=== PATIENT | female | born 1955 | race Caucasian/White ===

== ENCOUNTER 2020-01-08 21:19 | Inpatient (IN) | payer MEDICARE, MEDICAID, SELFPAY ==
--- NOTE | 2020-01-08 21:23 | CT_ITS ---
EXAMINATION: CT HEAD WITHOUT CONTRAST (STROKE PROTOCOL) CLINICAL INFORMATION: Stroke protocol. Left-sided weakness COMPARISON: 08/07/2019 TECHNIQUE: Contiguous axial imaging was performed from the skull base to vertex without intravenous administration of contrast. This CT examination was performed using dose optimization techniques as appropriate, variously including the following: *Automated exposure control *Adjustment of mA and/or kV according to patient size (this includes techniques or standardized protocols for targeted exams where dose is matched to indication/reason for exam; i.e. extremities or head) *Use of iterative reconstruction technique DLP: 604 mGy-cm FINDINGS: There is no intracranial hemorrhage, hematoma, or extra-axial fluid collection. The ventricles are normal in size. There is no hydrocephalus, edema, or mass effect. The harris-white matter differentiation appears symmetric. There is no acute infarct or mass lesion. Mild generalized atrophy, unchanged. The calvarium appears intact. There is no pneumocephalus or orbital emphysema. The visualized sinuses and middle ears and mastoid air cells show no significant mucosal thickening. There are no air-fluid levels. CT/CT head for stroke IMPRESSION: No acute intracranial pathology. This critical result was discussed with Dr. Schroeder at 9:38 PM hours on 01/08/2020. It was ascertained that the content and urgency of the report was understood at the time of direct communication.
--- NOTE | 2020-01-08 21:24 | ECG_ITS ---
Test Reason : STROKE Blood Pressure : / mmHG Vent. Rate : 090 BPM Atrial Rate : 090 BPM P-R Int : 164 ms QRS Dur : 098 ms QT Int : 386 ms P-R-T Axes : 047 008 059 degrees QTc Int : 472 ms Normal sinus rhythm Nonspecific ST abnormality RSR' or QR pattern in V1 suggests right ventricular conduction delay Abnormal ECG When compared with ECG of 09-AUG-2019 08:36, No significant change was found Referred By: Marti Schroeder Electronically Signed By:QUANG CATES MD
--- NOTE | 2020-01-08 21:24 | XR_ITS ---
EXAMINATION: XR CHEST CLINICAL INFORMATION: Cough COMPARISON: 12/19/2018 TECHNIQUE: Frontal view of the chest was obtained. FINDINGS: Cardiac leads overlie the chest. Small radiopaque densities overlie the proximal left upper extremity. The lungs are well expanded. There is no focal consolidation, edema, or effusion. No pneumothorax. The cardiomediastinal silhouette is within normal limits. No acute osseous abnormality. XR/XR chest 1V IMPRESSION: Clear lungs.
--- NOTE | 2020-01-08 21:29 | ED.NEUROSD ---
HPI - Neuro Symptoms/Deficit General Chief Complaint: Stroke Stated Complaint: stroke alert Time Seen by Provider: 01/08/20 21:23 Source: patient and EMS Mode of arrival: EMS History of Present Illness HPI Narrative: This is a 64-year-old female whom EMS reports began having left-sided weakness and drooling at approximately 7:00 p.m. this evening and is currently on Eliquis for PE. Patient states that she did have a brief cessation of the Eliquis for an endometrial biopsy on 12/20 but then states that the medication was restarted within 24 hours and says that her medication administration is supervised and directed by the nursing staff and she denies any missed doses. She still is unclear about the left-sided weakness and states that the nursing staff was concerned because they had some difficulty waking me up . On further questioning patient endorses that she has received all of her 8:00 p.m. medications without any difficulties such as coughing or choking. She states that 1 of her medications does make her drool quite a bit and denies any difficulty with swallowing or breathing. On arrival, NIH stroke scale was 0 patient was not noted to have any motor or sensory deficits and no noted facial asymmetry. Related Data Home Medications Medication Instructions Recorded Confirmed apixaban [Eliquis] 5 mg PO BID 01/08/20 01/08/20 baclofen 30 mg PO TID 01/08/20 01/08/20 cholecalciferol (vitamin D3) 25 mcg PO DAILY 01/08/20 01/08/20 [Vitamin D3] clonazepam 0.5 mg PO BID 01/08/20 01/08/20 clozapine 500 mg PO DAILY 01/08/20 01/08/20 ferrous sulfate 325 mg PO DAILY 01/08/20 01/08/20 folic acid 1 mg PO DAILY 01/08/20 01/08/20 hydrocodone-acetaminophen 1 tab PO TID 01/08/20 01/08/20 lamotrigine [Lamictal] 100 mg PO BID 01/08/20 01/08/20 levothyroxine [Levothroid] 75 mcg PO DAILY 01/08/20 01/08/20 pravastatin 20 mg PO BEDTIME 01/08/20 01/08/20 sennosides-docusate sodium [Senna 1 tab PO TID PRN 01/08/20 01/08/20 with Docusate Sodium] sertraline 100 mg PO DAILY 01/08/20 01/08/20 Allergies Allergy/AdvReac Type Severity Reaction Status Date / Time bee pollen [Bee Stings] Allergy Severe ANAPHYLAXIS Verified 01/08/20 21:33 Review of Systems Review of Systems: Pertinent positives and negatives as stated in HPI 10 point review of systems is otherwise negative. PMFSH Past Medical History Source: nursing notes reviewed Medical History Anxiety Bipolar 1 disorder GERD (gastroesophageal reflux disease) Lumbar radiculopathy Psychosis Pulmonary embolism Social History Social History Advance Directives: No Physical Exam Vital Signs: Vital Signs: Last Vital Signs Temp 97.7 F 01/08/20 22:47 Pulse 91 01/09/20 00:20 Resp 14 01/09/20 00:20 BP 134/86 01/09/20 00:20 Pulse Ox 100 01/09/20 00:20 Body Mass Index 21.7 VITAL SIGNS: Reviewed. GENERAL: Well developed, well nourished, in no acute distress. HEAD: Normocephalic/atraumatic, EYES: PERRLA, EOMI intact without pain, no nystagmus/pallor/icterus noted EARS: Ext canals without abnormality, TMs non-bulging and non-erythematous NOSE: Nares patent bilateral OROPHARYNX: no oral lesions noted, posterior pharynx clear and non-erythematous without noted tonsillar enlargement/erythema/exudates NECK: Supple, no adenopathy LUNGS: Normal breath sounds. No adventitious sounds or accessory muscle use. SpO2<100> CARDIOVASCULAR: Regular rate and rhythm without noted murmurs, no JVD or lower extremity edema. ABDOMEN: Soft, non-tender, non-distended with bowel sounds. No rigidity. No guarding. No palpable masses or hernias noted MUSCULOSKELETAL: No tenderness, deformities, or effusions noted on gross inspection. EXTREMITIES: No cyanosis, clubbing or edema. SKIN: Inspection of the skin reveals no rashes, ulcerations, jaundice, pallor, or petechiae. NEUROLOGIC: Alert and oriented x 4. Strength and sensation to light touch were grossly intact x 4 , cranial nerves 2-12 are grossly intact, there is no noted facial asymmetry, there is no pronator drift. Course Course Course Narrative: This is a 64-year-old female with significant past psychiatric history on multiple medications for this history who initially arrived as a code stroke however NIH score was noted to be 0 upon arrival but given the severity of reported symptoms by EMS with left-sided weakness proceeded with noncontrast head CT which on review was negative for any acute findings. This case was discussed with Neurology and we proceed with a CTA of head and neck which was found to be without acute abnormalities. On review of all laboratory investigations there is no evidence for infection and the anemia is chronically stable. Otherwise, chemistries are without acute findings except for evidence of possible mild volume depletion with a BUN of 20. Chest x-ray is without acute findings and EKG was negative for evidence contributory arrhythmias. This case was discussed with the inpatient hospitalist team who is agreeable for admission. Reevaluation(s) Reevaluation #1: I discussed the case with Dr. Acevedo who on further recommendation does not feel the patient is a candidate for tPA at this time but will proceed with head/neck CTA. Time: 21:38 Reevaluation #2: [facility] reporting on noncontrast head CT without acute intracranial abnormalities. Time: 21:40 Reevaluation #3: [facility] reporting on CTA of head and neck without any acute findings. Time: 22:36 MDM - Neuro Symptoms/Deficit Lab Data Result diagrams: 01/08/20 22:07 01/08/20 22:07 Labs: Lab Results 01/08/20 01/08/20 01/08/20 Range/Units 21:21 21:22 22:07 WBC 4.8 (4.8-10.8) X10*3/uL RBC 3.46 L (4.20-5.50) X10*6/uL Hgb 11.6 L (12.0-16.0) g/dl Hct 36.7 L (37-47) % MCV 106.1 H (80-98) fL MCH 33.5 H (27.0-33.0) pg MCHC 31.6 (31.0-35.0) g/dl RDW 12.0 (11.0-16.0) % Plt Count 161 (160-400) X10*3/uL MPV 9.4 (9.4-12.3) fL Immature Gran % (Auto) 0.2 (0.0-0.4) % Neut % (Auto) 55.7 (45-73) % Lymph % (Auto) 32.6 (20-40) % [place]zel % (Auto) 9.9 (2-11) % Eos % (Auto) 0.8 (0-4) % Baso % (Auto) 0.8 (0-2) % Lymph # (Auto) 1.6 (1.2-4.9) X10*3/uL [place] # (Auto) 0.5 (0.1-1.2) X10*3/uL Eos # (Auto) 0.0 (0.0-0.4) X10*3/uL Baso # (Auto) 0.0 (0.0-0.2) X10*3/uL Abs Immat Gran (auto) 0.01 (0.00-0.03) X10*3/uL Absolute Neuts (auto) 2.7 (2.0-8.3) X10*3/uL Absolute Nucleated RBC 0.000 (0.0-0.012) X10*3/uL Nucleated RBC % (auto) 0.0 (0.0-0.2) /100WBC PT (10.8-13.0) SEC Whole Blood PT 14.6 H (11.1-13.5) sec INR (0.9-1.1) Whole Blood INR 1.2 H (0.9-1.1) APTT (24.1-38.0) SEC Sodium (135-145) mmol/L Potassium (3.3-5.1) mmol/l Chloride (96-108) mmol/L Carbon Dioxide (22-29) mmol/L Anion Gap (12-20) BUN (9-16) mg/dL Creatinine (0.5-1.4) mg/dL Estim Creat Clear Calc Estimated GFR POC Glucose 87 (60-115) mg/dL Random Glucose (60-115) mg/dL Calcium (8.4-10.2) mg/dL Total Bilirubin (0.0-1.0) mg/dL AST (5-31) U/L ALT (0-31) U/L Alkaline Phosphatase (39-117) U/L Troponin I High Sens (<3.5-17.0) ng/L Total Protein (6.5-8.0) g/dL Albumin (3.5-5.0) g/dL Urine Color Urine Appearance Urine pH (5.0-8.0) Ur Specific [place] (1.005-1.025) Urine Protein (NEG-TRACE) MG/DL Urine Glucose (UA) (NEG) MG/DL Urine Ketones (NEG) MG/DL Urine Blood (NEG) Urine Nitrite (NEG) Ur Leukocyte Esterase (NEG) 01/08/20 01/08/20 01/08/20 Range/Units 22:07 22:07 22:07 WBC (4.8-10.8) X10*3/uL RBC (4.20-5.50) X10*6/uL Hgb (12.0-16.0) g/dl Hct (37-47) % MCV (80-98) fL MCH (27.0-33.0) pg MCHC (31.0-35.0) g/dl RDW (11.0-16.0) % Plt Count (160-400) X10*3/uL MPV (9.4-12.3) fL Immature Gran % (Auto) (0.0-0.4) % Neut % (Auto) (45-73) % Lymph % (Auto) (20-40) % Wetzel % (Auto) (2-11) % Eos % (Auto) (0-4) % Baso % (Auto) (0-2) % Lymph # (Auto) (1.2-4.9) X10*3/uL [place] # (Auto) (0.1-1.2) X10*3/uL Eos # (Auto) (0.0-0.4) X10*3/uL Baso # (Auto) (0.0-0.2) X10*3/uL Abs Immat Gran (auto) (0.00-0.03) X10*3/uL Absolute Neuts (auto) (2.0-8.3) X10*3/uL Absolute Nucleated RBC (0.0-0.012) X10*3/uL Nucleated RBC % (auto) (0.0-0.2) /100WBC PT 14.0 H (10.8-13.0) SEC Whole Blood PT (11.1-13.5) sec INR 1.2 H (0.9-1.1) Whole Blood INR (0.9-1.1) APTT 47.3 H (24.1-38.0) SEC Sodium 142 (135-145) mmol/L Potassium 3.8 (3.3-5.1) mmol/l Chloride 108 (96-108) mmol/L Carbon Dioxide 27 (22-29) mmol/L Anion Gap 11 L (12-20) BUN 20 H (9-16) mg/dL Creatinine 0.73 (0.5-1.4) mg/dL Estim Creat Clear Calc 62.6 Estimated GFR > 60 POC Glucose (60-115) mg/dL Random Glucose 85 86 (60-115) mg/dL Calcium 8.9 (8.4-10.2) mg/dL Total Bilirubin 0.2 (0.0-1.0) mg/dL AST 12 (5-31) U/L ALT 11 (0-31) U/L Alkaline Phosphatase 82 (39-117) U/L Troponin I High Sens (<3.5-17.0) ng/L Total Protein 5.8 L (6.5-8.0) g/dL Albumin 3.9 (3.5-5.0) g/dL Urine Color Urine Appearance Urine pH (5.0-8.0) Ur Specific [place] (1.005-1.025) Urine Protein (NEG-TRACE) MG/DL Urine Glucose (UA) (NEG) MG/DL Urine Ketones (NEG) MG/DL Urine Blood (NEG) Urine Nitrite (NEG) Ur Leukocyte Esterase (NEG) 01/08/20 01/08/20 01/09/20 Range/Units 22:07 23:56 00:19 WBC (4.8-10.8) X10*3/uL RBC (4.20-5.50) X10*6/uL Hgb (12.0-16.0) g/dl Hct (37-47) % MCV (80-98) fL MCH (27.0-33.0) pg MCHC (31.0-35.0) g/dl RDW (11.0-16.0) % Plt Count (160-400) X10*3/uL MPV (9.4-12.3) fL Immature Gran % (Auto) (0.0-0.4) % Neut % (Auto) (45-73) % Lymph % (Auto) (20-40) % [place]zel % (Auto) (2-11) % Eos % (Auto) (0-4) % Baso % (Auto) (0-2) % Lymph # (Auto) (1.2-4.9) X10*3/uL [place] # (Auto) (0.1-1.2) X10*3/uL Eos # (Auto) (0.0-0.4) X10*3/uL Baso # (Auto) (0.0-0.2) X10*3/uL Abs Immat Gran (auto) (0.00-0.03) X10*3/uL Absolute Neuts (auto) (2.0-8.3) X10*3/uL Absolute Nucleated RBC (0.0-0.012) X10*3/uL Nucleated RBC % (auto) (0.0-0.2) /100WBC PT (10.8-13.0) SEC Whole Blood PT (11.1-13.5) sec INR (0.9-1.1) Whole Blood INR (0.9-1.1) APTT (24.1-38.0) SEC Sodium (135-145) mmol/L Potassium (3.3-5.1) mmol/l Chloride (96-108) mmol/L Carbon Dioxide (22-29) mmol/L Anion Gap (12-20) BUN (9-16) mg/dL Creatinine (0.5-1.4) mg/dL Estim Creat Clear Calc Estimated GFR POC Glucose 91 (60-115) mg/dL Random Glucose (60-115) mg/dL Calcium (8.4-10.2) mg/dL Total Bilirubin (0.0-1.0) mg/dL AST (5-31) U/L ALT (0-31) U/L Alkaline Phosphatase (39-117) U/L Troponin I High Sens < 3.5 (<3.5-17.0) ng/L Total Protein (6.5-8.0) g/dL Albumin (3.5-5.0) g/dL Urine Color YELLOW Urine Appearance CLEAR Urine pH 6.5 (5.0-8.0) Ur Specific [place] 1.010 (1.005-1.025) Urine Protein NEG (NEG-TRACE) MG/DL Urine Glucose (UA) NEG (NEG) MG/DL Urine Ketones NEG (NEG) MG/DL Urine Blood NEG (NEG) Urine Nitrite NEG (NEG) Ur Leukocyte Esterase NEG (NEG) ECG Data Attestation: I personally reviewed and interpreted this ECG as follows: Prior ECG tracings: available for review ( 08/09/2019 there are no acute changes on comparison) Interpretation: normal sinus rhythm, HR -90, no acute evidence of ischemia, WA/QRS/ QTC are within normal limits. NIH Stroke Scale Internal: Initial- Upon Arrival Level of Consciousness: Alert Level of Consciousness Questions: Answers both questions correctly Level of Consciousness Commands: Performs both tasks correctly Best Gaze: Normal Visual: No visual loss Facial Palsy: Normal Motor Arm (Right): No drift Motor Arm (Left): No drift Motor Leg (Right): No drift Motor Leg (Left): No drift Limb Ataxia: Absent Sensory: Normal Best Language: No aphasia Dysarthia: Normal Extinction and Inattention: No abnormality Score: 0 Discharge Plan Discharge Clinical Impression: Transient cerebral ischemia Qualifiers: Transient cerebral ischemia type: unspecified Qualified Code(s): G45.9 - Transient cerebral ischemic attack, unspecified Patient Disposition: Admitted As Inpatient
[2020-01-08 21:33] LABS: Prothrombin Time Whole Bld POC 14.6 sec (11.1-13.5); ~PT, ~INR - Anti Coag Clinic 1.2 (0.9-1.1)
[2020-01-08 21:33] LABS: Glucose, Whole Blood 87 mg/dL (60-115)
[2020-01-08 21:36] VITALS: BP 130/74; BP 130/90; PULSE 91; PULSE 97; RESP 15; TEMP 36.5; O2SAT 100; BMI 21.7
--- NOTE | 2020-01-08 21:56 | CT_ITS ---
EXAMINATION: CTA OF THE HEAD/NECK CLINICAL INFORMATION: Transient left-sided weakness COMPARISON: 08/07/2019 TECHNIQUE: A routine non contrast head CT was performed followed by a 70 mL bolus of Omnipaque 350. Subsequent multidetector helical imaging was performed of the head and neck. Delayed post contrast imaging was also performed through the head. Multiplanar reformats and MIP were also obtained. Internal carotid artery stenoses are assessed in accordance with NASCET criteria unless otherwise indicated. DLP: 2075 mGy-cm. FINDINGS: CT HEAD: No evidence of acute intracranial hemorrhage or territorial infarction. No abnormal mass effect or midline shift. [place] to white matter differentiation is preserved. No extra-axial fluid collections are identified. No hydrocephalus. No suspicious leptomeningeal or parenchymal enhancement on the post-contrast images. The osseous structures and soft tissues are normal. Partial opacification of the left ethmoid air cells. The mastoid air cells and visualized portions of the paranasal sinuses are otherwise well aerated. CTA NECK: The aortic arch is of normal caliber and the origins of the great vessels are patent without evidence of significant stenosis. The cervical portion of the vertebral arteries are patent bilaterally. The right vertebral artery is dominant. No luminal irregularities in the common carotid arteries and the carotid bifurcations are patent bilaterally. The cervical portion of the internal carotid arteries are of normal caliber. The laryngeal structures and pharyngeal mucosal spaces are unremarkable. The oral cavity appears normal. The parotid and submandibular glands are normal. No pathologically enlarged lymph nodes. The thyroid gland is unremarkable. Paraseptal emphysema noted at the lung apices.. Spinal alignment is maintained. Mild cervical spondylosis is noted. CTA HEAD: The intradural portion of the vertebral arteries are of normal caliber. The basilar, superior cerebellar, and posterior communicating arteries are patent. The posterior, middle, and anterior cerebral arteries are of normal caliber without evidence of significant luminal irregularity. No definite intracranial aneurysms. CT/CT angio head neck stroke IMPRESSION: 1. No acute intracranial findings. 2. No large vessel vascular occlusion. This critical result was discussed with Marti Schroeder MD by telephone at 01/08/2020 10:35 PM and it was ascertained that the content and urgency of the report was understood at the time of direct communication.
[2020-01-08 22:16] LABS: MANUAL DIFF FLAG NO
[2020-01-08 22:19] LABS: Basophils Percent Auto 0.8 % (0-2); Eosinophils Percent Auto 0.8 % (0-4); Hematocrit 36.7 % (37-47); Hemoglobin 11.6 g/dl (12.0-16.0); Imm Gran Abs Auto 0.01 X10*3/uL (0.00-0.03); Imm Gran Pct Auto 0.2 % (0.0-0.4); Lymphocytes Absolute Auto 1.6 X10*3/uL (1.2-4.9); Lymphocytes Percent Auto 32.6 % (20-40); Mean Corpuscular HGB Conc 31.6 g/dl (31.0-35.0); Mean Corpuscular Hemoglobin 33.5 pg (27.0-33.0); Mean Corpuscular Volume 106.1 fL (80-98); Mean Platelet Volume 9.4 fL (9.4-12.3); Monocytes Absolute Auto 0.5 X10*3/uL (0.1-1.2); Monocytes Percent Auto 9.9 % (2-11); Neutrophils Absolute Auto 2.7 X10*3/uL (2.0-8.3); Neutrophils Percent Auto 55.7 % (45-73); Platelet Count 161 X10*3/uL (160-400); Red Blood Count 3.46 X10*6/uL (4.20-5.50); White Blood Count 4.8 X10*3/uL (4.8-10.8)
[2020-01-08 22:25] LABS: INTERNATIONAL NORM RATIO 1.2 (0.9-1.1)
[2020-01-08 22:27] LABS: Partial Thromboplastin Time 47.3 SEC (24.1-38.0)
[2020-01-08 22:36] LABS: Glucose Random 86 mg/dL (60-115)
[2020-01-08 22:44] LABS: Alanine Aminotransferase 11 U/L (0-31); Albumin Level 3.9 g/dL (3.5-5.0); Alkaline Phosphatase 82 U/L (39-117); Anion Gap 11 (12-20); Aspartate Amino Transferase 12 U/L (5-31); Bilirubin Total 0.2 mg/dL (0.0-1.0); Blood Urea Nitrogen 20 mg/dL (9-16); Calcium 8.9 mg/dL (8.4-10.2); Carbon Dioxide 27 mmol/L (22-29); Chloride 108 mmol/L (96-108); Creatinine Clr Calc Pharmacy 62.6; Estimated Glomerular Filt Rate > 60; Glucose Random 85 mg/dL (60-115); Potassium 3.8 mmol/l (3.3-5.1); Sodium 142 mmol/L (135-145); Total Protein 5.8 g/dL (6.5-8.0)
[2020-01-08 22:47] VITALS: BP 125/79; PULSE 83; RESP 13; TEMP 36.5; O2SAT 100
[2020-01-08 22:47] LABS: Troponin-I High Sensitivity < 3.5 ng/L (<3.5-17.0)
[2020-01-09] VITALS (11 sets, daily range): BP systolic 97–164; BP diastolic 58–98; PULSE 82–100; RESP 14–20; TEMP 36.6–37.1; O2SAT 96–100
[2020-01-09 00:03] LABS: Glucose, Whole Blood 91 mg/dL (60-115)
[2020-01-09 00:31] LABS: Glucose Urine UA NEG (NEG); Leukocyte Esterase Urine NEG (NEG); Nitrite Urine NEG (NEG); PH 6.5 (5.0-8.0); Urine Blood NEG (NEG); Urine Ketones NEG (NEG); Urine Protein NEG (NEG-TRACE)
[2020-01-09 00:32] LABS: Appearance Urine CLEAR; Color Urine YELLOW; UACC Culture Trigger NO
[2020-01-09 02:43] LABS: Influenza A PCR NEGATIVE (Negative); Influenza B PCR NEGATIVE (Negative); Resp Syncy Virus RNA Qual PCR NEGATIVE (Negative); SARS COV2 PCR INHOUSE NEGATIVE (Negative)
--- NOTE | 2020-01-09 03:03 | P.HPHOSP_ITS ---
History of Present Illness Date of Service: 01/09/20 Chief Complaint: left sided weakness 64 y/o female with an extensive PMHx who presented from assisted living facility due to left sided weakness and difficulty speaking. Per history provided by the patient, around 7 pm yesterday started feeling weak in her left side associated with inability to speak properly for what decided to come to the ED for further evaluation. On july of year patient was admitted to our facility due to acute PE and discharged on Eliquis. Recently patient stopped eliquis for a period of 24 hrs for an endometrial biopsy for a concerning mass in the endometrial. Patient resume treatment appropriately right after. On presentation to the ED patient was found to have a NIH scale of 0, no evidence of any neurologic deficit. CT head as well as CTA head and neck were found to be negative for any acute pathology. Neurology was consulted per ED. Decision for admission was given to medicine. Patient seen and examined at the bedside, laying down in bed in no acute distress. ROS as above otherwise negative. Physical exam unremarkable. PAST MEDICAL HISTORY: 1. Depression. 2. Colitis. 3. Hypothyroidism. 4. Bipolar disorder. SURGICAL HISTORY: 1. Lumbar spine surgery with plates and screw placement. 2. Tonsillectomy. Toxic habits: No hx of alcohol abuse, smoking or IVDA Review of Systems Constitutional: Constitutional: Reports weakness Neurologic: Reports Abnormal speech present and Reports weakness PMFSH Medical History Anxiety Bipolar 1 disorder GERD (gastroesophageal reflux disease) Lumbar radiculopathy Psychosis Pulmonary embolism Functional capacity: independent ambulation Social History Advance Directives: No Meds Allergies Allergy/AdvReac Type Severity Reaction Status Date / Time bee pollen [Bee Stings] Allergy Severe ANAPHYLAXIS Verified 01/08/20 21:33 Home Medications Medication Instructions Recorded Confirmed Type apixaban [Eliquis] 5 mg PO BID 01/08/20 01/08/20 History baclofen 30 mg PO TID 01/08/20 01/08/20 History cholecalciferol (vitamin D3) 25 mcg PO DAILY 01/08/20 01/08/20 History [Vitamin D3] clonazepam 0.5 mg PO BID 01/08/20 01/08/20 History clozapine 500 mg PO DAILY 01/08/20 01/08/20 History ferrous sulfate 325 mg PO DAILY 01/08/20 01/08/20 History folic acid 1 mg PO DAILY 01/08/20 01/08/20 History hydrocodone-acetaminophen 1 tab PO TID 01/08/20 01/08/20 History lamotrigine [Lamictal] 100 mg PO BID 01/08/20 01/08/20 History levothyroxine [Levothroid] 75 mcg PO DAILY 01/08/20 01/08/20 History pravastatin 20 mg PO BEDTIME 01/08/20 01/08/20 History sennosides-docusate sodium [Senna 1 tab PO TID PRN 01/08/20 01/08/20 History with Docusate Sodium] sertraline 100 mg PO DAILY 01/08/20 01/08/20 History Physical Exam Vital Signs and Narrative: Vital Signs: Last Vital Signs Temp 97.7 F 01/08/20 22:47 Pulse 90 01/09/20 01:55 Resp 20 01/09/20 01:55 BP 139/85 01/09/20 01:55 Pulse Ox 100 01/09/20 01:55 Body Mass Index 21.7 Const: General: cooperative, comfortable and no acute distress Orientation/consciousness: oriented to person, oriented to place and oriented to time HENMT: Head: Yes normal to inspection Eyes: General: appearance normal, both eyes and all related structures Neck: Yes normal visual inspection Chest: Chest palpation & inspection: normal inspection of the chest Resp: Effort & Inspection: normal respiratory effort Cardio: Jugular venous distension: no JVD Rate: regular rate Rhythm: regular rhythm Heart sounds: S1 normal heart sound present and S2 normal heart sound present GI: Inspection: Yes normal to inspection Skin: General skin exam: no rashes or lesions noted Neuro: General: oriented to person, oriented to place and oriented to time Cognition (Neuro): normal cognition Speech: Abnormal speech present Extrem: General: Yes normal to inspection Psych: Appearance: grossly normal Results Labs CBC and Chem 7: 01/08/20 22:07 01/08/20 22:07 Labs: Laboratory Results - last 24 hr 01/08/20 01/08/20 01/08/20 21:21 21:22 22:07 MCV 106.1 H MCH 33.5 H MCHC 31.6 RDW 12.0 Plt Count 161 MPV 9.4 Immature Gran % (Auto) 0.2 Neut % (Auto) 55.7 Lymph % (Auto) 32.6 [place] % (Auto) 9.9 Eos % (Auto) 0.8 Baso % (Auto) 0.8 Lymph # (Auto) 1.6 [place] # (Auto) 0.5 Eos # (Auto) 0.0 Baso # (Auto) 0.0 Abs Immat Gran (auto) 0.01 Absolute Neuts (auto) 2.7 Absolute Nucleated RBC 0.000 Nucleated RBC % (auto) 0.0 PT Whole Blood PT 14.6 H INR Whole Blood INR 1.2 H APTT Anion Gap Estim Creat Clear Calc Estimated GFR POC Glucose 87 Random Glucose Calcium Total Bilirubin AST ALT Alkaline Phosphatase Troponin I High Sens Total Protein Albumin Urine Color Urine Appearance Urine pH Ur Specific [place] Urine Protein Urine Glucose (UA) Urine Ketones Urine Blood Urine Nitrite Ur Leukocyte Esterase Coronavirus (PCR) Influenza Type A (PCR) Influenza Type B (PCR) RSV RNA Qual (PCR) 01/08/20 01/08/20 01/08/20 22:07 22:07 22:07 MCV MCH MCHC RDW Plt Count MPV Immature Gran % (Auto) Neut % (Auto) Lymph % (Auto) [place] % (Auto) Eos % (Auto) Baso % (Auto) Lymph # (Auto) [place] # (Auto) Eos # (Auto) Baso # (Auto) Abs Immat Gran (auto) Absolute Neuts (auto) Absolute Nucleated RBC Nucleated RBC % (auto) PT 14.0 H Whole Blood PT INR 1.2 H Whole Blood INR APTT 47.3 H Anion Gap 11 L Estim Creat Clear Calc 62.6 Estimated GFR > 60 POC Glucose Random Glucose 85 86 Calcium 8.9 Total Bilirubin 0.2 AST 12 ALT 11 Alkaline Phosphatase 82 Troponin I High Sens Total Protein 5.8 L Albumin 3.9 Urine Color Urine Appearance Urine pH Ur Specific [place] Urine Protein Urine Glucose (UA) Urine Ketones Urine Blood Urine Nitrite Ur Leukocyte Esterase Coronavirus (PCR) Influenza Type A (PCR) Influenza Type B (PCR) RSV RNA Qual (PCR) 01/08/20 01/08/20 01/09/20 22:07 23:56 00:19 MCV MCH MCHC RDW Plt Count MPV Immature Gran % (Auto) Neut % (Auto) Lymph % (Auto) [place] % (Auto) Eos % (Auto) Baso % (Auto) Lymph # (Auto) [place] # (Auto) Eos # (Auto) Baso # (Auto) Abs Immat Gran (auto) Absolute Neuts (auto) Absolute Nucleated RBC Nucleated RBC % (auto) PT Whole Blood PT INR Whole Blood INR APTT Anion Gap Estim Creat Clear Calc Estimated GFR POC Glucose 91 Random Glucose Calcium Total Bilirubin AST ALT Alkaline Phosphatase Troponin I High Sens < 3.5 Total Protein Albumin Urine Color YELLOW Urine Appearance CLEAR Urine pH 6.5 Ur Specific [place] 1.010 Urine Protein NEG Urine Glucose (UA) NEG Urine Ketones NEG Urine Blood NEG Urine Nitrite NEG Ur Leukocyte Esterase NEG Coronavirus (PCR) Influenza Type A (PCR) Influenza Type B (PCR) RSV RNA Qual (PCR) 01/09/20 01:11 MCV MCH MCHC RDW Plt Count MPV Immature Gran % (Auto) Neut % (Auto) Lymph % (Auto) [place] % (Auto) Eos % (Auto) Baso % (Auto) Lymph # (Auto) [place] # (Auto) Eos # (Auto) Baso # (Auto) Abs Immat Gran (auto) Absolute Neuts (auto) Absolute Nucleated RBC Nucleated RBC % (auto) PT Whole Blood PT INR Whole Blood INR APTT Anion Gap Estim Creat Clear Calc Estimated GFR POC Glucose Random Glucose Calcium Total Bilirubin AST ALT Alkaline Phosphatase Troponin I High Sens Total Protein Albumin Urine Color Urine Appearance Urine pH Ur Specific [place] Urine Protein Urine Glucose (UA) Urine Ketones Urine Blood Urine Nitrite Ur Leukocyte Esterase Coronavirus (PCR) NEGATIVE Influenza Type A (PCR) NEGATIVE Influenza Type B (PCR) NEGATIVE RSV RNA Qual (PCR) NEGATIVE Imaging Radiologist's Impressions: Impressions Head CT 01/08/20 21:23 IMPRESSION: No acute intracranial pathology. This critical result was discussed with Dr. Schroeder at 9:38 PM hours on 01/08/2020. It was ascertained that the content and urgency of the report was understood at the time of direct communication. Chest X-Ray 01/08/20 21:24 IMPRESSION: Clear lungs. Head/Neck CTA 01/08/20 21:56 IMPRESSION: 1. No acute intracranial findings. 2. No large vessel vascular occlusion. This critical result was discussed with Marti Schroeder MD by telephone at 01/08/2020 10:35 PM and it was ascertained that the content and urgency of the report was understood at the time of direct communication. Assessment and Plan (1) Transient cerebral ischemia: Qualifiers: Transient cerebral ischemia type: unspecified Qualified Code(s): G45.9 - Transient cerebral ischemic attack, unspecified Status: Acute playground monitor neuro checks Follow up 2D echo CTA head and neck negative Patient able to tolerated PO intake Neurology evaluation in the am (2) Pulmonary embolism: Status: Acute continue with eliquis home dose (3) Bipolar 1 disorder: Status: Acute continue with clonazepam home dose continue with clozapine home dose continue with sertraline home dose (4) Seizures: Status: Acute continue with lamotrigine home dose (5) Hypothyroidism: Status: Acute continue with levothyroxine home dose (6) Lumbar radiculopathy: Status: Acute continue with baclofen home dose
[2020-01-09] MEDS: Levothyroxine Sodium 75 MCG TABLET PO (06:32)
[2020-01-09 08:05] LABS: Basophils Absolute Auto 0.1 X10*3/uL (0.0-0.2); Basophils Percent Auto 1.1 % (0-2); Eosinophils Percent Auto 0.6 % (0-4); Hematocrit 37.5 % (37-47); Hemoglobin 12.1 g/dl (12.0-16.0); Imm Gran Abs Auto 0.02 X10*3/uL (0.00-0.03); Imm Gran Pct Auto 0.4 % (0.0-0.4); Lymphocytes Absolute Auto 1.2 X10*3/uL (1.2-4.9); Lymphocytes Percent Auto 25.6 % (20-40); MANUAL DIFF FLAG NO; Mean Corpuscular HGB Conc 32.3 g/dl (31.0-35.0); Mean Corpuscular Volume 105.3 fL (80-98); Mean Platelet Volume 9.5 fL (9.4-12.3); Monocytes Absolute Auto 0.3 X10*3/uL (0.1-1.2); Monocytes Percent Auto 6.8 % (2-11); Neutrophils Absolute Auto 3.1 X10*3/uL (2.0-8.3); Neutrophils Percent Auto 65.5 % (45-73); Platelet Count 156 X10*3/uL (160-400); Red Blood Count 3.56 X10*6/uL (4.20-5.50); White Blood Count 4.7 X10*3/uL (4.8-10.8)
[2020-01-09 08:24] LABS: Anion Gap 13 (12-20); Blood Urea Nitrogen 15 mg/dL (9-16); Calcium 9.1 mg/dL (8.4-10.2); Carbon Dioxide 28 mmol/L (22-29); Chloride 105 mmol/L (96-108); Creatinine Clr Calc Pharmacy 63.5; Estimated Glomerular Filt Rate > 60; Glucose Random 89 mg/dL (60-115); Potassium 4.5 mmol/l (3.3-5.1); Sodium 141 mmol/L (135-145)
[2020-01-09] MEDS: Cholecalciferol (Vitamin D3) 25 MCG TABLET PO (08:29)
[2020-01-09] MEDS: clonazePAM 0.5 MG TABLET PO ×2 (08:29→21:55)
[2020-01-09] MEDS: Apixaban 5 MG TABLET PO ×2 (08:29→21:55)
[2020-01-09] MEDS: Ferrous Sulfate 324 MG TABLET.DR PO (08:29)
[2020-01-09] MEDS: HYDROcodone Bit/Acetam 5/325 TABLET 1 TAB PO ×3 (08:29→21:55)
[2020-01-09] MEDS: lamoTRIgine 100 MG TABLET PO ×2 (08:30→21:56)
[2020-01-09] MEDS: 0.9 % Sodium Chloride Flush 3 ML SYRINGE IVFLUSH ×3 (08:30→21:59)
[2020-01-09] MEDS: Sertraline HCL 100 MG TABLET PO (08:30)
[2020-01-09] MEDS: Folic Acid 1 MG TABLET PO (08:30)
[2020-01-09] MEDS: Baclofen 10 MG TABLET 30 MG PO ×3 (08:30→21:56)
--- NOTE | 2020-01-09 10:11 | MHC.CM.PN ---
PT REPROTS SHE LIVES AT [facility] AND USES A WALKER TO AMBULATE. PT REPORTS SHE DOES HAVE A HCP, VANESSA MCCLELLAN. PT REPORTS SHE SEES LYNETTE CASTILLO MD ON STAFF, DR MONTAÑO, FOR PRIMARY CARE. SHE REPORTS HE OR HIS PA USUALLY COME INTO [facility] TO SEE PTS HOWEVER SHE ALSO GOES OUT TO [facility]. PT STATES THE [facility] STAFF USUALLY DRIVE HER TO THE APPTS. PTS CURRENT DC PLAN IS TO RETURN TO [facility] TRANSPORT STILL TBD. C SHUTTLE VS [facility] STAFF
--- NOTE | 2020-01-09 10:42 | PM.NEUROCN ---
History of Present Illness Data of Consult Service Date: 01/09/20 Primary Care Provider: Unknown Physician 64 years old woman with past medical history of pulmonary embolism on Eliquis and bipolar disorder who was brought to hospital yesterday with new onset of slurred speech lethargy and left-sided weakness. She said that she remembered everything well people were talking to her but she could not speak well and could not stand or legs. In emergency room she improved with no significant neurological finding and she was not considered for intravenous tPA. Now she was back to baseline stating that she was walking around with no significant difficulty. She had a mild headache around that time. Review of Systems Review of Systems: No cold or flu-like illness or obvious shaking or convulsion or trauma. Constitutional: Constitutional: Reports weakness Neurologic: Reports Abnormal speech present and Reports weakness PMFSH Past Medical History Medical History (Updated 01/09/20 @ 10:47 by Ike Acevedo MD) Anxiety Bipolar 1 disorder Lumbar radiculopathy Psychosis Pulmonary embolism Functional capacity: independent ambulation Social History Social History Household Members: None Housing: Assisted Living Facility Do you presently have visiting nurse or other home services: No Alcohol intake: never Smoking Status: Never smoker Use of substances other than those prescribed or required for medical reasons: No Have you been hit, kicked, punched, or otherwise hurt by someone within the past year? If so, by whom?: No Do you feel safe in your current relationship?: Yes Is there a partner from a previous relationship who is making you feel unsafe now?: No Are you made to feel afraid or neglected: No [facility] Practices: confucianism Advance Directives: No Do you have thoughts of harming others: None Do you have a plan to hurt others: No Plan Recently lost weight without trying: No service: No Current occupational status: retired Meds Allergies Allergy/AdvReac Type Severity Reaction Status Date / Time bee pollen [Bee Stings] Allergy Severe ANAPHYLAXIS Verified 01/08/20 21:33 Home Medications Medication Instructions Recorded Confirmed Type apixaban [Eliquis] 5 mg PO BID 01/08/20 01/08/20 History baclofen 30 mg PO TID 01/08/20 01/08/20 History cholecalciferol (vitamin D3) 25 mcg PO DAILY 01/08/20 01/08/20 History [Vitamin D3] clonazepam 0.5 mg PO BID 01/08/20 01/08/20 History clozapine 500 mg PO DAILY 01/08/20 01/08/20 History ferrous sulfate 325 mg PO DAILY 01/08/20 01/08/20 History folic acid 1 mg PO DAILY 01/08/20 01/08/20 History hydrocodone-acetaminophen 1 tab PO TID 01/08/20 01/08/20 History lamotrigine [Lamictal] 100 mg PO BID 01/08/20 01/08/20 History levothyroxine [Levothroid] 75 mcg PO DAILY 01/08/20 01/08/20 History pravastatin 20 mg PO BEDTIME 01/08/20 01/08/20 History sennosides-docusate sodium [Senna 1 tab PO TID PRN 01/08/20 01/08/20 History with Docusate Sodium] sertraline 100 mg PO DAILY 01/08/20 01/08/20 History Physical Exam Vital Signs: Vital Signs: Last Vital Signs Temp 98.8 F 01/09/20 08:00 Pulse 91 01/09/20 08:00 Resp 20 01/09/20 08:00 BP 157/72 H 01/09/20 08:00 Pulse Ox 100 01/09/20 08:00 She was alert and awake with normal spontaneity of spe ech fluency compre hension and affect . Pupils were rou nd reactive to lig ht about 3 mm. Ex ternal ocular musc les were intact. Visual major are full to confrontat ion. There was mi ld right-sided fac ial flatness. The re was no pronator drift. No obviou s focal arm or leg weakness was note d. Plantars were flexors. Neuro: Speech: Abnormal speech present Results Labs CBC & Chem 7: 01/09/20 07:45 01/09/20 07:45 Labs: Short CBC 01/08/20 01/09/20 Range/Units 22:07 07:45 WBC 4.8 4.7 L (4.8-10.8) X10*3/uL Hgb 11.6 L 12.1 (12.0-16.0) g/dl Hct 36.7 L 37.5 (37-47) % Plt Count 161 156 L (160-400) X10*3/uL BMP 01/08/20 01/09/20 22:07 07:45 Sodium 142 141 Potassium 3.8 4.5 Chloride 108 105 Carbon Dioxide 27 28 BUN 20 H 15 Creatinine 0.73 0.72 Calcium 8.9 9.1 Liver Function 01/08/20 Range/Units 22:07 Total Bilirubin 0.2 (0.0-1.0) mg/dL AST 12 (5-31) U/L ALT 11 (0-31) U/L Alkaline Phosphatase 82 (39-117) U/L Albumin 3.9 (3.5-5.0) g/dL Urine 01/09/20 Range/Units 00:19 Urine Color YELLOW Urine Appearance CLEAR Urine pH 6.5 (5.0-8.0) Ur Specific [place] 1.010 (1.005-1.025) Urine Protein NEG (NEG-TRACE) MG/DL Urine Glucose (UA) NEG (NEG) MG/DL Her noncontrast head CT did not reveal any significant abnormality. CTA of brain and neck also did not reveal any significant vascular lesion or acute brain abnormality. No significant chronic abnormality was noted other than mild bifrontal atrophy. Chest x-ray was unremarkable. Assessment and Plan (1) Transient ischemic attack: Status: Acute 64 years old woman on Eliquis for pulmonary embolism, bipolar disorder, and history of a similar episode about a year ago when she was admitted in a different hospital. Her overall presentation was suggestive either of a transient ischemic attack or seizure disorder. She was on relatively high doses of multiple medications but does for her routine medicines and have not caused similar symptoms in the past. There was no sign of any metabolic abnormality or dehydration or infection to explain her symptoms. Recommendations 1. MRI of brain without contrast 2. Electroencephalogram
--- NOTE | 2020-01-09 17:08 | HO.PM.IMPN ---
Subjective Subjective Date of Service: 01/10/20 Interval History: TIA Review of Systems Her symptoms improved, she says she had similar symptoms 1 year ago and that time also the symptoms were resolved but she is unclear what happened that time. Denies any nausea or vomiting or abdominal pain or fever or chills or cough or phlegm. Physical Exam Vital Signs: Vital Signs: Last Vital Signs Temp 98.6 F 01/09/20 15:08 Pulse 90 01/09/20 15:08 Resp 20 01/09/20 15:08 BP 97/59 L 01/09/20 15:08 Pulse Ox 96 01/09/20 15:08 Body Mass Index 21.7 Physical exam: Cvs: [id number], [id number] , no murmur res: clear to auscultation ,no rhonchii or wheezing abd: no rebound or guarding ,nt, bs present. ext pulses present , no cyanosis neuro: axo3 , nonfocal. Objective Data Current Medications Generic Name Dose Route Start Last Admin Trade Name Freq PRN Reason Stop Dose Admin Hydrocodone Bitart/Acetaminophen 1 tab 01/09/20 09:00 01/09/20 15:00 Hydrocodone Bit/Acetam 5/325 Tablet PO 1 tab TID ROSIO Administration Apixaban 5 mg 01/09/20 09:00 01/09/20 08:29 Apixaban 5 Mg Tablet PO 5 mg BID ROSIO Administration Baclofen 30 mg 01/09/20 09:00 01/09/20 15:00 Baclofen 10 Mg Tablet PO 30 mg TID ROSIO Administration Clonazepam 0.5 mg 01/09/20 09:00 01/09/20 08:29 Clonazepam 0.5 Mg Tablet PO 0.5 mg BID ROSIO Administration Clozapine 500 mg 01/09/20 21:00 Clozapine 100 Mg Tablet PO BEDTIME ROSIO Ferrous Sulfate 324 mg 01/09/20 09:00 01/09/20 08:29 Ferrous Sulfate 324 Mg Tablet. PO 324 mg DAILY ROSIO Administration Folic Acid 1 mg 01/09/20 09:00 01/09/20 08:30 Folic Acid 1 Mg Tablet PO 1 mg DAILY ROSIO Administration Lamotrigine 100 mg 01/09/20 09:00 01/09/20 08:30 Lamotrigine 100 Mg Tablet PO 100 mg BID ROSIO Administration Levothyroxine Sodium 75 mcg 01/09/20 06:30 01/09/20 06:32 Levothyroxine Sodium 75 Mcg Tablet PO 75 mcg DAILY@0630 ROSIO Administration Pravastatin Sodium 20 mg 01/09/20 21:00 Pravastatin Sodium 20 Mg Tablet PO BEDTIME ROSIO Senna/Docusate Sodium 1 tab 01/09/20 02:59 Sennosides/Docusate Sodium Tablet PO TID PRN Constipation Sertraline HCl 100 mg 01/09/20 09:00 01/09/20 08:30 Sertraline Hcl 100 Mg Tablet PO 100 mg DAILY ROSIO Administration Sodium Chloride 3 ml 01/09/20 08:00 01/09/20 16:41 0.9 % Sodium Chloride Flush 3 Ml Syringe IVFLUSH 3 ml QSHIFT ROSIO Administration Vitamin D 25 mcg 01/09/20 09:00 01/09/20 08:29 Cholecalciferol (Vitamin D3) 25 Mcg Tablet PO 25 mcg DAILY ROSIO Administration Labs CBC & Chem 7: 01/09/20 07:45 01/09/20 07:45 Assessment and Plan (1) Transient ischemic attack: Status: Acute Assessment and Plan: TIa:? TIA versus seizure issue Seen by neurology recommended MRI and EEG Patient is on liquids for pulmonary embolism will continue that. 2. Bipolar : continue clonazepam , clozapine, lamictal Will discussed with the patient may need to adjust her baclofen and hydrocodone.
--- NOTE | 2020-01-09 18:28 | EEG_ITS ---
This is a 16-channel digital EEG with an EKG lead. The patient is reported awake during the tracing. Background EEG rhythm is about 10 hertz, 5 to 30 microvolt posteriorly, lower amplitude fast anteriorly. Photic stimulation does not produce any significant abnormality. Hyperventilation is not performed. Cardiac lead does not reveal any significant abnormality. No obvious sharp wave spikes, paroxysmal tendency, or asymmetry is noted. IMPRESSION: Unremarkable EEG. MD ERICA Long/FLORENCIO / [id number]
--- NOTE | 2020-01-09 18:36 | PC.NURSE ---
PT is high fall risk - refuses bed alarm at this time. Pt understands why we have her highfall risk but stating symptoms resolved so she can walk on her own. Informed pt if ever felt like she needed help to please let us know and we would walk her to the bathroom as she came in with increased weakness on own side.
[2020-01-09] MEDS: cloZAPine 100 MG TABLET 500 MG PO (21:56)
[2020-01-09] MEDS: Pravastatin Sodium 20 MG TABLET PO (21:56)
--- NOTE | 2020-01-10 | MR_ITS ---
EXAMINATION: BRAIN MRI WITHOUT CONTRAST CLINICAL INFORMATION: Transient ischemic attack. COMPARISON: CT angiogram of the head and neck 01/08/2020. TECHNIQUE: Multiplanar MR imaging of the brain was performed without contrast. FINDINGS: There are scattered nonspecific foci of T2 FLAIR signal hyperintensity within the periventricular white matter. No acute territorial infarct. No pathological magnetic susceptibility artifact. Intracranial vascular flow voids are maintained. There is no intracranial mass effect or midline shift. No abnormal extra-axial collection. Lateral and third ventricles are normal. No hydrocephalus. Midline structures including the cervicomedullary junction are normal. No acute bone marrow signal changes. There is no mastoid middle ear effusion. No active paranasal sinus disease. Globes and orbits are symmetric. MR/MR head/brain wo con IMPRESSION: There are scattered chronic small vessel ischemic changes within the periventricular white matter. Otherwise unremarkable examination. No evidence of acute territorial infarct or hemorrhage.
[2020-01-10] MEDS: 0.9 % Sodium Chloride Flush 3 ML SYRINGE IVFLUSH ×3 (00:35→23:58)
[2020-01-10 03:17] VITALS: BP 134/72; PULSE 78; RESP 16; TEMP 36.3; O2SAT 100
[2020-01-10] MEDS: Levothyroxine Sodium 75 MCG TABLET PO (06:01)
[2020-01-10 08:00] VITALS: BP 140/82; PULSE 83; RESP 18; TEMP 36.7; O2SAT 100
[2020-01-10] MEDS: HYDROcodone Bit/Acetam 5/325 TABLET 1 TAB PO ×3 (08:53→20:13)
[2020-01-10] MEDS: Ferrous Sulfate 324 MG TABLET.DR PO (08:54)
[2020-01-10] MEDS: lamoTRIgine 100 MG TABLET PO ×2 (08:54→20:14)
[2020-01-10] MEDS: Cholecalciferol (Vitamin D3) 25 MCG TABLET PO (08:54)
[2020-01-10] MEDS: Folic Acid 1 MG TABLET PO (08:54)
[2020-01-10] MEDS: Sertraline HCL 100 MG TABLET PO (08:54)
[2020-01-10] MEDS: Apixaban 5 MG TABLET PO ×2 (08:54→20:14)
[2020-01-10] MEDS: clonazePAM 0.5 MG TABLET PO ×2 (08:54→20:14)
[2020-01-10] MEDS: Baclofen 10 MG TABLET 30 MG PO ×3 (08:54→20:13)
[2020-01-10 09:01] LABS: Alanine Aminotransferase 12 U/L (0-31); Albumin Level 3.9 g/dL (3.5-5.0); Alkaline Phosphatase 84 U/L (39-117); Aspartate Amino Transferase 13 U/L (5-31); Bilirubin Direct < 0.2 mg/dL (0.0-0.5); Bilirubin Total 0.2 mg/dL (0.0-1.0); Cholesterol 173 mg/dL; HDL Cholesterol 73 mg/dL; LDL Cholesterol Calculated 89 mg/dl; Total Protein 5.9 g/dL (6.5-8.0); Triglycerides 57 mg/dL
[2020-01-10 09:59] VITALS: BP 140/82; PULSE 83; O2SAT 100
[2020-01-10] MEDS: Sennosides/Docusate Sodium TABLET 1 TAB PO ×2 (10:17→15:27)
--- NOTE | 2020-01-10 11:51 | MHC.CM.PN ---
The goal for dc is to return to [facility]. Neurology has recommended MRI & EEG (TIA VS Seizure). Patient will need a PT eval to determine if returning to [facility] level of care is appropriate. CM will continue to follow for dc planning and possible need to adjust the dc plan.
[2020-01-10 12:00] VITALS: BP 133/71; PULSE 79; RESP 18; TEMP 36.7; O2SAT 100
[2020-01-10 15:49] VITALS: BP 125/77; PULSE 74; RESP 18; TEMP 36.6; O2SAT 100
--- NOTE | 2020-01-10 18:14 | HO.PM.IMPN ---
Subjective Subjective Date of Service: 01/10/20 Interval History: tia Review of Systems Patient denies any chest pain or shortness of breath or abdominal pain or fever or chills or weakness numbness Physical Exam Vital Signs: Vital Signs: Last Vital Signs Temp 97.8 F 01/10/20 15:49 Pulse 74 01/10/20 15:49 Resp 18 01/10/20 15:49 BP 125/77 01/10/20 15:49 Pulse Ox 100 01/10/20 15:49 Body Mass Index 21.7 Physio: HEENT: Eyes anicteric, no discharge Cvs: rrr, [id number] , no murmur res: clear to auscultation ,no rhonchii or wheezing abd: no rebound or guarding ,nt, bs present. ext pulses present , no cyanosis neuro: axo3 , nonfocal. Objective Data Current Medications Generic Name Dose Route Start Last Admin Trade Name Freq PRN Reason Stop Dose Admin Hydrocodone Bitart/Acetaminophen 1 tab 01/09/20 09:00 01/10/20 15:26 Hydrocodone Bit/Acetam 5/325 Tablet PO 1 tab TID ROSIO Administration Apixaban 5 mg 01/09/20 09:00 01/10/20 08:54 Apixaban 5 Mg Tablet PO 5 mg BID ROSIO Administration Baclofen 30 mg 01/10/20 21:00 Baclofen 10 Mg Tablet PO BID ROSIO Clonazepam 0.5 mg 01/09/20 09:00 01/10/20 08:54 Clonazepam 0.5 Mg Tablet PO 0.5 mg BID ROSIO Administration Clozapine 500 mg 01/09/20 21:00 01/09/20 21:56 Clozapine 100 Mg Tablet PO 500 mg BEDTIME ROSIO Administration Ferrous Sulfate 324 mg 01/09/20 09:00 01/10/20 08:54 Ferrous Sulfate 324 Mg Tablet.Dr PO 324 mg DAILY ROSIO Administration Lamotrigine 100 mg 01/09/20 09:00 01/10/20 08:54 Lamotrigine 100 Mg Tablet PO 100 mg BID ROSIO Administration Levothyroxine Sodium 75 mcg 01/09/20 06:30 01/10/20 06:01 Levothyroxine Sodium 75 Mcg Tablet PO 75 mcg DAILY@0630 ROSIO Administration Pravastatin Sodium 20 mg 01/09/20 21:00 01/09/20 21:56 Pravastatin Sodium 20 Mg Tablet PO 20 mg BEDTIME ROSIO Administration Senna/Docusate Sodium 1 tab 01/09/20 02:59 01/10/20 15:27 Sennosides/Docusate Sodium Tablet PO 1 tab TID PRN Administration Constipation Sertraline HCl 100 mg 01/09/20 09:00 01/10/20 08:54 Sertraline Hcl 100 Mg Tablet PO 100 mg DAILY ROSIO Administration Sodium Chloride 3 ml 01/09/20 08:00 01/10/20 15:26 0.9 % Sodium Chloride Flush 3 Ml Syringe IVFLUSH 3 ml QSHIFT ROSIO Administration Vitamin D 25 mcg 01/09/20 09:00 01/10/20 08:54 Cholecalciferol (Vitamin D3) 25 Mcg Tablet PO 25 mcg DAILY ROSIO Administration Labs CBC & Chem 7: 01/09/20 07:45 01/09/20 07:45 Assessment and Plan (1) Bipolar 1 disorder: Status: Acute (2) Transient ischemic attack: Status: Acute Assessment and Plan: 1.TIa:? TIA versus seizure issue Seen by neurology recommended MRI and EEG pending Patient is on liquids for pulmonary embolism will continue that. 2. Bipolar : continue clonazepam , clozapine, lamictal Will discussed with the patient may need to adjust her baclofen and stop hydrocodone.
[2020-01-10 20:00] VITALS: BP 109/67; PULSE 79; RESP 16; TEMP 36.5; O2SAT 99
[2020-01-10] MEDS: cloZAPine 100 MG TABLET 500 MG PO (20:13)
[2020-01-10] MEDS: Pravastatin Sodium 20 MG TABLET PO (20:14)
[2020-01-11] VITALS (7 sets, daily range): BP systolic 97–120; BP diastolic 54–72; PULSE 74–87; RESP 17–18; TEMP 36.2–37; O2SAT 97–100
[2020-01-11] MEDS: Levothyroxine Sodium 75 MCG TABLET PO (05:47)
--- NOTE | 2020-01-11 06:16 | CA_ITS ---
Transthoracic Echocardiogram Patient (Last, First, Middle): Gladys Ely, Gender: Female Date of : 1955 Age: 64 Procedure Date: 01/11/2020 Procedure Type: Transthoracic Echocardiogram Location: [facility] Height: 160.02 cm Weight: 55.34 kg BSA: 1.57 m2 Heart Rate: bpm BP: 133 / 65 mmHg Delivery Rn: Aliyah MD: Chrissie Young MD [employer]eg[employer]ard: Geraldo Love MD Symptoms: TIA Study Quality: Fair ECG Rhythm: Sinus Conclusions: - 1. Normal LV systolic function with grade 1 diastolic dysfunction 2. Normal cardiac valvular Doppler 3. Normal RV systolic pressure 4. No pericardial effusion Findings Left Ventricle Normal left ventricular size, thickness, and systolic function. The visually estimated ejection fraction is between 60-65%. Spectral Doppler is indicative of an impaired relaxation filling pattern. E/E prime ratio is <8, consistent with normal filling pressures. Evidence suggests grade I (mild) diastolic dysfunction. Right Ventricle Normal right ventricular cavity size and systolic function. Atria Both atria are normal in size. There is lipomatous hypertrophy of the interatrial septum. Interatrial shunt cannot be excluded. Aortic Valve There is mild calcification of the aortic valve. There is no aortic valve stenosis. There is no aortic valve regurgitation. Mitral Valve There is mild anterior and posterior mitral leaflet thickening. There is mild mitral annular calcification. There is trace mitral valve regurgitation. There is no mitral valve stenosis. Pulmonic Valve The pulmonic valve was not well visualized. Tricuspid Valve Likely normal tricuspid valve structure and function. There is mild tricuspid valve regurgitation. The right ventricular systolic pressure is normal. The right ventricular systolic pressure is 31 mmHg. Normal right atrial pressure. There is no evidence of pulmonary hypertension. Great Vessels All visible segments of the aorta are normal in size. The pulmonary artery was not well visualized. Venous The inferior vena cava is normal in size and collapses greater than 50% with inspiration. Pericardium/Pleural There is no evidence of pericardial effusion. Prior Study Comparison No prior study available for comparison. Recommendations, Care & Conclusions Recommend contrast study to evaluate intracardiac shunting. Measurements 2D Linear Measurements RVIDd: 2.72 RVIDd Index: 1.73 IVSd: 0.73 0.6-0.9/0.6-1.0 cm LVIDd: 4.43 3.9-5.3/4.2-5.9 cm LVIDd Index: 2.82 2.4-3.2/2.2-3.1 cm/m2 LVIDs: 3.05 2.0-3.6 cm LVPWd: 0.90 0.7-1.1 cm Ao Root: 2.90 2.1-3.5 cm LA Diam: 3.30 2.7-3.8/3.0-4.0 cm LAIDs Index: 2.10 1.5-2.3 cm/m2 LV Mass: 140.69 67-162/88-224 g LV Mass Index: 89.61 43-95/49-115 g/m2 LVOT Diam: 2.00 3.0+(-)1.3 cm 2D Systolic Function EF 4C: 73.80 >55% EF 2C: 54.80 >55% EF BiP: 66.90 >55% Mitral Valve MV Pk E: 0.75 MV PK A: 0.80 MV Decel Time: 200.00 E/A: 0.90 E'Lateral: 8.81 E'Medial: 7.94 E/E' Med: 9.40 E/E' Lat: 8.50 Aortic Valve AoV Pk Levon: 1.46 AoV Mn Levon: 0.92 AoV VTI: 0.24 AoV Pk Grad: 9.00 Aov Mn Grad: 4.00 BROWN Cont.VTI: 2.82 LVOT LVOT Pk Levon: 1.16 LVOT Mn Levon: 0.75 LVOT VTI: 0.21 LVOT Pk Grad: 5.00 LVOT Mn Grad: 3.00 LVOT Diam: 2.00 LVOT Area: 3.14 Diastolic Function MV Pk E: 0.75 MV Pk A: 0.80 E/A: 0.90 E'Medial: 7.94 E/E' Med: 9.40 E' Laterial: 8.81 E/E' Lat: 8.50 Tricuspid Valve TR Pk Levon: 2.39 TR Pk Grad: 23.00 RA Press: 8.00 RVSP: 31.00 Great Vessels Aorta Ao Root-2D: 2.90 2.0-3.7 cm Ao Asc: 2.90 2.1-3.4 cm Ao Arch: 2.20 Updated in Other Vendor System with Status of Final Geraldo Love MD electronically signed on 01/11/2020 5:24:08 PM with status of Final
[2020-01-11] MEDS: Sertraline HCL 100 MG TABLET PO (08:35)
[2020-01-11] MEDS: Apixaban 5 MG TABLET PO ×2 (08:35→21:26)
[2020-01-11] MEDS: lamoTRIgine 100 MG TABLET PO ×2 (08:35→21:26)
[2020-01-11] MEDS: Cholecalciferol (Vitamin D3) 25 MCG TABLET PO (08:35)
[2020-01-11] MEDS: Ferrous Sulfate 324 MG TABLET.DR PO (08:35)
[2020-01-11] MEDS: clonazePAM 0.5 MG TABLET PO ×2 (08:35→21:26)
[2020-01-11] MEDS: Sennosides/Docusate Sodium TABLET 1 TAB PO (08:35)
[2020-01-11] MEDS: 0.9 % Sodium Chloride Flush 3 ML SYRINGE IVFLUSH ×3 (08:35→21:27)
[2020-01-11] MEDS: HYDROcodone Bit/Acetam 5/325 TABLET 1 TAB PO ×3 (11:26→21:27)
[2020-01-11] MEDS: Baclofen 10 MG TABLET 30 MG PO ×2 (11:27→21:26)
--- NOTE | 2020-01-11 15:42 | MHC.STROKE ---
[address] CUTLER AND HE SAID HER EEG IS NORMAL, HE WILL BE DICTATING THIS. I DID NOTIFY DR SOTOMAYOR.
--- NOTE | 2020-01-11 17:58 | HO.PM.IMPN ---
Subjective Subjective Date of Service: 01/14/20 Interval History: tia vs seizer Review of Systems Patient is feeling better denies any chest pain or shortness of breath or abdominal pain. Physical Exam Vital Signs: Vital Signs: Last Vital Signs Temp 97.9 F 01/11/20 16:00 Pulse 81 01/11/20 16:00 Resp 18 01/11/20 16:00 BP 107/54 L 01/11/20 16:00 Pulse Ox 97 01/11/20 16:00 Body Mass Index 21.7 Physical exam: Cvs: [id number], [id number] , no murmur res: clear to auscultation ,no rhonchii or wheezing abd: no rebound or guarding ,nt, bs present. ext pulses present , no cyanosis neuro: axo3 , nonfocal. Objective Data Current Medications Generic Name Dose Route Start Last Admin Trade Name Freq PRN Reason Stop Dose Admin Hydrocodone Bitart/Acetaminophen 1 tab 01/11/20 10:30 01/11/20 17:03 Hydrocodone Bit/Acetam 5/325 Tablet PO 1 tab TID ROSIO Administration Apixaban 5 mg 01/09/20 09:00 01/11/20 08:35 Apixaban 5 Mg Tablet PO 5 mg BID ROSIO Administration Baclofen 30 mg 01/10/20 21:00 01/11/20 11:27 Baclofen 10 Mg Tablet PO 30 mg BID ROSIO Administration Clonazepam 0.5 mg 01/09/20 09:00 01/11/20 08:35 Clonazepam 0.5 Mg Tablet PO 0.5 mg BID ROSIO Administration Clozapine 500 mg 01/09/20 21:00 01/10/20 20:13 Clozapine 100 Mg Tablet PO 500 mg BEDTIME ROSIO Administration Ferrous Sulfate 324 mg 01/09/20 09:00 01/11/20 08:35 Ferrous Sulfate 324 Mg Tablet.Dr PO 324 mg DAILY ROSIO Administration Lamotrigine 100 mg 01/09/20 09:00 01/11/20 08:35 Lamotrigine 100 Mg Tablet PO 100 mg BID ROSIO Administration Levothyroxine Sodium 75 mcg 01/09/20 06:30 01/11/20 05:47 Levothyroxine Sodium 75 Mcg Tablet PO 75 mcg DAILY@0630 ROSIO Administration Pravastatin Sodium 20 mg 01/09/20 21:00 01/10/20 20:14 Pravastatin Sodium 20 Mg Tablet PO 20 mg BEDTIME ROSIO Administration Senna/Docusate Sodium 1 tab 01/09/20 02:59 01/11/20 08:35 Sennosides/Docusate Sodium Tablet PO 1 tab TID PRN Administration Constipation Sertraline HCl 100 mg 01/09/20 09:00 01/11/20 08:35 Sertraline Hcl 100 Mg Tablet PO 100 mg DAILY ROSIO Administration Sodium Chloride 3 ml 01/09/20 08:00 01/11/20 17:03 0.9 % Sodium Chloride Flush 3 Ml Syringe IVFLUSH 3 ml QSHIFT ROSIO Administration Vitamin D 25 mcg 01/09/20 09:00 01/11/20 08:35 Cholecalciferol (Vitamin D3) 25 Mcg Tablet PO 25 mcg DAILY ROSIO Administration Labs CBC & Chem 7: 01/09/20 07:45 01/09/20 07:45 Assessment and Plan (1) Transient ischemic attack: Status: Acute (2) Seizures: Status: Acute Assessment and Plan: 1.TIa:? TIA versus seizure issue Seen by neurology recommended MRI and EEG -seems fine Patient is on liquids for pulmonary embolism will continue that. Echocardiogram was done and pending: Reviewed seems fine, but patient belongs to long-term she said she could not make it today. Will plan for morning discharge 2. Bipolar : continue clonazepam , clozapine, lamictal Will discussed with the patient may need to adjust her baclofen and stop hydrocodone.
[2020-01-11] MEDS: cloZAPine 100 MG TABLET 500 MG PO (21:26)
[2020-01-11] MEDS: Pravastatin Sodium 20 MG TABLET PO (21:27)
[2020-01-12 04:00] VITALS: BP 121/76; PULSE 76; RESP 18; TEMP 36.4; O2SAT 100
[2020-01-12] MEDS: Levothyroxine Sodium 75 MCG TABLET PO (05:32)
[2020-01-12 08:00] VITALS: BP 136/74; PULSE 82; RESP 18; TEMP 36.7; O2SAT 100
[2020-01-12] MEDS: Apixaban 5 MG TABLET PO (09:06)
[2020-01-12] MEDS: Baclofen 10 MG TABLET 30 MG PO (09:06)
[2020-01-12] MEDS: clonazePAM 0.5 MG TABLET PO (09:06)
[2020-01-12] MEDS: Ferrous Sulfate 324 MG TABLET.DR PO (09:06)
[2020-01-12] MEDS: Sertraline HCL 100 MG TABLET PO (09:06)
[2020-01-12] MEDS: HYDROcodone Bit/Acetam 5/325 TABLET 1 TAB PO ×2 (09:06→14:37)
[2020-01-12] MEDS: lamoTRIgine 100 MG TABLET PO (09:06)
[2020-01-12] MEDS: 0.9 % Sodium Chloride Flush 3 ML SYRINGE IVFLUSH ×2 (09:06→14:37)
[2020-01-12] MEDS: Cholecalciferol (Vitamin D3) 25 MCG TABLET PO (09:07)
[2020-01-12 12:00] VITALS: BP 121/82; PULSE 97; RESP 18; TEMP 36.7; O2SAT 98
[2020-01-12 13:10] LABS: Influenza A PCR NEGATIVE (Negative); Influenza B PCR NEGATIVE (Negative); Resp Syncy Virus RNA Qual PCR NEGATIVE (Negative); SARS COV2 PCR INHOUSE NEGATIVE (Negative)
--- NOTE | 2020-01-12 13:27 | MHC.CM.PN ---
PT has recommended Patient can return to [facility] LOC. ROXI has been in communication with Nursing at [facility] (Radha H. at [phone] and [phone])and has faxed PT eval, ADL status and today's (-) Covid to [facility] and uploaded into [employer]. Per [facility], despite today's (-) Covid, because Patient has NOT been on a Covid Unit but HAS been on a Covid floor, the [facility] feels that they need to make room changes to create an Isolation room for Patient to return to. ROXI has informed MD of this situation.
--- NOTE | 2020-01-12 14:12 | MHC.CM.PN ---
Per Attending and Dr. Marie, Patient is medically ready for dc to home ([facility])today, no additional services ordered/needed. IMM addressed with Patient and the original has been given to her and a copy has been placed on the chart. Patient is aware of and in agreement with the dc plan.
--- NOTE | 2020-01-12 14:29 | P.DS_ITS ---
DS: Providers Provider Date of admission: 01/09/20 03:02 Primary care physician: Unknown Physician Consults: 01/09/20 06:16 Consult to Neurology Routine Consulting Provider: [facility] Reason for consultation: TIA Has provider been notified: No DS: Diagnosis Discharge Diagnosis (1) Transient ischemic attack: Status: Acute (2) Seizures: Status: Acute DS: Medications Discharge Medications Home Medications: Home Medications Medication Instructions Recorded Confirmed Eliquis 5 mg PO BID 01/08/20 01/08/20 cholecalciferol (vitamin D3) 25 mcg PO DAILY 01/08/20 01/08/20 [Vitamin D3] clonazepam 0.5 mg PO BID 01/08/20 01/08/20 clozapine 500 mg PO DAILY 01/08/20 01/08/20 ferrous sulfate 325 mg PO DAILY 01/08/20 01/08/20 folic acid 1 mg PO DAILY 01/08/20 01/08/20 lamotrigine [Lamictal] 100 mg PO BID 01/08/20 01/08/20 levothyroxine 75 mcg PO DAILY 01/08/20 01/08/20 pravastatin 20 mg PO BEDTIME 01/08/20 01/08/20 sennosides-docusate sodium [Senna 1 tab PO TID PRN 01/08/20 01/08/20 with Docusate Sodium] sertraline 100 mg PO DAILY 01/08/20 01/08/20 Previous Rx's Medication Instructions Recorded baclofen 30 mg PO BID #0 tab 01/12/20 hydrocodone-acetaminophen 1 tab PO BID #0 tab 01/12/20 MRI: IMPRESSION: There are scattered chronic small vessel ischemic changes within the periventricular white matter. Otherwise unremarkable examination. No evidence of acute territorial infarct or hemorrhage. ECHO: Conclusions: 1. Normal LV systolic function with grade 1 diastolic dysfunction 2. Normal cardiac valvular Doppler 3. Normal RV systolic pressure 4. No pericardial effusion DS: Summary Hospital Course Hospital Course: 64 y/o female with an extensive PMHx who presented from assisted living facility due to left sided weakness and difficulty speaking. Per history provided by the patient, around 7 pm yesterday started feeling weak in her left side associated with inability to speak properly for what decided to come to the ED for further evaluation. On july present year patient was admitted to our facility due to acute PE and discharged on Eliquis. Recently patient stopped eliquis for a period of 24 hrs for an endometrial biopsy for a concerning mass in the endometrial. Patient resume treatment appropriately right after. On presentation to the ED patient was found to have a NIH scale of 0, no evidence of any neurologic deficit. CT head as well as CTA head and neck were found to be negative for any acute pathology. Neurology was consulted per ED. Decision for admission was given to medicine. Patient seen and examined at the bedside, laying down in bed in no acute distress. ROS as above otherwise negative. Physical exam unremarkable. PAST MEDICAL HISTORY: 1. Depression. 2. Colitis. 3. Hypothyroidism. 4. Bipolar disorder. Hospital Course problem platt section: Patient symptoms seems to be resolved spontaneously admitted due for question of TIA initially: MRI and EEG seems fine Heart echo: Also seems to be fine, no event on tele Patient seems to be feeling better no other similar episode while in the hospital, neurology id recommended to adjust her current pain meds, we advised her to adjust oxycodone and slowly taper down, also try to degrees slightly does platt baclofen. Also if her psychological Medications can be adjusted out patiently might help with further symptoms. covid test negative. Above management discussed with the patient in detail length she understand and in agreement with the above plan, time spent 50 minutes and 50% time spent on counseling. Significant findings: As above. Procedures performed: None. Treatment and response: As above. Complications: None. Time Spent with Patient Time attestation: Total time spent providing and/or coordinating discharge services: Physical Exam Vital Signs: Vital Signs: Last Vital Signs Temp 98.0 F 01/12/20 12:00 Pulse 97 01/12/20 12:00 Resp 18 01/12/20 12:00 BP 121/82 01/12/20 12:00 Pulse Ox 98 01/12/20 12:00 Body Mass Index 21.7 Physical exam: Constitutional: Noted acute distress Cvs: rrr, [id number] , no murmur res: clear to auscultation ,no rhonchii or wheezing abd: no rebound or guarding ,nt, bs present. ext pulses present , no cyanosis neuro: axo3 , nonfocal. DS: Data Data Completed and Pending Labs on day of discharge: 01/08/20 21:21 Glucose, Whole Blood Routine 01/08/20 21:22 Prothrombin Time Whole Bld POC Routine ~PT, ~INR - [facility] Routine 01/08/20 21:23 CT head for stroke Stat 01/08/20 21:24 ECG 12 lead EKG Stat EKG Documentation DIRECTED XR chest 1V Stat 01/08/20 21:56 CT angio head neck stroke Stat 01/08/20 22:05 SARS-CoV2/FLU/RSV Stat 01/08/20 22:07 Complete Blood Count Auto Diff Stat Comprehensive Met. Panel Stat Glucose Random Stat Partial Thromboplastin Time Stat Prothrombin Time INR Stat Troponin-I High Sensitivity Stat 01/08/20 23:56 Glucose, Whole Blood Routine 01/08/20 23:57 UA CC w/rflx Micro + Cult Stat 01/09/20 03:00 Transfer Order Routine 01/09/20 06:16 Intake and Output QSHIFTE 01/09/20 07:45 Basic Metabolic Panel Routine Complete Blood Count Auto Diff Routine Lipid Panel Routine Liver Panel Routine 01/09/20 09:00 Baclofen [Lioresal] 30 mg PO TID Folic Acid 1 mg PO DAILY HYDROcodone Bit/Acetam 5/325 [Lorcet 5/325] 1 tab PO TID 01/10/20 MR head/brain wo con Stat 01/10/20 08:48 Add Laboratory Test Urgent 01/11/20 06:16 CA echo transthoracic complete Routine 01/11/20 08:54 Butalb/Acetamin/Caff 50/325/40 [Fioricet] 1 tab PO ONCE ONE 01/11/20 15:00 HYDROcodone Bit/Acetam 5/325 [Lorcet 5/325] 1 tab PO TID 01/12/20 12:00 SARS-CoV2/FLU/RSV Stat Laboratory Last Values WBC 4.7 X10*3/uL (4.8-10.8) L 01/09/20 07:45 RBC 3.56 X10*6/uL (4.20-5.50) L 01/09/20 07:45 Hgb 12.1 g/dl (12.0-16.0) 01/09/20 07:45 Hct 37.5 % (37-47) 01/09/20 07:45 MCV 105.3 fL (80-98) H 01/09/20 07:45 MCH 34.0 pg (27.0-33.0) H 01/09/20 07:45 MCHC 32.3 g/dl (31.0-35.0) 01/09/20 07:45 RDW 12.0 % (11.0-16.0) 01/09/20 07:45 Plt Count 156 X10*3/uL (160-400) L 01/09/20 07:45 MPV 9.5 fL (9.4-12.3) 01/09/20 07:45 Immature Gran % (Auto) 0.4 % (0.0-0.4) 01/09/20 07:45 Neut % (Auto) 65.5 % (45-73) 01/09/20 07:45 Lymph % (Auto) 25.6 % (20-40) 01/09/20 07:45 Labette % (Auto) 6.8 % (2-11) 01/09/20 07:45 Eos % (Auto) 0.6 % (0-4) 01/09/20 07:45 Baso % (Auto) 1.1 % (0-2) 01/09/20 07:45 Lymph # (Auto) 1.2 X10*3/uL (1.2-4.9) 01/09/20 07:45 Labette # (Auto) 0.3 X10*3/uL (0.1-1.2) 01/09/20 07:45 Eos # (Auto) 0.0 X10*3/uL (0.0-0.4) 01/09/20 07:45 Baso # (Auto) 0.1 X10*3/uL (0.0-0.2) 01/09/20 07:45 Abs Immat Gran (auto) 0.02 X10*3/uL (0.00-0.03) 01/09/20 07:45 Absolute Neuts (auto) 3.1 X10*3/uL (2.0-8.3) 01/09/20 07:45 Absolute Nucleated RBC 0.000 X10*3/uL (0.0-0.012) 01/09/20 07:45 Nucleated RBC % (auto) 0.0 /100WBC (0.0-0.2) 01/09/20 07:45 PT 14.0 SEC (10.8-13.0) H 01/08/20 22:07 Whole Blood PT 14.6 sec (11.1-13.5) H 01/08/20 21:22 INR 1.2 (0.9-1.1) H 01/08/20 22:07 Whole Blood INR 1.2 (0.9-1.1) H 01/08/20 21:22 APTT 47.3 SEC (24.1-38.0) H 01/08/20 22:07 Sodium 141 mmol/L (135-145) 01/09/20 07:45 Potassium 4.5 mmol/l (3.3-5.1) 01/09/20 07:45 Chloride 105 mmol/L (96-108) 01/09/20 07:45 Carbon Dioxide 28 mmol/L (22-29) 01/09/20 07:45 Anion Gap 13 (12-20) 01/09/20 07:45 BUN 15 mg/dL (9-16) 01/09/20 07:45 Creatinine 0.72 mg/dL (0.5-1.4) 01/09/20 07:45 Estim Creat Clear Calc 63.5 01/09/20 07:45 Estimated GFR > 60 01/09/20 07:45 POC Glucose 91 mg/dL (60-115) 01/08/20 23:56 Random Glucose 89 mg/dL (60-115) 01/09/20 07:45 Calcium 9.1 mg/dL (8.4-10.2) 01/09/20 07:45 Total Bilirubin 0.2 mg/dL (0.0-1.0) 01/09/20 07:45 Direct Bilirubin < 0.2 mg/dL (0.0-0.5) 01/09/20 07:45 AST 13 U/L (5-31) 01/09/20 07:45 ALT 12 U/L (0-31) 01/09/20 07:45 Alkaline Phosphatase 84 U/L (39-117) 01/09/20 07:45 Troponin I High Sens < 3.5 ng/L (<3.5-17.0) 01/08/20 22:07 Total Protein 5.9 g/dL (6.5-8.0) L 01/09/20 07:45 Albumin 3.9 g/dL (3.5-5.0) 01/09/20 07:45 Triglycerides 57 mg/dL 01/09/20 07:45 Cholesterol 173 mg/dL 01/09/20 07:45 LDL Cholesterol, Calc 89 mg/dl 01/09/20 07:45 HDL Cholesterol 73 mg/dL 01/09/20 07:45 Urine Color YELLOW 01/09/20 00:19 Urine Appearance CLEAR 01/09/20 00:19 Urine pH 6.5 (5.0-8.0) 01/09/20 00:19 Ur Specific [place] 1.010 (1.005-1.025) 01/09/20 00:19 Urine Protein NEG MG/DL (NEG-TRACE) 01/09/20 00:19 Urine Glucose (UA) NEG MG/DL (NEG) 01/09/20 00:19 Urine Ketones NEG MG/DL (NEG) 01/09/20 00:19 Urine Blood NEG (NEG) 01/09/20 00:19 Urine Nitrite NEG (NEG) 01/09/20 00:19 Ur Leukocyte Esterase NEG (NEG) 01/09/20 00:19 Coronavirus (PCR) NEGATIVE (Negative) 01/12/20 12:00 Influenza Type A (PCR) NEGATIVE (Negative) 01/12/20 12:00 Influenza Type B (PCR) NEGATIVE (Negative) 01/12/20 12:00 RSV RNA Qual (PCR) NEGATIVE (Negative) 01/12/20 12:00 Discharge Plan Discharge Patient Disposition: Home, Self-Care Referrals: [facility] [Outside] Physician,Unknown [Primary Care Provider] - Discharge Medications: Continued clozapine 100 mg Tablet 500 mg PO DAILY RF: 0 clonazepam 0.5 mg Tablet 0.5 mg PO BID RF: 0 sennosides-docusate sodium [Senna with Docusate Sodium] 8.6-50 mg Tablet 1 tab PO TID PRN (Reason: Constipation) RF: 0 sertraline 100 mg Tablet 100 mg PO DAILY RF: 0 levothyroxine 75 mcg Tablet 75 mcg PO DAILY RF: 0 ferrous sulfate 325 mg (65 mg iron) Tablet 325 mg PO DAILY RF: 0 folic acid 1 mg Tablet 1 mg PO DAILY RF: 0 pravastatin 20 mg Tablet 20 mg PO BEDTIME RF: 0 lamotrigine [Lamictal] 100 mg Tablet 100 mg PO BID RF: 0 cholecalciferol (vitamin D3) [Vitamin D3] 25 mcg (1,000 unit) Capsule 25 mcg PO DAILY RF: 0 Eliquis 5 mg Tablet 5 mg PO BID RF: 0 Changed hydrocodone-acetaminophen 5-325 mg Tablet 1 tab PO BID Qty: 10 RF: 0 baclofen 10 mg Tablet 30 mg PO BID Qty: 12 RF: 0 Discharge Orders: Discharge Order (Routine); Ordered 01/12/20 Ordered By: Anish Gutiérrez Diet: advance to usual diet Activity on Discharge: As tolerated Visit Report Forms: Patient Portal Discharge page Care Plan Goals: Patient symptoms seems to be resolved spontaneously admitted due for question of TIA initially: MRI and EEG seems fine Heart echo: Also seems to be fine, no event on tele Patient seems to be feeling better no other similar episode [facility], neurology id recommended to adjust her current pain meds, we advised her to adjust oxycodone and slowly taper down, also try to degrees slightly does platt baclofen. Also if her psychological Medications can be adjusted out patiently might help with further symptoms. Health Concerns: as above. Plan of Treatment: As above.
== END 2020-01-12 16:02 | disposition home or self-care (01) | DRG 69 ==
LOC: HO.ED 23:13 → HO.IMC 01-09 05:28
PROVIDERS: Admitting Provider Internal Medicine; Emergency Provider Student in an Organized Health Care Education/Training Program; Visit Provider Internal Medicine
DX: G45.9 Transient cerebral ischemic attack, unspecified (principal); G81.94 Hemiplegia, unspecified affecting left nondominant side; M54.16 Radiculopathy, lumbar region; Z86.711 Personal history of pulmonary embolism; R29.700 NIHSS score 0; E03.9 Hypothyroidism, unspecified; F31.9 Bipolar disorder, unspecified; Z20.828 Contact with and (suspected) exposure to other viral communicable diseases; Z79.01 Long term (current) use of anticoagulants; Z79.890 Hormone replacement therapy; Z79.899 Other long term (current) drug therapy
CPT/HCPCS: 0241U; 36415; 70450; 70496; 70498; 70551; 71045; 80048; 80053; 80061; 80076; 81003; 82947; 84484; 85025; 85610; 85730; 93005; 93306; 95816; 97162; 99285

== ENCOUNTER 2020-03-10 06:16 | Emergency (ER) | payer MEDICARE, MEDICAID, SELFPAY ==
[2020-03-10 06:27] VITALS: BP 153/70; BP 154/93; PULSE 95; PULSE 98; RESP 20; TEMP 36.2; O2SAT 100; BMI 21.6
--- NOTE | 2020-03-10 06:31 | ECG_ITS ---
Test Reason : AMS Blood Pressure : / mmHG Vent. Rate : 097 BPM Atrial Rate : 097 BPM P-R Int : 164 ms QRS Dur : 106 ms QT Int : 376 ms P-R-T Axes : 061 013 044 degrees QTc Int : 477 ms Normal sinus rhythm Possible Left atrial enlargement Nonspecific ST and T wave abnormality Abnormal ECG When compared with ECG of 08-JAN-2020 21:35, No significant changes seen Referred By: Lana Ferrell Electronically Signed By:Hernandez Newman
--- NOTE | 2020-03-10 06:31 | CT_ITS ---
EXAMINATION: CT HEAD WITHOUT CONTRAST CLINICAL INFORMATION: AMS COMPARISON: None TECHNIQUE: Contiguous axial imaging was performed from the skull base to vertex without intravenous administration of contrast. This CT examination was performed using dose optimization techniques as appropriate, variously including the following: *Automated exposure control *Adjustment of mA and/or kV according to patient size (this includes techniques or standardized protocols for targeted exams where dose is matched to indication/reason for exam; i.e. extremities or head) *Use of iterative reconstruction technique DLP: 775 mGy-cm FINDINGS: There is no evidence of acute intracranial hemorrhage or territorial infarction. No abnormal mass effect or midline shift is seen. Sorto to white matter differentiation is well preserved. No extra-axial fluid collections are identified. The ventricles are normal in size. There is no abnormal attenuation within the brain parenchyma. The osseous structures and soft tissues are normal. The mastoid air cells and visualized portions of the paranasal sinuses are well aerated. CT/CT head/brain wo con IMPRESSION: No acute intracranial process seen
--- NOTE | 2020-03-10 06:32 | XR_ITS ---
EXAMINATION: XR CHEST CLINICAL INFORMATION: Altered mental status. COMPARISON: Chest radiographs 01/08/2020, 12/19/2018 TECHNIQUE: Portable upright AP view of the chest was obtained. FINDINGS: The lungs are clear. The vascularity is normal. Costophrenic sulci are clear. The heart is normal in size. The hilar and mediastinal contours and bony structures are stable. XR/XR chest 1V IMPRESSION: No acute intrathoracic disease. Lungs clear.
--- NOTE | 2020-03-10 06:34 | ED_ITS ---
HPI - Altered Mental Status General Chief Complaint: Neuro Symptoms/Deficit Stated Complaint: altered mental Time Seen by Provider: 03/10/20 06:31 Source: patient, RN notes reviewed and old records reviewed Mode of arrival: EMS Limitations: altered mental status History of Present Illness MD complaint: altered mental status, confusion and decreased responsiveness Onset (ago): hour(s) (started at 930pm last seen well ) Timing confirmed by: caregiver Severity: similar to previous episodes Consistency of symptoms: constant Context: history of similar presentation Associated symptoms: denies other symptoms Related Data Home Medications Medication Instructions Recorded Confirmed Eliquis 5 mg PO BID 01/08/20 03/10/20 cholecalciferol (vitamin D3) 25 mcg PO BEDTIME 01/08/20 03/10/20 [Vitamin D3] clonazepam 0.5 mg PO BID 01/08/20 03/10/20 clozapine 500 mg PO BEDTIME 01/08/20 03/10/20 ferrous sulfate 325 mg PO BID 01/08/20 03/10/20 folic acid 1 mg PO DAILY 01/08/20 03/10/20 lamotrigine [Lamictal] 100 mg PO BID 01/08/20 03/10/20 levothyroxine 75 mcg PO DAILY@0630 01/08/20 03/10/20 pravastatin 20 mg PO BEDTIME 01/08/20 03/10/20 sennosides-docusate sodium [Senna 1 tab PO TID PRN 01/08/20 03/10/20 with Docusate Sodium] acetaminophen 650 mg PO Q4H PRN 03/10/20 03/10/20 albuterol sulfate [Ventolin HFA] 2 puff INHALATION Q4H PRN 03/10/20 03/10/20 baclofen 30 mg PO TID 03/10/20 03/10/20 budesonide 3 mg PO MOFR@1000 PRN 03/10/20 03/10/20 dextromethorphan-guaifenesin 10 ml PO Q4H PRN 03/10/20 03/10/20 [Guaifenesin DM] diphenoxylate-atropine 1 tab PO BID PRN 03/10/20 03/10/20 ibuprofen 800 mg PO TID 03/10/20 03/10/20 loperamide 2 mg PO Q4H PRN 03/10/20 03/10/20 paroxetine HCl [Paxil] 10 mg PO DAILY 03/10/20 03/10/20 sertraline 25 mg PO DAILY 03/10/20 03/10/20 tramadol 100 mg PO TID 03/10/20 03/10/20 Allergies Allergy/AdvReac Type Severity Reaction Status Date / Time bee pollen [Bee Stings] Allergy Severe ANAPHYLAXIS Verified 01/08/20 21:33 Review of Systems Review of Systems: ROS unable to be obtained due to altered mental status [facility] Past Medical History Attestation statement: The following information was validated with the patient. Medical History Anxiety Bipolar 1 disorder Lumbar radiculopathy Psychosis Pulmonary embolism Transient cerebral ischemia Social History Social History Household Members: None Housing: Assisted Living Facility Alcohol intake: never Smoking Status: Never smoker Advance Directives: No Advance Directives Information Provided: Yes service: No Current occupational status: retired Physical Exam Vital Signs: Vital Signs: Last Vital Signs Temp 97.2 F 03/10/20 06:27 Pulse 98 03/10/20 06:27 Resp 20 03/10/20 06:27 BP 154/93 H 03/10/20 06:27 Pulse Ox 100 03/10/20 06:27 Body Mass Index 21.6 Appearance: Somnolent Oriented X1. No acute distress. Flat affect, slow to respond Eyes: Pupils equal, round and reactive to light. ENT: Pharynx normal. Neck: Normal inspection. Neck supple. CVS: Normal heart rate and rhythm. Pulses normal. Respiratory: No respiratory distress. Breath sounds normal. Abdomen: Soft and nontender. Skin: Skin warm and dry. Normal skin color. Normal skin turgor. Extremities: No lower extremity edema. No calf ttp Neuro: Oriented X 1. No motor deficit. No sensory deficit. Course Course Course Narrative: patient talking to me since her arrival, using call sherman to ask for bathroom assistance, walked to bathroom with histopath tech patient is alert, watching TV, interactive answering questions appropriately, fluent speech negative UA at this time, CXR negative will speak to SNF about baseline, she is able to instruct us on her needs and ADLs. RN noted that facility states this is her baseline MDM - Altered Mental Status Medical Records Medical records narrative: 64 yo female with hypothyroidism, PE on eliquis, anxiety/bipolar psychosis comes from SNF with c/o decreased responsiveness and AMS since 930pm - at this time will need metabolic / infectious workup with labs, CXR, UA, cultures, CT head given eliquis use to r/o ICH - dispo per results and findings. Lab Data Result diagrams: 03/10/20 07:05 03/10/20 07:05 Labs: Lab Results 03/10/20 03/10/20 03/10/20 Range/Units 07:05 07:05 07:05 WBC 4.5 L (4.8-10.8) X10*3/uL RBC 3.49 L (4.20-5.50) X10*6/uL Hgb 11.8 L (12.0-16.0) g/dl Hct 35.6 L (37-47) % MCV 102.0 H (80-98) fL MCH 33.8 H (27.0-33.0) pg MCHC 33.1 (31.0-35.0) g/dl RDW 12.0 (11.0-16.0) % Plt Count 99 L D (160-400) X10*3/uL MPV 10.4 (9.4-12.3) fL Immature Gran % (Auto) 0.2 (0.0-0.4) % Neut % (Auto) 63.9 (45-73) % Lymph % (Auto) 26.9 (20-40) % [place] % (Auto) 6.1 (2-11) % Eos % (Auto) 2.5 (0-4) % Baso % (Auto) 0.4 (0-2) % Lymph # (Auto) 1.2 (1.2-4.9) X10*3/uL [place] # (Auto) 0.3 (0.1-1.2) X10*3/uL Eos # (Auto) 0.1 (0.0-0.4) X10*3/uL Baso # (Auto) 0.0 (0.0-0.2) X10*3/uL Abs Immat Gran (auto) 0.01 (0.00-0.03) X10*3/uL Absolute Neuts (auto) 2.9 (2.0-8.3) X10*3/uL Absolute Nucleated RBC 0.000 (0.0-0.012) X10*3/uL Nucleated RBC % (auto) 0.0 (0.0-0.2) /100WBC PT (10.8-13.0) SEC INR (0.9-1.1) APTT (24.1-38.0) SEC VBG pH (7.32-7.43) VBG pCO2 mmHg VBG pO2 mmHg VBG HCO3 mmol/L VBG O2 Saturation % VBG Base Excess mmol/L Sodium 142 (135-145) mmol/L Potassium 3.7 (3.3-5.1) mmol/l Chloride 106 (96-108) mmol/L Carbon Dioxide 26 (22-29) mmol/L Anion Gap 14 (12-20) BUN 15 (9-16) mg/dL Creatinine 1.02 (0.5-1.4) mg/dL Estim Creat Clear Calc 42.8 Estimated GFR 54 Random Glucose 112 (60-115) mg/dL Lactic Acid (0.5-2.0) mmol/L Calcium 9.2 (8.4-10.2) mg/dL Magnesium 2.1 (1.6-2.6) mg/dL Ferritin 356 H (10-250) ng/mL Total Bilirubin 0.6 (0.0-1.0) mg/dL Direct Bilirubin 0.2 (0.0-0.5) mg/dL AST 20 D (5-31) U/L ALT 10 (0-31) U/L Alkaline Phosphatase 90 (39-117) U/L Ammonia 26 (13-55) umol/L Lactate Dehydrogenase 142 (122-220) U/L Total Creatine Kinase 145 H (26-140) U/L Troponin I High Sens (<3.5-17.0) ng/L B-Natriuretic Peptide (<100) pg/mL Total Protein 5.9 L (6.5-8.0) g/dL Albumin 4.0 (3.5-5.0) g/dL Lipase (8-78) U/L TSH 0.95 (0.32-4.0) uIU/mL Urine Color Urine Appearance Urine pH (5.0-8.0) Ur Specific Dick[place] (1.005-1.025) Urine Protein (NEG-TRACE) MG/DL Urine Glucose (UA) (NEG) MG/DL Urine Ketones (NEG) MG/DL Urine Blood (NEG) Urine Nitrite (NEG) Ur Leukocyte Esterase (NEG) Urine RBC (0) /HPF Urine WBC (0-4) /HPF Ur Squamous Epith Cells /LPF Urine Bacteria /LPF Urine Opiates Screen (Not Detect) Ur Barbiturates Screen (Not Detect) Ur Phencyclidine Scrn (Not Detect) Ur Amphetamines Screen (Not Detect) U Benzodiazepines Scrn (Not Detect) Urine Cocaine Screen (Not Detect) U Marijuana (THC) Screen (Not Detect) COVID-19 ([facility]) (Negative) COVID-19 Clin Com 03/10/20 03/10/20 03/10/20 Range/Units 07:05 07:05 07:05 WBC (4.8-10.8) X10*3/uL RBC (4.20-5.50) X10*6/uL Hgb (12.0-16.0) g/dl Hct (37-47) % MCV (80-98) fL MCH (27.0-33.0) pg MCHC (31.0-35.0) g/dl RDW (11.0-16.0) % Plt Count (160-400) X10*3/uL MPV (9.4-12.3) fL Immature Gran % (Auto) (0.0-0.4) % Neut % (Auto) (45-73) % Lymph % (Auto) (20-40) % [place] % (Auto) (2-11) % Eos % (Auto) (0-4) % Baso % (Auto) (0-2) % Lymph # (Auto) (1.2-4.9) X10*3/uL [place] # (Auto) (0.1-1.2) X10*3/uL Eos # (Auto) (0.0-0.4) X10*3/uL Baso # (Auto) (0.0-0.2) X10*3/uL Abs Immat Gran (auto) (0.00-0.03) X10*3/uL Absolute Neuts (auto) (2.0-8.3) X10*3/uL Absolute Nucleated RBC (0.0-0.012) X10*3/uL Nucleated RBC % (auto) (0.0-0.2) /100WBC PT 16.9 H D (10.8-13.0) SEC INR 1.4 H (0.9-1.1) APTT 55.6 H (24.1-38.0) SEC VBG pH (7.32-7.43) VBG pCO2 mmHg VBG pO2 mmHg VBG HCO3 mmol/L VBG O2 Saturation % VBG Base Excess mmol/L Sodium (135-145) mmol/L Potassium (3.3-5.1) mmol/l Chloride (96-108) mmol/L Carbon Dioxide (22-29) mmol/L Anion Gap (12-20) BUN (9-16) mg/dL Creatinine (0.5-1.4) mg/dL Estim Creat Clear Calc Estimated GFR Random Glucose (60-115) mg/dL Lactic Acid (0.5-2.0) mmol/L Calcium (8.4-10.2) mg/dL Magnesium (1.6-2.6) mg/dL Ferritin (10-250) ng/mL Total Bilirubin (0.0-1.0) mg/dL Direct Bilirubin (0.0-0.5) mg/dL AST (5-31) U/L ALT (0-31) U/L Alkaline Phosphatase (39-117) U/L Ammonia (13-55) umol/L Lactate Dehydrogenase (122-220) U/L Total Creatine Kinase (26-140) U/L Troponin I High Sens (<3.5-17.0) ng/L B-Natriuretic Peptide 17 (<100) pg/mL Total Protein (6.5-8.0) g/dL Albumin (3.5-5.0) g/dL Lipase (8-78) U/L TSH (0.32-4.0) uIU/mL Urine Color Urine Appearance Urine pH (5.0-8.0) Ur Specific [place] (1.005-1.025) Urine Protein (NEG-TRACE) MG/DL Urine Glucose (UA) (NEG) MG/DL Urine Ketones (NEG) MG/DL Urine Blood (NEG) Urine Nitrite (NEG) Ur Leukocyte Esterase (NEG) Urine RBC (0) /HPF Urine WBC (0-4) /HPF Ur Squamous Epith Cells /LPF Urine Bacteria /LPF Urine Opiates Screen (Not Detect) Ur Barbiturates Screen (Not Detect) Ur Phencyclidine Scrn (Not Detect) Ur Amphetamines Screen (Not Detect) U Benzodiazepines Scrn (Not Detect) Urine Cocaine Screen (Not Detect) U Marijuana (THC) Screen (Not Detect) COVID-19 ([facility]) Negative (Negative) COVID-19 Clin Com See Note 03/10/20 03/10/20 03/10/20 Range/Units 07:05 07:05 07:05 WBC (4.8-10.8) X10*3/uL RBC (4.20-5.50) X10*6/uL Hgb (12.0-16.0) g/dl Hct (37-47) % MCV (80-98) fL MCH (27.0-33.0) pg MCHC (31.0-35.0) g/dl RDW (11.0-16.0) % Plt Count (160-400) X10*3/uL MPV (9.4-12.3) fL Immature Gran % (Auto) (0.0-0.4) % Neut % (Auto) (45-73) % Lymph % (Auto) (20-40) % [place] % (Auto) (2-11) % Eos % (Auto) (0-4) % Baso % (Auto) (0-2) % Lymph # (Auto) (1.2-4.9) X10*3/uL [place] # (Auto) (0.1-1.2) X10*3/uL Eos # (Auto) (0.0-0.4) X10*3/uL Baso # (Auto) (0.0-0.2) X10*3/uL Abs Immat Gran (auto) (0.00-0.03) X10*3/uL Absolute Neuts (auto) (2.0-8.3) X10*3/uL Absolute Nucleated RBC (0.0-0.012) X10*3/uL Nucleated RBC % (auto) (0.0-0.2) /100WBC PT (10.8-13.0) SEC INR (0.9-1.1) APTT (24.1-38.0) SEC VBG pH (7.32-7.43) VBG pCO2 mmHg VBG pO2 mmHg VBG HCO3 mmol/L VBG O2 Saturation % VBG Base Excess mmol/L Sodium (135-145) mmol/L Potassium (3.3-5.1) mmol/l Chloride (96-108) mmol/L Carbon Dioxide (22-29) mmol/L Anion Gap (12-20) BUN (9-16) mg/dL Creatinine (0.5-1.4) mg/dL Estim Creat Clear Calc Estimated GFR Random Glucose (60-115) mg/dL Lactic Acid 0.8 (0.5-2.0) mmol/L Calcium (8.4-10.2) mg/dL Magnesium (1.6-2.6) mg/dL Ferritin (10-250) ng/mL Total Bilirubin (0.0-1.0) mg/dL Direct Bilirubin (0.0-0.5) mg/dL AST (5-31) U/L ALT (0-31) U/L Alkaline Phosphatase (39-117) U/L Ammonia (13-55) umol/L Lactate Dehydrogenase (122-220) U/L Total Creatine Kinase (26-140) U/L Troponin I High Sens < 3.5 (<3.5-17.0) ng/L B-Natriuretic Peptide (<100) pg/mL Total Protein (6.5-8.0) g/dL Albumin (3.5-5.0) g/dL Lipase 17 (8-78) U/L TSH (0.32-4.0) uIU/mL Urine Color Urine Appearance Urine pH (5.0-8.0) Ur Specific [place] (1.005-1.025) Urine Protein (NEG-TRACE) MG/DL Urine Glucose (UA) (NEG) MG/DL Urine Ketones (NEG) MG/DL Urine Blood (NEG) Urine Nitrite (NEG) Ur Leukocyte Esterase (NEG) Urine RBC (0) /HPF Urine WBC (0-4) /HPF Ur Squamous Epith Cells /LPF Urine Bacteria /LPF Urine Opiates Screen (Not Detect) Ur Barbiturates Screen (Not Detect) Ur Phencyclidine Scrn (Not Detect) Ur Amphetamines Screen (Not Detect) U Benzodiazepines Scrn (Not Detect) Urine Cocaine Screen (Not Detect) U Marijuana (THC) Screen (Not Detect) COVID-19 ([facility]) (Negative) COVID-19 Clin Com 03/10/20 03/10/20 03/10/20 Range/Units 09:26 09:26 09:26 WBC (4.8-10.8) X10*3/uL RBC (4.20-5.50) X10*6/uL Hgb (12.0-16.0) g/dl Hct (37-47) % MCV (80-98) fL MCH (27.0-33.0) pg MCHC (31.0-35.0) g/dl RDW (11.0-16.0) % Plt Count (160-400) X10*3/uL MPV (9.4-12.3) fL Immature Gran % (Auto) (0.0-0.4) % Neut % (Auto) (45-73) % Lymph % (Auto) (20-40) % [place] % (Auto) (2-11) % Eos % (Auto) (0-4) % Baso % (Auto) (0-2) % Lymph # (Auto) (1.2-4.9) X10*3/uL [place] # (Auto) (0.1-1.2) X10*3/uL Eos # (Auto) (0.0-0.4) X10*3/uL Baso # (Auto) (0.0-0.2) X10*3/uL Abs Immat Gran (auto) (0.00-0.03) X10*3/uL Absolute Neuts (auto) (2.0-8.3) X10*3/uL Absolute Nucleated RBC (0.0-0.012) X10*3/uL Nucleated RBC % (auto) (0.0-0.2) /100WBC PT (10.8-13.0) SEC INR (0.9-1.1) APTT (24.1-38.0) SEC VBG pH 7.34 (7.32-7.43) VBG pCO2 52 mmHg VBG pO2 51 mmHg VBG HCO3 28 mmol/L VBG O2 Saturation 81.0 % VBG Base Excess 2.2 mmol/L Sodium (135-145) mmol/L Potassium (3.3-5.1) mmol/l Chloride (96-108) mmol/L Carbon Dioxide (22-29) mmol/L Anion Gap (12-20) BUN (9-16) mg/dL Creatinine (0.5-1.4) mg/dL Estim Creat Clear Calc Estimated GFR Random Glucose (60-115) mg/dL Lactic Acid (0.5-2.0) mmol/L Calcium (8.4-10.2) mg/dL Magnesium (1.6-2.6) mg/dL Ferritin (10-250) ng/mL Total Bilirubin (0.0-1.0) mg/dL Direct Bilirubin (0.0-0.5) mg/dL AST (5-31) U/L ALT (0-31) U/L Alkaline Phosphatase (39-117) U/L Ammonia (13-55) umol/L Lactate Dehydrogenase (122-220) U/L Total Creatine Kinase (26-140) U/L Troponin I High Sens (<3.5-17.0) ng/L B-Natriuretic Peptide (<100) pg/mL Total Protein (6.5-8.0) g/dL Albumin (3.5-5.0) g/dL Lipase (8-78) U/L TSH (0.32-4.0) uIU/mL Urine Color YELLOW Urine Appearance HAZY Urine pH 6.0 (5.0-8.0) Ur Specific [place] 1.015 (1.005-1.025) Urine Protein NEG (NEG-TRACE) MG/DL Urine Glucose (UA) NEG (NEG) MG/DL Urine Ketones NEG (NEG) MG/DL Urine Blood 1+ H (NEG) Urine Nitrite NEG (NEG) Ur Leukocyte Esterase 1+ H (NEG) Urine RBC 1-4 (0) /HPF Urine WBC 1-4 (0-4) /HPF Ur Squamous Epith Cells 3+ /LPF Urine Bacteria TRACE /LPF Urine Opiates Screen Not Detected (Not Detect) Ur Barbiturates Screen Not Detected (Not Detect) Ur Phencyclidine Scrn Not Detected (Not Detect) Ur Amphetamines Screen Not Detected (Not Detect) U Benzodiazepines Scrn Not Detected (Not Detect) Urine Cocaine Screen Not Detected (Not Detect) U Marijuana (THC) Screen Not Detected (Not Detect) COVID-19 ([facility]) (Negative) COVID-19 Clin Com ECG Data ECG #1: Attestation: I personally reviewed and interpreted this ECG as follows: ECG interpretation date: 03/10/20 ECG interpretation time: 06:55 Interpretation: Rate: 97 Rhythm: NSR [place]: normal Normal P waves. Normal [place]. Normal QRS complex. poor R wave progression ST T wave : nonspecific, no GABE qTC: normal prior studies: no acute ischemia The study has been interpreted contemporaneously by me. . Discharge Plan Discharge Clinical Impression: Altered behavior Patient Disposition: Xfer [facility] Additional Instructions: return to ED for any worsening symptoms or concerns negative urine, normal labs, EKG normal, CXR and UA negative for infection, COVID negative her PLATELETS are lower than baseline at 99 please monitor and inform her doctor given eliquis use you should follow up with a neurologist as well, there is a possibility Tala had a seizure since she is taking no anti epileptic drugs Prescriptions: No Action clozapine 100 mg Tablet 500 mg PO BEDTIME RF: 0 clonazepam 0.5 mg Tablet 0.5 mg PO BID RF: 0 sennosides-docusate sodium [Senna with Docusate Sodium] 8.6-50 mg Tablet 1 tab PO TID PRN (Reason: Constipation) RF: 0 levothyroxine 75 mcg Tablet 75 mcg PO DAILY@0630 RF: 0 ferrous sulfate 325 mg (65 mg iron) Tablet 325 mg PO BID RF: 0 folic acid 1 mg Tablet 1 mg PO DAILY RF: 0 pravastatin 20 mg Tablet 20 mg PO BEDTIME RF: 0 lamotrigine [Lamictal] 100 mg Tablet 100 mg PO BID RF: 0 cholecalciferol (vitamin D3) [Vitamin D3] 25 mcg (1,000 unit) Capsule 25 mcg PO BEDTIME RF: 0 Eliquis 5 mg Tablet 5 mg PO BID RF: 0 baclofen 10 mg tablet 30 mg PO TID RF: 0 tramadol 50 mg Tablet 100 mg PO TID RF: 0 acetaminophen 325 mg Tablet 650 mg PO Q4H PRN (Reason: FEVER/PAIN) RF: 0 paroxetine HCl [Paxil] 10 mg Tablet 10 mg PO DAILY RF: 0 ibuprofen 800 mg Tablet 800 mg PO TID RF: 0 sertraline 25 mg Tablet 25 mg PO DAILY RF: 0 albuterol sulfate [Ventolin HFA] 90 mcg/actuation Hfa Aerosol Inhaler 2 puff INHALATION Q4H PRN (Reason: Wheezing) RF: 0 loperamide 2 mg Capsule 2 mg PO Q4H PRN (Reason: Loose Stool) RF: 0 diphenoxylate-atropine 2.5-0.025 mg Tablet 1 tab PO BID PRN (Reason: Diarrhea) RF: 0 dextromethorphan-guaifenesin [Guaifenesin DM] 10-100 mg/5 mL Syrup 10 ml PO Q4H PRN (Reason: Cough) RF: 0 budesonide 3 mg Capsule,Delayed,Extend.Release 3 mg PO MOFR@1000 PRN (Reason: Diarrhea) RF: 0 Referrals: Physician,Unknown [Primary Care Provider] - 3 days Discharge Date/Time: 03/10/20 11:29
[2020-03-10] MEDS: 0.9 % Sodium Chloride 500 ML IV (06:40)
[2020-03-10 07:17] LABS: Imm Gran Abs Auto 0.01 X10*3/uL (0.00-0.03); Imm Gran Pct Auto 0.2 % (0.0-0.4)
[2020-03-10 07:18] LABS: Basophils Percent Auto 0.4 % (0-2); Eosinophils Absolute Auto 0.1 X10*3/uL (0.0-0.4); Eosinophils Percent Auto 2.5 % (0-4); Hematocrit 35.6 % (37-47); Hemoglobin 11.8 g/dl (12.0-16.0); Lymphocytes Absolute Auto 1.2 X10*3/uL (1.2-4.9); Lymphocytes Percent Auto 26.9 % (20-40); Mean Corpuscular HGB Conc 33.1 g/dl (31.0-35.0); Mean Corpuscular Hemoglobin 33.8 pg (27.0-33.0); Mean Platelet Volume 10.4 fL (9.4-12.3); Monocytes Absolute Auto 0.3 X10*3/uL (0.1-1.2); Monocytes Percent Auto 6.1 % (2-11); Neutrophils Absolute Auto 2.9 X10*3/uL (2.0-8.3); Neutrophils Percent Auto 63.9 % (45-73); Red Blood Count 3.49 X10*6/uL (4.20-5.50); White Blood Count 4.5 X10*3/uL (4.8-10.8)
[2020-03-10 07:19] LABS: Platelet Count 99 X10*3/uL (160-400)
[2020-03-10 07:22] LABS: INTERNATIONAL NORM RATIO 1.4 (0.9-1.1); Prothrombin Time 16.9 SEC (10.8-13.0)
[2020-03-10 07:25] LABS: Partial Thromboplastin Time 55.6 SEC (24.1-38.0)
[2020-03-10 07:30] LABS: COVID-19 Test Negative (Negative)
[2020-03-10 07:44] LABS: Ammonia 26 umol/L (13-55)
[2020-03-10 07:48] LABS: Lactic Acid 0.8 mmol/L (0.5-2.0)
[2020-03-10 07:53] LABS: Lipase 17 U/L (8-78)
[2020-03-10 07:54] LABS: Alanine Aminotransferase 10 U/L (0-31); Alkaline Phosphatase 90 U/L (39-117); Anion Gap 14 (12-20); Aspartate Amino Transferase 20 U/L (5-31); Bilirubin Direct 0.2 mg/dL (0.0-0.5); Bilirubin Total 0.6 mg/dL (0.0-1.0); Blood Urea Nitrogen 15 mg/dL (9-16); Calcium 9.2 mg/dL (8.4-10.2); Carbon Dioxide 26 mmol/L (22-29); Chloride 106 mmol/L (96-108); Creatinine Clr Calc Pharmacy 42.8; Estimated Glomerular Filt Rate 54; Glucose Random 112 mg/dL (60-115); Lactate Dehydrogenase 142 U/L (122-220); Magnesium 2.1 mg/dL (1.6-2.6); Potassium 3.7 mmol/l (3.3-5.1); Sodium 142 mmol/L (135-145); Total Protein 5.9 g/dL (6.5-8.0)
[2020-03-10 07:58] LABS: B Type Natriuretic Peptide 17 pg/mL (<100); Troponin-I High Sensitivity < 3.5 ng/L (<3.5-17.0)
[2020-03-10 08:14] LABS: Ferritin 356 ng/mL (10-250); Thyroid Stimulating Hormone 0.95 uIU/mL (0.32-4.0)
[2020-03-10 09:35] LABS: Glucose Urine UA NEG (NEG); Leukocyte Esterase Urine 1+ (NEG); Nitrite Urine NEG (NEG); Specific Gravity - Urine 1.015 (1.005-1.025); UACC Culture Trigger YES; Urine Blood 1+ (NEG); Urine Ketones NEG (NEG); Urine Protein NEG (NEG-TRACE)
[2020-03-10 09:36] LABS: Appearance Urine HAZY; Base Excess VBG 2.2 mmol/L; Color Urine YELLOW; HCO3 VBG 28 mmol/L; PCO2 VBG 52 mmHg; PO2 VBG 51 mmHg; pH VBG 7.34 (7.32-7.43)
[2020-03-10 09:43] LABS: Bacteria Urine TRACE /LPF; Squamous Epithelial Cell Urine 3+ /LPF
--- NOTE | 2020-03-10 10:16 | PC.NURSE ---
pt frequently asking to use bathroom, educated about need for staff assistance w ambulation, pt not easily redirectable, pt placed on commode two times w no void.
[2020-03-10 11:06] LABS: Amphetamine Screen Urine Not Detected (Not Detect); Barbiturates, Urine Not Detected (Not Detect); Benzodiazepines Screen Urine Not Detected (Not Detect); Cannabinoid Screen Urine Not Detected (Not Detect); Cocaine Screen Urine Not Detected (Not Detect); Opiate Screen Urine Not Detected (Not Detect); Phencyclidine Screen Urine Not Detected (Not Detect)
== END 2020-03-10 11:29 | disposition skilled nursing facility (03) ==
PROVIDERS: Emergency Provider Emergency Medicine
DX: R41.82 Altered mental status, unspecified (principal); F31.9 Bipolar disorder, unspecified; Z79.899 Other long term (current) drug therapy
CPT/HCPCS: 36415; 70450; 71045; 80048; 80076; 80307; 81001; 81003; 82140; 82550; 82728; 82803; 83605; 83615; 83690; 83735; 83880; 84443; 84484; 85025; 85610; 85730; 87040; 87086; 87635; 93005; 96360; 99284

== ENCOUNTER 2020-03-10 12:26 | Emergency (ER) | payer MEDICARE, MEDICAID, SELFPAY ==
--- NOTE | 2020-03-10 12:28 | ED_ITS ---
HPI - Weakness General Chief complaint: Fall Stated complaint: unable to ambulate Time Seen by Provider: 03/10/20 12:28 Source: patient and EMS Mode of arrival: EMS Limitations: altered mental status History of Present Illness HPI Narrative: just seen for AMS on DC she was minimally confused and up and walking apparently went to her RESIDENTIAL and slipped and slightly fell bumping head into wall no LOC no signs of trauma, no headache referred back to ED stating they cannot care for her, full workup prior to DC MD Complaint: generalized weakness Onset (ago): hour(s) Duration: now resolved Location: generalized Migration: none Severity: mild Relieving factors: none Exacerbating factors: none Associated symptoms: denies other symptoms Related Data Home Medications Medication Instructions Recorded Confirmed Eliquis 5 mg PO BID 01/08/20 03/10/20 cholecalciferol (vitamin D3) 25 mcg PO BEDTIME 01/08/20 03/10/20 [Vitamin D3] clonazepam 0.5 mg PO BID 01/08/20 03/10/20 clozapine 500 mg PO BEDTIME 01/08/20 03/10/20 ferrous sulfate 325 mg PO BID 01/08/20 03/10/20 folic acid 1 mg PO DAILY 01/08/20 03/10/20 lamotrigine [Lamictal] 100 mg PO BID 01/08/20 03/10/20 levothyroxine 75 mcg PO DAILY@0630 01/08/20 03/10/20 pravastatin 20 mg PO BEDTIME 01/08/20 03/10/20 sennosides-docusate sodium [Senna 1 tab PO TID PRN 01/08/20 03/10/20 with Docusate Sodium] acetaminophen 650 mg PO Q4H PRN 03/10/20 03/10/20 albuterol sulfate [Ventolin HFA] 2 puff INHALATION Q4H PRN 03/10/20 03/10/20 baclofen 30 mg PO TID 03/10/20 03/10/20 budesonide 3 mg PO MOFR@1000 PRN 03/10/20 03/10/20 dextromethorphan-guaifenesin 10 ml PO Q4H PRN 03/10/20 03/10/20 [Guaifenesin DM] diphenoxylate-atropine 1 tab PO BID PRN 03/10/20 03/10/20 ibuprofen 800 mg PO TID 03/10/20 03/10/20 loperamide 2 mg PO Q4H PRN 03/10/20 03/10/20 paroxetine HCl [Paxil] 10 mg PO DAILY 03/10/20 03/10/20 sertraline 25 mg PO DAILY 03/10/20 03/10/20 tramadol 100 mg PO TID 03/10/20 03/10/20 Allergies Allergy/AdvReac Type Severity Reaction Status Date / Time bee pollen [Bee Stings] Allergy Severe ANAPHYLAXIS Verified 01/08/20 21:33 Review of Systems Review of Systems: Constitutional : No Weight loss, No Fever, No Chills, ENT/Mouth : No sore throat, No Rhinorrhea Eyes: No Eye Pain, No Swelling, No Redness Cardiovascular : No Chest Pain, No SOB Respiratory : No Cough, No Sputum, No Wheezing Gastrointestinal : No Nausea, No Vomiting, No Diarrhea Genitourinary : No Dysuria, No Urinary Frequency, No Hematuria, Musculoskeletal : No joint pain, No Myalgias, No Joint Swelling Skin : No Skin Lesions, No rash Neuro : pos Weakness, No Numbness, No Dizziness, No Headache All other systems reviewed and are negative PMFSH Past Medical History Attestation statement: The following information was validated with the patient. Medical History Anxiety Bipolar 1 disorder Lumbar radiculopathy Psychosis Pulmonary embolism Transient cerebral ischemia Social History Social History Household Members: None Housing: Assisted Living Facility Alcohol intake: never Smoking Status: Never smoker Advance Directives: No Advance Directives Information Provided: Yes service: No Current occupational status: retired Physical Exam Vital Signs: Vital Signs: Last Vital Signs Temp 97.8 F 03/10/20 12:32 Pulse 77 03/10/20 13:05 Resp 16 03/10/20 12:32 BP 119/60 03/10/20 13:05 Pulse Ox 98 03/10/20 13:05 Body Mass Index 20.0 Appearance: Alert. Oriented X3. No acute distress. patient knows the hospital, year is 2020, what happened at her SNF and she reports Marlene asif the new [employer] Eyes: Pupils equal, round and reactive to light. ENT: Pharynx normal. Neck: Normal inspection. Neck supple. CVS: Normal heart rate and rhythm. Pulses normal. Respiratory: No respiratory distress. Breath sounds normal. Abdomen: Soft and nontender. Skin: Skin warm and dry. Normal skin color. Normal skin turgor. Extremities: No lower extremity edema. No calf ttp Neuro: Oriented X 3. No motor deficit. No sensory deficit. Course Course Course Narrative: to go to [facility] - Weakness MDM Narrative Medical decision making narrative: 64 yo female with anxiety, depression, bipolar, psychosis - comes in after staff state she couldn't walk though was walking in ED and walking on arrival here also note she was confused but patient is alert to person/place/year - likely patient requires more care than facility can give, PT/CM involved, already medically cleared Discharge Plan Discharge Clinical Impression: Altered behavior Patient Disposition: Xfer [facility] Instructions: Altered Mental Status (ED) Additional Instructions: return to ED for any worsening symptoms or concerns Prescriptions: No Action clozapine 100 mg Tablet 500 mg PO BEDTIME RF: 0 clonazepam 0.5 mg Tablet 0.5 mg PO BID RF: 0 sennosides-docusate sodium [Senna with Docusate Sodium] 8.6-50 mg Tablet 1 tab PO TID PRN (Reason: Constipation) RF: 0 levothyroxine 75 mcg Tablet 75 mcg PO DAILY@0630 RF: 0 ferrous sulfate 325 mg (65 mg iron) Tablet 325 mg PO BID RF: 0 folic acid 1 mg Tablet 1 mg PO DAILY RF: 0 pravastatin 20 mg Tablet 20 mg PO BEDTIME RF: 0 lamotrigine [Lamictal] 100 mg Tablet 100 mg PO BID RF: 0 cholecalciferol (vitamin D3) [Vitamin D3] 25 mcg (1,000 unit) Capsule 25 mcg PO BEDTIME RF: 0 Eliquis 5 mg Tablet 5 mg PO BID RF: 0 baclofen 10 mg tablet 30 mg PO TID RF: 0 tramadol 50 mg Tablet 100 mg PO TID RF: 0 acetaminophen 325 mg Tablet 650 mg PO Q4H PRN (Reason: FEVER/PAIN) RF: 0 paroxetine HCl [Paxil] 10 mg Tablet 10 mg PO DAILY RF: 0 ibuprofen 800 mg Tablet 800 mg PO TID RF: 0 sertraline 25 mg Tablet 25 mg PO DAILY RF: 0 albuterol sulfate [Ventolin HFA] 90 mcg/actuation Hfa Aerosol Inhaler 2 puff INHALATION Q4H PRN (Reason: Wheezing) RF: 0 loperamide 2 mg Capsule 2 mg PO Q4H PRN (Reason: Loose Stool) RF: 0 diphenoxylate-atropine 2.5-0.025 mg Tablet 1 tab PO BID PRN (Reason: Diarrhea) RF: 0 dextromethorphan-guaifenesin [Guaifenesin DM] 10-100 mg/5 mL Syrup 10 ml PO Q4H PRN (Reason: Cough) RF: 0 budesonide 3 mg Capsule,Delayed,Extend.Release 3 mg PO MOFR@1000 PRN (Reason: Diarrhea) RF: 0 Referrals: [facility] [Outside] - 2 days Bal Temple MD [Primary Care Provider] - 2 days
[2020-03-10 12:32] VITALS: BP 119/60; BP 127/67; PULSE 77; PULSE 80; RESP 16; TEMP 36.6; O2SAT 97; O2SAT 98
[2020-03-10 13:05] VITALS: BP 119/60; PULSE 77; O2SAT 98
--- NOTE | 2020-03-10 13:58 | MHC.CM.ED ---
Patient was seen in ER earlier today and discharged back to [facility] Patient returned to ER due to weakness. Radha at [facility] did feel patient could safely ambulate at their faclity and sent the patient back to the ER. Physical therapy eval completed. Short term rehab is being recommended. Referral broaddcasted in [employer]. [facility] is able to offer a bed. Patient agreeable to transferring to [facility]. Patient's HCP, Francoise made aware via telephone at [phone] and agreeable. Continue to monitor for d/c needs.
--- NOTE | 2020-03-10 15:06 | MHC.CM.ED ---
Per Fran campos [facility], patient can leave at 4pm.Patient, Dr Ferrell and Alexander RN aware. [facility] booked. Med nec with chart. Continue to monitor for d/c needs.
--- NOTE | 2020-03-10 15:08 | PC.NURSE ---
per case mgmt nurse, pt to be discharged to [facility] at 1600.
== END 2020-03-10 16:16 | disposition skilled nursing facility (03) ==
PROVIDERS: Emergency Provider Emergency Medicine; PCP Internal Medicine
DX: R41.82 Altered mental status, unspecified (principal); F41.9 Anxiety disorder, unspecified; F32.9 Major depressive disorder, single episode, unspecified; G44.309 Post-traumatic headache, unspecified, not intractable; Z20.822 Contact with and (suspected) exposure to COVID-19; Z79.899 Other long term (current) drug therapy
CPT/HCPCS: 36415; 70450; 71045; 80048; 80076; 80307; 81001; 81003; 82140; 82550; 82728; 82803; 83605; 83615; 83690; 83735; 83880; 84443; 84484; 85025; 85610; 85730; 87040; 87086; 87635; 93005; 96360; 97162; 99283; 99284; 99285

== ENCOUNTER 2020-04-26 07:09 | Emergency (ER) | payer MEDICARE, MEDICAID, SELFPAY ==
--- NOTE | ~2020-04-26 | XR_ITS ---
EXAMINATION: XR CHEST CLINICAL INFORMATION: Altered mental status COMPARISON: 03/10/2020 TECHNIQUE: Frontal view of the chest was obtained. FINDINGS: The lungs are well-inflated. No dense focal consolidation. No pleural effusion or pneumothorax. Heart size is normal. No acute osseous abnormality. XR/XR chest 1V IMPRESSION: No acute pulmonary process.
--- NOTE | ~2020-04-26 | CT_ITS ---
EXAMINATION: CT HEAD WITHOUT CONTRAST CLINICAL INFORMATION: Acute mental status change. Patient on blood thinning medicine. COMPARISON: Previous head CT February 2020 TECHNIQUE: Contiguous axial imaging was performed from the skull base to vertex without intravenous administration of contrast. This CT examination was performed using dose optimization techniques as appropriate, variously including the following: *Automated exposure control *Adjustment of mA and/or kV according to patient size (this includes techniques or standardized protocols for targeted exams where dose is matched to indication/reason for exam; i.e. extremities or head) *Use of iterative reconstruction technique DLP: 692 mGy-cm FINDINGS: There is no evidence of acute intracranial hemorrhage or territorial infarction. No abnormal mass effect or midline shift is seen. Sorto to white matter differentiation is well preserved. No extra-axial fluid collections are identified. The ventricles are normal in size. There is no abnormal attenuation within the brain parenchyma. The osseous structures and soft tissues are normal. There round soft tissue seen in the posterior left ethmoid sinus probably representing a small polyp or cyst. The mastoid air cells and visualized portions of the paranasal sinuses are otherwise clear.. CT/CT head/brain wo con IMPRESSION: No acute intracranial pathology.
[2020-04-26 07:22] VITALS: BP 126/82; BP 143/76; PULSE 102; PULSE 98; RESP 12; TEMP 35.4; O2SAT 98; BMI 22.0
--- NOTE | 2020-04-26 07:22 | ED_ITS ---
HPI - Altered Mental Status General Chief Complaint: General Medical Stated Complaint: AMS Time Seen by Provider: 04/26/20 07:22 Source: patient and RN notes reviewed Mode of arrival: EMS Limitations: altered mental status History of Present Illness HPI narrative: Patient 64 years old from assisted living with history of depression bipolar disorder hypothyroidism, history of hyponatremia ,history of schizoaffective disorder, with history of PE on Eliquis usually alert oriented x4 noticed by the staff patient is more confused since morning and lethargic no history of seizures no history of any fall patient is alert oriented x3 discharge and sleepy but knows who brought her here and why she is here. Denies any chest pain or shortness of breath no headache no fever or cough MD complaint: decreased responsiveness Onset (ago): hour(s) Timing confirmed by: caregiver Severity: mild Related Data Home Medications Medication Instructions Recorded Confirmed Eliquis 5 mg PO BID 01/08/20 03/10/20 cholecalciferol (vitamin D3) 25 mcg PO BEDTIME 01/08/20 03/10/20 [Vitamin D3] clonazepam 0.5 mg PO BID 01/08/20 03/10/20 clozapine 500 mg PO BEDTIME 01/08/20 03/10/20 ferrous sulfate 325 mg PO BID 01/08/20 03/10/20 folic acid 1 mg PO DAILY 01/08/20 03/10/20 lamotrigine [Lamictal] 100 mg PO BID 01/08/20 03/10/20 levothyroxine 75 mcg PO DAILY@0630 01/08/20 03/10/20 pravastatin 20 mg PO BEDTIME 01/08/20 03/10/20 sennosides-docusate sodium [Senna 1 tab PO TID PRN 01/08/20 03/10/20 with Docusate Sodium] acetaminophen 650 mg PO Q4H PRN 03/10/20 03/10/20 albuterol sulfate [Ventolin HFA] 2 puff INHALATION Q4H PRN 03/10/20 03/10/20 baclofen 30 mg PO TID 03/10/20 03/10/20 budesonide 3 mg PO MOFR@1000 PRN 03/10/20 03/10/20 dextromethorphan-guaifenesin 10 ml PO Q4H PRN 03/10/20 03/10/20 [Guaifenesin DM] diphenoxylate-atropine 1 tab PO BID PRN 03/10/20 03/10/20 ibuprofen 800 mg PO TID 03/10/20 03/10/20 loperamide 2 mg PO Q4H PRN 03/10/20 03/10/20 paroxetine HCl [Paxil] 10 mg PO DAILY 03/10/20 03/10/20 sertraline 25 mg PO DAILY 03/10/20 03/10/20 tramadol 100 mg PO TID 03/10/20 03/10/20 Allergies Allergy/AdvReac Type Severity Reaction Status Date / Time bee pollen [Bee Stings] Allergy Severe ANAPHYLAXIS Verified 01/08/20 21:33 Review of Systems Review of Systems: Constitutional : No Weight loss, No Fever, No Chills ENT/Mouth : No sore throat, No Rhinorrhea Eyes: No Eye Pain, No Swelling Cardiovascular : No Chest Pain, no palpitations Respiratory : No Cough, No Sputum, no shortness of breath Gastrointestinal : no Nausea, No Vomiting, No Diarrhea, No abdominal Pain, no black stools Genitourinary : No Dysuria, No Urinary Frequency Musculoskeletal : No joint pain, No Myalgias, No Joint Swelling Skin : No Skin Lesions, No rash Neuro : ++Weakness, No Numbness, No Dizziness, No Headache Psych : No Anxiety/Panic, No Depression Heme/Lymph: No Bruising, No Lymphadenopathy Endocrine : No Polyuria, No Polydipsia All other systems reviewed and are negative PMFSH Past Medical History Medical History Anxiety Bipolar 1 disorder Lumbar radiculopathy Psychosis Pulmonary embolism Schizoaffective disorder Transient cerebral ischemia Social History Social History Household Members: None Housing: Assisted Living Facility Alcohol intake: never Smoking Status: Never smoker Use of substances other than those prescribed or required for medical reasons: No Advance Directives: Yes Advance Directives on File: Yes Advance Directives Date on File: 03/10/20 service: No Current occupational status: retired Physical Exam Vital Signs: Vital Signs: Last Vital Signs Temp 97.5 F 04/26/20 11:10 Pulse 107 H 04/26/20 11:10 Resp 16 04/26/20 11:10 BP 129/80 04/26/20 11:10 Pulse Ox 99 04/26/20 11:10 Body Mass Index 22.0 Const: General: no acute distress, well developed and lethargic Nutritional Appearance: average body habitus Orientation/consciousness: oriented to person, oriented to place and lethargic HENMT: Head: Yes normal to inspection Ears: hearing grossly normal bilaterally Face and sinus: Yes normal facial exam Mouth: Normal oral and palatal mucosa present Eyes: General: appearance normal, both eyes and all related structures Sclerae: sclerae normal Corneas: corneas normal Pupils: Equal, round and reactive pupils present EOM: EOMs intact bilaterally Neck: Neck: Yes normal visual inspection and Yes no JVD Chest: Chest palpation & inspection: normal palpation of entire chest wall Resp: Effort & Inspection: normal respiratory effort Auscultation: clear to auscultation bilaterally, no crackles, no rales and no rhonchi Cardio: Jugular venous distension: no JVD Palpation: normal PMI Rate: regular rate Rhythm: regular rhythm Heart sounds: S1 normal heart sound present and S2 normal heart sound present Peripheral pulses: Peripheral pulses 2+ throughout GI: Inspection: Yes normal to inspection Palpation (GI): Soft to palpation and nontender Auscultation: normal bowel sounds : General: Yes no CVA tenderness Back/Spine/Pelvis: Back: no CVA tenderness Thoracic/Lumbar Spine: thoracic and lumbar spine normal to inspection Skin: General skin exam: no rashes or lesions noted Neuro: General: oriented to person, oriented to place, no focal motor deficits, CN's II-XI intact bilaterally and deep tendon reflexes 2+ bilaterally Cranial nerves: Yes Equal, round and reactive pupils present Extrem: General: Yes normal to inspection and Yes no calf tenderness MDM - Altered Mental Status MDM Narrative Medical decision making narrative: Patient with increased confusion with nonfocal examination patient alert oriented x3 but lethargic clinically patient seems to be side effects from medications as she take Klonopin and Clozaril. CT scan head is negative labs are stable will check for U/A Patient urine is also negative patient alert oriented now watching TV relaxed back to baseline will discharge patient back to assisted living Differential Diagnosis Differential diagnosis: Likely altered mental status Medical Records Attestation: I reviewed the patient's medical records. Lab Data Attestation: I reviewed the patient's lab results. Result diagrams: 04/26/20 07:41 04/26/20 07:41 Labs: Lab Results 04/26/20 04/26/20 04/26/20 Range/Units 07:38 07:41 07:41 WBC 5.1 (4.8-10.8) X10*3/uL RBC 3.69 L (4.20-5.50) X10*6/uL Hgb 12.4 (12.0-16.0) g/dl Hct 36.2 L (37-47) % MCV 98.1 H (80-98) fL MCH 33.6 H (27.0-33.0) pg MCHC 34.3 (31.0-35.0) g/dl RDW 11.7 (11.0-16.0) % Plt Count 118 L (160-400) X10*3/uL MPV 9.4 (9.4-12.3) fL Immature Gran % (Auto) 0.0 (0.0-0.4) % Neut % (Auto) 82.9 H (45-73) % Lymph % (Auto) 11.2 L (20-40) % Mccormick % (Auto) 5.7 (2-11) % Eos % (Auto) 0.0 (0-4) % Baso % (Auto) 0.2 (0-2) % Lymph # (Auto) 0.6 L (1.2-4.9) X10*3/uL Mccormick # (Auto) 0.3 (0.1-1.2) X10*3/uL Eos # (Auto) 0.0 (0.0-0.4) X10*3/uL Baso # (Auto) 0.0 (0.0-0.2) X10*3/uL Abs Immat Gran (auto) 0.00 (0.00-0.03) X10*3/uL Absolute Neuts (auto) 4.2 (2.0-8.3) X10*3/uL Absolute Nucleated RBC 0.000 (0.0-0.012) X10*3/uL Nucleated RBC % (auto) 0.0 (0.0-0.2) /100WBC Smear Tech's Comments VERIFIED PT 17.2 H (10.8-13.0) SEC INR 1.4 H (0.9-1.1) APTT 49.9 H (24.1-38.0) SEC Sodium (135-145) mmol/L Potassium (3.3-5.1) mmol/L Chloride (96-108) mmol/L Carbon Dioxide (22-29) mmol/L Anion Gap (12-20) BUN (9-16) mg/dL Creatinine (0.5-1.4) mg/dL Estim Creat Clear Calc Estimated GFR Random Glucose (60-115) mg/dL Calcium (8.4-10.2) mg/dL Total Bilirubin (0.0-1.0) mg/dL Direct Bilirubin (0.0-0.5) mg/dL AST (5-31) U/L ALT (0-31) U/L Alkaline Phosphatase (39-117) U/L Troponin I High Sens (<3.5-17.0) ng/L Total Protein (6.5-8.0) g/dL Albumin (3.5-5.0) g/dL Urine Color Urine Appearance Urine pH (5.0-8.0) Ur Specific [place] (1.005-1.025) Urine Protein (NEG-TRACE) MG/DL Urine Glucose (UA) (NEG) MG/DL Urine Ketones (NEG) MG/DL Urine Blood (NEG) Urine Nitrite (NEG) Ur Leukocyte Esterase (NEG) Urine RBC (0) /HPF Urine WBC (0-4) /HPF Ur Squamous Epith Cells /LPF Urine Bacteria /LPF COVID-19 ([facility]) Negative (Negative) COVID-19 Clin Com See Note 04/26/20 04/26/20 04/26/20 Range/Units 07:41 07:41 09:08 WBC (4.8-10.8) X10*3/uL RBC (4.20-5.50) X10*6/uL Hgb (12.0-16.0) g/dl Hct (37-47) % MCV (80-98) fL MCH (27.0-33.0) pg MCHC (31.0-35.0) g/dl RDW (11.0-16.0) % Plt Count (160-400) X10*3/uL MPV (9.4-12.3) fL Immature Gran % (Auto) (0.0-0.4) % Neut % (Auto) (45-73) % Lymph % (Auto) (20-40) % Mccormick % (Auto) (2-11) % Eos % (Auto) (0-4) % Baso % (Auto) (0-2) % Lymph # (Auto) (1.2-4.9) X10*3/uL Mccormick # (Auto) (0.1-1.2) X10*3/uL Eos # (Auto) (0.0-0.4) X10*3/uL Baso # (Auto) (0.0-0.2) X10*3/uL Abs Immat Gran (auto) (0.00-0.03) X10*3/uL Absolute Neuts (auto) (2.0-8.3) X10*3/uL Absolute Nucleated RBC (0.0-0.012) X10*3/uL Nucleated RBC % (auto) (0.0-0.2) /100WBC Smear Tech's Comments PT (10.8-13.0) SEC INR (0.9-1.1) APTT (24.1-38.0) SEC Sodium 134 L (135-145) mmol/L Potassium 3.7 (3.3-5.1) mmol/L Chloride 98 (96-108) mmol/L Carbon Dioxide 28 (22-29) mmol/L Anion Gap 12 (12-20) BUN 13 (9-16) mg/dL Creatinine 0.80 (0.5-1.4) mg/dL Estim Creat Clear Calc 57.2 Estimated GFR > 60 Random Glucose 100 (60-115) mg/dL Calcium 9.0 (8.4-10.2) mg/dL Total Bilirubin 0.7 (0.0-1.0) mg/dL Direct Bilirubin 0.3 (0.0-0.5) mg/dL AST 17 (5-31) U/L ALT 8 (0-31) U/L Alkaline Phosphatase 80 (39-117) U/L Troponin I High Sens < 3.5 (<3.5-17.0) ng/L Total Protein 5.8 L (6.5-8.0) g/dL Albumin 4.0 (3.5-5.0) g/dL Urine Color YELLOW Urine Appearance HAZY Urine pH 6.0 (5.0-8.0) Ur Specific [place] 1.015 (1.005-1.025) Urine Protein NEG (NEG-TRACE) MG/DL Urine Glucose (UA) NEG (NEG) MG/DL Urine Ketones 15 (NEG) MG/DL Urine Blood 1+ H (NEG) Urine Nitrite NEG (NEG) Ur Leukocyte Esterase TRACE H (NEG) Urine RBC 1-4 (0) /HPF Urine WBC 1-4 (0-4) /HPF Ur Squamous Epith Cells 2+ /LPF Urine Bacteria 1+ /LPF COVID-19 ([facility]) (Negative) COVID-19 Clin Com ECG Data ECG #1: Attestation: I personally reviewed and interpreted this ECG as follows: Interpretation: No hirsutism with heart rate 98 beats per minute nonspecific ST T wave changes normal intervals normal axis no acute ischemia Discharge Plan Discharge Clinical Impression: Lethargy Patient Disposition: Xfer LTC Instructions: Weakness (ED) Additional Instructions: Patient workup is negative for any significant infection, labs are normal, CT scan of the head is negative, kidney functions were normal. Hold the medication Klonopin if patient is too sleepy Prescriptions: No Action clozapine 100 mg Tablet 500 mg PO BEDTIME RF: 0 clonazepam 0.5 mg Tablet 0.5 mg PO BID RF: 0 sennosides-docusate sodium [Senna with Docusate Sodium] 8.6-50 mg Tablet 1 tab PO TID PRN (Reason: Constipation) RF: 0 levothyroxine 75 mcg Tablet 75 mcg PO DAILY@0630 RF: 0 ferrous sulfate 325 mg (65 mg iron) Tablet 325 mg PO BID RF: 0 folic acid 1 mg Tablet 1 mg PO DAILY RF: 0 pravastatin 20 mg Tablet 20 mg PO BEDTIME RF: 0 lamotrigine [Lamictal] 100 mg Tablet 100 mg PO BID RF: 0 cholecalciferol (vitamin D3) [Vitamin D3] 25 mcg (1,000 unit) Capsule 25 mcg PO BEDTIME RF: 0 Eliquis 5 mg Tablet 5 mg PO BID RF: 0 baclofen 10 mg tablet 30 mg PO TID RF: 0 tramadol 50 mg Tablet 100 mg PO TID RF: 0 acetaminophen 325 mg Tablet 650 mg PO Q4H PRN (Reason: FEVER/PAIN) RF: 0 paroxetine HCl [Paxil] 10 mg Tablet 10 mg PO DAILY RF: 0 ibuprofen 800 mg Tablet 800 mg PO TID RF: 0 sertraline 25 mg Tablet 25 mg PO DAILY RF: 0 albuterol sulfate [Ventolin HFA] 90 mcg/actuation Hfa Aerosol Inhaler 2 puff INHALATION Q4H PRN (Reason: Wheezing) RF: 0 loperamide 2 mg Capsule 2 mg PO Q4H PRN (Reason: Loose Stool) RF: 0 diphenoxylate-atropine 2.5-0.025 mg Tablet 1 tab PO BID PRN (Reason: Diarrhea) RF: 0 dextromethorphan-guaifenesin [Guaifenesin DM] 10-100 mg/5 mL Syrup 10 ml PO Q4H PRN (Reason: Cough) RF: 0 budesonide 3 mg Capsule,Delayed,Extend.Release 3 mg PO MOFR@1000 PRN (Reason: Diarrhea) RF: 0 Interventions: ED Discharge Assessment Last Done: 04/26/20 11:47 Discharge Date/Time: 04/26/20 11:47
--- NOTE | 2020-04-26 07:23 | ECG_ITS ---
Test Reason : ALTER MENTAL Blood Pressure : / mmHG Vent. Rate : 098 BPM Atrial Rate : 098 BPM P-R Int : 172 ms QRS Dur : 122 ms QT Int : 364 ms P-R-T Axes : 046 003 067 degrees QTc Int : 464 ms Normal sinus rhythm Possible Left atrial enlargement Incomplete right bundle branch block Nonspecific ST and T wave abnormality Abnormal ECG When compared with ECG of 10-MAR-2020 06:45, Nonspecific T wave abnormality no longer evident in Inferior leads Referred By: Cristino Hebert Electronically Signed By:NACHO BAL MD
[2020-04-26] MEDS: 0.9 % Sodium Chloride 1,000 ML 999 ML IVCONT (07:48)
[2020-04-26 07:52] LABS: Basophils Percent Auto 0.2 % (0-2); Hematocrit 36.2 % (37-47); Hemoglobin 12.4 g/dl (12.0-16.0); Lymphocytes Absolute Auto 0.6 X10*3/uL (1.2-4.9); Lymphocytes Percent Auto 11.2 % (20-40); MANUAL DIFF FLAG SCAN; Mean Corpuscular HGB Conc 34.3 g/dl (31.0-35.0); Mean Corpuscular Hemoglobin 33.6 pg (27.0-33.0); Mean Corpuscular Volume 98.1 fL (80-98); Mean Platelet Volume 9.4 fL (9.4-12.3); Monocytes Absolute Auto 0.3 X10*3/uL (0.1-1.2); Monocytes Percent Auto 5.7 % (2-11); Neutrophils Absolute Auto 4.2 X10*3/uL (2.0-8.3); Neutrophils Percent Auto 82.9 % (45-73); Platelet Count 118 X10*3/uL (160-400); Red Blood Count 3.69 X10*6/uL (4.20-5.50); Red Cell Distribution Width 11.7 % (11.0-16.0); SCAN SMEAR FLAG 1; White Blood Count 5.1 X10*3/uL (4.8-10.8)
[2020-04-26 08:02] LABS: INTERNATIONAL NORM RATIO 1.4 (0.9-1.1); Prothrombin Time 17.2 SEC (10.8-13.0)
[2020-04-26 08:04] LABS: Partial Thromboplastin Time 49.9 SEC (24.1-38.0)
[2020-04-26 08:04] LABS: COVID-19 Test Negative (Negative); IDNOW Serial# 9DD0AD1C
[2020-04-26 08:13] LABS: SLIDE REVIEW VERIFIED
[2020-04-26 08:23] LABS: Alanine Aminotransferase 8 U/L (0-31); Alkaline Phosphatase 80 U/L (39-117); Anion Gap 12 (12-20); Aspartate Amino Transferase 17 U/L (5-31); Bilirubin Direct 0.3 mg/dL (0.0-0.5); Bilirubin Total 0.7 mg/dL (0.0-1.0); Blood Urea Nitrogen 13 mg/dL (9-16); Carbon Dioxide 28 mmol/L (22-29); Chloride 98 mmol/L (96-108); Creatinine Clr Calc Pharmacy 57.2; Estimated Glomerular Filt Rate > 60; Glucose Random 100 mg/dL (60-115); Potassium 3.7 mmol/L (3.3-5.1); Sodium 134 mmol/L (135-145); Total Protein 5.8 g/dL (6.5-8.0)
[2020-04-26 08:26] LABS: Troponin-I High Sensitivity < 3.5 ng/L (<3.5-17.0)
[2020-04-26 09:06] VITALS: BP 141/81; PULSE 95; RESP 12; O2SAT 100
[2020-04-26 09:21] LABS: Glucose Urine UA NEG (NEG); Leukocyte Esterase Urine TRACE (NEG); Nitrite Urine NEG (NEG); Specific Gravity - Urine 1.015 (1.005-1.025); UACC Culture Trigger YES; Urine Blood 1+ (NEG); Urine Ketones 15 MG/DL (NEG); Urine Protein NEG (NEG-TRACE)
[2020-04-26 09:23] LABS: Appearance Urine HAZY; Color Urine YELLOW
[2020-04-26 09:28] LABS: Bacteria Urine 1+ /LPF; Squamous Epithelial Cell Urine 2+ /LPF
--- NOTE | 2020-04-26 09:52 | PC.NURSE ---
pt sitting up in bed watching tv.
--- NOTE | 2020-04-26 11:02 | PC.NURSE ---
this rn called [facility] facility to give nurse to nurse but got the answering machine, left a message for them to return call to this rn. pt aware of plan of care for transfer/return to facility. pt is awake, alert/oriented x 3. no sob/segundo noted skin pink warm dry speaks in full sentences.
--- NOTE | 2020-04-26 11:05 | PC.NURSE ---
juice and crackers offered pt refused at this time.
[2020-04-26 11:10] VITALS: BP 129/80; PULSE 107; RESP 16; TEMP 36.4; O2SAT 99
--- NOTE | 2020-04-26 11:46 | PC.NURSE ---
nurse to nurse given to liban (rn) at [facility] ([phone])
== END 2020-04-26 11:47 ==
PROVIDERS: Emergency Provider Internal Medicine; PCP Internal Medicine
DX: F33.1 Major depressive disorder, recurrent, moderate (principal); R41.0 Disorientation, unspecified; E03.9 Hypothyroidism, unspecified; Z20.822 Contact with and (suspected) exposure to COVID-19; Z86.711 Personal history of pulmonary embolism; Z79.899 Other long term (current) drug therapy; Z79.01 Long term (current) use of anticoagulants
CPT/HCPCS: 36415; 70450; 71045; 80048; 80076; 81001; 81003; 84484; 85025; 85610; 85730; 87086; 87635; 93005; 96360; 99284; 99285

== ENCOUNTER 2020-04-27 10:42 | Inpatient (IN) | payer MEDICARE, MEDICAID, SELFPAY ==
[2020-04-27] VITALS (11 sets, daily range): BP systolic 115–176; BP diastolic 72–93; PULSE 87–94; RESP 12–18; TEMP 36.4–36.9; O2SAT 97–100; BMI 20.2
--- NOTE | 2020-04-27 | ECG_ITS ---
Test Reason : FALL Blood Pressure : / mmHG Vent. Rate : 089 BPM Atrial Rate : 089 BPM P-R Int : 164 ms QRS Dur : 112 ms QT Int : 410 ms P-R-T Axes : 050 015 044 degrees QTc Int : 498 ms Normal sinus rhythm Nonspecific ST and T wave abnormality Prolonged QT Abnormal ECG When compared with ECG of 26-APR-2020 07:29, No significant change was found Referred By: Generic ED Physician Electronically Signed By:NCAHO BAL MD
--- NOTE | ~2020-04-27 | CT_ITS ---
EXAMINATION: CT HEAD WITHOUT CONTRAST CT CERVICAL SPINE WITHOUT CONTRAST CLINICAL INFORMATION: Fall COMPARISON: CT head 01/08/2020, CT angiography head and neck 12/31/2019 TECHNIQUE: Contiguous axial imaging was performed from the skull base to vertex without intravenous administration of contrast. In addition, helical noncontrast CT imaging was acquired through the cervical spine and source images were reviewed along with axial reconstructions and sagittal and coronal MPRs. DLP: 652 mGy-cm (head) 296 mGy-cm (cervical spine) FINDINGS: HEAD: No intracranial mass, hemorrhage, or midline shift is visualized. The ventricles and sulci are age-appropriate. No extra-axial collections are identified. The paranasal sinuses are well aerated. CERVICAL SPINE: There is no evidence of acute cervical spine fracture. Vertebral bodies remain normal in height and alignment is anatomic. There is degenerative endplate remodeling and osteophyte formation at C4, C5 and C6 where there is associated minimal loss of intervertebral disc space. No significant foraminal narrowing is identified. No pre- or paravertebral soft tissue abnormality is identified. Limited assessment of the lung apices is notable for bilateral apical scarring which is unchanged from prior studies. CT/CT cervical spine wo con IMPRESSION: 1. No acute intracranial pathology. 2. No CT evidence of acute cervical spine fracture or traumatic subluxation
--- NOTE | ~2020-04-27 | CT_ITS ---
EXAMINATION: CT HEAD WITHOUT CONTRAST CT CERVICAL SPINE WITHOUT CONTRAST CLINICAL INFORMATION: Fall COMPARISON: CT head 01/08/2020, CT angiography head and neck 12/31/2019 TECHNIQUE: Contiguous axial imaging was performed from the skull base to vertex without intravenous administration of contrast. In addition, helical noncontrast CT imaging was acquired through the cervical spine and source images were reviewed along with axial reconstructions and sagittal and coronal MPRs. DLP: 652 mGy-cm (head) 296 mGy-cm (cervical spine) FINDINGS: HEAD: No intracranial mass, hemorrhage, or midline shift is visualized. The ventricles and sulci are age-appropriate. No extra-axial collections are identified. The paranasal sinuses are well aerated. CERVICAL SPINE: There is no evidence of acute cervical spine fracture. Vertebral bodies remain normal in height and alignment is anatomic. There is degenerative endplate remodeling and osteophyte formation at C4, C5 and C6 where there is associated minimal loss of intervertebral disc space. No significant foraminal narrowing is identified. No pre- or paravertebral soft tissue abnormality is identified. Limited assessment of the lung apices is notable for bilateral apical scarring which is unchanged from prior studies. CT/CT head/brain wo con IMPRESSION: 1. No acute intracranial pathology. 2. No CT evidence of acute cervical spine fracture or traumatic subluxation
[2020-04-27 12:16] LABS: Venous Blood Gas Refer to POC result
[2020-04-27 12:16] LABS: VBG Base Excess -5.4 mmol/L; VBG HCO3 20 mmol/L (22-26); VBG pCO2 38 mmHg; VBG pH 7.32 (7.32-7.43); VBG pO2 90 mmHg
[2020-04-27 12:18] LABS: Basophils Percent Auto 0.2 % (0-2); Eosinophils Percent Auto 0.2 % (0-4); Hematocrit 31.1 % (37-47); Hemoglobin 10.3 g/dl (12.0-16.0); Imm Gran Abs Auto 0.02 X10*3/uL (0.00-0.03); Imm Gran Pct Auto 0.4 % (0.0-0.4); Lymphocytes Absolute Auto 0.6 X10*3/uL (1.2-4.9); Lymphocytes Percent Auto 11.9 % (20-40); MANUAL DIFF FLAG SCAN; Mean Corpuscular HGB Conc 33.1 g/dl (31.0-35.0); Mean Corpuscular Hemoglobin 33.3 pg (27.0-33.0); Mean Corpuscular Volume 100.6 fL (80-98); Mean Platelet Volume 10.1 fL (9.4-12.3); Monocytes Absolute Auto 0.4 X10*3/uL (0.1-1.2); Neutrophils Percent Auto 80.3 % (45-73); Platelet Count 122 X10*3/uL (160-400); Red Blood Count 3.09 X10*6/uL (4.20-5.50); SCAN SMEAR FLAG 1
[2020-04-27 12:24] LABS: Ammonia 27 umol/L (13-55)
[2020-04-27 12:35] LABS: Glucose Urine UA NEG (NEG); Leukocyte Esterase Urine NEG (NEG); Nitrite Urine NEG (NEG); Urine Blood NEG (NEG); Urine Ketones 5 MG/DL (NEG); Urine Protein NEG (NEG-TRACE)
[2020-04-27 12:36] LABS: Appearance Urine HAZY; Color Urine YELLOW
[2020-04-27 12:44] LABS: SLIDE REVIEW VERIFIED
[2020-04-27 12:56] LABS: Glucose, Whole Blood 80 mg/dL (60-115)
[2020-04-27 12:59] LABS: Troponin-I High Sensitivity < 3.5 ng/L (<3.5-17.0)
--- NOTE | 2020-04-27 13:11 | ED_ITS ---
HPI - General Adult General Chief complaint: Weakness Stated complaint: fall Time Seen by Provider: 04/27/20 11:48 Source: patient Mode of arrival: ambulatory Limitations: no limitations History of Present Illness HPI narrative: Patient presents to ED For fall. Patient was found on the floor in her room. Patient states around 06:00 this morning she got up felt dizzy and fell. Patient denies passing out. Patient states before getting up her bed she was given baclofen Klonopin, and 100 mg of tramadol. Patient states then later when she got up she felt dizzy and fell. Patient presently denies any complaints. Patient presently states just feel tired. Patient was seen yesterday for same thing Related Data Home Medications Medication Instructions Recorded Confirmed Eliquis 5 mg PO BID 01/08/20 04/27/20 cholecalciferol (vitamin D3) 25 mcg PO BEDTIME 01/08/20 04/27/20 [Vitamin D3] clonazepam 0.5 mg PO BID 01/08/20 04/27/20 clozapine 500 mg PO BEDTIME 01/08/20 04/27/20 ferrous sulfate 325 mg PO BID 01/08/20 04/27/20 folic acid 1 mg PO DAILY 01/08/20 04/27/20 lamotrigine [Lamictal] 100 mg PO BID 01/08/20 04/27/20 levothyroxine 75 mcg PO DAILY@0630 01/08/20 04/27/20 pravastatin 20 mg PO BEDTIME 01/08/20 04/27/20 acetaminophen 650 mg PO Q4H PRN 03/10/20 04/27/20 albuterol sulfate [Ventolin HFA] 2 puff INHALATION Q4H PRN 03/10/20 04/27/20 baclofen 30 mg PO TID 03/10/20 04/27/20 budesonide 3 mg PO MOFR@1000 PRN 03/10/20 04/27/20 dextromethorphan-guaifenesin 10 ml PO Q4H PRN 03/10/20 04/27/20 [Guaifenesin DM] diphenoxylate-atropine 1 tab PO BID PRN 03/10/20 04/27/20 ibuprofen 800 mg PO TID 03/10/20 04/27/20 loperamide 2 mg PO Q4H PRN 03/10/20 04/27/20 paroxetine HCl [Paxil] 10 mg PO DAILY 03/10/20 04/27/20 tramadol 100 mg PO TID 03/10/20 04/27/20 sennosides-docusate sodium [Senna 8.6 PO 04/27/20 Plus] Allergies Allergy/AdvReac Type Severity Reaction Status Date / Time bee pollen [Bee Stings] Allergy Severe ANAPHYLAXIS Verified 01/08/20 21:33 Review of Systems Review of Systems: Yes all other systems are reviewed and are negative Constitutional: Constitutional: Reports as per HPI and Reports no additional constitutional complaints Eyes: Eyes: Reports as per HPI and Reports no additional eye complaints ENT: Reports system reviewed and no additional complaints, except as docu mented and Reports as per HPI Cardiovascular: Cardiovascular: Reports as per HPI and Reports no additional cardiovascular complaints Respiratory: Respiratory: Reports as per HPI and Reports no additional respiratory complaints Gastrointestinal: Gastrointestinal: Reports as per HPI and Reports no additional gastrointestinal complaints Genitourinary: Genitourinary: Reports no additional female genitourinary complaints and Reports as per HPI Musculoskeletal: Musculoskeletal: Reports no additional musculoskeletal complaints and Reports as per HPI Neurologic: Reports system reviewed and no additional complaints, except as documented and Reports as per HPI Psychiatric: Psychiatric: Reports no additional psychiatric complaints and Reports as per HPI PMFSH Past Medical History Medical History Anxiety Bipolar 1 disorder Diastolic CHF Hypothyroidism Lumbar radiculopathy Psychosis Pulmonary embolism Schizoaffective disorder Transient cerebral ischemia Family History Family History Other Heart disease Social History Social History Household Members: None Housing: Assisted Living Facility Alcohol intake: never Smoking Status: Never smoker Advance Directives: Yes Advance Directives on File: Yes Advance Directives Date on File: 03/10/20 service: No Current occupational status: retired Physical Exam Vital Signs: Vital Signs: Last Vital Signs Temp 98.4 F 04/27/20 10:47 Pulse 93 04/27/20 17:53 Resp 16 04/27/20 17:53 BP 167/91 H 04/27/20 17:53 Pulse Ox 99 04/27/20 17:53 Body Mass Index 20.2 Const: General: cooperative, healthy appearing, comfortable, no acute distress, well developed, alert and awake; No Physically active Orientation/consciousness: patient oriented x3 HENMT: Head: Yes normal to inspection, Yes No palpable skull fracture present, Yes normocephalic, Yes atraumatic, No abrasion, No Gutierrez's sign, No contusion, No cranial bruits, No hematoma, No laceration, No occipital foramen tenderness, No palpable skull fracture, No raccoon eyes, No scalp lesion, No scalp tenderness, No Temporal artery tenderness present and No periorbital ecchymosis Eyes: General: appearance normal, both eyes and all related structures Neck: Neck: Yes normal visual inspection, Yes full ROM, Yes no lymphadenopathy, Yes no meningeal signs, Yes trachea midline, Yes supple and No tender Chest: Chest palpation & inspection: normal inspection of the chest and normal palpation of entire chest wall Resp: Effort & Inspection: normal respiratory effort and able to speak in complete sentences Auscultation: clear to auscultation bilaterally Cardio: Jugular venous distension: no JVD Heart sounds: S1 normal heart sound present and S2 normal heart sound present GI: Inspection: Yes normal to inspection and No abdominal wall ecchymosis Palpation (GI): Soft to palpation, not firm, nontender, no guarding and not rigid : General: No CVA tenderness and Yes no CVA tenderness Back/Spine/Pelvis: Back: no CVA tenderness, No CVA tenderness and No back tenderness Skin: General skin exam: no rashes or lesions noted and elasticity normal Neuro: Other: Negative facial droop. Negative slurred speech. Negative pronator drift. All extremity strength equal and 5+. [id number] test intact. Rapid hand movement intact General: patient oriented x3, no meningeal signs and CN's II-XI intact bilaterally Cranial nerves: Yes CN's II-XII intact bilaterally Extrem: Other: Patient has complete range of motion of all extremities. General: Yes normal to inspection and Yes full ROM Psych: Appearance: grossly normal, well kempt and not disheveled NIH Stroke Scale Internal: Other (Over 4 hours) Level of Consciousness: Alert Level of Consciousness Questions: Answers both questions correctly Level of Consciousness Commands: Performs both tasks correctly Best Gaze: Normal Visual: No visual loss Facial Palsy: Normal Motor Arm (Right): No drift Motor Arm (Left): No drift Motor Leg (Right): No drift Motor Leg (Left): No drift Limb Ataxia: Absent Sensory: Normal Best Language: No aphasia Dysarthia: Normal Extinction and Inattention: No abnormality Score: 0 Course Course Course Narrative: Patient will have medical evaluation. Patient will have labs including U tox, chemistry, CBC, troponin, EKG and UA. Patient also have imaging of head and neck fracture there is no bleed or fracture. Patient neuro exam is intact & negative for any focal deficit. Reevaluation(s) Reevaluation #1: Patient has a drop in hemoglobin hematocrit from yesterday. Rectal exam was done which shows dark to black stool. Patient's orthostatics were done and her systolic dropped by 18. Patient states she felt dizzy while doing orthostatics. Head CT C-spine negative for any fractures or brain bleed. Due to patient being on Eliquis with black stool and drop in hematocrit and hemoglobin patient was started on Protonix. Case presented to hospitalist Dr. Becerra who accepted the case. Dr. Boo of Gastroenterology was informed and states he will evaluate the patient. Patient's troponin negative patient EKG negative for STEMI Time: 20:01 Medical Decision Making MDM Narrative Medical decision making narrative: Rule out GI bleed. Lab Data Result diagrams: 04/27/20 12:01 04/27/20 12:01 Labs: Lab Results 04/27/20 04/27/20 04/27/20 Range/Units 12:01 12:01 12:01 WBC 5.0 (4.8-10.8) X10*3/uL RBC 3.09 L (4.20-5.50) X10*6/uL Hgb 10.3 L (12.0-16.0) g/dl Hct 31.1 L (37-47) % MCV 100.6 H (80-98) fL MCH 33.3 H (27.0-33.0) pg MCHC 33.1 (31.0-35.0) g/dl RDW 12.0 (11.0-16.0) % Plt Count 122 L (160-400) X10*3/uL MPV 10.1 (9.4-12.3) fL Immature Gran % (Auto) 0.4 (0.0-0.4) % Neut % (Auto) 80.3 H (45-73) % Lymph % (Auto) 11.9 L (20-40) % [place] % (Auto) 7.0 (2-11) % Eos % (Auto) 0.2 (0-4) % Baso % (Auto) 0.2 (0-2) % Lymph # (Auto) 0.6 L (1.2-4.9) X10*3/uL [place] # (Auto) 0.4 (0.1-1.2) X10*3/uL Eos # (Auto) 0.0 (0.0-0.4) X10*3/uL Baso # (Auto) 0.0 (0.0-0.2) X10*3/uL Abs Immat Gran (auto) 0.02 (0.00-0.03) X10*3/uL Absolute Neuts (auto) 4.0 (2.0-8.3) X10*3/uL Absolute Nucleated RBC 0.000 (0.0-0.012) X10*3/uL Nucleated RBC % (auto) 0.0 (0.0-0.2) /100WBC Smear Tech's Comments VERIFIED Hold Blue Top SEE NOTE VBG pH (7.32-7.43) VBG pCO2 mmHg VBG pO2 mmHg VBG HCO3 (22-26) mmol/L VBG O2 Saturation % VBG Base Excess mmol/L Sodium 140 (135-145) mmol/L Potassium 3.5 (3.3-5.1) mmol/L Chloride 107 (96-108) mmol/L Carbon Dioxide 25 (22-29) mmol/L Anion Gap 12 (12-20) BUN 13 (9-16) mg/dL Creatinine 0.95 (0.5-1.4) mg/dL Estim Creat Clear Calc 47.5 Estimated GFR 59 POC Glucose (60-115) mg/dL Random Glucose 85 (60-115) mg/dL Calcium 8.9 (8.4-10.2) mg/dL Magnesium 2.1 (1.6-2.6) mg/dL Total Bilirubin 0.5 (0.0-1.0) mg/dL Direct Bilirubin 0.2 (0.0-0.5) mg/dL AST 26 D (5-31) U/L ALT 13 (0-31) U/L Alkaline Phosphatase 72 (39-117) U/L Ammonia (13-55) umol/L Total Creatine Kinase (26-140) U/L Troponin I High Sens (<3.5-17.0) ng/L Total Protein 5.4 L (6.5-8.0) g/dL Albumin 3.7 (3.5-5.0) g/dL Urine Color Urine Appearance Urine pH (5.0-8.0) Ur Specific [place] (1.005-1.025) Urine Protein (NEG-TRACE) MG/DL Urine Glucose (UA) (NEG) MG/DL Urine Ketones (NEG) MG/DL Urine Blood (NEG) Urine Nitrite (NEG) Ur Leukocyte Esterase (NEG) Stool Occult Blood (NEGATIVE) Salicylates (15-30) mg/dL Urine Opiates Screen (Not Detect) Acetaminophen (<30) mcg/mL Ur Barbiturates Screen (Not Detect) Ur Phencyclidine Scrn (Not Detect) Ur Amphetamines Screen (Not Detect) U Benzodiazepines Scrn (Not Detect) Urine Cocaine Screen (Not Detect) U Marijuana (THC) Screen (Not Detect) Ethyl Alcohol mg/dL Blood Type 04/27/20 04/27/20 04/27/20 Range/Units 12:01 12:01 12:01 WBC (4.8-10.8) X10*3/uL RBC (4.20-5.50) X10*6/uL Hgb (12.0-16.0) g/dl Hct (37-47) % MCV (80-98) fL MCH (27.0-33.0) pg MCHC (31.0-35.0) g/dl RDW (11.0-16.0) % Plt Count (160-400) X10*3/uL MPV (9.4-12.3) fL Immature Gran % (Auto) (0.0-0.4) % Neut % (Auto) (45-73) % Lymph % (Auto) (20-40) % [place] % (Auto) (2-11) % Eos % (Auto) (0-4) % Baso % (Auto) (0-2) % Lymph # (Auto) (1.2-4.9) X10*3/uL [place] # (Auto) (0.1-1.2) X10*3/uL Eos # (Auto) (0.0-0.4) X10*3/uL Baso # (Auto) (0.0-0.2) X10*3/uL Abs Immat Gran (auto) (0.00-0.03) X10*3/uL Absolute Neuts (auto) (2.0-8.3) X10*3/uL Absolute Nucleated RBC (0.0-0.012) X10*3/uL Nucleated RBC % (auto) (0.0-0.2) /100WBC Smear Tech's Comments Hold Blue Top VBG pH (7.32-7.43) VBG pCO2 mmHg VBG pO2 mmHg VBG HCO3 (22-26) mmol/L VBG O2 Saturation % VBG Base Excess mmol/L Sodium (135-145) mmol/L Potassium (3.3-5.1) mmol/L Chloride (96-108) mmol/L Carbon Dioxide (22-29) mmol/L Anion Gap (12-20) BUN (9-16) mg/dL Creatinine (0.5-1.4) mg/dL Estim Creat Clear Calc Estimated GFR POC Glucose (60-115) mg/dL Random Glucose (60-115) mg/dL Calcium (8.4-10.2) mg/dL Magnesium (1.6-2.6) mg/dL Total Bilirubin (0.0-1.0) mg/dL Direct Bilirubin (0.0-0.5) mg/dL AST (5-31) U/L ALT (0-31) U/L Alkaline Phosphatase (39-117) U/L Ammonia 27 (13-55) umol/L Total Creatine Kinase (26-140) U/L Troponin I High Sens < 3.5 (<3.5-17.0) ng/L Total Protein (6.5-8.0) g/dL Albumin (3.5-5.0) g/dL Urine Color Urine Appearance Urine pH (5.0-8.0) Ur Specific [place] (1.005-1.025) Urine Protein (NEG-TRACE) MG/DL Urine Glucose (UA) (NEG) MG/DL Urine Ketones (NEG) MG/DL Urine Blood (NEG) Urine Nitrite (NEG) Ur Leukocyte Esterase (NEG) Stool Occult Blood (NEGATIVE) Salicylates (15-30) mg/dL Urine Opiates Screen (Not Detect) Acetaminophen (<30) mcg/mL Ur Barbiturates Screen (Not Detect) Ur Phencyclidine Scrn (Not Detect) Ur Amphetamines Screen (Not Detect) U Benzodiazepines Scrn (Not Detect) Urine Cocaine Screen (Not Detect) U Marijuana (THC) Screen (Not Detect) Ethyl Alcohol < 10 mg/dL Blood Type 04/27/20 04/27/20 04/27/20 Range/Units 12:01 12:01 12:02 WBC (4.8-10.8) X10*3/uL RBC (4.20-5.50) X10*6/uL Hgb (12.0-16.0) g/dl Hct (37-47) % MCV (80-98) fL MCH (27.0-33.0) pg MCHC (31.0-35.0) g/dl RDW (11.0-16.0) % Plt Count (160-400) X10*3/uL MPV (9.4-12.3) fL Immature Gran % (Auto) (0.0-0.4) % Neut % (Auto) (45-73) % Lymph % (Auto) (20-40) % [place] % (Auto) (2-11) % Eos % (Auto) (0-4) % Baso % (Auto) (0-2) % Lymph # (Auto) (1.2-4.9) X10*3/uL [place] # (Auto) (0.1-1.2) X10*3/uL Eos # (Auto) (0.0-0.4) X10*3/uL Baso # (Auto) (0.0-0.2) X10*3/uL Abs Immat Gran (auto) (0.00-0.03) X10*3/uL Absolute Neuts (auto) (2.0-8.3) X10*3/uL Absolute Nucleated RBC (0.0-0.012) X10*3/uL Nucleated RBC % (auto) (0.0-0.2) /100WBC Smear Tech's Comments Hold Blue Top VBG pH (7.32-7.43) VBG pCO2 mmHg VBG pO2 mmHg VBG HCO3 (22-26) mmol/L VBG O2 Saturation % VBG Base Excess mmol/L Sodium (135-145) mmol/L Potassium (3.3-5.1) mmol/L Chloride (96-108) mmol/L Carbon Dioxide (22-29) mmol/L Anion Gap (12-20) BUN (9-16) mg/dL Creatinine (0.5-1.4) mg/dL Estim Creat Clear Calc Estimated GFR POC Glucose (60-115) mg/dL Random Glucose (60-115) mg/dL Calcium (8.4-10.2) mg/dL Magnesium (1.6-2.6) mg/dL Total Bilirubin (0.0-1.0) mg/dL Direct Bilirubin (0.0-0.5) mg/dL AST (5-31) U/L ALT (0-31) U/L Alkaline Phosphatase (39-117) U/L Ammonia (13-55) umol/L Total Creatine Kinase 314 H D (26-140) U/L Troponin I High Sens (<3.5-17.0) ng/L Total Protein (6.5-8.0) g/dL Albumin (3.5-5.0) g/dL Urine Color YELLOW Urine Appearance HAZY Urine pH 6.0 (5.0-8.0) Ur Specific [place] 1.020 (1.005-1.025) Urine Protein NEG (NEG-TRACE) MG/DL Urine Glucose (UA) NEG (NEG) MG/DL Urine Ketones 5 (NEG) MG/DL Urine Blood NEG (NEG) Urine Nitrite NEG (NEG) Ur Leukocyte Esterase NEG (NEG) Stool Occult Blood (NEGATIVE) Salicylates < 5.0 L (15-30) mg/dL Urine Opiates Screen Not Detected (Not Detect) Acetaminophen < 1 (<30) mcg/mL Ur Barbiturates Screen Not Detected (Not Detect) Ur Phencyclidine Scrn Not Detected (Not Detect) Ur Amphetamines Screen Not Detected (Not Detect) U Benzodiazepines Scrn Not Detected (Not Detect) Urine Cocaine Screen Not Detected (Not Detect) U Marijuana (THC) Screen Not Detected (Not Detect) Ethyl Alcohol mg/dL Blood Type 03/04/27/20 04/27/20 Range/Units 12:08 12:52 14:20 WBC (4.8-10.8) X10*3/uL RBC (4.20-5.50) X10*6/uL Hgb (12.0-16.0) g/dl Hct (37-47) % MCV (80-98) fL MCH (27.0-33.0) pg MCHC (31.0-35.0) g/dl RDW (11.0-16.0) % Plt Count (160-400) X10*3/uL MPV (9.4-12.3) fL Immature Gran % (Auto) (0.0-0.4) % Neut % (Auto) (45-73) % Lymph % (Auto) (20-40) % [place] % (Auto) (2-11) % Eos % (Auto) (0-4) % Baso % (Auto) (0-2) % Lymph # (Auto) (1.2-4.9) X10*3/uL [place] # (Auto) (0.1-1.2) X10*3/uL Eos # (Auto) (0.0-0.4) X10*3/uL Baso # (Auto) (0.0-0.2) X10*3/uL Abs Immat Gran (auto) (0.00-0.03) X10*3/uL Absolute Neuts (auto) (2.0-8.3) X10*3/uL Absolute Nucleated RBC (0.0-0.012) X10*3/uL Nucleated RBC % (auto) (0.0-0.2) /100WBC Smear Tech's Comments Hold Blue Top VBG pH 7.32 (7.32-7.43) VBG pCO2 38 mmHg VBG pO2 90 mmHg VBG HCO3 20 L (22-26) mmol/L VBG O2 Saturation 95.0 % VBG Base Excess -5.4 mmol/L Sodium (135-145) mmol/L Potassium (3.3-5.1) mmol/L Chloride (96-108) mmol/L Carbon Dioxide (22-29) mmol/L Anion Gap (12-20) BUN (9-16) mg/dL Creatinine (0.5-1.4) mg/dL Estim Creat Clear Calc Estimated GFR POC Glucose 80 (60-115) mg/dL Random Glucose (60-115) mg/dL Calcium (8.4-10.2) mg/dL Magnesium (1.6-2.6) mg/dL Total Bilirubin (0.0-1.0) mg/dL Direct Bilirubin (0.0-0.5) mg/dL AST (5-31) U/L ALT (0-31) U/L Alkaline Phosphatase (39-117) U/L Ammonia (13-55) umol/L Total Creatine Kinase (26-140) U/L Troponin I High Sens (<3.5-17.0) ng/L Total Protein (6.5-8.0) g/dL Albumin (3.5-5.0) g/dL Urine Color Urine Appearance Urine pH (5.0-8.0) Ur Specific [place] (1.005-1.025) Urine Protein (NEG-TRACE) MG/DL Urine Glucose (UA) (NEG) MG/DL Urine Ketones (NEG) MG/DL Urine Blood (NEG) Urine Nitrite (NEG) Ur Leukocyte Esterase (NEG) Stool Occult Blood POSITIVE (NEGATIVE) Salicylates (15-30) mg/dL Urine Opiates Screen (Not Detect) Acetaminophen (<30) mcg/mL Ur Barbiturates Screen (Not Detect) Ur Phencyclidine Scrn (Not Detect) Ur Amphetamines Screen (Not Detect) U Benzodiazepines Scrn (Not Detect) Urine Cocaine Screen (Not Detect) U Marijuana (THC) Screen (Not Detect) Ethyl Alcohol mg/dL Blood Type 04/27/20 Range/Units 14:54 WBC (4.8-10.8) X10*3/uL RBC (4.20-5.50) X10*6/uL Hgb (12.0-16.0) g/dl Hct (37-47) % MCV (80-98) fL MCH (27.0-33.0) pg MCHC (31.0-35.0) g/dl RDW (11.0-16.0) % Plt Count (160-400) X10*3/uL MPV (9.4-12.3) fL Immature Gran % (Auto) (0.0-0.4) % Neut % (Auto) (45-73) % Lymph % (Auto) (20-40) % [place] % (Auto) (2-11) % Eos % (Auto) (0-4) % Baso % (Auto) (0-2) % Lymph # (Auto) (1.2-4.9) X10*3/uL [place] # (Auto) (0.1-1.2) X10*3/uL Eos # (Auto) (0.0-0.4) X10*3/uL Baso # (Auto) (0.0-0.2) X10*3/uL Abs Immat Gran (auto) (0.00-0.03) X10*3/uL Absolute Neuts (auto) (2.0-8.3) X10*3/uL Absolute Nucleated RBC (0.0-0.012) X10*3/uL Nucleated RBC % (auto) (0.0-0.2) /100WBC Smear Tech's Comments Hold Blue Top VBG pH (7.32-7.43) VBG pCO2 mmHg VBG pO2 mmHg VBG HCO3 (22-26) mmol/L VBG O2 Saturation % VBG Base Excess mmol/L Sodium (135-145) mmol/L Potassium (3.3-5.1) mmol/L Chloride (96-108) mmol/L Carbon Dioxide (22-29) mmol/L Anion Gap (12-20) BUN (9-16) mg/dL Creatinine (0.5-1.4) mg/dL Estim Creat Clear Calc Estimated GFR POC Glucose (60-115) mg/dL Random Glucose (60-115) mg/dL Calcium (8.4-10.2) mg/dL Magnesium (1.6-2.6) mg/dL Total Bilirubin (0.0-1.0) mg/dL Direct Bilirubin (0.0-0.5) mg/dL AST (5-31) U/L ALT (0-31) U/L Alkaline Phosphatase (39-117) U/L Ammonia (13-55) umol/L Total Creatine Kinase (26-140) U/L Troponin I High Sens (<3.5-17.0) ng/L Total Protein (6.5-8.0) g/dL Albumin (3.5-5.0) g/dL Urine Color Urine Appearance Urine pH (5.0-8.0) Ur Specific [place] (1.005-1.025) Urine Protein (NEG-TRACE) MG/DL Urine Glucose (UA) (NEG) MG/DL Urine Ketones (NEG) MG/DL Urine Blood (NEG) Urine Nitrite (NEG) Ur Leukocyte Esterase (NEG) Stool Occult Blood (NEGATIVE) Salicylates (15-30) mg/dL Urine Opiates Screen (Not Detect) Acetaminophen (<30) mcg/mL Ur Barbiturates Screen (Not Detect) Ur Phencyclidine Scrn (Not Detect) Ur Amphetamines Screen (Not Detect) U Benzodiazepines Scrn (Not Detect) Urine Cocaine Screen (Not Detect) U Marijuana (THC) Screen (Not Detect) Ethyl Alcohol mg/dL Blood Type A Positive ECG Data Interpretation: Normal sinus rhythm. Ventricular rate 89. Parents to the 164. QTC 498. QRS 112. Negative STEMI. No EKG changes Discharge Plan Discharge Clinical Impression: GI bleeding Patient Disposition: Admitted As Inpatient
[2020-04-27 13:26] LABS: Ethanol < 10 mg/dL
[2020-04-27 13:27] LABS: Alanine Aminotransferase 13 U/L (0-31); Albumin Level 3.7 g/dL (3.5-5.0); Alkaline Phosphatase 72 U/L (39-117); Anion Gap 12 (12-20); Aspartate Amino Transferase 26 U/L (5-31); Bilirubin Direct 0.2 mg/dL (0.0-0.5); Bilirubin Total 0.5 mg/dL (0.0-1.0); Blood Urea Nitrogen 13 mg/dL (9-16); Calcium 8.9 mg/dL (8.4-10.2); Carbon Dioxide 25 mmol/L (22-29); Chloride 107 mmol/L (96-108); Creatinine Clr Calc Pharmacy 47.5; Estimated Glomerular Filt Rate 59; Glucose Random 85 mg/dL (60-115); Magnesium 2.1 mg/dL (1.6-2.6); Potassium 3.5 mmol/L (3.3-5.1); Sodium 140 mmol/L (135-145); Total Protein 5.4 g/dL (6.5-8.0)
[2020-04-27 13:29] LABS: Amphetamine Screen Urine Not Detected (Not Detect); Barbiturates, Urine Not Detected (Not Detect); Benzodiazepines Screen Urine Not Detected (Not Detect); Cannabinoid Screen Urine Not Detected (Not Detect); Cocaine Screen Urine Not Detected (Not Detect); Opiate Screen Urine Not Detected (Not Detect); Phencyclidine Screen Urine Not Detected (Not Detect)
[2020-04-27 13:29] LABS: Acetaminophen LAB < 1 mcg/mL (<30); Salicylate < 5.0 mg/dL (15-30)
--- NOTE | 2020-04-27 14:23 | PC.NURSE ---
PT CURRENTLY SIGNIFICANTLY MORE ALERT IN COMPARISON TO PRESENTATION ON ARRIVAL. ORIENTED X 3. PT WATCHING TELEVISION, NO LONGER SOMNOLENT. BP WNL. HUNTER PERFORMED BY PA, WITH THIS RN CHAPERONING. STOOL SLIGHTLY DARK. SPOKE WITH RN AT [facility] THIS AM, SHE REPORTED THAT THIS PT TOOK ALL RXS ORDERED, NO CHANGES MADE SINCE YESTERDAYS STAY IN THE ED. PT DESCRIBED FEELING DIZZY WHEN SHE FELL THIS AM, DENIES SYNCOPE. DENIES CP, SOB AT THIS TIME.
[2020-04-27 14:29] LABS: OBS Int Ctl Valid YES; OBS1 POSITIVE (NEGATIVE)
[2020-04-27] MEDS: 0.9 % Sodium Chloride 1,000 ML 999 ML IV ×2 (15:00→16:20)
[2020-04-27] MEDS: Pantoprazole Sodium 40 MG/10 ML VIAL 80 MG IVPUSH (17:28)
--- NOTE | 2020-04-27 17:31 | PM.EVENT ---
Event Note Date of Service: 04/27/20 Event Note: Patient seen and examined independently and was present during cain portion of E/M service. Agree with midlevel's history, physical, assessment, and plan. 64F presented with black stools Acute blood loss anemia likely upper GI bleed in the setting of NSAID use and Eliquis for PE DC NSAIDs Hold Eliquis for now IV protonix Monitor CBC GI eval
--- NOTE | 2020-04-27 17:47 | P.HPHOSP_ITS ---
History of Present Illness Date of Service: 04/27/20 Chief Complaint: Fall This is a 64 year old female with a history of PE on Eliquis who presents fro [facility] after a fall. After breakfast she reports falling secondary to generalized weakness. She felt somewhat dizzy prior to her fall but denies losing consciousness. She did not hit her head. Her fall was reportedly not witnessed by any staff. She was found on the floor and brought to the ED for evaluation. On arrival she had decreased mental status which improved gradually while in the ED and she is currently alert and able to answer qu estions. Her lab work showed H/H of 10.3/31.1 down from 12.4/36.2 yesterday. (She was seen in the emergency room yesterday for altered mental status and at that time her workup was unremarkable and she was discharged back home.) Stool on rectal exam was dark and Hemoccult positive. Patient denies any abdominal pain. She may have had an episode of rectal bleeding two days ago. Orthostatics were checked and were negative but she reported being dizzy when standing up. She was given a dose of protonix and the decision was made to admit her for further management. Review of Systems Review of Systems: Yes all other systems are reviewed and are negative Constitutional: Constitutional: Denies chills, Denies fever(s) and Reports weakness Cardiovascular: Cardiovascular: Denies chest pain Respiratory: Respiratory: Denies cough Gastrointestinal: Gastrointestinal: Denies abdominal pain Neurologic: Reports weakness [facility] Medical History (Updated 04/27/20 @ 17:57 by FAMILIA Fitzgerald) Anxiety Bipolar 1 disorder Diastolic CHF Hypothyroidism Lumbar radiculopathy Psychosis Pulmonary embolism Schizoaffective disorder Transient cerebral ischemia Functional capacity: uses cane/walker Family History Other Heart disease Family history: reviewed and not pertinent Social History Household Members: None Housing: Assisted Living Facility Alcohol intake: never Smoking Status: Never smoker Advance Directives: Yes Advance Directives on File: Yes Advance Directives Date on File: 03/10/20 service: No Current occupational status: retired Meds Allergies Allergy/AdvReac Type Severity Reaction Status Date / Time bee pollen [Bee Stings] Allergy Severe ANAPHYLAXIS Verified 01/08/20 21:33 Active Medications: Current Medications Generic Name Dose Route Start Last Admin Trade Name Angelq PRN Reason Stop Dose Admin Pharmacy Consult 1 each 04/27/20 17:28 Consult Rx Perform Med Rec MISCELLANE ONCE PRN Consult order Home Medications Medication Instructions Recorded Confirmed Last Taken Type Eliquis 5 mg PO BID 01/08/20 03/10/20 03/09/20 History cholecalciferol (vitamin D3) 25 mcg PO BEDTIME 01/08/20 03/10/20 03/09/20 History [Vitamin D3] clonazepam 0.5 mg PO BID 01/08/20 03/10/20 03/10/20 History clozapine 500 mg PO BEDTIME 01/08/20 03/10/20 03/09/20 History ferrous sulfate 325 mg PO BID 01/08/20 03/10/20 03/10/20 History folic acid 1 mg PO DAILY 01/08/20 03/10/20 03/10/20 History lamotrigine [Lamictal] 100 mg PO BID 01/08/20 03/10/20 03/10/20 History levothyroxine 75 mcg PO DAILY@0630 01/08/20 03/10/20 03/10/20 History pravastatin 20 mg PO BEDTIME 01/08/20 03/10/20 03/09/20 History acetaminophen 650 mg PO Q4H PRN 03/10/20 03/10/20 03/03/20 History albuterol sulfate [Ventolin HFA] 2 puff INHALATION Q4H PRN 03/10/20 03/10/20 Unknown History baclofen 30 mg PO TID 03/10/20 03/10/20 03/10/20 History budesonide 3 mg PO MOFR@1000 PRN 03/10/20 03/10/20 Unknown History dextromethorphan-guaifenesin 10 ml PO Q4H PRN 03/10/20 03/10/20 Unknown History [Guaifenesin DM] diphenoxylate-atropine 1 tab PO BID PRN 03/10/20 03/10/20 Unknown History ibuprofen 800 mg PO TID 03/10/20 03/10/20 03/10/20 History loperamide 2 mg PO Q4H PRN 03/10/20 03/10/20 Unknown History paroxetine HCl [Paxil] 10 mg PO DAILY 03/10/20 03/10/20 03/10/20 History tramadol 100 mg PO TID 03/10/20 03/10/20 03/10/20 History sennosides-docusate sodium [Senna 8.6 PO 04/27/20 Unknown History Plus] Physical Exam Vital Signs and Narrative: Vital Signs: Last Vital Signs Temp 98.4 F 04/27/20 10:47 Pulse 94 04/27/20 15:37 Resp 16 04/27/20 14:21 BP 146/72 H 04/27/20 15:37 Pulse Ox 99 04/27/20 14:21 Body Mass Index 20.2 Const: General: no acute distress, alert, awake and Physically active Nutritional Appearance: well nourished HENMT: Head: Yes normocephalic and Yes atraumatic Eyes: Sclerae: sclerae normal Chest: Chest palpation & inspection: normal inspection of the chest Resp: Effort & Inspection: normal respiratory effort and no respiratory distress Cardio: Rate: regular rate Rhythm: regular rhythm GI: Inspection: No distended Palpation (GI): Soft to palpation and nontender Skin: General skin exam: no rashes or lesions noted Neuro: Cranial nerves: Yes CN's II-XII intact bilaterally and Yes Bilaterally intact EOM present Extrem: General: Yes normal to inspection Results Labs CBC and Chem 7: 04/27/20 12:01 04/27/20 12:01 Labs: Laboratory Results - last 24 hr 04/27/20 04/27/20 04/27/20 12:01 12:01 12:01 MCV 100.6 H MCH 33.3 H MCHC 33.1 RDW 12.0 Plt Count 122 L MPV 10.1 Immature Gran % (Auto) 0.4 Neut % (Auto) 80.3 H Lymph % (Auto) 11.9 L [place] % (Auto) 7.0 Eos % (Auto) 0.2 Baso % (Auto) 0.2 Lymph # (Auto) 0.6 L [place] # (Auto) 0.4 Eos # (Auto) 0.0 Baso # (Auto) 0.0 Abs Immat Gran (auto) 0.02 Absolute Neuts (auto) 4.0 Absolute Nucleated RBC 0.000 Nucleated RBC % (auto) 0.0 Smear Tech's Comments VERIFIED Hold Blue Top SEE NOTE VBG pH VBG pCO2 VBG pO2 VBG HCO3 VBG O2 Saturation VBG Base Excess Anion Gap 12 Estim Creat Clear Calc 47.5 Estimated GFR 59 POC Glucose Random Glucose 85 Calcium 8.9 Magnesium 2.1 Total Bilirubin 0.5 Direct Bilirubin 0.2 AST 26 D ALT 13 Alkaline Phosphatase 72 Ammonia Total Creatine Kinase Troponin I High Sens Total Protein 5.4 L Albumin 3.7 Urine Color Urine Appearance Urine pH Ur Specific [place] Urine Protein Urine Glucose (UA) Urine Ketones Urine Blood Urine Nitrite Ur Leukocyte Esterase Stool Occult Blood Salicylates Urine Opiates Screen Acetaminophen Ur Barbiturates Screen Ur Phencyclidine Scrn Ur Amphetamines Screen U Benzodiazepines Scrn Urine Cocaine Screen U Marijuana (THC) Screen Ethyl Alcohol Blood Type 04/27/20 04/27/20 04/27/20 12:01 12:01 12:01 MCV MCH MCHC RDW Plt Count MPV Immature Gran % (Auto) Neut % (Auto) Lymph % (Auto) [place] % (Auto) Eos % (Auto) Baso % (Auto) Lymph # (Auto) [place] # (Auto) Eos # (Auto) Baso # (Auto) Abs Immat Gran (auto) Absolute Neuts (auto) Absolute Nucleated RBC Nucleated RBC % (auto) Smear Tech's Comments Hold Blue Top VBG pH VBG pCO2 VBG pO2 VBG HCO3 VBG O2 Saturation VBG Base Excess Anion Gap Estim Creat Clear Calc Estimated GFR POC Glucose Random Glucose Calcium Magnesium Total Bilirubin Direct Bilirubin AST ALT Alkaline Phosphatase Ammonia 27 Total Creatine Kinase Troponin I High Sens < 3.5 Total Protein Albumin Urine Color Urine Appearance Urine pH Ur Specific [place] Urine Protein Urine Glucose (UA) Urine Ketones Urine Blood Urine Nitrite Ur Leukocyte Esterase Stool Occult Blood Salicylates Urine Opiates Screen Acetaminophen Ur Barbiturates Screen Ur Phencyclidine Scrn Ur Amphetamines Screen U Benzodiazepines Scrn Urine Cocaine Screen U Marijuana (THC) Screen Ethyl Alcohol < 10 Blood Type 04/27/20 04/27/20 04/27/20 12:01 12:01 12:02 MCV MCH MCHC RDW Plt Count MPV Immature Gran % (Auto) Neut % (Auto) Lymph % (Auto) [place] % (Auto) Eos % (Auto) Baso % (Auto) Lymph # (Auto) [place] # (Auto) Eos # (Auto) Baso # (Auto) Abs Immat Gran (auto) Absolute Neuts (auto) Absolute Nucleated RBC Nucleated RBC % (auto) Smear Tech's Comments Hold Blue Top VBG pH VBG pCO2 VBG pO2 VBG HCO3 VBG O2 Saturation VBG Base Excess Anion Gap Estim Creat Clear Calc Estimated GFR POC Glucose Random Glucose Calcium Magnesium Total Bilirubin Direct Bilirubin AST ALT Alkaline Phosphatase Ammonia Total Creatine Kinase 314 H D Troponin I High Sens Total Protein Albumin Urine Color YELLOW Urine Appearance HAZY Urine pH 6.0 Ur Specific [place] 1.020 Urine Protein NEG Urine Glucose (UA) NEG Urine Ketones 5 Urine Blood NEG Urine Nitrite NEG Ur Leukocyte Esterase NEG Stool Occult Blood Salicylates < 5.0 L Urine Opiates Screen Not Detected Acetaminophen < 1 Ur Barbiturates Screen Not Detected Ur Phencyclidine Scrn Not Detected Ur Amphetamines Screen Not Detected U Benzodiazepines Scrn Not Detected Urine Cocaine Screen Not Detected U Marijuana (THC) Screen Not Detected Ethyl Alcohol Blood Type 04/27/20 04/27/20 04/27/20 12:08 12:52 14:20 MCV MCH MCHC RDW Plt Count MPV Immature Gran % (Auto) Neut % (Auto) Lymph % (Auto) [place] % (Auto) Eos % (Auto) Baso % (Auto) Lymph # (Auto) [place] # (Auto) Eos # (Auto) Baso # (Auto) Abs Immat Gran (auto) Absolute Neuts (auto) Absolute Nucleated RBC Nucleated RBC % (auto) Smear Tech's Comments Hold Blue Top VBG pH 7.32 VBG pCO2 38 VBG pO2 90 VBG HCO3 20 L VBG O2 Saturation 95.0 VBG Base Excess -5.4 Anion Gap Estim Creat Clear Calc Estimated GFR POC Glucose 80 Random Glucose Calcium Magnesium Total Bilirubin Direct Bilirubin AST ALT Alkaline Phosphatase Ammonia Total Creatine Kinase Troponin I High Sens Total Protein Albumin Urine Color Urine Appearance Urine pH Ur Specific [place] Urine Protein Urine Glucose (UA) Urine Ketones Urine Blood Urine Nitrite Ur Leukocyte Esterase Stool Occult Blood POSITIVE Salicylates Urine Opiates Screen Acetaminophen Ur Barbiturates Screen Ur Phencyclidine Scrn Ur Amphetamines Screen U Benzodiazepines Scrn Urine Cocaine Screen U Marijuana (THC) Screen Ethyl Alcohol Blood Type 04/27/20 14:54 MCV MCH MCHC RDW Plt Count MPV Immature Gran % (Auto) Neut % (Auto) Lymph % (Auto) [place] % (Auto) Eos % (Auto) Baso % (Auto) Lymph # (Auto) [place] # (Auto) Eos # (Auto) Baso # (Auto) Abs Immat Gran (auto) Absolute Neuts (auto) Absolute Nucleated RBC Nucleated RBC % (auto) Smear Tech's Comments Hold Blue Top VBG pH VBG pCO2 VBG pO2 VBG HCO3 VBG O2 Saturation VBG Base Excess Anion Gap Estim Creat Clear Calc Estimated GFR POC Glucose Random Glucose Calcium Magnesium Total Bilirubin Direct Bilirubin AST ALT Alkaline Phosphatase Ammonia Total Creatine Kinase Troponin I High Sens Total Protein Albumin Urine Color Urine Appearance Urine pH Ur Specific [place] Urine Protein Urine Glucose (UA) Urine Ketones Urine Blood Urine Nitrite Ur Leukocyte Esterase Stool Occult Blood Salicylates Urine Opiates Screen Acetaminophen Ur Barbiturates Screen Ur Phencyclidine Scrn Ur Amphetamines Screen U Benzodiazepines Scrn Urine Cocaine Screen U Marijuana (THC) Screen Ethyl Alcohol Blood Type A Positive Imaging Radiologist's Impressions: Impressions Cervical Spine CT 04/27/20 12:56 IMPRESSION: 1. No acute intracranial pathology. 2. No CT evidence of acute cervical spine fracture or traumatic subluxation Head CT 04/27/20 12:56 IMPRESSION: 1. No acute intracranial pathology. 2. No CT evidence of acute cervical spine fracture or traumatic subluxation Assessment and Plan (1) GI bleeding: Status: Acute This is a 64-year-old female with history of bipolar disorder, hypothyro idism, diastolic CHF, PE on Eliquis who was brought to the emergency department after an unwitnessed fall found to have GI bleed GI bleeding/acute blood loss anemia Likely upper GI source In the setting of anticoagulation with Eliquis/daily NSAID use -d/c NSAIDs, Hold Eliquis -IVF -clear liquid diet, then NPO at midnight -GI evaluation -follow CBC h/o unprovoked PE dx July 2019 -Hold Eliquis mood continue paroxetine, clonazepam, clozapine, lamictal Chronic pain/lumbar radiculopathy -continue baclofen -will decrease dose of tramadol (repeat visits to ED for AMS with negative workup thought thought to be med related) hypothyroidism -continue synthroid HLD hold statin dvt ppx - mechanical devices due to GIB Code status-MOLST form, full code This case was discussed with Dr. Becerra
[2020-04-27 18:15] LABS: COVID-19 Test Negative (Negative)
--- NOTE | 2020-04-27 18:52 | HE.PHANOTE ---
CONTACTED PATIENT'S [facility]F; [facility]. SPOKE TO NURSE KHUSHBU; HE CONFIRMED PATIENT TAKES CLOZAPINE 500mg AND HAD HER LAST DOSE YESTERDAY (04/26/20) AT ~20:00. CONFIRMED PATIENT'S ELIGIBILITY ON CLOZAPINE REMS SITE WELL.
[2020-04-27] MEDS: 0.9 % Sodium Chloride 1,000 ML 100 ML IVCONT (19:31)
--- NOTE | 2020-04-27 19:42 | PC.NURSE ---
REPORT GIVEN TO [facility] RN
[2020-04-27] MEDS: traMADoL HCL 50 MG TABLET PO (22:27)
[2020-04-27] MEDS: Baclofen 10 MG TABLET 30 MG PO (22:28)
[2020-04-27] MEDS: Cholecalciferol (Vitamin D3) 25 MCG TABLET PO (22:28)
[2020-04-27] MEDS: 0.9 % Sodium Chloride Flush 3 ML SYRINGE IVFLUSH (22:28)
[2020-04-27] MEDS: lamoTRIgine 100 MG TABLET PO (22:28)
[2020-04-28] VITALS (10 sets, daily range): BP systolic 125–177; BP diastolic 70–93; PULSE 81–99; RESP 18–20; TEMP 36–36.8; O2SAT 94–100
[2020-04-28] MEDS: Pantoprazole Sodium 40 MG/10 ML VIAL IVPUSH (05:37)
[2020-04-28] MEDS: 0.9 % Sodium Chloride 1,000 ML 100 ML IVCONT ×2 (05:37→16:38)
[2020-04-28] MEDS: Levothyroxine Sodium 75 MCG TABLET PO (05:37)
[2020-04-28 06:52] LABS: Basophils Percent Auto 0.7 % (0-2); Eosinophils Percent Auto 0.2 % (0-4); Hematocrit 30.3 % (37-47); Imm Gran Abs Auto 0.01 X10*3/uL (0.00-0.03); Imm Gran Pct Auto 0.2 % (0.0-0.4); Lymphocytes Absolute Auto 0.7 X10*3/uL (1.2-4.9); Lymphocytes Percent Auto 14.3 % (20-40); MANUAL DIFF FLAG SCAN; Mean Corpuscular Hemoglobin 33.3 pg (27.0-33.0); Mean Platelet Volume 10.1 fL (9.4-12.3); Monocytes Absolute Auto 0.5 X10*3/uL (0.1-1.2); Monocytes Percent Auto 9.9 % (2-11); Neutrophils Absolute Auto 3.4 X10*3/uL (2.0-8.3); Neutrophils Percent Auto 74.7 % (45-73); Platelet Count 118 X10*3/uL (160-400); SCAN SMEAR FLAG 1; White Blood Count 4.5 X10*3/uL (4.8-10.8)
[2020-04-28 07:20] LABS: Anion Gap 13 (12-20); Blood Urea Nitrogen 7 mg/dL (9-16); Calcium 8.4 mg/dL (8.4-10.2); Carbon Dioxide 23 mmol/L (22-29); Chloride 111 mmol/L (96-108); Creatinine Clr Calc Pharmacy 71.7; Estimated Glomerular Filt Rate > 60; Glucose Random 62 mg/dL (60-115); Potassium 3.4 mmol/L (3.3-5.1); Sodium 144 mmol/L (135-145)
[2020-04-28 07:41] LABS: SLIDE REVIEW VERIFIED
[2020-04-28] MEDS: Folic Acid 1 MG TABLET PO (07:51)
[2020-04-28] MEDS: Baclofen 10 MG TABLET 30 MG PO ×3 (07:51→21:03)
[2020-04-28] MEDS: PARoxetine HCL 10 MG TABLET PO (07:51)
[2020-04-28] MEDS: lamoTRIgine 100 MG TABLET PO ×2 (07:51→21:03)
[2020-04-28] MEDS: clonazePAM 0.5 MG TABLET PO ×2 (07:51→21:03)
[2020-04-28] MEDS: traMADoL HCL 50 MG TABLET PO ×3 (07:51→21:03)
--- NOTE | 2020-04-28 08:40 | MHC.CM.PN ---
CM met with Patient and addressed IMM with her, providing her with the original and placing a copy on thr chart. Patient lives at [facility] and the goal for dc is STR @ [facility] VS return [facility] with possible [facility] for home PT, pending PT eval. PCP is Dr. Bal Temple and HCP & MOLST are on file. Patient uses a walker. CM has initiated and will follow for dc planning.
--- NOTE | 2020-04-28 08:42 | PM.EVENT ---
Event Note Date of Service: 04/28/20 Event Note: GI Consult-Full note dictated-Hx via patient, RN, and EMR. Imp: 64 yo female on Eliquis and Ibuprofen presenting with reported melena and anemia. She also reports some BRB in toilet with the black stool. She denies any abdominal pain nor any UGI symptoms.She has had no signs of bleeding last PM nor today. Diff dx: PUD, erosive gastritis Rec: EGD with MAC today. Full consent obtained form her for this, including risks of bleeding and perforation. We did review that if the EGD is negative I would then recommend a colonoscopy. Continue IV PPI and F/U Hgb. D/W patient in detail and she is comfortable with this plan. Thanks
[2020-04-28] MEDS: Phytonadione (Vit K1) 10 MG in 0.9 % Sodium Chloride 50 ML 51 MG IV (09:48)
[2020-04-28] MEDS: Potassium Chloride ER 20 MEQ TAB.ER.PRT 40 MEQ PO (09:48)
--- NOTE | 2020-04-28 11:13 | HO.PM.IMPN ---
Subjective Subjective Date of Service: 04/28/20 Interval History: melena Cardiovascular Cardiovascular: Reports no additional cardiovascular complaints Respiratory Respiratory: Reports no additional respiratory complaints Physical Exam Vital Signs: Vital Signs: Last Vital Signs Temp 97.6 F 04/28/20 07:25 Pulse 92 04/28/20 07:25 Resp 20 04/28/20 07:25 BP 152/73 H 04/28/20 07:25 Pulse Ox 99 04/28/20 07:25 Body Mass Index 20.2 General: AO X 3, no acute distress Resp: CTA bilateral CVS: S1,S2,RRR GI: soft, non tender, non distended Neuro: motor grossly intact Psych: appropriate affect Objective Data Current Medications Generic Name Dose Route Start Last Admin Trade Name Freq PRN Reason Stop Dose Admin Acetaminophen 650 mg 04/27/20 19:04 Acetaminophen 325 Mg Tablet PO Q6H PRN Pain, Mild (Pain Scale 1-3) Albuterol Sulfate 2 puff 04/27/20 18:00 Albuterol Sulfate 90 Mcg 8 Gm Inhaler INHALE Q4H PRN Wheezing Baclofen 30 mg 04/27/20 21:00 04/28/20 07:51 Baclofen 10 Mg Tablet PO 30 mg TID ROSIO Administration Clonazepam 0.5 mg 04/27/20 21:00 04/28/20 07:51 Clonazepam 0.5 Mg Tablet PO 0.5 mg BID ROSIO Administration Clozapine 500 mg 04/27/20 21:00 04/27/20 22:05 Clozapine 100 Mg Tablet PO Not Given BEDTIME ROSIO Docusate Sodium 100 mg 04/27/20 19:04 Docusate Sodium 100 Mg Capsule PO DAILY PRN Constipation Folic Acid 1 mg 04/28/20 09:00 04/28/20 07:51 Folic Acid 1 Mg Tablet PO 1 mg DAILY ROSIO Administration Sodium Chloride 1,000 mls @ 100 mls/hr 04/27/20 19:04 04/28/20 10:54 Ns IVCONT Infused .Q10H ROSIO Infusion Lamotrigine 100 mg 04/27/20 21:00 04/28/20 07:51 Lamotrigine 100 Mg Tablet PO 100 mg BID ROSIO Administration Levothyroxine Sodium 75 mcg 04/28/20 06:30 04/28/20 05:37 Levothyroxine Sodium 75 Mcg Tablet PO 75 mcg DAILY@0630 ROSIO Administration Ondansetron HCl 4 mg 04/27/20 19:04 Ondansetron Hcl 4 Mg/2 Ml Vial IVPUSH Q8H PRN Nausea and Vomiting Pantoprazole Sodium 40 mg 04/28/20 06:30 04/28/20 05:37 Pantoprazole Sodium 40 Mg/10 Ml Vial IVPUSH 40 mg BID@0630,1630 ROSIO Administration Paroxetine HCl 10 mg 04/28/20 09:00 04/28/20 07:51 Paroxetine Hcl 10 Mg Tablet PO 10 mg DAILY ROSIO Administration Pharmacy Consult 1 each 04/27/20 17:28 Consult Rx Perform Med Rec MISCELLANE ONCE PRN Consult order Sodium Chloride 3 ml 04/28/20 00:00 04/28/20 07:52 0.9 % Sodium Chloride Flush 3 Ml Syringe IVFLUSH Not Given QSHIFT ROSIO Tramadol HCl 50 mg 04/27/20 21:00 04/28/20 07:51 Tramadol Hcl 50 Mg Tablet PO 50 mg TID ROSIO Administration Vitamin D 25 mcg 04/27/20 21:00 04/27/20 22:28 Cholecalciferol (Vitamin D3) 25 Mcg Tablet PO 25 mcg BEDTIME ROSIO Administration Labs CBC & Chem 7: 04/28/20 06:02 04/28/20 06:02 Assessment and Plan (1) GI bleeding: Status: Acute Assessment and Plan: This is a 64-year-old female with history of bipolar disorder, hypothyroidism, diastolic CHF, PE on Eliquis who was brought to the emergency department after an unwitnessed fall found to have GI bleed GI bleeding/acute blood loss anemia Likely upper GI source In the setting of anticoagulation with Eliquis/daily NSAID use -d/c NSAIDs, Holding Eliquis cbc stable plan for egd today h/o unprovoked PE dx July 2019 -Hold Eliquis mood continue paroxetine, clonazepam, clozapine, lamictal Chronic pain/lumbar radiculopathy -continue baclofen decreased dose of tramadol (repeat visits to ED for AMS with negative workup thought thought to be med related) hypothyroidism -continue synthroid HLD hold statin
--- NOTE | 2020-04-28 13:44 | P.CONAN_ITS ---
[facility] Active Problems Active Problems: All Active Problems (Updated 04/27/20 @ 20:05 by FAMILIA Rome) GI bleeding (Acute) Transient ischemic attack (Acute) Seizures (Acute) Past Medical History Medical History Anxiety Bipolar 1 disorder Diastolic CHF Hypothyroidism Lumbar radiculopathy Psychosis Pulmonary embolism Schizoaffective disorder Transient cerebral ischemia Functional capacity: uses cane/walker Family History Family History Other Heart disease Social History Social History Household Members: None Housing: Assisted Living Facility Housing Other:: [facility] Do you presently have visiting nurse or other home services: Yes Alcohol intake: never Smoking Status: Never smoker Use of substances other than those prescribed or required for medical reasons: No Currently Displaying Signs/Symptoms of Drug Intoxication Withdrawal: No Have you been hit, kicked, punched, or otherwise hurt by someone within the past year? If so, by whom?: No Do you feel safe in your current relationship?: No Current Relationship Is there a partner from a previous relationship who is making you feel unsafe now?: No Are you made to feel afraid or neglected: No Advance Directives: Yes Advance Directives on File: Yes Advance Directives Date on File: 03/10/20 Do you have thoughts of harming others: None Do you have a plan to hurt others: No Plan Recently lost weight without trying: No service: No Current occupational status: retired Meds Allergies Allergy/AdvReac Type Severity Reaction Status Date / Time bee pollen [Bee Stings] Allergy Severe ANAPHYLAXIS Verified 01/08/20 21:33 Active Medications: Current Medications Generic Name Dose Route Start Last Admin Trade Name Freq PRN Reason Stop Dose Admin Acetaminophen 650 mg 04/27/20 19:04 Acetaminophen 325 Mg Tablet PO Q6H PRN Pain, Mild (Pain Scale 1-3) Albuterol Sulfate 2 puff 04/27/20 18:00 Albuterol Sulfate 90 Mcg 8 Gm Inhaler INHALE Q4H PRN Wheezing Baclofen 30 mg 04/27/20 21:00 04/28/20 13:15 Baclofen 10 Mg Tablet PO 30 mg TID ROSIO Administration Clonazepam 0.5 mg 04/27/20 21:00 04/28/20 07:51 Clonazepam 0.5 Mg Tablet PO 0.5 mg BID ROSIO Administration Clozapine 500 mg 04/27/20 21:00 04/27/20 22:05 Clozapine 100 Mg Tablet PO Not Given BEDTIME ROSIO Docusate Sodium 100 mg 04/27/20 19:04 Docusate Sodium 100 Mg Capsule PO DAILY PRN Constipation Folic Acid 1 mg 04/28/20 09:00 04/28/20 07:51 Folic Acid 1 Mg Tablet PO 1 mg DAILY ROSIO Administration Sodium Chloride 1,000 mls @ 100 mls/hr 04/27/20 19:04 04/28/20 13:21 Ns IVCONT Not Given .Q10H ROSIO Sodium Chloride 500 mls @ 20 mls/hr 04/28/20 13:45 Ns IVCONT .Q24H ROSIO Lamotrigine 100 mg 04/27/20 21:00 04/28/20 07:51 Lamotrigine 100 Mg Tablet PO 100 mg BID ROSIO Administration Levothyroxine Sodium 75 mcg 04/28/20 06:30 04/28/20 05:37 Levothyroxine Sodium 75 Mcg Tablet PO 75 mcg DAILY@0630 ROSIO Administration Ondansetron HCl 4 mg 04/27/20 19:04 Ondansetron Hcl 4 Mg/2 Ml Vial IVPUSH Q8H PRN Nausea and Vomiting Pantoprazole Sodium 40 mg 04/28/20 06:30 04/28/20 05:37 Pantoprazole Sodium 40 Mg/10 Ml Vial IVPUSH 40 mg BID@0630,1630 ROSIO Administration Paroxetine HCl 10 mg 04/28/20 09:00 04/28/20 07:51 Paroxetine Hcl 10 Mg Tablet PO 10 mg DAILY ROSIO Administration Pharmacy Consult 1 each 04/27/20 17:28 Consult Rx Perform Med Rec MISCELLANE ONCE PRN Consult order Sodium Chloride 3 ml 04/28/20 00:00 04/28/20 07:52 0.9 % Sodium Chloride Flush 3 Ml Syringe IVFLUSH Not Given QSHIFT ROSIO Tramadol HCl 50 mg 04/27/20 21:00 04/28/20 13:15 Tramadol Hcl 50 Mg Tablet PO 50 mg TID ROSIO Administration Vitamin D 25 mcg 04/27/20 21:00 04/27/20 22:28 Cholecalciferol (Vitamin D3) 25 Mcg Tablet PO 25 mcg BEDTIME ROSIO Administration Home Medications Medication Instructions Recorded Confirmed Last Taken Type Eliquis 5 mg PO BID 01/08/20 04/27/20 03/09/20 History cholecalciferol (vitamin D3) 25 mcg PO BEDTIME 01/08/20 04/27/20 03/09/20 History [Vitamin D3] clonazepam 0.5 mg PO BID 01/08/20 04/27/20 04/27/20 History clozapine 500 mg PO BEDTIME 01/08/20 04/27/20 03/09/20 History ferrous sulfate 325 mg PO BID 01/08/20 04/27/20 03/10/20 History folic acid 1 mg PO DAILY 01/08/20 04/27/20 03/10/20 History lamotrigine [Lamictal] 100 mg PO BID 01/08/20 04/27/20 03/10/20 History levothyroxine 75 mcg PO DAILY@0630 01/08/20 04/27/20 03/10/20 History pravastatin 20 mg PO BEDTIME 01/08/20 04/27/20 03/09/20 History acetaminophen 650 mg PO Q4H PRN 03/10/20 04/27/20 03/03/20 History albuterol sulfate [Ventolin HFA] 2 puff INHALATION Q4H PRN 03/10/20 04/27/20 Unknown History baclofen 30 mg PO TID 03/10/20 04/27/20 04/27/20 History budesonide 3 mg PO MOFR@1000 PRN 03/10/20 04/27/20 Unknown History dextromethorphan-guaifenesin 10 ml PO Q4H PRN 03/10/20 04/27/20 Unknown History [Guaifenesin DM] diphenoxylate-atropine 1 tab PO BID PRN 03/10/20 04/27/20 Unknown History ibuprofen 800 mg PO TID 03/10/20 04/27/20 03/10/20 History loperamide 2 mg PO Q4H PRN 03/10/20 04/27/20 Unknown History paroxetine HCl [Paxil] 10 mg PO DAILY 03/10/20 04/27/20 03/10/20 History tramadol 100 mg PO TID 03/10/20 04/27/20 04/27/20 History sennosides-docusate sodium [Senna 1 tab PO TID PRN 04/27/20 04/28/20 Unknown History Plus] Exam Exam Date and Time: April 28, 2020 1344 Height,Weight and Vital Signs: Height 5 ft 3 in Weight 51.71 kg Last Vital Signs Temp 98.3 F 04/28/20 11:39 Pulse 96 04/28/20 11:39 Resp 18 04/28/20 11:39 BP 142/81 H 04/28/20 11:39 Pulse Ox 95 04/28/20 11:39 Pertinent Lab Results Pertinent Lab Results: Laboratory Tests 04/27/20 04/27/20 04/27/20 12:01 12:01 12:01 WBC 5.0 RBC 3.09 L Hgb 10.3 L Hct 31.1 L MCV 100.6 H MCH 33.3 H MCHC 33.1 RDW 12.0 Plt Count 122 L MPV 10.1 Immature Gran % (Auto) 0.4 Neut % (Auto) 80.3 H Lymph % (Auto) 11.9 L [place] % (Auto) 7.0 Eos % (Auto) 0.2 Baso % (Auto) 0.2 Lymph # (Auto) 0.6 L [place] # (Auto) 0.4 Eos # (Auto) 0.0 Baso # (Auto) 0.0 Abs Immat Gran (auto) 0.02 Absolute Neuts (auto) 4.0 Absolute Nucleated RBC 0.000 Nucleated RBC % (auto) 0.0 Smear Tech's Comments VERIFIED Hold Blue Top SEE NOTE VBG pH VBG pCO2 VBG pO2 VBG HCO3 VBG O2 Saturation VBG Base Excess Sodium 140 Potassium 3.5 Chloride 107 Carbon Dioxide 25 Anion Gap 12 BUN 13 Creatinine 0.95 Estim Creat Clear Calc 47.5 Estimated GFR 59 POC Glucose Random Glucose 85 Calcium 8.9 Magnesium 2.1 Total Bilirubin 0.5 Direct Bilirubin 0.2 AST 26 D ALT 13 Alkaline Phosphatase 72 Ammonia Total Creatine Kinase Troponin I High Sens Total Protein 5.4 L Albumin 3.7 Urine Color Urine Appearance Urine pH Ur Specific [place] Urine Protein Urine Glucose (UA) Urine Ketones Urine Blood Urine Nitrite Ur Leukocyte Esterase Stool Occult Blood Salicylates Urine Opiates Screen Acetaminophen Ur Barbiturates Screen Ur Phencyclidine Scrn Ur Amphetamines Screen U Benzodiazepines Scrn Urine Cocaine Screen U Marijuana (THC) Screen Ethyl Alcohol COVID-19 ([facility]ORA) COVID-19 Gigturn Blood Type 04/27/20 04/27/20 04/27/20 12:01 12:01 12:01 WBC RBC Hgb Hct MCV MCH MCHC RDW Plt Count MPV Immature Gran % (Auto) Neut % (Auto) Lymph % (Auto) [place] % (Auto) Eos % (Auto) Baso % (Auto) Lymph # (Auto) [place] # (Auto) Eos # (Auto) Baso # (Auto) Abs Immat Gran (auto) Absolute Neuts (auto) Absolute Nucleated RBC Nucleated RBC % (auto) Smear Tech's Comments Hold Blue Top VBG pH VBG pCO2 VBG pO2 VBG HCO3 VBG O2 Saturation VBG Base Excess Sodium Potassium Chloride Carbon Dioxide Anion Gap BUN Creatinine Estim Creat Clear Calc Estimated GFR POC Glucose Random Glucose Calcium Magnesium Total Bilirubin Direct Bilirubin AST ALT Alkaline Phosphatase Ammonia 27 Total Creatine Kinase Troponin I High Sens < 3.5 Total Protein Albumin Urine Color Urine Appearance Urine pH Ur Specific [place] Urine Protein Urine Glucose (UA) Urine Ketones Urine Blood Urine Nitrite Ur Leukocyte Esterase Stool Occult Blood Salicylates Urine Opiates Screen Acetaminophen Ur Barbiturates Screen Ur Phencyclidine Scrn Ur Amphetamines Screen U Benzodiazepines Scrn Urine Cocaine Screen U Marijuana (THC) Screen Ethyl Alcohol < 10 COVID-19 ([facility]) COVID-19 Gigturn Blood Type 04/27/20 04/27/20 04/27/20 12:01 12:01 12:02 WBC RBC Hgb Hct MCV MCH MCHC RDW Plt Count MPV Immature Gran % (Auto) Neut % (Auto) Lymph % (Auto) [place] % (Auto) Eos % (Auto) Baso % (Auto) Lymph # (Auto) [place] # (Auto) Eos # (Auto) Baso # (Auto) Abs Immat Gran (auto) Absolute Neuts (auto) Absolute Nucleated RBC Nucleated RBC % (auto) Smear Tech's Comments Hold Blue Top VBG pH VBG pCO2 VBG pO2 VBG HCO3 VBG O2 Saturation VBG Base Excess Sodium Potassium Chloride Carbon Dioxide Anion Gap BUN Creatinine Estim Creat Clear Calc Estimated GFR POC Glucose Random Glucose Calcium Magnesium Total Bilirubin Direct Bilirubin AST ALT Alkaline Phosphatase Ammonia Total Creatine Kinase 314 H D Troponin I High Sens Total Protein Albumin Urine Color YELLOW Urine Appearance HAZY Urine pH 6.0 Ur Specific [place] 1.020 Urine Protein NEG Urine Glucose (UA) NEG Urine Ketones 5 Urine Blood NEG Urine Nitrite NEG Ur Leukocyte Esterase NEG Stool Occult Blood Salicylates < 5.0 L Urine Opiates Screen Not Detected Acetaminophen < 1 Ur Barbiturates Screen Not Detected Ur Phencyclidine Scrn Not Detected Ur Amphetamines Screen Not Detected U Benzodiazepines Scrn Not Detected Urine Cocaine Screen Not Detected U Marijuana (THC) Screen Not Detected Ethyl Alcohol COVID-19 ([facility]ORA) COVID-19 Butter Com Blood Type 04/27/20 04/27/20 04/27/20 12:08 12:52 14:20 WBC RBC Hgb Hct MCV MCH MCHC RDW Plt Count MPV Immature Gran % (Auto) Neut % (Auto) Lymph % (Auto) [place] % (Auto) Eos % (Auto) Baso % (Auto) Lymph # (Auto) [place] # (Auto) Eos # (Auto) Baso # (Auto) Abs Immat Gran (auto) Absolute Neuts (auto) Absolute Nucleated RBC Nucleated RBC % (auto) Smear Tech's Comments Hold Blue Top VBG pH 7.32 VBG pCO2 38 VBG pO2 90 VBG HCO3 20 L VBG O2 Saturation 95.0 VBG Base Excess -5.4 Sodium Potassium Chloride Carbon Dioxide Anion Gap BUN Creatinine Estim Creat Clear Calc Estimated GFR POC Glucose 80 Random Glucose Calcium Magnesium Total Bilirubin Direct Bilirubin AST ALT Alkaline Phosphatase Ammonia Total Creatine Kinase Troponin I High Sens Total Protein Albumin Urine Color Urine Appearance Urine pH Ur Specific [place] Urine Protein Urine Glucose (UA) Urine Ketones Urine Blood Urine Nitrite Ur Leukocyte Esterase Stool Occult Blood POSITIVE Salicylates Urine Opiates Screen Acetaminophen Ur Barbiturates Screen Ur Phencyclidine Scrn Ur Amphetamines Screen U Benzodiazepines Scrn Urine Cocaine Screen U Marijuana (THC) Screen Ethyl Alcohol COVID-19 ([facility]A) COVID-19 Butter Com Blood Type 04/27/20 04/27/20 04/28/20 14:54 17:47 06:02 WBC 4.5 L RBC 3.00 L Hgb 10.0 L Hct 30.3 L MCV 101.0 H MCH 33.3 H MCHC 33.0 RDW 12.0 Plt Count 118 L MPV 10.1 Immature Gran % (Auto) 0.2 Neut % (Auto) 74.7 H Lymph % (Auto) 14.3 L [place] % (Auto) 9.9 Eos % (Auto) 0.2 Baso % (Auto) 0.7 Lymph # (Auto) 0.7 L [place] # (Auto) 0.5 Eos # (Auto) 0.0 Baso # (Auto) 0.0 Abs Immat Gran (auto) 0.01 Absolute Neuts (auto) 3.4 Absolute Nucleated RBC 0.000 Nucleated RBC % (auto) 0.0 Smear Tech's Comments VERIFIED Hold Blue Top VBG pH VBG pCO2 VBG pO2 VBG HCO3 VBG O2 Saturation VBG Base Excess Sodium Potassium Chloride Carbon Dioxide Anion Gap BUN Creatinine Estim Creat Clear Calc Estimated GFR POC Glucose Random Glucose Calcium Magnesium Total Bilirubin Direct Bilirubin AST ALT Alkaline Phosphatase Ammonia Total Creatine Kinase Troponin I High Sens Total Protein Albumin Urine Color Urine Appearance Urine pH Ur Specific [place] Urine Protein Urine Glucose (UA) Urine Ketones Urine Blood Urine Nitrite Ur Leukocyte Esterase Stool Occult Blood Salicylates Urine Opiates Screen Acetaminophen Ur Barbiturates Screen Ur Phencyclidine Scrn Ur Amphetamines Screen U Benzodiazepines Scrn Urine Cocaine Screen U Marijuana (THC) Screen Ethyl Alcohol COVID-19 ([facility]) Negative COVID-19 Butter Com See Note Blood Type A Positive 04/28/20 06:02 WBC RBC Hgb Hct MCV MCH MCHC RDW Plt Count MPV Immature Gran % (Auto) Neut % (Auto) Lymph % (Auto) [place] % (Auto) Eos % (Auto) Baso % (Auto) Lymph # (Auto) [place] # (Auto) Eos # (Auto) Baso # (Auto) Abs Immat Gran (auto) Absolute Neuts (auto) Absolute Nucleated RBC Nucleated RBC % (auto) Smear Tech's Comments Hold Blue Top VBG pH VBG pCO2 VBG pO2 VBG HCO3 VBG O2 Saturation VBG Base Excess Sodium 144 Potassium 3.4 Chloride 111 H Carbon Dioxide 23 Anion Gap 13 BUN 7 L Creatinine 0.63 Estim Creat Clear Calc 71.7 Estimated GFR > 60 POC Glucose Random Glucose 62 Calcium 8.4 Magnesium Total Bilirubin Direct Bilirubin AST ALT Alkaline Phosphatase Ammonia Total Creatine Kinase Troponin I High Sens Total Protein Albumin Urine Color Urine Appearance Urine pH Ur Specific [place] Urine Protein Urine Glucose (UA) Urine Ketones Urine Blood Urine Nitrite Ur Leukocyte Esterase Stool Occult Blood Salicylates Urine Opiates Screen Acetaminophen Ur Barbiturates Screen Ur Phencyclidine Scrn Ur Amphetamines Screen U Benzodiazepines Scrn Urine Cocaine Screen U Marijuana (THC) Screen Ethyl Alcohol COVID-19 ([facility]A) COVID-19 Butter Com Blood Type Airway Mallampati Class: II TM Dist: >3cm Neck ROM: Full Assessment and Plan Assessment Anesthesia Assessment: Anesthesia Plan Discussed and Chart Reviewed Final Anesthetic Review NPO: Yes ASA Class: III Final Preanesthetic Review: No Changes in Pt Med Stat, Meds/Allgs Chart Reviewed, Consent Obtained/Reviewed and Anes Risks/Benef Reviewed Patient Risk: Intermediate Procedure Risk: Low Assessment/Block/Sedation in SS: Assess/Block/Sedation-SS Anesthetic Plan Anesthetic Plan: GA Disposition: Standard PACU
[2020-04-28] MEDS: 0.9 % Sodium Chloride 500 ML 20 ML IVCONT (13:53)
--- NOTE | 2020-04-28 15:21 | PM.EVENT ---
Event Note Date of Service: 04/28/20 Event Note: EGD-Full note dictated Findings: 1. Multiple inactive and benign appearing gastric antral ulcers, along with some erosive gastritis. No sign of bleeding. Antrum biopsied x 3. 2. 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 Thanks.
--- NOTE | 2020-04-28 15:25 | PM.OP ---
Brief Operative Note Date of Service: 04/28/20 Pre-op diagnosis: UGI Bleed Post-op diagnosis: other (Gastric ulcers and erosive gastritis.) Procedure: EGD with biopsies Surgeon: Kwasi Boo Anesthesia: MAC Estimated blood loss (mL): 3.0 Pathology: other (A. Gastric antrum) Condition: stable Disposition: PACU
[2020-04-28] MEDS: 0.9 % Sodium Chloride Flush 3 ML SYRINGE IVFLUSH ×2 (16:38→21:06)
[2020-04-28] MEDS: Omeprazole 40 MG CAPSULE.DR PO (16:39)
--- NOTE | 2020-04-28 16:58 | OP_ITS ---
SURGEON: Kwasi Boo MD INDICATIONS: The patient presents for evaluation of upper GI bleeding. Full consent has been obtained from her for this, including risks of bleeding and perforation. PREOPERATIVE DIAGNOSIS: POSTOPERATIVE DIAGNOSIS: PROCEDURE PERFORMED: Esophagogastroduodenoscopy with biopsies. ESTIMATED BLOOD LOSS: COMPLICATIONS: ANESTHESIA: Monitored anesthesia care. ASSISTANTS: SPECIMENS: PREOPERATIVE DIAGNOSES: Upper gastrointestinal bleeding and melena. POSTOPERATIVE DIAGNOSES: Upper gastrointestinal bleeding and melena, multiple gastric ulcers and gastritis, hiatal hernia. DESCRIPTION OF PROCEDURE: The patient was placed in the left lateral decubitus position. The Olympus video gastroscope was passed in the posterior oropharynx and upper esophagus under direct vision. The scope was passed slowly into the distal esophagus. The gastroesophageal junction appeared normal at 36 cm. There was no sign of any esophagitis. The scope entered into the stomach. There was a small hiatal hernia. The scope was advanced to the pylorus and the duodenum was cannulated to the descending portion. The duodenum including the bulb appeared normal without mass or ulceration. Scope was withdrawn back into the stomach. The gastric antrum and body had multiple shallow and benign-appearing ulcers with clean bases and no sign of any bleeding. There was also evidence of some gastritis with erythema and edema. There was good peristalsis. Biopsies were obtained from the gastric antrum. The scope was retroflexed visualizing the proximal stomach carefully, which appeared normal, without any sign of mass or ulceration. Scope was straightened out and withdrawn back into the esophagus. The esophageal mucosa appeared normal. The scope was withdrawn from the patient. She tolerated the procedure well and was returned to the recovery area in stable condition. IMPRESSION: 1. Multiple gastric ulcers. 2. Gastritis. 3. Hiatal hernia. PLAN: The results of the biopsies will be checked. If Helicobacter pylori is present in the gastric biopsies, I would recommend treating that. She should avoid all aspirin and NSAIDs long-term and I think she can go back on her Eliquis safely in about 1 week. She should continue iron replacement. Her diet can be advanced and she will have a followup CBC for the morning. This has all been discussed with her sister, Francoise. MD FORD Rachel/FLORENCIO / [phone]
--- NOTE | 2020-04-28 17:34 | CONS_ITS ---
DATE OF SERVICE: 04/28/2020 REASON FOR CONSULTATION: Melena and anemia. HISTORY OF PRESENT ILLNESS: This has been obtained from the patient, her nurse, and the medical record. The patient is a 64-year-old female, who was admitted to the hospital after developing the onset of melena and anemia. The patient has been on chronic Eliquis in relation to previous blood clot and apparently, she was started on ibuprofen somewhat recently in relation to arthritis. When she began having melena, she also noted some small amount of bright red blood in the water as well. She denies any nausea nor vomiting. She denies any abdominal pain. She denies any significant heartburn or dysphagia. When she presented to the hospital, she had a dark stool, which was heme-positive. She also had a drop in her hemoglobin. She denies any previous history of GI bleeding nor ulcer disease. She thinks she may have had a colonoscopy many years ago, but has never had an upper endoscopy. She does not smoke nor use any significant amounts of alcohol. Aside from the ibuprofen, she does not appear to be using any other chronic NSAIDs nor aspirin. MEDICATIONS: On admission revealed Eliquis, vitamin D, clonazepam, clozapine, ferrous sulfate, folic acid, Lamictal, levothyroxine, pravastatin, acetaminophen, albuterol, baclofen, budesonide, Lomotil p.r.n., ibuprofen 800 mg t.i.d., loperamide p.r.n., Paxil, tramadol, and Senokot. Her medications here in the hospital include IV Protonix, acetaminophen, albuterol inhaler, baclofen, vitamin D, clonazepam, clozapine, Colace, folic acid, Lamictal, levothyroxine, Zofran. PAST MEDICAL HISTORY: Back surgery. Anxiety. Bipolar disease. CHF. Hypothyroidism. Pulmonary embolism. SOCIAL HISTORY: She lives at the [facility]. She denies tobacco nor alcohol. REVIEW OF SYSTEMS: CONSTITUTIONAL: She reports that she has been feeling fairly well at the [facility] with good appetite. SKIN: No rash. No pruritus. CARDIAC: No chest pain. PULMONARY: No cough. No hemoptysis. GASTROINTESTINAL: As above. URINARY: No dysuria. No hematuria. FAMILY HISTORY: Noncontributory. PHYSICAL EXAMINATION: GENERAL: The patient is a pleasant, alert female. SKIN: Nonjaundiced. HEENT: Anicteric sclerae. NECK: Supple. ABDOMEN: Soft, nondistended, nontender. LABORATORY DATA: Hemoglobin yesterday was 10.3, today is 10.0. White blood cell count 4.5, hemoglobin 10.0, platelet count 118,000. PT 17.2 with INR 1.4. Normal chemistries, BUN, and creatinine. LFTs were normal. IMPRESSION: Given the patient's clinical history, this seems to be quite consistent with an upper GI bleed. Given the history of ibuprofen and use of Eliquis, I suspect this represents bleeding from either peptic ulcer disease, significant gastritis or duodenitis, and/or possible esophagitis. At this point, she appears very stable without any signs of active bleeding. I would recommend upper endoscopy later today with monitored anesthesia care. Full consent has been obtained from her for this, including risks of bleeding and perforation. Based on the upper endoscopy findings, I did advise her that if this is completely negative, I would then recommend colonoscopy for further evaluation as well. In the meantime, I would continue her IV PPI and follow her hemoglobin as needed. This has all been discussed with the patient in detail. Thank you for this consultation. MD FORD Rachel/FLORENCIO / [id number]
[2020-04-28] MEDS: Cholecalciferol (Vitamin D3) 25 MCG TABLET PO (21:02)
[2020-04-28] MEDS: cloZAPine 100 MG TABLET 500 MG PO (21:02)
[2020-04-29] VITALS (8 sets, daily range): BP systolic 131–161; BP diastolic 72–87; PULSE 87–100; RESP 16–18; TEMP 36.3–36.7; O2SAT 98–100
[2020-04-29] MEDS: 0.9 % Sodium Chloride 1,000 ML 100 ML IVCONT (02:10)
[2020-04-29 05:19] LABS: MANUAL DIFF FLAG NO
[2020-04-29 05:22] LABS: Basophils Percent Auto 0.3 % (0-2); Eosinophils Percent Auto 0.2 % (0-4); Hematocrit 29.3 % (37-47); Hemoglobin 9.9 g/dl (12.0-16.0); Imm Gran Abs Auto 0.02 X10*3/uL (0.00-0.03); Imm Gran Pct Auto 0.3 % (0.0-0.4); Lymphocytes Absolute Auto 0.8 X10*3/uL (1.2-4.9); Lymphocytes Percent Auto 11.9 % (20-40); Mean Corpuscular HGB Conc 33.8 g/dl (31.0-35.0); Mean Corpuscular Hemoglobin 33.7 pg (27.0-33.0); Mean Corpuscular Volume 99.7 fL (80-98); Mean Platelet Volume 9.4 fL (9.4-12.3); Monocytes Absolute Auto 0.6 X10*3/uL (0.1-1.2); Monocytes Percent Auto 8.5 % (2-11); Neutrophils Absolute Auto 5.1 X10*3/uL (2.0-8.3); Neutrophils Percent Auto 78.8 % (45-73); Platelet Count 132 X10*3/uL (160-400); Red Blood Count 2.94 X10*6/uL (4.20-5.50); Red Cell Distribution Width 12.1 % (11.0-16.0); White Blood Count 6.5 X10*3/uL (4.8-10.8)
[2020-04-29] MEDS: Levothyroxine Sodium 75 MCG TABLET PO (05:40)
[2020-04-29] MEDS: Omeprazole 40 MG CAPSULE.DR PO (05:41)
[2020-04-29 05:47] LABS: Anion Gap 10 (12-20); Blood Urea Nitrogen 9 mg/dL (9-16); Calcium 8.5 mg/dL (8.4-10.2); Carbon Dioxide 25 mmol/L (22-29); Chloride 113 mmol/L (96-108); Creatinine Clr Calc Pharmacy 75.2; Estimated Glomerular Filt Rate > 60; Glucose Fasting 97 mg/dL (60-99); Sodium 145 mmol/L (135-145)
[2020-04-29] MEDS: lamoTRIgine 100 MG TABLET PO ×2 (08:22→21:15)
[2020-04-29] MEDS: traMADoL HCL 50 MG TABLET PO ×3 (08:22→21:15)
[2020-04-29] MEDS: Potassium Chloride ER 20 MEQ TAB.ER.PRT 40 MEQ PO (08:22)
[2020-04-29] MEDS: Baclofen 10 MG TABLET 30 MG PO ×3 (08:22→21:15)
[2020-04-29] MEDS: clonazePAM 0.5 MG TABLET PO ×2 (08:22→21:15)
[2020-04-29] MEDS: Folic Acid 1 MG TABLET PO (08:22)
[2020-04-29] MEDS: 0.9 % Sodium Chloride Flush 3 ML SYRINGE IVFLUSH ×3 (08:22→23:56)
[2020-04-29] MEDS: PARoxetine HCL 10 MG TABLET PO (08:23)
--- NOTE | 2020-04-29 10:21 | HO.PM.IMPN ---
Subjective Subjective Date of Service: 04/29/20 Interval History: no further bleeding Cardiovascular Cardiovascular: Reports no additional cardiovascular complaints Gastrointestinal Gastrointestinal: Reports no additional gastrointestinal complaints Physical Exam Vital Signs: Vital Signs: Last Vital Signs Temp 97.7 F 04/29/20 07:49 Pulse 97 04/29/20 07:49 Resp 16 04/29/20 07:49 BP 161/77 H 04/29/20 07:49 Pulse Ox 99 04/29/20 07:49 Body Mass Index 20.2 General: AO X 3, no acute distress Resp: CTA bilateral CVS: S1,S2,RRR GI: soft, non tender, non distended Neuro: motor grossly intact Psych: appropriate affect Objective Data Current Medications Generic Name Dose Route Start Last Admin Trade Name Freq PRN Reason Stop Dose Admin Acetaminophen 650 mg 04/27/20 19:04 Acetaminophen 325 Mg Tablet PO Q6H PRN Pain, Mild (Pain Scale 1-3) Albuterol Sulfate 2 puff 04/27/20 18:00 Albuterol Sulfate 90 Mcg 8 Gm Inhaler INHALE Q4H PRN Wheezing Baclofen 30 mg 04/27/20 21:00 04/29/20 08:22 Baclofen 10 Mg Tablet PO 30 mg TID ROSIO Administration Clonazepam 0.5 mg 04/27/20 21:00 04/29/20 08:22 Clonazepam 0.5 Mg Tablet PO 0.5 mg BID ROSIO Administration Clozapine 500 mg 04/27/20 21:00 04/28/20 21:02 Clozapine 100 Mg Tablet PO 500 mg BEDTIME ROSIO Administration Docusate Sodium 100 mg 04/27/20 19:04 Docusate Sodium 100 Mg Capsule PO DAILY PRN Constipation Folic Acid 1 mg 04/28/20 09:00 04/29/20 08:22 Folic Acid 1 Mg Tablet PO 1 mg DAILY ROSIO Administration Lamotrigine 100 mg 04/27/20 21:00 04/29/20 08:22 Lamotrigine 100 Mg Tablet PO 100 mg BID ROSIO Administration Levothyroxine Sodium 75 mcg 04/28/20 06:30 04/29/20 05:40 Levothyroxine Sodium 75 Mcg Tablet PO 75 mcg DAILY@0630 ROSIO Administration Omeprazole 40 mg 04/28/20 16:24 04/29/20 05:41 Omeprazole 40 Mg Capsule.Dr PO 40 mg DAILY@0630 ROSIO Administration Ondansetron HCl 4 mg 04/27/20 19:04 Ondansetron Hcl 4 Mg/2 Ml Vial IVPUSH Q8H PRN Nausea and Vomiting Paroxetine HCl 10 mg 04/28/20 09:00 04/29/20 08:23 Paroxetine Hcl 10 Mg Tablet PO 10 mg DAILY ROSIO Administration Pharmacy Consult 1 each 04/27/20 17:28 Consult Rx Perform Med Rec MISCELLANE ONCE PRN Consult order Sodium Chloride 3 ml 04/28/20 00:00 04/29/20 08:22 0.9 % Sodium Chloride Flush 3 Ml Syringe IVFLUSH 3 ml QSHIFT ROSIO Administration Tramadol HCl 50 mg 04/27/20 21:00 04/29/20 08:22 Tramadol Hcl 50 Mg Tablet PO 50 mg TID ROSIO Administration Vitamin D 25 mcg 04/27/20 21:00 04/28/20 21:02 Cholecalciferol (Vitamin D3) 25 Mcg Tablet PO 25 mcg BEDTIME ROSIO Administration Labs CBC & Chem 7: 04/29/20 05:12 04/29/20 05:12 Assessment and Plan (1) GI bleeding: Status: Acute Assessment and Plan: This is a 64-year-old female with history of bipolar disorder, hypothyroidism, diastolic CHF, PE on Eliquis who was brought to the emergency department after an unwitnessed fall found to have GI bleed GI bleeding/acute blood loss anemia gastric ulcers on EGD In the setting of anticoagulation with Eliquis/daily NSAID use -d/c NSAIDs, Holding Eliquis for one week cbc stable monitor h/o unprovoked 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
--- NOTE | 2020-04-29 19:07 | HO.POSTANES ---
Post Anesthesia Evaluation Post Anesthesia Evaluation Vital Signs: Vital Signs Temp Pulse Resp BP Pulse Ox 04/29/20 19:01 98.0 F 91 18 131/76 99 04/29/20 16:06 98 04/29/20 15:32 97.8 F 91 18 132/77 100 04/29/20 13:44 98 04/29/20 12:00 97.6 F 100 18 136/72 99 04/29/20 07:49 97.7 F 97 16 161/77 H 99 Anesthesia: Monitored Mental Status: Awake Pain Control: Satisfactory Nausea/Vomiting: None Hydration: Adequate Anesthesia-Related Issues: No Anes. Related Issues
[2020-04-29] MEDS: Cholecalciferol (Vitamin D3) 25 MCG TABLET PO (21:15)
[2020-04-29] MEDS: cloZAPine 100 MG TABLET 500 MG PO (21:15)
[2020-04-30] VITALS (8 sets, daily range): BP systolic 113–148; BP diastolic 65–91; PULSE 82–93; RESP 16–18; TEMP 35.8–37.1; O2SAT 98–100
[2020-04-30] MEDS: Omeprazole 40 MG CAPSULE.DR PO (05:43)
[2020-04-30] MEDS: Levothyroxine Sodium 75 MCG TABLET PO (05:43)
[2020-04-30 07:11] LABS: MANUAL DIFF FLAG NO
[2020-04-30 07:21] LABS: Basophils Percent Auto 0.4 % (0-2); Eosinophils Percent Auto 0.2 % (0-4); Hematocrit 29.4 % (37-47); Hemoglobin 9.6 g/dl (12.0-16.0); Imm Gran Abs Auto 0.01 X10*3/uL (0.00-0.03); Imm Gran Pct Auto 0.2 % (0.0-0.4); Lymphocytes Absolute Auto 1.1 X10*3/uL (1.2-4.9); Lymphocytes Percent Auto 22.3 % (20-40); Mean Corpuscular HGB Conc 32.7 g/dl (31.0-35.0); Mean Corpuscular Hemoglobin 32.9 pg (27.0-33.0); Mean Corpuscular Volume 100.7 fL (80-98); Mean Platelet Volume 9.8 fL (9.4-12.3); Monocytes Absolute Auto 0.4 X10*3/uL (0.1-1.2); Monocytes Percent Auto 8.3 % (2-11); Neutrophils Absolute Auto 3.4 X10*3/uL (2.0-8.3); Neutrophils Percent Auto 68.6 % (45-73); Platelet Count 144 X10*3/uL (160-400); Red Blood Count 2.92 X10*6/uL (4.20-5.50); Red Cell Distribution Width 12.4 % (11.0-16.0); White Blood Count 4.9 X10*3/uL (4.8-10.8)
[2020-04-30 07:33] LABS: Anion Gap 12 (12-20); Blood Urea Nitrogen 17 mg/dL (9-16); Calcium 8.2 mg/dL (8.4-10.2); Carbon Dioxide 24 mmol/L (22-29); Chloride 113 mmol/L (96-108); Creatinine Clr Calc Pharmacy 59.4; Estimated Glomerular Filt Rate > 60; Glucose Fasting 87 mg/dL (60-99); Sodium 146 mmol/L (135-145)
--- NOTE | 2020-04-30 09:43 | HO.PM.IMPN ---
Subjective Subjective Date of Service: 04/30/20 Interval History: weak, no further bleeding Cardiovascular Cardiovascular: Reports no additional cardiovascular complaints Gastrointestinal Gastrointestinal: Reports no additional gastrointestinal complaints Physical Exam Vital Signs: Vital Signs: Last Vital Signs Temp 97.2 F 04/30/20 07:57 Pulse 91 04/30/20 07:57 Resp 17 04/30/20 07:57 BP 148/91 H 04/30/20 07:57 Pulse Ox 99 04/30/20 07:57 Body Mass Index 20.2 General: AO X 3, no acute distress Resp: CTA bilateral CVS: S1,S2,RRR GI: soft, non tender, non distended Neuro: motor grossly intact Psych: appropriate affect Objective Data Current Medications Generic Name Dose Route Start Last Admin Trade Name Freq PRN Reason Stop Dose Admin Acetaminophen 650 mg 04/27/20 19:04 Acetaminophen 325 Mg Tablet PO Q6H PRN Pain, Mild (Pain Scale 1-3) Albuterol Sulfate 2 puff 04/27/20 18:00 Albuterol Sulfate 90 Mcg 8 Gm Inhaler INHALE Q4H PRN Wheezing Baclofen 30 mg 04/27/20 21:00 04/29/20 21:15 Baclofen 10 Mg Tablet PO 30 mg TID ROSIO Administration Clonazepam 0.5 mg 04/27/20 21:00 04/29/20 21:15 Clonazepam 0.5 Mg Tablet PO 0.5 mg BID ROSIO Administration Clozapine 500 mg 04/27/20 21:00 04/29/20 21:15 Clozapine 100 Mg Tablet PO 500 mg BEDTIME ROSIO Administration Docusate Sodium 100 mg 04/27/20 19:04 Docusate Sodium 100 Mg Capsule PO DAILY PRN Constipation Folic Acid 1 mg 04/28/20 09:00 04/29/20 08:22 Folic Acid 1 Mg Tablet PO 1 mg DAILY ROSIO Administration Lamotrigine 100 mg 04/27/20 21:00 04/29/20 21:15 Lamotrigine 100 Mg Tablet PO 100 mg BID ROSIO Administration Levothyroxine Sodium 75 mcg 04/28/20 06:30 04/30/20 05:43 Levothyroxine Sodium 75 Mcg Tablet PO 75 mcg DAILY@0630 ROSIO Administration Omeprazole 40 mg 04/28/20 16:24 04/30/20 05:43 Omeprazole 40 Mg Capsule.Dr PO 40 mg DAILY@0630 ROSIO Administration Ondansetron HCl 4 mg 04/27/20 19:04 Ondansetron Hcl 4 Mg/2 Ml Vial IVPUSH Q8H PRN Nausea and Vomiting Paroxetine HCl 10 mg 04/28/20 09:00 04/29/20 08:23 Paroxetine Hcl 10 Mg Tablet PO 10 mg DAILY ROSIO Administration Pharmacy Consult 1 each 04/27/20 17:28 Consult Rx Perform Med Rec MISCELLANE ONCE PRN Consult order Sodium Chloride 3 ml 04/28/20 00:00 04/29/20 23:56 0.9 % Sodium Chloride Flush 3 Ml Syringe IVFLUSH 3 ml QSHIFT ROSIO Administration Tramadol HCl 50 mg 04/27/20 21:00 04/29/20 21:15 Tramadol Hcl 50 Mg Tablet PO 50 mg TID ROSIO Administration Vitamin D 25 mcg 04/27/20 21:00 04/29/20 21:15 Cholecalciferol (Vitamin D3) 25 Mcg Tablet PO 25 mcg BEDTIME ROSIO Administration Labs CBC & Chem 7: 04/30/20 06:35 04/30/20 06:35 Assessment and Plan (1) GI bleeding: Status: Acute Assessment and Plan: This is a 64-year-old female with history of bipolar disorder, hypothyroidism, diastolic CHF, PE on Eliquis who was brought to the emergency department after an unwitnessed fall found to have GI bleed GI bleeding/acute blood loss anemia gastric ulcers on EGD In the setting of anticoagulation with Eliquis/daily NSAID use -d/c NSAIDs, Holding Eliquis for one week (restart may 05) cbc stable monitor 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
[2020-04-30] MEDS: Folic Acid 1 MG TABLET PO (09:47)
[2020-04-30] MEDS: clonazePAM 0.5 MG TABLET PO ×2 (09:47→20:38)
[2020-04-30] MEDS: lamoTRIgine 100 MG TABLET PO ×2 (09:47→20:38)
[2020-04-30] MEDS: Baclofen 10 MG TABLET 30 MG PO ×3 (09:47→20:38)
[2020-04-30] MEDS: 0.9 % Sodium Chloride Flush 3 ML SYRINGE IVFLUSH ×3 (09:47→20:39)
[2020-04-30] MEDS: traMADoL HCL 50 MG TABLET PO ×3 (09:47→20:38)
[2020-04-30] MEDS: PARoxetine HCL 10 MG TABLET PO (09:47)
[2020-04-30] MEDS: Cholecalciferol (Vitamin D3) 25 MCG TABLET PO (20:38)
[2020-04-30] MEDS: cloZAPine 100 MG TABLET 500 MG PO (20:39)
[2020-05-01 03:54] VITALS: BP 142/77; PULSE 87; RESP 18; TEMP 36.8; O2SAT 100
[2020-05-01 04:41] LABS: MANUAL DIFF FLAG NO
[2020-05-01 04:45] LABS: Basophils Percent Auto 0.4 % (0-2); Eosinophils Percent Auto 0.2 % (0-4); Hematocrit 30.3 % (37-47); Hemoglobin 9.9 g/dl (12.0-16.0); Imm Gran Abs Auto 0.02 X10*3/uL (0.00-0.03); Imm Gran Pct Auto 0.4 % (0.0-0.4); Lymphocytes Absolute Auto 1.6 X10*3/uL (1.2-4.9); Lymphocytes Percent Auto 35.3 % (20-40); Mean Corpuscular HGB Conc 32.7 g/dl (31.0-35.0); Mean Corpuscular Hemoglobin 33.1 pg (27.0-33.0); Mean Corpuscular Volume 101.3 fL (80-98); Mean Platelet Volume 9.5 fL (9.4-12.3); Monocytes Absolute Auto 0.5 X10*3/uL (0.1-1.2); Monocytes Percent Auto 10.6 % (2-11); Neutrophils Absolute Auto 2.5 X10*3/uL (2.0-8.3); Neutrophils Percent Auto 53.1 % (45-73); Platelet Count 138 X10*3/uL (160-400); Red Blood Count 2.99 X10*6/uL (4.20-5.50); Red Cell Distribution Width 12.5 % (11.0-16.0); White Blood Count 4.6 X10*3/uL (4.8-10.8)
[2020-05-01 05:08] LABS: Anion Gap 10 (12-20); Blood Urea Nitrogen 14 mg/dL (9-16); Calcium 8.7 mg/dL (8.4-10.2); Carbon Dioxide 28 mmol/L (22-29); Chloride 110 mmol/L (96-108); Creatinine Clr Calc Pharmacy 64.5; Estimated Glomerular Filt Rate > 60; Glucose Fasting 83 mg/dL (60-99); Potassium 3.1 mmol/L (3.3-5.1); Sodium 145 mmol/L (135-145)
[2020-05-01] MEDS: Levothyroxine Sodium 75 MCG TABLET PO (06:03)
[2020-05-01] MEDS: Omeprazole 40 MG CAPSULE.DR PO (06:03)
[2020-05-01] MEDS: traMADoL HCL 50 MG TABLET PO ×2 (07:19→14:01)
[2020-05-01 07:49] VITALS: BP 144/78; PULSE 92; RESP 18; TEMP 36.3; O2SAT 99
[2020-05-01] MEDS: Baclofen 10 MG TABLET 30 MG PO ×2 (08:13→14:01)
[2020-05-01] MEDS: lamoTRIgine 100 MG TABLET PO (08:13)
[2020-05-01] MEDS: PARoxetine HCL 10 MG TABLET PO (08:14)
[2020-05-01] MEDS: clonazePAM 0.5 MG TABLET PO (08:14)
[2020-05-01] MEDS: 0.9 % Sodium Chloride Flush 3 ML SYRINGE IVFLUSH (08:14)
[2020-05-01] MEDS: Folic Acid 1 MG TABLET PO (08:14)
--- NOTE | 2020-05-01 10:07 | PM.DS ---
DS: Providers Provider Date of Service: 05/01/20 Date of admission: 04/27/20 17:38 Primary care physician: Bal Temple MD Consults: 04/27/20 19:04 Consult to Gastroenterology Routine Consulting Provider: Kwasi Boo Reason for consultation: gib on eliquis Has provider been notified: No DS: Diagnosis Discharge Diagnosis (1) GI bleeding: Status: Acute (2) Acute blood loss anemia: Status: Acute (3) Gastric ulcer: Status: Acute DS: Medications Discharge Medications Home Medications: Home Medications Medication Instructions Recorded Confirmed Eliquis 5 mg PO BID 01/08/20 04/27/20 cholecalciferol (vitamin D3) 25 mcg PO BEDTIME 01/08/20 04/27/20 [Vitamin D3] clonazepam 0.5 mg PO BID 01/08/20 04/27/20 clozapine 500 mg PO BEDTIME 01/08/20 04/27/20 ferrous sulfate 325 mg PO BID 01/08/20 04/27/20 folic acid 1 mg PO DAILY 01/08/20 04/27/20 lamotrigine [Lamictal] 100 mg PO BID 01/08/20 04/27/20 levothyroxine 75 mcg PO DAILY@0630 01/08/20 04/27/20 pravastatin 20 mg PO BEDTIME 01/08/20 04/27/20 acetaminophen 650 mg PO Q4H PRN 03/10/20 04/27/20 albuterol sulfate [Ventolin HFA] 2 puff INHALATION Q4H PRN 03/10/20 04/27/20 baclofen 30 mg PO TID 03/10/20 04/27/20 budesonide 3 mg PO MOFR@1000 PRN 03/10/20 04/27/20 dextromethorphan-guaifenesin 10 ml PO Q4H PRN 03/10/20 04/27/20 diphenoxylate-atropine 1 tab PO BID PRN 03/10/20 04/27/20 loperamide 2 mg PO Q4H PRN 03/10/20 04/27/20 paroxetine HCl [Paxil] 10 mg PO DAILY 03/10/20 04/27/20 sennosides-docusate sodium [Senna 1 tab PO TID PRN 04/27/20 04/28/20 Plus] Previous Rx's Medication Instructions Recorded omeprazole 40 mg PO DAILY@0630 #30 cap 05/01/20 tramadol 50 mg PO TID #0 tab 05/01/20 DS: Summary Hospital Course Hospital Course: patient was admitted for acute blood loss anemia due to upper gi bleed form gastric ulcers from taking ibuprofen 800mg tid while on eliquis for PE. hgb was 12.4 on admission, jose was 9.6, it is 9.9 at discharge. patient did not require transfusion. she was put on PPI and bleeding stopped. she underwent EGD which showed non bleeding gastric ulcers, biopsies were taken and should be followed up. she will be discharged to SNF, continue ppi, stop NSAID. restart eliquis may 05. Time Spent with Patient Time attestation: Total time spent providing and/or coordinating discharge services: Discharge coordination time: Greater than 30 minutes Physical Exam Vital Signs: Vital Signs: Last Vital Signs Temp 97.3 F 05/01/20 07:49 Pulse 92 05/01/20 07:49 Resp 18 05/01/20 07:49 BP 144/78 H 05/01/20 07:49 Pulse Ox 99 05/01/20 07:49 Body Mass Index 20.2 General: AO X 3, no acute distress Resp: CTA bilateral CVS: S1,S2,RRR GI: soft, non tender, non distended Neuro: motor grossly intact Psych: appropriate affect DS: Data Data Completed and Pending Pending studies at discharge: Pending at discharge 04/28/20 15:10 Surgical [PTH] Routine Labs on day of discharge: Laboratory Results - last 24 hr 05/01/20 05/01/20 04:26 04:26 WBC 4.6 L RBC 2.99 L Hgb 9.9 L Hct 30.3 L MCV 101.3 H MCH 33.1 H MCHC 32.7 RDW 12.5 Plt Count 138 L MPV 9.5 Immature Gran % (Auto) 0.4 Neut % (Auto) 53.1 Lymph % (Auto) 35.3 Dickson % (Auto) 10.6 Eos % (Auto) 0.2 Baso % (Auto) 0.4 Lymph # (Auto) 1.6 Dickson # (Auto) 0.5 Eos # (Auto) 0.0 Baso # (Auto) 0.0 Abs Immat Gran (auto) 0.02 Absolute Neuts (auto) 2.5 Absolute Nucleated RBC 0.000 Nucleated RBC % (auto) 0.0 Sodium 145 Potassium 3.1 L Chloride 110 H Carbon Dioxide 28 Anion Gap 10 L BUN 14 Creatinine 0.70 Estim Creat Clear Calc 64.5 Estimated GFR > 60 Fasting Glucose 83 Calcium 8.7 D Discharge Plan Discharge Patient Disposition: [facility] Referrals: Bal Temple MD [Primary Care Provider] - Discharge Medications: New omeprazole 40 mg Capsule,Delayed Release(Dr/Ec) 40 mg PO DAILY@0630 Qty: 30 RF: 0 Continued clozapine 100 mg Tablet 500 mg PO BEDTIME RF: 0 clonazepam 0.5 mg Tablet 0.5 mg PO BID RF: 0 levothyroxine 75 mcg Tablet 75 mcg PO DAILY@0630 RF: 0 ferrous sulfate 325 mg (65 mg iron) Tablet 325 mg PO BID RF: 0 folic acid 1 mg Tablet 1 mg PO DAILY RF: 0 pravastatin 20 mg Tablet 20 mg PO BEDTIME RF: 0 lamotrigine [Lamictal] 100 mg Tablet 100 mg PO BID RF: 0 cholecalciferol (vitamin D3) [Vitamin D3] 25 mcg (1,000 unit) Capsule 25 mcg PO BEDTIME RF: 0 baclofen 10 mg tablet 30 mg PO TID RF: 0 acetaminophen 325 mg Tablet 650 mg PO Q4H PRN (Reason: FEVER/PAIN) RF: 0 paroxetine HCl [Paxil] 10 mg Tablet 10 mg PO DAILY RF: 0 albuterol sulfate [Ventolin HFA] 90 mcg/actuation Hfa Aerosol Inhaler 2 puff INHALATION Q4H PRN (Reason: Wheezing) RF: 0 loperamide 2 mg Capsule 2 mg PO Q4H PRN (Reason: Loose Stool) RF: 0 diphenoxylate-atropine 2.5-0.025 mg Tablet 1 tab PO BID PRN (Reason: Diarrhea) RF: 0 dextromethorphan-guaifenesin 10-100 mg/5 mL Syrup 10 ml PO Q4H PRN (Reason: Cough) RF: 0 budesonide 3 mg Capsule,Delayed,Extend.Release 3 mg PO MOFR@1000 PRN (Reason: Diarrhea) RF: 0 sennosides-docusate sodium [Senna Plus] 8.6-50 mg tablet 1 tab PO TID PRN (Reason: Constipation) RF: 0 Changed tramadol 50 mg Tablet 50 mg PO TID Qty: 0 RF: 0 Held Eliquis 5 mg Tablet 5 mg PO BID RF: 0 Hold Instructions: Resume on 05/05/20. Discontinued ibuprofen 800 mg Tablet 800 mg PO TID RF: 0 Discharge Orders: Discharge Order (Routine); Ordered 05/01/20 Ordered By: Robert Becerra Activity on Discharge: As tolerated Stand Alone Forms: Patient Portal Discharge page Care Plan Goals: avoid bleed Health Concerns: gastric ulcers Plan of Treatment: prilosec, stop ibuprofen, restart eliquis may 05
[2020-05-01 10:41] LABS: COVID-19 Test Negative (Negative)
[2020-05-01 10:55] VITALS: BP 96/51; PULSE 101; TEMP 36.4; O2SAT 97
--- NOTE | 2020-05-01 12:47 | MHC.CM.PN ---
transfer arranged to [facility] for today at 2;00 pt has notified sister
== END 2020-05-01 14:07 | disposition skilled nursing facility (03) | DRG 378 ==
LOC: HO.ED 14:35 → HO.EDOVER 17:58 → HO.IMC 19:23
PROVIDERS: Internal Medicine; Physician Assistant; Physician Assistant Medical; Admitting Provider Internal Medicine; Emergency Provider Emergency Medicine Emergency Medical Services; PCP Internal Medicine; Visit Provider Internal Medicine
DX: K25.4 Chronic or unspecified gastric ulcer with hemorrhage (principal); D62 Acute posthemorrhagic anemia; F31.9 Bipolar disorder, unspecified; K29.71 Gastritis, unspecified, with bleeding; K44.9 Diaphragmatic hernia without obstruction or gangrene; E03.9 Hypothyroidism, unspecified; E78.5 Hyperlipidemia, unspecified; T39.395A Adverse effect of other nonsteroidal anti-inflammatory drugs [NSAID], initial encounter; Y92.9 Unspecified place or not applicable; M54.16 Radiculopathy, lumbar region; Z20.822 Contact with and (suspected) exposure to COVID-19; Z79.1 Long term (current) use of non-steroidal anti-inflammatories (NSAID); Z79.01 Long term (current) use of anticoagulants; Z79.890 Hormone replacement therapy; Z86.711 Personal history of pulmonary embolism; Z79.891 Long term (current) use of opiate analgesic; Z79.899 Other long term (current) drug therapy
CPT/HCPCS: 36415; 70450; 71045; 72125; 80048; 80076; 80143; 80179; 80307; 80320; 81001; 81003; 82140; 82272; 82550; 82947; 83735; 84484; 85025; 85610; 85730; 86900; 86901; 87086; 87635; 88305; 88342; 93005; 96360; 96361; 96374; 97162; 99284; 99285; J3430

== ENCOUNTER 2021-12-14 19:36 | Emergency (ER) | payer MEDICARE, MEDICAID, SELFPAY ==
--- NOTE | ~2021-12-14 | CT_ITS ---
EXAMINATION: CT HEAD WITHOUT CONTRAST CLINICAL INFORMATION: Headache, on anticoagulation COMPARISON: 04/27/2020 TECHNIQUE: Contiguous axial imaging was performed from the skull base to vertex without intravenous administration of contrast. This CT examination was performed using dose optimization techniques as appropriate, variously including the following: *Automated exposure control *Adjustment of mA and/or kV according to patient size (this includes techniques or standardized protocols for targeted exams where dose is matched to indication/reason for exam; i.e. extremities or head) *Use of iterative reconstruction technique DLP: 648 mGy-cm FINDINGS: There is no evidence of acute intracranial hemorrhage or territorial infarction. No abnormal mass-effect or midline shift is seen. Sorto to white matter differentiation is well preserved. No extra-axial fluid collections are identified. The ventricles are normal in size. There is no abnormal attenuation within the brain parenchyma. The osseous structures and soft tissues are normal. There is mucosal thickening of the right sphenoid sinus. The mastoid air cells are well-aerated. CT/CT head/brain wo IV con IMPRESSION: No acute intracranial pathology.
[2021-12-14 19:53] VITALS: BP 168/88; PULSE 93; O2SAT 99
[2021-12-14 19:57] VITALS: BP 149/84; PULSE 92; RESP 18; TEMP 36.1; O2SAT 97; BMI 24.7
[2021-12-14 23:51] VITALS: BP 189/108; PULSE 90; RESP 16
--- NOTE | 2021-12-15 | ECG_ITS ---
Test Reason : HIGH bp Blood Pressure : / mmHG Vent. Rate : 085 BPM Atrial Rate : 085 BPM P-R Int : 154 ms QRS Dur : 102 ms QT Int : 364 ms P-R-T Axes : 037 -02 019 degrees QTc Int : 433 ms Normal sinus rhythm Incomplete right bundle branch block Minimal voltage criteria for LVH, may be normal variant ( R in aVL ) Borderline ECG When compared with ECG of 27-APR-2020 11:49, Nonspecific T wave abnormality no longer evident in Lateral leads QT has shortened Referred By: Generic ED Physician Electronically Signed By:QUANG CATES MD
[2021-12-15 00:28] VITALS: BP 177/101; PULSE 87; RESP 16; TEMP 36.8; O2SAT 97
[2021-12-15] MEDS: Acetaminophen 325 MG TABLET 975 MG PO (01:10)
[2021-12-15 01:23] LABS: Basophils Absolute Auto 0.1 X10*3/uL (0.0-0.2); Basophils Percent Auto 0.5 % (0-2); Eosinophils Absolute Auto 0.1 X10*3/uL (0.0-0.4); Eosinophils Percent Auto 0.6 % (0-4); Hematocrit 41.6 % (37.0-47.0); Hemoglobin 13.5 g/dl (12.0-16.0); Imm Gran Abs Auto 0.45 X10*3/uL (0.00-0.03); Imm Gran Pct Auto 4.2 % (0.0-0.4); Lymphocytes Absolute Auto 2.1 X10*3/uL (1.2-4.9); Lymphocytes Percent Auto 19.9 % (20-40); MANUAL DIFF FLAG NO; Mean Corpuscular HGB Conc 32.5 g/dl (31.0-35.0); Mean Corpuscular Hemoglobin 34.9 pg (27.0-33.0); Mean Corpuscular Volume 107.5 fL (80.0-98.0); Monocytes Absolute Auto 0.9 X10*3/uL (0.1-1.2); Monocytes Percent Auto 8.7 % (2-11); Neutrophils Absolute Auto 7.1 x10*3/uL (2.0-8.3); Neutrophils Percent Auto 66.1 % (45-73); Platelet Count 215 X10*3/uL (160-400); Red Blood Count 3.87 X10*6/uL (4.20-5.50); Red Cell Distribution Width 14.6 % (11.0-16.0); White Blood Count 10.7 X10*3/uL (4.8-10.8)
--- NOTE | 2021-12-15 01:33 | ED_ITS ---
HPI - Headache General Chief Complaint: Headache Stated Complaint: headache Time Seen by Provider: 12/15/21 00:41 Source: patient Mode of arrival: EMS History of Present Illness HPI Narrative: 66-year-old female [facility] and is reluctant to share her past medical history with me but states that this evening she began experiencing a headache shortly before dinner that was not associated with any fever, chills, chest pain, shortness of breath, dizziness and when asked about hypertension she denied taking any medications for this condition. In addition, patient uses a walker at baseline and did not take any Tylenol or ibuprofen prior to presentation. She denies any speech/vision/extremity abnormalities. Related Data Home Medications Medication Instructions Recorded Confirmed apixaban 5 mg tablet (Eliquis) 5 mg PO BID 01/08/20 04/27/20 cholecalciferol (vitamin D3) 25 25 mcg PO BEDTIME 01/08/20 04/27/20 mcg (1,000 unit) capsule (Vitamin D3) clonazepam 0.5 mg tablet 0.5 mg PO BID 01/08/20 04/27/20 clozapine 100 mg tablet 500 mg PO BEDTIME 01/08/20 04/27/20 ferrous sulfate 325 mg (65 mg 325 mg PO BID 01/08/20 04/27/20 iron) tablet folic acid 1 mg tablet 1 mg PO DAILY 01/08/20 04/27/20 lamotrigine 100 mg tablet 100 mg PO BID 01/08/20 04/27/20 (Lamictal) levothyroxine 75 mcg tablet 75 mcg PO DAILY@0630 01/08/20 04/27/20 pravastatin 20 mg tablet 20 mg PO BEDTIME 01/08/20 04/27/20 acetaminophen 325 mg tablet 650 mg PO Q4H PRN FEVER/PAIN 03/10/20 04/27/20 albuterol sulfate 90 mcg/actuation 2 puff inhalation Q4H PRN Wheezing 03/10/20 04/27/20 aerosol inhaler (Ventolin HFA) baclofen 10 mg tablet 30 mg PO TID 03/10/20 04/27/20 budesonide 3 mg 3 mg PO MOFR@1000 PRN Diarrhea 03/10/20 04/27/20 capsule,delayed,extended release dextromethorphan-guaifenesin 10 10 ml PO Q4H PRN Cough 03/10/20 04/27/20 mg-100 mg/5 mL oral syrup diphenoxylate-atropine 2.5 1 tab PO BID PRN Diarrhea 03/10/20 04/27/20 mg-0.025 mg tablet loperamide 2 mg capsule 2 mg PO Q4H PRN Loose Stool 03/10/20 04/27/20 paroxetine HCl 10 mg tablet (Paxil) 10 mg PO DAILY 03/10/20 04/27/20 sennosides 8.6 mg-docusate sodium 1 tab PO TID PRN Constipation 04/27/20 04/28/20 50 mg tablet (Senna Plus) Previous Rx's Medication Instructions Recorded omeprazole 40 mg capsule,delayed 40 mg PO DAILY@0630 #30 caps 05/01/20 release tramadol 50 mg tablet 50 mg PO TID #0 tabs 05/01/20 Allergies Allergy/AdvReac Type Severity Reaction Status Date / Time bee pollen [Bee Stings] Allergy Severe ANAPHYLAXIS Verified 01/08/20 21:33 Review of Systems Review of Systems: Pertinent positives and negatives as stated in HPI 10 point review of systems is otherwise negative. [facility] Past Medical History Source: nursing notes reviewed Medical History Anxiety Bipolar 1 disorder Diastolic CHF Hypothyroidism Lumbar radiculopathy Psychosis Pulmonary embolism Schizoaffective disorder Transient cerebral ischemia Family History Family History Other Heart disease Social History Social History Household Members: None Housing: Assisted Living Facility Housing Other:: [facility] Do you presently have visiting nurse or other home services: Yes Alcohol intake: never Smoked in Last 30 Days: Yes Use of substances other than those prescribed or required for medical reasons: No Advance Directives: Yes Advance Directives on File: Yes Advance Directives Date on File: 05/02/20 service: No Current occupational status: retired Physical Exam Vital Signs: Vital Signs: Last Vital Signs Temp 98.6 F 12/15/21 03:02 Pulse 89 12/15/21 03:02 Resp 16 12/15/21 03:02 BP 171/92 H 12/15/21 03:02 Pulse Ox 98 12/15/21 03:02 O2 Del Method 12/15/21 03:02 BMI result Body Mass Index 24.7 VITAL SIGNS: Reviewed. GENERAL: Well developed, well nourished, in no acute distress. HEAD: Normocephalic/atraumatic EYES: PERRLA, EOMI EARS: Ext canals without abnormality OROPHARYNX: no oral lesions noted, posterior pharynx clear LUNGS: Normal breath sounds. No adventitious sounds or accessory muscle use. SpO2<97> CARDIOVASCULAR: Regular rate and rhythm without noted murmurs, no JVD or lower extremity edema. ABDOMEN: Soft, non-tender, non-distended with bowel sounds. MUSCULOSKELETAL: No tenderness, deformities, or effusions noted on gross inspection. EXTREMITIES: No cyanosis, clubbing or edema. SKIN: Inspection of the skin reveals no rashes NEUROLOGIC: Alert and oriented x 4. Strength and sensation to light touch were grossly intact x 4, no facial asymmetry, no pronator drift, cranial nerves 2-12 are grossly intact.. Course Course Course Narrative: 66-year-old female with history and clinical presentation consistent with hypertension and suspect headache is secondary to this. There are no focal defi cits and patient will be provided with combination analgesics as well as medication for blood pressure. On review of investigations there are no acute findings. CT scan is negative for any acute findings, on re-evaluation patient's headache is completely resolved. She received an additional 5 mg of Norvasc and be discharged back to the facility with instructions to follow-up with her primary care provider and discuss starting blood pressure medication. MDM - Headache Lab Data Result diagrams: 12/15/21 01:18 12/15/21 01:17 Labs: Lab Results 12/15/21 12/15/21 12/15/21 Range/Units 01:17 01:17 01:18 WBC 10.7 (4.8-10.8) X10*3/uL RBC 3.87 L (4.20-5.50) X10*6/uL Hgb 13.5 (12.0-16.0) g/dl Hct 41.6 (37.0-47.0) % MCV 107.5 H (80.0-98.0) fL MCH 34.9 H (27.0-33.0) pg MCHC 32.5 (31.0-35.0) g/dl RDW 14.6 (11.0-16.0) % Plt Count 215 (160-400) X10*3/uL MPV 8.0 L (9.4-12.3) fL Immature Gran % (Auto) 4.2 H (0.0-0.4) % Neut % (Auto) 66.1 (45-73) % Lymph % (Auto) 19.9 L (20-40) % Schley % (Auto) 8.7 (2-11) % Eos % (Auto) 0.6 (0-4) % Baso % (Auto) 0.5 (0-2) % Lymph # (Auto) 2.1 (1.2-4.9) X10*3/uL Schley # (Auto) 0.9 (0.1-1.2) X10*3/uL Eos # (Auto) 0.1 (0.0-0.4) X10*3/uL Baso # (Auto) 0.1 (0.0-0.2) X10*3/uL Abs Immat Gran (auto) 0.45 H (0.00-0.03) X10*3/uL Absolute Neuts (auto) 7.1 (2.0-8.3) x10*3/uL Absolute Nucleated RBC 0.000 (0.0-0.012) X10*3/uL Nucleated RBC % (auto) 0.0 (0.0-0.2) /100WBC Sodium 143 (135-145) mmol/L Potassium 4.2 D (3.3-5.1) mmol/L Chloride 105 (96-108) mmol/L Carbon Dioxide 25 (22-29) mmol/L Anion Gap 17 (12-20) BUN 16 (9-16) mg/dL Creatinine 0.71 (0.5-1.4) mg/dL Estim Creat Clear Calc 65.3 Estimated GFR > 60 Random Glucose 77 (60-115) mg/dL Calcium 9.7 D (8.4-10.2) mg/dL Total Bilirubin 0.4 (0.0-1.0) mg/dL AST 16 (5-31) U/L ALT 20 (0-31) U/L Alkaline Phosphatase 58 (39-117) U/L Troponin I High Sens 3.6 (<3.5-17.0) ng/L Total Protein 6.3 L (6.5-8.0) g/dL Albumin 4.2 (3.5-5.0) g/dL ECG Data Attestation: I personally reviewed and interpreted this ECG as follows: Prior ECG tracings: available for review Interpretation: Normal sinus rhythm, HR-85, no STEMI, incomplete right bundle branch block, MS/QTC are within normal limits. Discharge Plan Discharge Clinical Impression: Headache, Hypertension, Chronic anticoagulation Patient Disposition: er [facility] Instructions: General Headache (ED), Hypertension (ED), DASH Eating Plan (ED) Additional Instructions: 1. Resume all home medications as prescribed. 2. Recommend that you follow-up with your primary care provider on Friday morning and discuss initiating blood pressure medications. Return to the ER for worsening symptoms. Prescriptions: No Action clozapine 100 mg Tablet 500 mg PO BEDTIME clonazepam 0.5 mg Tablet 0.5 mg PO BID levothyroxine 75 mcg Tablet 75 mcg PO DAILY@0630 ferrous sulfate 325 mg (65 mg iron) Tablet 325 mg PO BID folic acid 1 mg Tablet 1 mg PO DAILY pravastatin 20 mg Tablet 20 mg PO BEDTIME lamotrigine [Lamictal] 100 mg Tablet 100 mg PO BID cholecalciferol (vitamin D3) [Vitamin D3] 25 mcg (1,000 unit) Capsule 25 mcg PO BEDTIME Eliquis 5 mg Tablet 5 mg PO BID Hold Instructions: Resume on 05/05/20. baclofen 10 mg tablet 30 mg PO TID acetaminophen 325 mg Tablet 650 mg PO Q4H PRN (Reason: FEVER/PAIN) paroxetine HCl [Paxil] 10 mg Tablet 10 mg PO DAILY albuterol sulfate [Ventolin HFA] 90 mcg/actuation Hfa Aerosol Inhaler 2 puff INHALATION Q4H PRN (Reason: Wheezing) loperamide 2 mg Capsule 2 mg PO Q4H PRN (Reason: Loose Stool) diphenoxylate-atropine 2.5-0.025 mg Tablet 1 tab PO BID PRN (Reason: Diarrhea) dextromethorphan-guaifenesin 10-100 mg/5 mL Syrup 10 ml PO Q4H PRN (Reason: Cough) budesonide 3 mg Capsule,Delayed,Extend.Release 3 mg PO MOFR@1000 PRN (Reason: Diarrhea) sennosides-docusate sodium [Senna Plus] 8.6-50 mg tablet 1 tab PO TID PRN (Reason: Constipation) omeprazole 40 mg Capsule,Delayed Release(Dr/Ec) 40 mg PO DAILY@0630 Qty: 30 0RF tramadol 50 mg Tablet 50 mg PO TID Qty: 0 0RF Referrals: Bal Temple MD [Primary Care Provider] -
[2021-12-15 01:41] LABS: Alanine Aminotransferase 20 U/L (0-31); Albumin Level 4.2 g/dL (3.5-5.0); Alkaline Phosphatase 58 U/L (39-117); Anion Gap 17 (12-20); Aspartate Amino Transferase 16 U/L (5-31); Bilirubin Total 0.4 mg/dL (0.0-1.0); Blood Urea Nitrogen 16 mg/dL (9-16); Calcium 9.7 mg/dL (8.4-10.2); Carbon Dioxide 25 mmol/L (22-29); Chloride 105 mmol/L (96-108); Creatinine Clr Calc Pharmacy 65.3; Estimated Glomerular Filt Rate > 60; Glucose Random 77 mg/dL (60-115); Potassium 4.2 mmol/L (3.3-5.1); Sodium 143 mmol/L (135-145); Total Protein 6.3 g/dL (6.5-8.0)
[2021-12-15 01:47] LABS: Troponin-I High Sensitivity 3.6 ng/L (<3.5-17.0)
[2021-12-15] MEDS: amLODIPine Besylate 10 MG TABLET 5 MG PO (02:09)
[2021-12-15 02:11] VITALS: BP 173/100; PULSE 86; RESP 20; TEMP 36.8; O2SAT 99
[2021-12-15 03:02] VITALS: BP 171/92; PULSE 89; RESP 16; TEMP 37; O2SAT 98
== END 2021-12-15 04:05 | disposition skilled nursing facility (03) ==
PROVIDERS: Emergency Provider Student in an Organized Health Care Education/Training Program; PCP Internal Medicine
DX: R51.9 Headache, unspecified (principal); I10 Essential (primary) hypertension; Z86.711 Personal history of pulmonary embolism; Z79.01 Long term (current) use of anticoagulants
CPT/HCPCS: 36415; 70450; 80053; 84484; 85025; 93005; 99284; 99285

== ENCOUNTER 2022-12-14 10:13 | Inpatient (IN) | payer MEDICARE, MEDICAID, SELFPAY ==
[2022-12-14] VITALS (8 sets, daily range): BP systolic 80–144; BP diastolic 40–73; PULSE 81–101; RESP 15–20; TEMP 36.3–37; O2SAT 90–100; BMI 33.4; BMI 32.9
--- NOTE | ~2022-12-14 | XR_ITS ---
EXAMINATION: XR CHEST CLINICAL INFORMATION: Fall COMPARISON: Previous chest x-carlos eduardo most recent April 2020 TECHNIQUE: Frontal view of the chest was obtained. FINDINGS: No significant abnormality is noted involving the heart, lungs, mediastinum, bony thorax or soft tissues. Degenerative changes of the spine. XR/XR chest 1V IMPRESSION: No evidence for acute disease in the chest.
--- NOTE | ~2022-12-14 | XR_ITS ---
EXAMINATION: XR HIPS, BILATERAL, WITH AP PELVIS CLINICAL INFORMATION: Fall. Bilateral hip pain. COMPARISON: Previous x-ray May 2019 and MR of the hip December 2021. TECHNIQUE: AP view of the pelvis and 2 views of each hip were obtained. FINDINGS: Bone alignment is normal. No fracture or dislocation. Mild arthritis at both hip joints with joint space narrowing and osteophyte formation. Sclerotic densities seen in the right femoral head and acetabulum similar to previous exams probably representing bone islands. Degenerative changes of the sacroiliac joints. Postsurgical changes to the lower lumbar spine. XR/XR hips FABIÁN min 3V IMPRESSION: No fracture or dislocation.
--- NOTE | ~2022-12-14 | CT_ITS ---
EXAMINATION: CT HEAD W/O IV CONTRAST CT CERVICAL SPINE W/O IV CONTRAST CLINICAL INFORMATION: History of fall on Eliquis. Neck pain. COMPARISON: Head CT from 12/15/2021. Head and cervical spine CT from 04/27/2020. TECHNIQUE: Head - Contiguous axial imaging of the head was performed from the skull base to the vertex without the administration of intravenous contrast, and axial images are reconstructed at 2 mm and 5 mm slice thickness. Cervical spine - A volumetric, helical CT acquisition of the cervical spine was obtained without contrast; in addition to the standard set of axial images, multiplanar reformatted images were provided in the coronal and sagittal imaging planes. This CT examination was performed using dose optimization techniques as appropriate, variously including the following: *Automated exposure control *Adjustment of mA and/or kV according to patient size (this includes techniques or standardized protocols for targeted exams where dose is matched to indication/reason for exam; i.e. extremities or head) *Use of iterative reconstruction technique DLP: 1247 mGy-cm (total) FINDINGS: HEAD: No acute intracranial findings. Sorto to white matter differentiation is preserved. No evidence of intracranial hemorrhage, major vascular territory infarction, focal mass effect or midline shift. Mild parenchymal volume loss with commensurate prominence of ventricles and sulci. No hydrocephalus or extra-axial fluid collections. No calvarial fracture. The mastoid air cells are well aerated. Incidentally noted is mucosal thickening of some of the left ethmoid air cells and moderate mucosal thickening of both maxillary sinuses. No air-fluid levels within the paranasal sinuses. The temporomandibular joints are normal. The orbits and globes are unremarkable. CERVICAL SPINE: The craniocervical junction is normal. The occipital condyles, dens and atlantodental articulation are intact. There is degenerative osseous spurring at the atlantodental articulation. There is lack of lordotic curvature of the degenerated cervical spine. The vertebral body heights and alignment are maintained. No fractures in the anterior or posterior elements. No prevertebral soft tissue edema or soft tissue hematoma. Mild degenerative narrowing of disc space and vertebral osteophytes at C4-C5. Moderate discovertebral degenerative changes are present at C5-C6 and C6-C7 and the uncovertebral joint hypertrophy causes mild left neural foraminal stenosis at C6-C7. Thyroid gland is unremarkable. There is paraseptal emphysema at visualized lung apices. No pneumothorax. CT/CT cervical spine wo IV con IMPRESSION: * No acute intracranial pathology compared to 12/15/2021. * No fracture or traumatic subluxation in the degenerated cervical spine. * Incidentally noted is paranasal sinus disease with moderate mucosal thickening of maxillary sinuses; however, no air-fluid levels within paranasal sinuses.
--- NOTE | 2022-12-14 10:36 | ECG_ITS ---
Test Reason : FALLS Blood Pressure : / mmHG Vent. Rate : 095 BPM Atrial Rate : 095 BPM P-R Int : 164 ms QRS Dur : 118 ms QT Int : 388 ms P-R-T Axes : 045 -06 069 degrees QTc Int : 487 ms Normal sinus rhythm Left ventricular hypertrophy with QRS widening ( R in aVL , Heber product ) RSR' or QR pattern in V1 suggests right ventricular conduction delay Left axis deviation Abnormal ECG When compared with ECG of 15-DEC-2021 00:32, QT has lengthened Referred By: Greg Pollack Electronically Signed By:QUANG CATSE MD
--- NOTE | 2022-12-14 10:43 | ED.FALL ---
HPI - Fall General Chief Complaint: Fall Stated Complaint: REPEATED FALLS,-LOC,DIZZY,SYNCOPAL EPISODE PER EMS Time Seen by Provider: 12/14/22 10:21 Source: patient and EMS Mode of arrival: EMS Limitations: no limitations History of Present Illness HPI Narrative: 67-year-old female who lives at assisted living came in for evaluation after had multiple falls this morning, patient stated that she lose consciousness before the fall. Complain of chest pressure intermittently no other associated symptoms, found to be hypotensive initially by EMS that improved with fluid. patient is complaining of neck pain, and bilateral hip pain. Patient has been eating and drinking normally. No nausea or vomiting or diarrhea, no blood in the stool or urine. No fever chills. Patient is on Eliquis for history of pulmonary embolism. Related Data Home Medications Medication Instructions Recorded Confirmed cholecalciferol (vitamin D3) 25 25 mcg PO BEDTIME 01/08/20 12/14/22 mcg (1,000 unit) capsule (Vitamin D3) clozapine 100 mg tablet 450 mg PO BEDTIME 01/08/20 12/14/22 ferrous sulfate 325 mg (65 mg 325 mg PO DAILY 01/08/20 12/14/22 iron) tablet folic acid 1 mg tablet 1 mg PO DAILY 01/08/20 12/14/22 lamotrigine 100 mg tablet 100 mg PO BID 01/08/20 12/14/22 (Lamictal) levothyroxine 75 mcg tablet 75 mcg PO DAILY@0600 01/08/20 12/14/22 pravastatin 20 mg tablet 20 mg PO BEDTIME 01/08/20 12/14/22 acetaminophen 325 mg tablet 650 mg PO TID FEVER/PAIN 03/10/20 12/14/22 budesonide 3 mg 3 mg PO MOFR@1000 PRN Diarrhea 03/10/20 12/14/22 capsule,delayed,extended release dextromethorphan-guaifenesin 10 10 ml PO Q6H PRN Cough 03/10/20 12/14/22 mg-100 mg/5 mL oral syrup sennosides 8.6 mg-docusate sodium 1 tab PO DAILY PRN Constipation 04/27/20 12/14/22 50 mg tablet (Senna Plus) apixaban 2.5 mg tablet (Eliquis) 2.5 mg PO BID 12/14/22 12/14/22 baclofen 20 mg tablet 20 mg PO TID 12/14/22 12/14/22 gabapentin 100 mg capsule 100 mg PO TID 12/14/22 12/14/22 lisinopril 2.5 mg tablet 2.5 mg PO DAILY 12/14/22 12/14/22 methocarbamol 500 mg tablet 500 mg PO TID PRN Muscle Spasm 12/14/22 12/14/22 metoprolol tartrate 25 mg tablet 25 mg PO BID 12/14/22 12/14/22 oxycodone 5 mg tablet 5 mg PO TID Pain 12/14/22 12/14/22 paroxetine HCl 30 mg tablet 30 mg PO DAILY 12/14/22 12/14/22 polyethylene glycol 3350 17 gram 17 g PO DAILY PRN Constipation 12/14/22 12/14/22 oral powder packet (Miralax) prednisone 5 mg tablet 5 mg PO DAILY 12/14/22 12/14/22 triamcinolone acetonide 0.1 % 1 appl topical BID PRN 12/14/22 12/14/22 topical cream eczema/psoriasis Previous Rx's Medication Instructions Recorded omeprazole 40 mg capsule,delayed 40 mg PO DAILY@0630 #30 caps 05/01/20 release Allergies Allergy/AdvReac Type Severity Reaction Status Date / Time bee pollen [Bee Stings] Allergy Severe ANAPHYLAXIS Verified 12/14/22 10:59 Review of Systems Review of Systems: All other systems are reviewed and are negative Constitutional: Reports as per HPI and Reports no additional constitutional complaints Eyes: Reports as per HPI and Reports no additional eye complaints Reports system reviewed and no additional complaints, except as documented Cardiovascular: Reports as per HPI and Reports no additional cardiovascular complaints Respiratory: Reports as per HPI and Reports no additional respiratory complaints Gastrointestinal: Reports as per HPI and Reports no additional gastrointestinal complaints Genitourinary: Reports no additional female genitourinary complaints Musculoskeletal: Reports no additional musculoskeletal complaints Skin/Breast: Reports system reviewed and no additional complaints, except as docu Psychiatric: Reports no additional psychiatric complaints Endocrine: Reports no additional endocrine complaints Hematologic/Lymphatic: Reports no additional hematologic/lymphatic complaints Allergic/Immunologic: Reports no additional allergic/immunologic complaints Reports system reviewed and no additional complaints, except as documented and Reports Abnormal speech present [facility] Past Medical History Medical History Diastolic CHF Schizoaffective disorder Hypothyroidism Transient cerebral ischemia Lumbar radiculopathy Pulmonary embolism Psychosis Anxiety Bipolar 1 disorder Family History Family History Other Heart disease Social History Social History Household Members: None Housing: Assisted Living Facility Housing Other:: [facility] Do you presently have visiting nurse or other home services: Yes Alcohol intake: never Smoked in Last 30 Days: No Use of substances other than those prescribed or required for medical reasons: No Advance Directives: Yes Advance Directives on File: Yes Advance Directives Date on File: 05/02/20 service: No Current occupational status: retired Physical Exam Vital Signs: Vital Signs: Last Vital Signs Temp 97.6 F 12/14/22 11:37 Pulse 101 H 12/14/22 13:56 Resp 20 12/14/22 11:37 BP 144/66 H 12/14/22 13:56 Pulse Ox 97 12/14/22 13:56 O2 Del Method Room Air 12/14/22 13:56 BMI result Body Mass Index 33.4 Vital signs have been reviewed and appear to be correct. Blood pressure elevated. Heart rate normal. Respiratory rate normal. Temperature normal. Oxygen saturation normal. Appearance: Alert. Oriented X3. No acute distress. Head: Normal external exam. Normocephalic. Atraumatic. No Gutierrez signs noted. No raccoon eyes noted Eyes: PERRLA. EOMI. Conjunctiva and sclera normal. Eyelids normal. ENT: TM's Normal. Pharynx normal. Uvula midline. Moist mucous membranes. No trismus noted. No drooling noted. No muffled voice noted. Neck: Normal inspection. Neck supple. FROM. No adenopathy. Thyroid Normal. No meningeal signs. No neck mass noted. CVS: Normal heart rate and rhythm. Heart sound normal. No murmurs noted. Pulses normal throughout. Respiratory: No respiratory distress. Painless inspiration. Breath sounds normal. No wheezes/rales/rhonchi noted. Chest nontender. No accessory muscle usage noted or decreased air movement noted. Abdomen: Soft and nontender. Bowel sounds normal in all 4 quadrants. No distention noted. No organomegaly noted. No visible injury noted. Back: No CVA tenderness. Full range of motion noted. Skin: Skin warm and dry. Normal skin color. Normal skin turgor. No rashes/lesions/lacerations noted. Extremities: No lower extremity edema. Extremities exhibit normal range of motion. Extremities nontender. Neuro: Oriented X 3. Cranial nerve exam: II-XII are grossly intact No motor deficit. No sensory deficit. Reflexes normal. Course Reevaluation(s) Reevaluation #1: multiple falls/ syncope at the assisted living no acute injury. Admit for cardiac monitoring. Time: 14:14 Medications Administered Discontinued Medications Generic Name Dose Route Start Last Admin Trade Name Freq PRN Reason Stop Dose Admin Sodium Chloride 1,000 mls @ 999 mls/hr 12/14/22 14:24 12/14/22 14:35 Ns IV 12/14/22 15:24 999 mls/hr .Q1H1M ONE Administration Medical Decision Making Differential Diagnosis Differential Diagnoses: The differential diagnosis associated with the presentation includes ( ACS, versus static hypotension, dehydration, electrolyte abnormality, severe anemia.) Admission/Observation Consideration of admission/observation: Escalation of care including admission/observation considered Consult Healthcare Provider Management of the patient was discussed with: Hospitalist ( Dr. Gutiérrez) Lab Data MDM Lab Attestation statement: I reviewed the patient's lab results. 12/14/22 11:59 12/14/22 11:59 Labs: Lab Results 12/14/22 Range/Units 11:59 WBC 11.9 H (4.8-10.8) X10*3/uL RBC 3.59 L (4.20-5.50) X10*6/uL Hgb 12.0 (12.0-16.0) g/dl Hct 36.5 L (37.0-47.0) % MCV 101.7 H (80.0-98.0) fL MCH 33.4 H (27.0-33.0) pg MCHC 32.9 (31.0-35.0) g/dl RDW 12.8 (11.0-16.0) % Plt Count 194 (160-400) X10*3/uL MPV 8.5 L (9.4-12.3) fL Immature Gran % (Auto) 0.6 H (0.0-0.4) % Neut % (Auto) 84.9 H (45-73) % Lymph % (Auto) 7.0 L (20-40) % [place] % (Auto) 6.8 (2-11) % Eos % (Auto) 0.4 (0-4) % Baso % (Auto) 0.3 (0-2) % Lymph # (Auto) 0.8 L (1.2-4.9) X10*3/uL [place] # (Auto) 0.8 (0.1-1.2) X10*3/uL Eos # (Auto) 0.1 (0.0-0.4) X10*3/uL Baso # (Auto) 0.0 (0.0-0.2) X10*3/uL Abs Immat Gran (auto) 0.07 H (0.00-0.03) X10*3/uL Absolute Neuts (auto) 10.1 H (2.0-8.3) x10*3/uL Absolute Nucleated RBC 0.000 (0.0-0.012) X10*3/uL Nucleated RBC % (auto) 0.0 (0.0-0.2) /100WBC Sodium 135 (135-145) mmol/L Potassium 4.0 (3.3-5.1) mmol/L Chloride 104 (96-108) mmol/L Carbon Dioxide 23 (22-29) mmol/L Anion Gap 12 (12-20) BUN 20 H (9-16) mg/dL Creatinine 1.25 (0.5-1.4) mg/dL Estim Creat Clear Calc 49.0 Estimated GFR 42 Random Glucose 111 (60-115) mg/dL Calcium 9.2 (8.4-10.2) mg/dL Total Bilirubin 0.3 (0.0-1.0) mg/dL Direct Bilirubin 0.2 (0.0-0.5) mg/dL AST 14 (5-31) U/L ALT 9 (0-31) U/L Alkaline Phosphatase 77 (39-117) U/L Troponin I High Sens 3.3 (<3.5-17.0) ng/L Total Protein 6.2 L (6.5-8.0) g/dL Albumin 3.9 (3.5-5.0) g/dL Lipase 19 (8-78) U/L Urine Color Yellow Urine Appearance Clear Urine pH 6.5 (5.0-9.0) Ur Specific [place] 1.010 (1.005-1.025) Urine Protein Trace (Neg-Trace) mg/dL Urine Glucose (UA) Negative (Negative) mg/dL Urine Ketones Negative (Negative) mg/dL Urine Blood Negative (Negative) Urine Nitrite Negative (Negative) Ur Leukocyte Esterase Small (1+) H (Negative) Urine RBC 0-2 (0-2) /HPF Urine WBC 0-5 (0-5) /HPF Ur Squamous Epith Cells 6-10 (0-2) /HPF Urine Bacteria None Seen (None Seen) Hyaline Casts 0-2 (0-2) /LPF Independent Interpretation I performed an independent interpretation of an: CT Scan ( head/ C-spine: No intracranial pathology, no C-spine fracture or subluxation.) Radiology Impression Discussion of test interpretation with radiology: I have reviewed the radiologist's reading. Discharge Plan Discharge Clinical Impression: Syncope Patient Disposition: Admitted As Inpatient
--- NOTE | 2022-12-14 11:22 | PC.NURSE ---
pt arrived via ambulance from [facility]. with chief c/o dizziness since yesterday, dizzy this morning, fell 3xs this morning, 2 unwitnessed, denies hs/loc. 1 witnessed, no hs/loc. previous hx of same c/o headache after this morning's falls. iv inserted prior to arriving to ed.
[2022-12-14 12:06] LABS: MANUAL DIFF FLAG NO
[2022-12-14 12:08] LABS: Appearance Urine Clear; Basophils Percent Auto 0.3 % (0-2); Color Urine Yellow; Eosinophils Absolute Auto 0.1 X10*3/uL (0.0-0.4); Eosinophils Percent Auto 0.4 % (0-4); Glucose Urine UA Negative (Negative); Hematocrit 36.5 % (37.0-47.0); Imm Gran Abs Auto 0.07 X10*3/uL (0.00-0.03); Imm Gran Pct Auto 0.6 % (0.0-0.4); Leukocyte Esterase Urine Small (1+) (Negative); Lymphocytes Absolute Auto 0.8 X10*3/uL (1.2-4.9); Mean Corpuscular HGB Conc 32.9 g/dl (31.0-35.0); Mean Corpuscular Hemoglobin 33.4 pg (27.0-33.0); Mean Corpuscular Volume 101.7 fL (80.0-98.0); Mean Platelet Volume 8.5 fL (9.4-12.3); Monocytes Absolute Auto 0.8 X10*3/uL (0.1-1.2); Monocytes Percent Auto 6.8 % (2-11); Neutrophils Absolute Auto 10.1 x10*3/uL (2.0-8.3); Neutrophils Percent Auto 84.9 % (45-73); Nitrite Urine Negative (Negative); PH 6.5 (5.0-9.0); Platelet Count 194 X10*3/uL (160-400); Red Blood Count 3.59 X10*6/uL (4.20-5.50); Red Cell Distribution Width 12.8 % (11.0-16.0); UMIC TRIGGER UACC YES; Urine Blood Negative (Negative); Urine Ketones Negative (Negative); Urine Protein Trace mg/dL (Neg-Trace); White Blood Count 11.9 X10*3/uL (4.8-10.8)
[2022-12-14 12:20] LABS: Bacteria Urine None Seen (None Seen); Hyaline Casts Urine 0-2 /LPF (0-2); RBC Urine 0-2 /HPF (0-2); UACC Culture Trigger YES; WBC Urine 0-5 /HPF (0-5)
[2022-12-14 12:25] LABS: Alanine Aminotransferase 9 U/L (0-31); Albumin Level 3.9 g/dL (3.5-5.0); Alkaline Phosphatase 77 U/L (39-117); Anion Gap 12 (12-20); Aspartate Amino Transferase 14 U/L (5-31); Bilirubin Direct 0.2 mg/dL (0.0-0.5); Bilirubin Total 0.3 mg/dL (0.0-1.0); Blood Urea Nitrogen 20 mg/dL (9-16); Calcium 9.2 mg/dL (8.4-10.2); Carbon Dioxide 23 mmol/L (22-29); Chloride 104 mmol/L (96-108); Estimated Glomerular Filt Rate 42; Glucose Random 111 mg/dL (60-115); Lipase 19 U/L (8-78); Sodium 135 mmol/L (135-145); Total Protein 6.2 g/dL (6.5-8.0)
[2022-12-14 12:31] LABS: Troponin-I High Sensitivity 3.3 ng/L (<3.5-17.0)
--- NOTE | 2022-12-14 12:58 | PC.NURSE ---
pt assisted off of bed kim, sm amt of urine, pt cleaned, c-collar removed.
[2022-12-14] MEDS: 0.9 % Sodium Chloride 1,000 ML 999 ML IV (14:35)
--- NOTE | 2022-12-14 14:40 | PC.NURSE ---
pt placed on bedpan and repositioned, vss updated. reports that headache is still the same, denies dizziness. iv fluids started as documented.
--- NOTE | 2022-12-14 14:56 | PHA.MEDREC ---
Pharmacy Consult ? Medication Reconciliation Pharmacy has completed the medication reconciliation. Patient had med list sent in from [facility].
--- NOTE | 2022-12-14 15:25 | P.HPHOSP_ITS ---
History of Present Illness Date of Service: 12/14/22 Attending physician on admission: Anish Gutiérrez Chief Complaint: syncope 67 y/o F with pmhx Pulm embolism,bipolar , hypothyroidism, colitis- who lives at assisted living came in for evaluation after had 2 falls this morning, patient stated that she lose consciousness for a minute or so , she denies any is symptom of chest pain or shortness of breath or palpitations during these episodes,she denies any seizure like movements . She says that she is having diarrhea for 3-4 days and also was not eating well, on top of that she was taking her blood pressure medications also. And also multiple psych and pain medications. This afternoon she was sitting on the chair than try to walk and she felt dizzy and fell-she said the episode happened 2 time as above. As per the patient the EMS checked her blood pressure was in 80s. She also complain of rhinrrae and cough. She denies any sick contacts or travel or any antibiotic use recently. She says her diarrhea is improving. She initially complained of some chest discomfort to ED physician-but when I evaluated the patient she denies any chest discomfort. She feels generalized weak. Denies any new complaint of shortness of breath or abdominal pain or fever or chills or nausea or vomiting Denies any weakness or numbness. Lab imaging EKG reviewed: WBC count mild elevated 11.9, sodium 135, BUN [address] head and neck negative Chest x-ray also negative EKG: NSR at 95 beats per minute. troponins -3.3 ed: received iv fluids ,admission requested for adolfo ,dehydration ,syncope. Review of Systems 2 Review of Systems: As above. [facility] Medical History Diastolic CHF Schizoaffective disorder Hypothyroidism Transient cerebral ischemia Lumbar radiculopathy Pulmonary embolism Psychosis Anxiety Bipolar 1 disorder Family History Other Heart disease Social History Household Members: None Housing: Assisted Living Facility Housing Other:: [facility] Do you presently have visiting nurse or other home services: Yes Alcohol intake: never Smoked in Last 30 Days: No Use of substances other than those prescribed or required for medical reasons: No Advance Directives: Yes Advance Directives on File: Yes Advance Directives Date on File: 05/02/20 service: No Current occupational status: retired Meds Allergies Allergy/AdvReac Type Severity Reaction Status Date / Time bee pollen [Bee Stings] Allergy Severe ANAPHYLAXIS Verified 12/14/22 10:59 Active Medications: Current Medications Acetaminophen (Acetaminophen 325 Mg Tablet) 650 mg PO TID [facility] Apixaban (Apixaban 2.5 Mg Tablet) 2.5 mg PO BID [facility] Clozapine (Clozapine 25 Mg Tablet) 450 mg PO BEDTIME [facility] Folic Acid (Folic Acid 1 Mg Tablet) 1 mg PO DAILY [facility] Guaifenesin/Codeine Phosphate (Guaifen/Codeine Sf 200/20/10ml 10 Ml Liquid) 10 ml PO Q4H [facility] Guaifenesin/Dextromethorphan (Guaifenesin Dm 100/10/5 Ml 5 Ml Syrup) 10 ml PO Q6H PRN PRN Reason: Cough Sodium Chloride (Ns) 1,000 mls @ 999 mls/hr IV .Q1H1M ONE Stop: 12/14/22 15:24 Last Admin: 12/14/22 14:35 Dose: 999 mls/hr Lactated Ringer's (Lr) 1,000 mls @ 100 mls/hr IVCONT .Q10H [facility] Lamotrigine (Lamotrigine 100 Mg Tablet) 100 mg PO BID [facility] Levothyroxine Sodium (Levothyroxine Sodium 75 Mcg Tablet) 75 mcg PO DAILY@0600 [facility] Loratadine (Loratadine 10 Mg Tablet) 10 mg PO DAILY [facility] Methocarbamol (Methocarbamol 500 Mg Tablet) 500 mg PO TID PRN PRN Reason: Muscle Spasm Metoprolol Tartrate (Metoprolol Tartrate 25 Mg Tablet) 25 mg PO BID [facility]; Protocol Non-Formulary Medication (Budesonide) 3 mg PO MOFR@1000 PRN PRN Reason: Diarrhea Omeprazole (Omeprazole 40 Mg Capsule.Dr) 40 mg PO DAILY@0630 [facility] Paroxetine HCl (Paroxetine Hcl 30 Mg Tablet) 30 mg PO DAILY [facility] Polyethylene Glycol (Polyethylene Glycol 3350 17 Gm Powd.Pack) 17 gm PO DAILY PRN PRN Reason: Constipation Pravastatin Sodium (Pravastatin Sodium 20 Mg Tablet) 20 mg PO BEDTIME [facility] Prednisone (Prednisone 5 Mg Tablet) 5 mg PO DAILY [facility] Sodium Chloride (0.9 % Sodium Chloride Flush 3 Ml Syringe) 3 [facility] Triamcinolone Acetonide (Triamcinolone Acet 0.1 % Cream 15 Gm Tube) 1 appl TOPICAL BID PRN; Protocol PRN Reason: eczema/psoriasis Vitamin D (Cholecalciferol (Vitamin D3) 25 Mcg Tablet) 25 mcg PO BEDTIME [facility] Home Medications Medication Instructions Recorded Confirmed Last Taken Type cholecalciferol (vitamin D3) 25 25 mcg PO BEDTIME 01/08/20 12/14/22 12/14/22 History mcg (1,000 unit) capsule (Vitamin D3) clozapine 100 mg tablet 450 mg PO BEDTIME 01/08/20 12/14/22 12/13/22 History ferrous sulfate 325 mg (65 mg 325 mg PO DAILY 01/08/20 12/14/22 12/13/22 History iron) tablet folic acid 1 mg tablet 1 mg PO DAILY 01/08/20 12/14/22 12/13/22 History lamotrigine 100 mg tablet 100 mg PO BID 01/08/20 12/14/22 12/13/22 History (Lamictal) levothyroxine 75 mcg tablet 75 mcg PO DAILY@0600 01/08/20 12/14/22 12/13/22 History pravastatin 20 mg tablet 20 mg PO BEDTIME 01/08/20 12/14/22 03/09/20 History acetaminophen 325 mg tablet 650 mg PO TID FEVER/PAIN 03/10/20 12/14/22 12/13/22 History budesonide 3 mg 3 mg PO MOFR@1000 PRN Diarrhea 03/10/20 12/14/22 Unknown History capsule,delayed,extended release dextromethorphan-guaifenesin 10 10 ml PO Q6H PRN Cough 03/10/20 12/14/22 12/14/22 History mg-100 mg/5 mL oral syrup sennosides 8.6 mg-docusate sodium 1 tab PO DAILY PRN Constipation 04/27/20 12/14/22 Unknown History 50 mg tablet (Senna Plus) apixaban 2.5 mg tablet (Eliquis) 2.5 mg PO BID 12/14/22 12/14/22 12/13/22 History baclofen 20 mg tablet 20 mg PO TID 11/06/0212/14/22 12/13/22 History gabapentin 100 mg capsule 100 mg PO TID 12/14/22 12/14/22 12/13/22 History lisinopril 2.5 mg tablet 2.5 mg PO DAILY 12/14/22 12/14/22 12/14/22 History methocarbamol 500 mg tablet 500 mg PO TID PRN Muscle Spasm 12/14/22 12/14/22 Unknown History metoprolol tartrate 25 mg tablet 25 mg PO BID 12/14/22 12/14/22 12/14/22 09:00 History oxycodone 5 mg tablet 5 mg PO TID Pain 12/14/22 12/14/22 12/14/22 06:00 History paroxetine HCl 30 mg tablet 30 mg PO DAILY 12/14/22 12/14/22 12/13/22 History polyethylene glycol 3350 17 gram 17 g PO DAILY PRN Constipation 12/14/22 12/14/22 Unknown History oral powder packet (Miralax) prednisone 5 mg tablet 5 mg PO DAILY 12/14/22 12/14/22 12/14/22 History triamcinolone acetonide 0.1 % 1 appl topical BID PRN 12/14/22 12/14/22 Unknown History topical cream eczema/psoriasis Physical Exam 2 Vital Signs and Narrative: Vital Signs: Last Vital Signs Temp 97.6 F 12/14/22 11:37 Pulse 101 H 12/14/22 13:56 Resp 20 12/14/22 11:37 BP 144/66 H 12/14/22 13:56 Pulse Ox 97 12/14/22 13:56 O2 Del Method Room Air 12/14/22 13:56 BMI result Body Mass Index 33.4 Appearance: Alert.? Oriented X3.? Eyes: Pupils equal, round and reactive to light.? Sclera nonicteric.? ? dry mucous membranes. cvs: rrr(slightly tachy), [id number] , no murmur res: clear to auscultation ,no rhonchii or wheezing abd: no rebound or guarding ,nt, bs present. ext pulses present , no cyanosis . neuro: axo3 , nonfocal. Results Labs 12/14/22 11:59 12/14/22 11:59 Labs: Laboratory Results - last 24 hr 12/14/22 11:59 MCV 101.7 H MCH 33.4 H MCHC 32.9 RDW 12.8 Plt Count 194 MPV 8.5 L Immature Gran % (Auto) 0.6 H Neut % (Auto) 84.9 H Lymph % (Auto) 7.0 L [place] % (Auto) 6.8 Eos % (Auto) 0.4 Baso % (Auto) 0.3 Lymph # (Auto) 0.8 L [place] # (Auto) 0.8 Eos # (Auto) 0.1 Baso # (Auto) 0.0 Abs Immat Gran (auto) 0.07 H Absolute Neuts (auto) 10.1 H Absolute Nucleated RBC 0.000 Nucleated RBC % (auto) 0.0 Anion Gap 12 Estim Creat Clear Calc 49.0 Estimated GFR 42 Random Glucose 111 Calcium 9.2 Total Bilirubin 0.3 Direct Bilirubin 0.2 AST 14 ALT 9 Alkaline Phosphatase 77 Total Protein 6.2 L Albumin 3.9 Lipase 19 Urine Color Yellow Urine Appearance Clear Urine pH 6.5 Ur Specific [place] 1.010 Urine Protein Trace Urine Glucose (UA) Negative Urine Ketones Negative Urine Blood Negative Urine Nitrite Negative Ur Leukocyte Esterase Small (1+) H Urine RBC 0-2 Urine WBC 0-5 Ur Squamous Epith Cells 6-10 Urine Bacteria None Seen Hyaline Casts 0-2 Imaging Radiologist's Impressions: Impressions Chest X-Ray 12/14/22 11:04 IMPRESSION: No evidence for acute disease in the chest. Cervical Spine CT 12/14/22 11:18 IMPRESSION: * No acute intracranial pathology compared to 12/15/2021. * No fracture or traumatic subluxation in the degenerated cervical spine. * Incidentally noted is paranasal sinus disease with moderate mucosal thickening of maxillary sinuses; however, no air-fluid levels within paranasal sinuses. Head CT 12/14/22 11:18 IMPRESSION: * No acute intracranial pathology compared to 12/15/2021. * No fracture or traumatic subluxation in the degenerated cervical spine. * Incidentally noted is paranasal sinus disease with moderate mucosal thickening of maxillary sinuses; however, no air-fluid levels within paranasal sinuses. Assessment and Plan (1) Syncope: Status: Acute (2) ADOLFO (acute kidney injury): Status: Acute Plan 67 y/o F with pmhx Pulm embolism,bipolar , hypothyroidism, colitis-has diarrahe , decreased p.o. intake and on multiple pain/psych medication-came for syncope. syncope:likely multifactorial Possible multifactorial-dehydration, BP medications, pain med also might be contributing Head and neck CT negative. Monitor on tele, continue IV fluids lactated Ringer at 100 mL/hour. Monitor blood pressure closely, hold BP medications and pain meds adolfo : due to above and hypovolemia . continue ivf ,moniter blood pressure closely and bmp. Mild leukocytosis: Patient denies any symptoms Tachycardia due to hypovolemia Initial hypovolemia due to multiple issues mentioned above dehydration, BP medications use, decreased p.o. intake. No sepsis Urine has mild pyuria but no bacteriuria, urine culture pending. We will avoid antibiotic unless patient has any new symptoms . Diarrhea/cough/rhinorrhea: Chest x-ray negative, no abdominal pain RDS panel added, GI P panel, C diff Hx of Pulm embolism: continue eliquis. mood dis: continue home meds . Chronic pain/lumbar radiculopathy Hold baclofen and oxycodone Continue methocarbamol hypothyroidism -continue synthroid HLD hold statin Above plan discussed with the patient in detail length-patient understand and in agreement with the above plan, we will admit patient as observation, time spent 70 minute. Quality Stroke Does the patient have a stroke diagnosis?: No VTE Prior VTE?: No VTE Risk Level:: Medical - moderate - high VTE Device Contraindication: N/A - Device Ordered VTE Drug Contraindication: N/A - Med Ordered
[2022-12-14] MEDS: guaiFEN/Codeine SF 200/20/10ML 10 ML LIQUID PO ×3 (16:02→23:31)
[2022-12-14] MEDS: Lactated Ringers 1,000 ML 100 ML IVCONT (16:07)
[2022-12-14] MEDS: 0.9 % Sodium Chloride Flush 3 ML SYRINGE IVFLUSH ×2 (16:08→20:49)
--- NOTE | 2022-12-14 16:41 | PC.NURSE ---
LR started and cough syrup given as documented. pt resting quietly. vss.
--- NOTE | 2022-12-14 16:42 | P.CNPS_ITS ---
History of Present Illness Date of Service: 12/14/22 Chief Complaint: Syncope Reason for Consult: Assess whether psych meds contributed to syncope, advise about med adjustments. Requesting physician: Anish Gutiérrez Discussed with referring provider: Yes Sources of Information: patient interviewed and chart reviewed HPI Narrative: Patient was brought in from assisted living residence due to syncope. There have been no changes in meds recently. Main issue is that she has had diarrhea recently. She reports being very stable on her psych meds for many years despite the of her from cancer last winter. She states that clozoapine has been extremely helpful with mood and voices. She takes meds regularly and does not use alcohol or drugs. Past Psychiatric History: About 6 hospitalizations mostly at [facility] but none in recent years. 2 overdoses in her 30s, one resulting in intubation. Prior diagnosis of schizoaffective disorder. Has had manic episodes in past. Medical Evaluation Reviewed: Yes Personal & Social History: Lives in assisted living. of cancer February 2022. [facility] Medical History (Updated 12/14/22 @ 16:59 by Stefanie Means MD) Diastolic CHF Schizoaffective disorder Hypothyroidism Transient cerebral ischemia Lumbar radiculopathy Pulmonary embolism Psychosis Anxiety Bipolar 1 disorder Diagnostics Vital Signs (24Hr): Vital Signs - 24 hr 12/14/22 10:17 12/14/22 11:37 12/14/22 11:41 Temperature 97.5 F 97.6 F Pulse Rate 96 96 87 Respiratory Rate 15 20 Blood Pressure 105/54 L 122/63 115/73 Pulse Oximetry 99 90 L Oxygen Delivery Method Room Air Room Air 12/14/22 11:44 12/14/22 13:56 12/14/22 15:51 Temperature 98.6 F Pulse Rate 97 101 H 101 H Respiratory Rate 16 Blood Pressure 113/68 144/66 H 117/55 L Pulse Oximetry 97 97 Oxygen Delivery Method Room Air Room Air BMI result Body Mass Index 33.4 Labs 12/14/22 11:59 12/14/22 11:59 Labs: Laboratory Results - last 48 hr 12/14/22 11:59 WBC 11.9 H RBC 3.59 L Hgb 12.0 Hct 36.5 L MCV 101.7 H MCH 33.4 H MCHC 32.9 RDW 12.8 Plt Count 194 MPV 8.5 L Immature Gran % (Auto) 0.6 H Neut % (Auto) 84.9 H Lymph % (Auto) 7.0 L [place] % (Auto) 6.8 Eos % (Auto) 0.4 Baso % (Auto) 0.3 Lymph # (Auto) 0.8 L [place] # (Auto) 0.8 Eos # (Auto) 0.1 Baso # (Auto) 0.0 Abs Immat Gran (auto) 0.07 H Absolute Neuts (auto) 10.1 H Absolute Nucleated RBC 0.000 Nucleated RBC % (auto) 0.0 Sodium 135 Potassium 4.0 Chloride 104 Carbon Dioxide 23 Anion Gap 12 BUN 20 H Creatinine 1.25 Estim Creat Clear Calc 49.0 Estimated GFR 42 Random Glucose 111 Calcium 9.2 Total Bilirubin 0.3 Direct Bilirubin 0.2 AST 14 ALT 9 Alkaline Phosphatase 77 Troponin I High Sens 3.3 Total Protein 6.2 L Albumin 3.9 Lipase 19 Urine Color Yellow Urine Appearance Clear Urine pH 6.5 Ur Specific [place] 1.010 Urine Protein Trace Urine Glucose (UA) Negative Urine Ketones Negative Urine Blood Negative Urine Nitrite Negative Ur Leukocyte Esterase Small (1+) H Urine RBC 0-2 Urine WBC 0-5 Ur Squamous Epith Cells 6-10 Urine Bacteria None Seen Hyaline Casts 0-2 Imaging Radiology Impressions: ITS Impressions Chest X-Ray 12/14/22 11:04 IMPRESSION: No evidence for acute disease in the chest. Hip X-Ray 12/14/22 11:04 IMPRESSION: No fracture or dislocation. Cervical Spine CT 12/14/22 11:18 IMPRESSION: * No acute intracranial pathology compared to 12/15/2021. * No fracture or traumatic subluxation in the degenerated cervical spine. * Incidentally noted is paranasal sinus disease with moderate mucosal thickening of maxillary sinuses; however, no air-fluid levels within paranasal sinuses. Head CT 12/14/22 11:18 IMPRESSION: * No acute intracranial pathology compared to 12/15/2021. * No fracture or traumatic subluxation in the degenerated cervical spine. * Incidentally noted is paranasal sinus disease with moderate mucosal thickening of maxillary sinuses; however, no air-fluid levels within paranasal sinuses. Mental Status Exam Mental Status Exam Patient Appearance: Well Grooomed Patient Orientation: Person, Time and Situation Level of Consciousness: Alert Patient Behavior: Appropriate Mood Description: Anxious Affect Description: Anxious Patient Cognition Impaired: No Ability to Follow Directions: Excellent Speech Pattern: Clear Memory Description: Intact Hallucinations: None Delusions: Not Present Thought Process: Goal Oriented Depressive Symptoms: Increased Anxiety and Difficulty Sleeping Judgement: Good Medications Medications Current Medications Acetaminophen (Acetaminophen 325 Mg Tablet) 650 mg PO TID [facility] Apixaban (Apixaban 2.5 Mg Tablet) 2.5 mg PO BID [facility] Clozapine (Clozapine 25 Mg Tablet) 450 mg PO BEDTIME [facility] Folic Acid (Folic Acid 1 Mg Tablet) 1 mg PO DAILY [facility] Guaifenesin/Codeine Phosphate (Guaifen/Codeine Sf 200/20/10ml 10 Ml Liquid) 10 ml PO Q4H [facility] Last Admin: 12/14/22 16:02 Dose: 10 ml Guaifenesin/Dextromethorphan (Guaifenesin Dm 100/10/5 Ml 5 Ml Syrup) 10 ml PO Q6H PRN PRN Reason: Cough Lactated Ringer's (Lr) 1,000 mls @ 100 mls/hr IVCONT .Q10H [facility] Last Admin: 12/14/22 16:07 Dose: 100 mls/hr Lamotrigine (Lamotrigine 100 Mg Tablet) 100 mg PO BID [facility] Levothyroxine Sodium (Levothyroxine Sodium 75 Mcg Tablet) 75 mcg PO DAILY@0600 [facility] Loratadine (Loratadine 10 Mg Tablet) 10 mg PO DAILY [facility] Methocarbamol (Methocarbamol 500 Mg Tablet) 500 mg PO TID PRN PRN Reason: Muscle Spasm Metoprolol Tartrate (Metoprolol Tartrate 25 Mg Tablet) 25 mg PO BID [facility]; Protocol Non-Formulary Medication (Budesonide) 3 mg PO MOFR@1000 PRN PRN Reason: Diarrhea Omeprazole (Omeprazole 40 Mg Capsule.Dr) 40 mg PO DAILY@0630 [facility] Paroxetine HCl (Paroxetine Hcl 30 Mg Tablet) 30 mg PO DAILY [facility] Polyethylene Glycol (Polyethylene Glycol 3350 17 Gm Powd.Pack) 17 gm PO DAILY PRN PRN Reason: Constipation Pravastatin Sodium (Pravastatin Sodium 20 Mg Tablet) 20 mg PO BEDTIME [facility] Prednisone (Prednisone 5 Mg Tablet) 5 mg PO DAILY [facility] Sodium Chloride (0.9 % Sodium Chloride Flush 3 Ml Syringe) 3 ml IVFLUSH QSHIFT [facility] Last Admin: 12/14/22 16:08 Dose: 3 ml Triamcinolone Acetonide (Triamcinolone Acet 0.1 % Cream 15 Gm Tube) 1 appl TOPICAL BID PRN; Protocol PRN Reason: eczema/psoriasis Vitamin D (Cholecalciferol (Vitamin D3) 25 Mcg Tablet) 25 mcg PO BEDTIME [facility] Allergies Allergies Allergy/AdvReac Type Severity Reaction Status Date / Time bee pollen [Bee Stings] Allergy Severe ANAPHYLAXIS Verified 12/14/22 10:59 Assessment & Plan Assessment & Plan (1) Schizoaffective disorder: Status: Acute Code(s): F25.9 - Schizoaffective disorder, unspecified Assessment and Plan: continue current doses of clozapine, lamictal. Needs to be registered with [facility] program for clozapine Total time managing care of this patient today ____ minutes.
--- NOTE | 2022-12-14 18:32 | PC.NURSE ---
report given to PAOLA Hinojosa. pt transported to [id number] by transporter.
[2022-12-14] MEDS: cloZAPine 100 MG TABLET 450 MG PO (20:46)
[2022-12-14] MEDS: Apixaban 2.5 MG TABLET PO (20:48)
[2022-12-14] MEDS: Acetaminophen 325 MG TABLET 650 MG PO (20:48)
[2022-12-14] MEDS: Cholecalciferol (Vitamin D3) 25 MCG TABLET PO (20:48)
[2022-12-14] MEDS: Metoprolol Tartrate 25 MG TABLET PO (20:49)
[2022-12-14] MEDS: Pravastatin Sodium 20 MG TABLET PO (20:49)
[2022-12-14] MEDS: lamoTRIgine 100 MG TABLET PO (20:49)
[2022-12-14] MEDS: methocarbamoL 500 MG TABLET PO (21:05)
[2022-12-14] MEDS: oxyCODONE HCl Immed Release 5 MG TABLET PO (22:11)
[2022-12-14] MEDS: Gabapentin 100 MG CAPSULE PO (22:12)
[2022-12-15 02:50] VITALS: BP 135/76; PULSE 80; RESP 20; TEMP 36.2; O2SAT 93
[2022-12-15] MEDS: guaiFEN/Codeine SF 200/20/10ML 10 ML LIQUID PO ×6 (02:57→23:11)
[2022-12-15] MEDS: Lactated Ringers 1,000 ML 100 ML IVCONT (02:57)
[2022-12-15] MEDS: Omeprazole 40 MG CAPSULE.DR PO (06:29)
[2022-12-15] MEDS: Levothyroxine Sodium 75 MCG TABLET PO (06:29)
[2022-12-15 06:44] LABS: Alanine Aminotransferase 7 U/L (0-31); Albumin Level 3.6 g/dL (3.5-5.0); Alkaline Phosphatase 75 U/L (39-117); Anion Gap 12 (12-20); Aspartate Amino Transferase 12 U/L (5-31); Bilirubin Total 0.2 mg/dL (0.0-1.0); Blood Urea Nitrogen 13 mg/dL (9-16); Calcium 9.3 mg/dL (8.4-10.2); Carbon Dioxide 25 mmol/L (22-29); Chloride 110 mmol/L (96-108); Creatinine Clr Calc Pharmacy 73.3; Estimated Glomerular Filt Rate > 60; Glucose Random 84 mg/dL (60-115); Potassium 4.4 mmol/L (3.3-5.1); Sodium 143 mmol/L (135-145); Total Protein 5.7 g/dL (6.5-8.0)
[2022-12-15 07:06] VITALS: BP 135/71; PULSE 82; RESP 20; TEMP 36.2; O2SAT 96
[2022-12-15] MEDS: Acetaminophen 325 MG TABLET 650 MG PO ×3 (08:25→20:08)
[2022-12-15] MEDS: Metoprolol Tartrate 25 MG TABLET PO ×2 (08:25→20:08)
[2022-12-15] MEDS: Folic Acid 1 MG TABLET PO (08:25)
[2022-12-15] MEDS: predniSONE 5 MG TABLET PO (08:25)
[2022-12-15] MEDS: PARoxetine HCL 30 MG TABLET PO (08:25)
[2022-12-15] MEDS: Apixaban 2.5 MG TABLET PO ×2 (08:25→20:08)
[2022-12-15] MEDS: Loratadine 10 MG TABLET PO (08:25)
[2022-12-15] MEDS: lamoTRIgine 100 MG TABLET PO ×2 (08:25→20:09)
[2022-12-15] MEDS: Gabapentin 100 MG CAPSULE PO ×2 (08:25→20:08)
[2022-12-15] MEDS: 0.9 % Sodium Chloride Flush 3 ML SYRINGE IVFLUSH ×2 (08:26→14:07)
--- NOTE | 2022-12-15 10:16 | MHC.CM.PN ---
Interview conducted w/Francoise (HCP/sister): Pt. resides at [facility]. All ADs provided at (has a walker and a cane in her room). Medical care provided by a PA/[employer] OPERATOR that rounds at . provides transportation to/from appts/consults that they set up for her. Per Francoise, there is one MD that Pt. will not allow BK to make the appts for her, she insists on making them on her own, as well as does not allow anyone to accompany her in with; Dr. Pond, the MD who she allegedly receives more pain medication from. Francoise reports Pt. has had 6-7 hospital visits since May (to [facility] in [place]), mostly for dropping BP, falls, not responding/ staring off into space. Francoise reports Pt. has never had an EEG, and that Pt. has dropped significantly in weight over the years and her medications have not been adjusted accordingly. Messaged covering MD to communicate discussion w/Pt.s HCP. HCP indicates that when Pt. is ready to return home, if services are recommended, does not provide what VNAs provide, and Pt. would need an outside agency/regular VNA referral. [place] [facility] [place] [facility] . CM to follow.
--- NOTE | 2022-12-15 10:45 | MHC.CM.PN ---
Communicated HCP's reports to . already aware. CM to follow.
[2022-12-15] MEDS: oxyCODONE HCl Immed Release 5 MG TABLET PO (11:00)
[2022-12-15 11:12] VITALS: BP 99/54; PULSE 81; RESP 20; TEMP 36.2; O2SAT 96
--- NOTE | 2022-12-15 13:00 | HO.PM.IMPN ---
Subjective Subjective Date of Service: 12/15/22 Interval History: adolfo ,dec po inatke Review of Systems po inatke seems improving denies any new c/o, feeling slowly improving Physical Exam Vital Signs: Vital Signs: Last Vital Signs Temp 97.2 F 12/15/22 11:12 Pulse 81 12/15/22 11:12 Resp 20 12/15/22 11:12 BP 99/54 L 12/15/22 11:12 Pulse Ox 96 12/15/22 11:12 O2 Del Method Room Air 12/15/22 11:12 BMI result Body Mass Index 32.9 Appearance: Alert.? Oriented X3.? cvs: rrr, [id number] , no murmur res: clear to auscultation ,no rhonchii or wheezing abd: no rebound or guarding ,nt, bs present. ext pulses present , no cyanosis, no edema . neuro: axo3 , nonfocal. Objective Data Active Medications Acetaminophen (Acetaminophen 325 Mg Tablet) 650 mg PO TID [facility] Last Admin: 12/15/22 08:25 Dose: 650 mg Documented By: AIDEE Apixaban (Apixaban 2.5 Mg Tablet) 2.5 mg PO BID [facility] Last Admin: 12/15/22 08:25 Dose: 2.5 mg Documented By: AIDEE Baclofen (Baclofen 20 Mg Tablet) 20 mg PO BID [facility] Clozapine (Clozapine 100 Mg Tablet) 450 mg PO BEDTIME [facility] Last Admin: 12/14/22 20:46 Dose: 450 mg Documented By: OWEN Comments: Folic Acid (Folic Acid 1 Mg Tablet) 1 mg PO DAILY [facility] Last Admin: 12/15/22 08:25 Dose: 1 mg Documented By: AIDEE Gabapentin (Gabapentin 100 Mg Capsule) 100 mg PO BID [facility] Guaifenesin/Codeine Phosphate (Guaifen/Codeine Sf 200/20/10ml 10 Ml Liquid) 10 ml PO Q4H [facility] Last Admin: 12/15/22 10:59 Dose: 10 ml Documented By: AIDEE Guaifenesin/Dextromethorphan (Guaifenesin Dm 100/10/5 Ml 5 Ml Syrup) 10 ml PO Q6H PRN PRN Reason: Cough Lamotrigine (Lamotrigine 100 Mg Tablet) 100 mg PO BID [facility] Last Admin: 12/15/22 08:25 Dose: 100 mg Documented By: AIDEE Levothyroxine Sodium (Levothyroxine Sodium 75 Mcg Tablet) 75 mcg PO DAILY@0600 [facility] Last Admin: 12/15/22 06:29 Dose: 75 mcg Documented By: OWEN Loratadine (Loratadine 10 Mg Tablet) 10 mg PO DAILY [facility] Last Admin: 12/15/22 08:25 Dose: 10 mg Documented By: AIDEE Methocarbamol (Methocarbamol 500 Mg Tablet) 500 mg PO TID PRN PRN Reason: Muscle Spasm Last Admin: 12/14/22 21:05 Dose: 500 mg Documented By: OWEN Metoprolol Tartrate (Metoprolol Tartrate 25 Mg Tablet) 25 mg PO BID [facility]; Protocol Last Admin: 12/15/22 08:25 Dose: 25 mg Documented By: AIDEE Non-Formulary Medication (Budesonide) 3 mg PO MOFR@1000 PRN PRN Reason: Diarrhea Omeprazole (Omeprazole 40 Mg Capsule.Dr) 40 mg PO DAILY@0630 [facility] Last Admin: 12/15/22 06:29 Dose: 40 mg Documented By: OWEN Oxycodone HCl (Oxycodone Hcl Immed Release 5 Mg Tablet) 5 mg PO BID PRN PRN Reason: Pain, Moderate(Pain Scale 4-6) Last Admin: 12/15/22 11:00 Dose: 5 mg Documented By: AIDEE Paroxetine HCl (Paroxetine Hcl 30 Mg Tablet) 30 mg PO DAILY [facility] Last Admin: 12/15/22 08:25 Dose: 30 mg Documented By: AIDEE Polyethylene Glycol (Polyethylene Glycol 3350 17 Gm Powd.Pack) 17 gm PO DAILY PRN PRN Reason: Constipation Pravastatin Sodium (Pravastatin Sodium 20 Mg Tablet) 20 mg PO BEDTIME [facility] Last Admin: 12/14/22 20:49 Dose: 20 mg Documented By: OWEN Prednisone (Prednisone 5 Mg Tablet) 5 mg PO DAILY [facility] Last Admin: 12/15/22 08:25 Dose: 5 mg Documented By: AIDEE Sodium Chloride (0.9 % Sodium Chloride Flush 3 Ml Syringe) [facility] Last Admin: 11/05/23 08:26 Dose: 3 ml Documented By: AIDEE Triamcinolone Acetonide (Triamcinolone Acet 0.1 % Cream 15 Gm Tube) 1 appl TOPICAL BID PRN; Protocol PRN Reason: eczema/psoriasis Vitamin D (Cholecalciferol (Vitamin D3) 25 Mcg Tablet) 25 mcg PO BEDTIME [facility] Last Admin: 12/14/22 20:48 Dose: 25 mcg Documented By: OWEN Labs 12/14/22 11:59 12/15/22 05:38 Labs: Laboratory Results - last 24 hr 12/15/22 05:38 Hold Purple Top SEE NOTE Anion Gap 12 Estim Creat Clear Calc 73.3 Estimated GFR > 60 Random Glucose 84 Calcium 9.3 Total Bilirubin 0.2 AST 12 ALT 7 Alkaline Phosphatase 75 Total Protein 5.7 L Albumin 3.6 Microbiology Microbiology Results: Microbiology 12/14/22 Unknown Urine Culture - Final Urine clean catch - Clean Catch Midstream Assessment and Plan (1) ADOLFO (acute kidney injury): Status: Acute Plan 67 y/o F with pmhx Pulm embolism,bipolar , hypothyroidism, colitis-has diarrahe , decreased p.o. intake and on multiple pain/psych medication-came for syncope. syncope:likely multifactorial Possible multifactorial-dehydration, BP medications, pain med also might be contributing Head and neck CT negative. still boderline bp Monitor on tele, continue IV fluids. Monitor blood pressure closely, hold BP medications and adjusted pain meds adolfo : due to above and hypovolemia . improved with ivf ,moniter blood pressure closely and bmp. Mild leukocytosis: Patient denies any symptoms Tachycardia due to hypovolemia Initial hypovolemia due to multiple issues mentioned above dehydration, BP medications use, decreased p.o. intake. No sepsis cxr neg Urine has mild pyuria but no bacteriuria, urine culture -mixed . Diarrhea/cough/rhinorrhea: Chest x-ray negative, no abdominal pain RDS panel added, also GI P panel, C diff if produces diarrahe/stool. Hx of Pulm embolism: continue eliquis. mood dis: continue home meds . Chronic pain/lumbar radiculopathy Hold baclofen and oxycodone Continue methocarbamol hypothyroidism -continue synthroid HLD hold statin fall /generalised weak: add Pt eval. ongoing need of stay-boderline bp ,dec po inatke -need iv hydration ,also need Pt eval Quality Stroke Does the patient have a stroke diagnosis?: No VTE Prior VTE?: No VTE Risk Level:: Medical - moderate - high VTE Device Contraindication: N/A - Device Ordered VTE Drug Contraindication: N/A - Med Ordered
[2022-12-15 13:29] LABS: Hematocrit 35.5 % (37.0-47.0); Hemoglobin 11.2 g/dl (12.0-16.0); Mean Corpuscular HGB Conc 31.5 g/dl (31.0-35.0); Mean Corpuscular Hemoglobin 32.9 pg (27.0-33.0); Mean Corpuscular Volume 104.4 fL (80.0-98.0); Mean Platelet Volume 8.5 fL (9.4-12.3); Platelet Count 221 X10*3/uL (160-400); Red Cell Distribution Width 12.8 % (11.0-16.0); White Blood Count 8.7 X10*3/uL (4.8-10.8)
[2022-12-15] MEDS: 0.9 % Sodium Chloride 1,000 ML 80 ML IVCONT (14:10)
[2022-12-15 15:02] VITALS: BP 99/59; PULSE 85; RESP 20; TEMP 36.7; O2SAT 94
[2022-12-15 19:11] VITALS: BP 157/83; PULSE 80; RESP 20; TEMP 36.6; O2SAT 98
[2022-12-15] MEDS: Pravastatin Sodium 20 MG TABLET PO (20:08)
[2022-12-15] MEDS: cloZAPine 100 MG TABLET 450 MG PO (20:09)
[2022-12-15] MEDS: Baclofen 20 MG TABLET PO (20:09)
[2022-12-15] MEDS: Cholecalciferol (Vitamin D3) 25 MCG TABLET PO (20:09)
[2022-12-15 23:50] VITALS: BP 167/87; PULSE 76; RESP 18; TEMP 36.8; O2SAT 98
[2022-12-16] VITALS (8 sets, daily range): BP systolic 99–163; BP diastolic 56–85; PULSE 71–85; RESP 18–24; TEMP 36.3–37.7; O2SAT 92–98
[2022-12-16] MEDS: 0.9 % Sodium Chloride 1,000 ML 80 ML IVCONT ×2 (02:02→14:57)
[2022-12-16] MEDS: guaiFEN/Codeine SF 200/20/10ML 10 ML LIQUID PO ×6 (03:21→23:52)
[2022-12-16] MEDS: Omeprazole 40 MG CAPSULE.DR PO (05:46)
[2022-12-16] MEDS: Levothyroxine Sodium 75 MCG TABLET PO (05:46)
[2022-12-16] MEDS: 0.9 % Sodium Chloride Flush 3 ML SYRINGE IVFLUSH ×2 (09:09→23:51)
[2022-12-16] MEDS: Acetaminophen 325 MG TABLET 650 MG PO ×3 (09:10→21:29)
[2022-12-16] MEDS: predniSONE 5 MG TABLET PO (09:10)
[2022-12-16] MEDS: lamoTRIgine 100 MG TABLET PO ×2 (09:10→21:31)
[2022-12-16] MEDS: Loratadine 10 MG TABLET PO (09:10)
[2022-12-16] MEDS: Gabapentin 100 MG CAPSULE PO ×2 (09:11→21:30)
[2022-12-16] MEDS: Folic Acid 1 MG TABLET PO (09:11)
[2022-12-16] MEDS: Apixaban 2.5 MG TABLET PO ×2 (09:11→21:30)
[2022-12-16] MEDS: Baclofen 20 MG TABLET PO ×2 (09:11→21:31)
[2022-12-16] MEDS: PARoxetine HCL 30 MG TABLET PO (09:11)
[2022-12-16] MEDS: Metoprolol Tartrate 25 MG TABLET PO ×2 (09:11→21:30)
[2022-12-16] MEDS: oxyCODONE HCl Immed Release 5 MG TABLET PO (09:14)
[2022-12-16 10:57] LABS: Adenovirus PCR Not Detected (Not Detect.); Bordetella parapertussis PCR Not Detected (Not Detect.); Bordetella pertussis PCR Not Detected (Not Detect.); Chlamydia pneumoniae PCR Not Detected (Not Detect.); Coronavirus 229E PCR Not Detected (Not Detect.); Coronavirus HKU1 PCR Not Detected (Not Detect.); Coronavirus NL63 PCR Not Detected (Not Detect.); Coronavirus OC43 PCR Not Detected (Not Detect.); Human metapneumovirus PCR Not Detected (Not Detect.); Influenza A PCR Not Detected (Not Detect.); Influenza B PCR Not Detected (Not Detect.); Rhino/Enterovirus PCR Detected (Not Detect.); SARS-CoV-2 PCR Not Detected (Not Detect.)
[2022-12-16 10:58] LABS: Mycoplasma pneumoniae PCR Not Detected (Not Detect.); Parainfluenza 1 PCR Not Detected (Not Detect.); Parainfluenza 2 PCR Not Detected (Not Detect.); Parainfluenza 3 PCR Not Detected (Not Detect.); Parainfluenza 4 PCR Not Detected (Not Detect.); RSV PCR Not Detected (Not Detect.)
--- NOTE | 2022-12-16 11:42 | P.F2F_ITS ---
Service Date Service Date: 12/16/22 Encounter Date of encounter: 12/16/22 Encounter: fall,gina,dehdration,syncope Reasons for Services Signs and symptoms assessed: dizziness ,weakness Homebound: Leaving the home is medically contraindicated at this time without the asist of a device and/or another person due th the listed conditions above and below. Reason homebound: weakness related to hospital stay Certification: Based on the above findings, I certify that this patient is confined to the home and needs intermittent senior care care, physical therapy and/or speech therapy, or continues to need occupational therapy. The patient is under my care, and I have initiated the establishment of the plan of care. The patient will be followed by a physician who will periodically review the plan of care. Time Spent With Patient Time: Total time managing care of this patient today ____ minutes.
--- NOTE | 2022-12-16 11:58 | MHC.CM.PN ---
EMR reviewed and per MD rounds, pt is not medically cleared for D/C today and continues to report dizziness. Anticipating D/C tomorrow back to [facility] with PT services via BLS transport. This CM spoke with pts sister/HCP Francoise, she had some concerns with the rest home and asked if we could call the rest home to discuss her care. This CM was given the [employer] Electrical Engineer Radha's number ([phone]), and placed call to speak with her. Per Radha she is concerned with the multiple falls, but states pt has nursing care at the rest home. All in agreement with PT services at D/C. PCP: Dr. Bal Temple
--- NOTE | 2022-12-16 14:01 | MHC.CM.PN ---
IMM given 12/16, pt changed from obs to inpatient.
--- NOTE | 2022-12-16 14:53 | P.PNIM_ITS ---
Subjective Subjective Date of Service: 12/16/22 Interval History: syncope ,adolfo Review of Systems dizziness ,softer bp Physical Exam 2 Vital Signs: Vital Signs: Last Vital Signs Temp 98.5 F 12/16/22 11:08 Pulse 77 12/16/22 13:14 Resp 20 12/16/22 11:08 BP 105/59 L 12/16/22 13:14 Pulse Ox 95 12/16/22 11:08 O2 Del Method Room Air 12/16/22 11:08 BMI result Body Mass Index 32.9 Appearance: Alert.? Oriented X3.? cvs: rrr, [id number] , no murmur res: clear to auscultation ,no rhonchii or wheezing abd: no rebound or guarding ,nt, bs present. ext pulses present , no cyanosis, no edema . neuro: axo3 , nonfocal. Objective Data Active Medications Acetaminophen (Acetaminophen 325 Mg Tablet) 650 mg PO TID [facility] Last Admin: 12/16/22 09:10 Dose: 650 mg Documented By: TORO Apixaban (Apixaban 2.5 Mg Tablet) 2.5 mg PO BID [facility] Last Admin: 12/16/22 09:11 Dose: 2.5 mg Documented By: TORO Baclofen (Baclofen 20 Mg Tablet) 20 mg PO BID [facility] Last Admin: 12/16/22 09:11 Dose: 20 mg Documented By: TORO Clozapine (Clozapine 100 Mg Tablet) 450 mg PO BEDTIME [facility] Last Admin: 12/15/22 20:09 Dose: 450 mg Documented By: ODRISBenitez Folic Acid (Folic Acid 1 Mg Tablet) 1 mg PO DAILY [facility] Last Admin: 12/16/22 09:11 Dose: 1 mg Documented By: TORO Gabapentin (Gabapentin 100 Mg Capsule) 100 mg PO BID [facility] Last Admin: 12/16/22 09:11 Dose: 100 mg Documented By: TORO Guaifenesin/Codeine Phosphate (Guaifen/Codeine Sf 200/20/10ml 10 Ml Liquid) 10 ml PO Q4H [facility] Last Admin: 12/16/22 11:00 Dose: 10 ml Documented By: TORO Guaifenesin/Dextromethorphan (Guaifenesin Dm 100/10/5 Ml 5 Ml Syrup) 10 ml PO Q6H PRN PRN Reason: Cough Sodium Chloride (Ns) 1,000 mls @ 80 mls/hr IVCONT .[id number] [facility] Last Admin: 12/16/22 02:02 Dose: 80 mls/hr Documented By: ROXANNE Lamotrigine (Lamotrigine 100 Mg Tablet) 100 mg PO BID [facility] Last Admin: 12/16/22 09:10 Dose: 100 mg Documented By: TORO Levothyroxine Sodium (Levothyroxine Sodium 75 Mcg Tablet) 75 mcg PO DAILY@0600 [facility] Last Admin: 12/16/22 05:46 Dose: 75 mcg Documented By: ROXANNE Loratadine (Loratadine 10 Mg Tablet) 10 mg PO DAILY [facility] Last Admin: 12/16/22 09:10 Dose: 10 mg Documented By: TORO Methocarbamol (Methocarbamol 500 Mg Tablet) 500 mg PO TID PRN PRN Reason: Muscle Spasm Last Admin: 12/14/22 21:05 Dose: 500 mg Documented By: OWEN Metoprolol Tartrate (Metoprolol Tartrate 25 Mg Tablet) 25 mg PO BID [facility]; Protocol Last Admin: 12/16/22 09:11 Dose: 25 mg Documented By: TORO Non-Formulary Medication (Budesonide) 3 mg PO MOFR@1000 PRN PRN Reason: Diarrhea Omeprazole (Omeprazole 40 Mg Capsule.Dr) 40 mg PO DAILY@0630 [facility] Last Admin: 12/16/22 05:46 Dose: 40 mg Documented By: ROXANNE Oxycodone HCl (Oxycodone Hcl Immed Release 5 Mg Tablet) 5 mg PO BID PRN PRN Reason: Pain, Moderate(Pain Scale 4-6) Last Admin: 12/16/22 09:14 Dose: 5 mg Documented By: TORO Paroxetine HCl (Paroxetine Hcl 30 Mg Tablet) 30 mg PO DAILY [facility] Last Admin: 12/16/22 09:11 Dose: 30 mg Documented By: TORO Polyethylene Glycol (Polyethylene Glycol 3350 17 Gm Powd.Pack) 17 gm PO DAILY PRN PRN Reason: Constipation Pravastatin Sodium (Pravastatin Sodium 20 Mg Tablet) 20 mg PO BEDTIME [facility] Last Admin: 12/15/22 20:08 Dose: 20 mg Documented By: ROXANNE Prednisone (Prednisone 5 Mg Tablet) 5 mg PO DAILY [facility] Last Admin: 12/16/22 09:10 Dose: 5 mg Documented By: TORO Sodium Chloride (0.9 % Sodium Chloride Flush 3 Ml Syringe) 3 ml IVFLUSH QSHIFT [facility] Last Admin: 12/16/22 09:09 Dose: 3 ml Documented By: TORO Triamcinolone Acetonide (Triamcinolone Acet 0.1 % Cream 15 Gm Tube) 1 appl TOPICAL BID PRN; Protocol PRN Reason: eczema/psoriasis Vitamin D (Cholecalciferol (Vitamin D3) 25 Mcg Tablet) 25 mcg PO BEDTIME [facility] Last Admin: 12/15/22 20:09 Dose: 25 mcg Documented By: ROXANNE Labs 12/15/22 13:22 12/15/22 05:38 Labs: Laboratory Results - last 24 hr 12/14/22 12/15/22 14:16 15:05 Respiratory Panel [facility] Cancelled See Note Adenovirus (Rapid PCR) Cancelled Not Detected B.pert (TEM-PCR) Cancelled Not Detected B.parapertussis DNA PCR Cancelled Not Detected C. pneumoniae DNA (PCR) Cancelled Not Detected Coronavirus OC43 (PCR) Cancelled Not Detected Coronavirus HKU1 (PCR) Cancelled Not Detected Coronavirus 229E (PCR) Cancelled Not Detected Coronavirus NL63 (PCR) Cancelled Not Detected Human Metapneumovir PCR Cancelled Not Detected Influenza A (RT-PCR) Cancelled Not Detected Influenza B (RT-PCR) Cancelled Not Detected M. pneumoniae (PCR) Cancelled Not Detected Parainfluenza 1 (PCR) Cancelled Not Detected Parainfluenza 2 (PCR) Cancelled Not Detected Parainfluenza 3 (PCR) Cancelled Not Detected Parainfluenza 4 (PCR) Cancelled Not Detected RSV (PCR) Cancelled Not Detected Entero/Rhino (PCR) Cancelled Detected A SARS-CoV-2 RNA (RT-PCR) Cancelled Not Detected Assessment and Plan (1) ADOLFO (acute kidney injury): Status: Acute (2) Syncope: Status: Acute Plan 67 y/o F with pmhx Pulm embolism,bipolar , hypothyroidism, colitis-has diarrahe , decreased p.o. intake and on multiple pain/psych medication-came for syncope. syncope:likely multifactorial Possible multifactorial-dehydration, BP medications, pain med also might be contributing Head and neck CT negative. bp pressure soft ,still feels dizzy check orthostasis Monitor on tele, continue IV fluids. Monitor blood pressure closely, hold BP medications and adjusted pain meds adolfo : due to above and hypovolemia . improved with ivf ,moniter blood pressure closely and bmp. Mild leukocytosis:possible viral uri -positive for entero/rhino virus Patient denies any symptoms Tachycardia due to hypovolemia Initial hypovolemia due to multiple issues mentioned above dehydration, BP medications use, decreased p.o. intake. No sepsis cxr neg Urine has mild pyuria but no bacteriuria, urine culture -mixed . Diarrhea/cough/rhinorrhea: Chest x-ray negative, no abdominal pain RDS panel added, also GI P panel, C diff if produces diarrahe/stool. Hx of Pulm embolism: continue eliquis. mood dis: continue home meds . Chronic pain/lumbar radiculopathy Hold baclofen and oxycodone Continue methocarbamol hypothyroidism -continue synthroid HLD hold statin fall /generalised weak: add Pt eval. ongoing need of stay-softer bp /symptomatic ,dec po inatke -need iv hydration . Quality Stroke Does the patient have a stroke diagnosis?: No VTE Prior VTE?: No VTE Risk Level:: Medical - moderate - high VTE Device Contraindication: N/A - Device Ordered VTE Drug Contraindication: N/A - Med Ordered
[2022-12-16] MEDS: cloZAPine 100 MG TABLET 450 MG PO (21:28)
[2022-12-16] MEDS: Cholecalciferol (Vitamin D3) 25 MCG TABLET PO (21:30)
[2022-12-16] MEDS: Pravastatin Sodium 20 MG TABLET PO (21:31)
[2022-12-17 04:00] VITALS: BP 172/84
[2022-12-17] MEDS: guaiFEN/Codeine SF 200/20/10ML 10 ML LIQUID PO ×3 (04:02→11:33)
[2022-12-17 04:34] VITALS: PULSE 78; RESP 18
[2022-12-17] MEDS: Levothyroxine Sodium 75 MCG TABLET PO (05:52)
[2022-12-17] MEDS: Omeprazole 40 MG CAPSULE.DR PO (05:52)
[2022-12-17] MEDS: 0.9 % Sodium Chloride 1,000 ML 80 ML IVCONT (05:54)
[2022-12-17 07:16] VITALS: BP 191/81; PULSE 80; RESP 18; TEMP 36.5; O2SAT 98
[2022-12-17] MEDS: Acetaminophen 325 MG TABLET 650 MG PO (08:11)
[2022-12-17] MEDS: Gabapentin 100 MG CAPSULE PO (08:11)
[2022-12-17] MEDS: Folic Acid 1 MG TABLET PO (08:12)
[2022-12-17] MEDS: Metoprolol Tartrate 25 MG TABLET PO (08:12)
[2022-12-17] MEDS: Baclofen 20 MG TABLET PO (08:13)
[2022-12-17] MEDS: 0.9 % Sodium Chloride Flush 3 ML SYRINGE IVFLUSH (08:14)
[2022-12-17] MEDS: Loratadine 10 MG TABLET PO (08:14)
[2022-12-17] MEDS: Apixaban 2.5 MG TABLET PO (08:14)
[2022-12-17] MEDS: PARoxetine HCL 30 MG TABLET PO (08:14)
[2022-12-17] MEDS: predniSONE 5 MG TABLET PO (08:14)
[2022-12-17] MEDS: lamoTRIgine 100 MG TABLET PO (08:14)
[2022-12-17 08:51] VITALS: BP 191/81; PULSE 80; O2SAT 98
[2022-12-17 09:45] VITALS: BP 127/66; PULSE 79; RESP 18; TEMP 36.2; O2SAT 99
--- NOTE | 2022-12-17 10:29 | PM.DS ---
DS: Providers Provider Date of Service: 12/17/22 Date of admission: 12/16/22 13:06 Date of discharge: 12/17/22 Primary care physician: Unknown Physician Consults: 12/14/22 15:45 Consult to Psychiatry Routine Consulting Provider: Psych Covering Reason for consultation: bipolar -on clozaril and multiple psych med -?need regirated for clozaril Has provider been notified: No Attending physician on discharge: Anish Gutiérrez Discharging clinician: Anish Gutiérrez DS: Diagnosis Discharge Diagnosis (1) ADOLFO (acute kidney injury): Status: Acute (2) Syncope: Status: Acute (3) Orthostasis: Status: Acute DS: Summary Hospital Course Hospital Course: 67 y/o F with pmhx Pulm embolism,bipolar , hypothyroidism, colitis- who lives at assisted living came in for evaluation after had 2 falls this morning, patient stated that she lose consciousness for a minute or so , she denies any is symptom of chest pain or shortness of breath or palpitations during these episodes,she denies any seizure like movements . She says that she is having diarrhea for 3-4 days and also was not eating well, on top of that she was taking her blood pressure medications also. And also multiple psych and pain medications. This afternoon she was sitting on the chair than try to walk and she felt dizzy and fell-she said the episode happened 2 time as above. As per the patient the EMS checked her blood pressure was in 80s. She also complain of rhinrrae and cough. She denies any sick contacts or travel or any antibiotic use recently. She says her diarrhea is improving. She initially complained of some chest discomfort to ED physician-but when I evaluated the patient she denies any chest discomfort. She feels generalized weak. Denies any new complaint of shortness of breath or abdominal pain or fever or chills or nausea or vomiting Denies any weakness or numbness. Lab imaging EKG reviewed: WBC count mild elevated 11.9, sodium 135, BUN [address] head and neck negative Chest x-ray also negative EKG: NSR at 95 beats per minute. troponins -3.3 ed: received iv fluids ,admission requested for adolfo ,dehydration ,syncope. Hospital course: syncope and adolfo ,fall, also patient was orthostatic -likely multifactorial: dehydration, BP medications, pain med also might be contributing,: hydrated ,blood pressure improved , hold lisinipril for now ( repeat bmp in 1 week before starting lisinopril) ,also only start lisinopril if bp consistently above 140 mmhg. orthostasis also improving with above supportive care -continue yousif stockings , moniter blood pressure outpatient.patient is asymptomatic. seen by PT-recomended home PT. in addition - adjusted oxycodone to daily and beclofen adjusted also. plan: Increased for p.o. intake and hydration, medication adjustment oxycodone adjusted to daily, baclofen twice daily, lisinopril so far on hold. Continue Yousif stockings.also advised her to walk slowly and take time , Monitor BMP in 1 week. Further management out patiently as per PCP. ` Time Attestation Discharge coordination time: Greater than 30 minutes Quality: Safe Use of Opioids Does Pt have an Active Cancer Diagnosis on the Problem List?: No Quality: Stroke Does the patient have a stroke diagnosis?: No Physical Exam Vital Signs: Vital Signs: Last Vital Signs Temp 97.2 F 12/17/22 09:45 Pulse 79 12/17/22 09:45 Resp 18 12/17/22 09:45 BP 127/66 12/17/22 09:45 Pulse Ox 99 12/17/22 09:45 O2 Del Method Room Air 12/17/22 09:45 BMI result Body Mass Index 32.9 Appearance: Alert.? Oriented X3.? cvs: rrr, [id number] , no murmur res: clear to auscultation ,no rhonchii or wheezing abd: no rebound or guarding ,nt, bs present. ext pulses present , no cyanosis . neuro: axo3 , nonfocal. DS: Data Data Completed and Pending Completed studies during hospitalization [Text1]: Procedures Excision of Stomach, Pylorus, Via Natural or Artificial Opening Endoscopic, Diagnostic (04/27/20) Labs on day of discharge: Laboratory Results - last 24 hr 12/15/22 15:05 Respiratory Panel [facility] See Note Adenovirus (Rapid PCR) Not Detected B.pert (TEM-PCR) Not Detected B.parapertussis DNA PCR Not Detected C. pneumoniae DNA (PCR) Not Detected Coronavirus OC43 (PCR) Not Detected Coronavirus HKU1 (PCR) Not Detected Coronavirus 229E (PCR) Not Detected Coronavirus NL63 (PCR) Not Detected Human Metapneumovir PCR Not Detected Influenza A (RT-PCR) Not Detected Influenza B (RT-PCR) Not Detected M. pneumoniae (PCR) Not Detected Parainfluenza 1 (PCR) Not Detected Parainfluenza 2 (PCR) Not Detected Parainfluenza 3 (PCR) Not Detected Parainfluenza 4 (PCR) Not Detected RSV (PCR) Not Detected Entero/Rhino (PCR) Detected A SARS-CoV-2 RNA (RT-PCR) Not Detected Imaging Chest x-ray: Radiologist's impression: ITS Impressions Chest X-Ray 12/14/22 11:04 IMPRESSION: No evidence for acute disease in the chest. Hip X-Ray 12/14/22 11:04 IMPRESSION: No fracture or dislocation. Cervical Spine CT 12/14/22 11:18 IMPRESSION: * No acute intracranial pathology compared to 12/15/2021. * No fracture or traumatic subluxation in the degenerated cervical spine. * Incidentally noted is paranasal sinus disease with moderate mucosal thickening of maxillary sinuses; however, no air-fluid levels within paranasal sinuses. Head CT 12/14/22 11:18 IMPRESSION: * No acute intracranial pathology compared to 12/15/2021. * No fracture or traumatic subluxation in the degenerated cervical spine. * Incidentally noted is paranasal sinus disease with moderate mucosal thickening of maxillary sinuses; however, no air-fluid levels within paranasal sinuses. Discharge Plan Discharge Anticipated Discharge Date/Time: 12/17/22 10:27 Patient Disposition: Home Health Service Discharge Diagnosis: adolfo, dehydration ,syncope. Referrals: Physician,Unknown J [Primary Care Provider] - 1 Week Discharge Medications: Continued clozapine 100 mg Tablet 450 mg PO BEDTIME levothyroxine 75 mcg Tablet 75 mcg PO DAILY@0600 ferrous sulfate 325 mg (65 mg iron) Tablet 325 mg PO DAILY folic acid 1 mg Tablet 1 mg PO DAILY pravastatin 20 mg Tablet 20 mg PO BEDTIME lamotrigine [Lamictal] 100 mg Tablet 100 mg PO BID cholecalciferol (vitamin D3) [Vitamin D3] 25 mcg (1,000 unit) Capsule 25 mcg PO BEDTIME acetaminophen 325 mg Tablet 650 mg PO TID dextromethorphan-guaifenesin 10-100 mg/5 mL Syrup 10 ml PO Q6H PRN (Reason: Cough) budesonide 3 mg Capsule,Delayed,Extend.Release 3 mg PO MOFR@1000 PRN (Reason: Diarrhea) sennosides-docusate sodium [Senna Plus] 8.6-50 mg tablet 1 tab PO DAILY PRN (Reason: Constipation) omeprazole 40 mg Capsule,Delayed Release(Dr/Ec) 40 mg PO DAILY@0630 Qty: 30 0RF prednisone 5 mg tablet 5 mg PO DAILY paroxetine HCl 30 mg tablet 30 mg PO DAILY gabapentin 100 mg capsule 100 mg PO TID metoprolol tartrate 25 mg tablet 25 mg PO BID Eliquis 2.5 mg tablet 2.5 mg PO BID methocarbamol 500 mg Tablet 500 mg PO TID PRN (Reason: Muscle Spasm) polyethylene glycol 3350 [Miralax] 17 gram Powder In Packet 17 g PO DAILY PRN (Reason: Constipation) triamcinolone acetonide 0.1 % Cream 1 appl TOPICAL BID PRN (Reason: eczema/psoriasis) Changed baclofen 20 mg tablet 20 mg PO BID Qty: 1 0RF oxycodone 5 mg tablet 5 mg PO DAILY Qty: 1 0RF Held lisinopril 2.5 mg tablet 2.5 mg PO DAILY Hold Instructions: Resume on 12/23/22. start if blood pressure consistently above 140 mmhg and after repeating bmp Discharge Orders: Discharge Order (Routine); Ordered 12/17/22 Ordered By: Anish Gutiérrez Diet: Advance to usual diet Activity on Discharge: As tolerated Stand Alone Forms: Patient Portal Discharge page Care Plan Goals: syncope and adolfo ,fall -likely multifactorial: dehydration, BP medications, pain med also might be contributing: hydrated ,blood pressure improved , hold lisinipril for now ( repeat bmp in 1 week before starting lisinopril) ,also only start lisinopril if bp consistently above 140 mmhg. seen by PT-recomended home PT. in addition - adjusted oxycodone to daily and beclofen adjusted also. Health Concerns: as above. Plan of Treatment: as above. Assessment: as above.
--- NOTE | 2022-12-17 10:48 | MHC.CM.PN ---
Pt is medically cleared for D/C back to [facility] today with new NA for PT services. Transport set up for 12pm via [facility]. [facility] was called and notified, also D/C faxed to her at [phone]. Pts sister Francoise also notified.
[2022-12-17 11:01] VITALS: BP 118/65; PULSE 78; RESP 18; TEMP 36.2; O2SAT 95
--- NOTE | 2022-12-17 11:37 | W.MHC.F2F ---
Service Date Service Date: 12/17/22 Encounter Date of encounter: 12/17/22 Encounter: orthostasis, syncope, ADOLFO Reasons for Services Signs and symptoms assessed: orthostasis, syncope, ADOLFO Reason for physical therapy: home safety and mobility, therapeutic exercises, restore joint function, gait/transfer training, assess need for DME, ADL training, energy conservation and other MD Overseeing Care: Bal Temple Homebound: Leaving the home is medically contraindicated at this time without the asist of a device and/or another person due th the listed conditions above and below. Reason homebound: weakness related to hospital stay Homebound supporting statement: Patient multiple comorbidities-including recent syncope, ADOLFO, generalized weak for hospital stay-will benefit from home PT. Certification: Based on the above findings, I certify that this patient is confined to the home and needs intermittent detention care, physical therapy and/or speech therapy, or continues to need occupational therapy. The patient is under my care, and I have initiated the establishment of the plan of care. The patient will be followed by a physician who will periodically review the plan of care. Time Spent With Patient Time: Total time managing care of this patient today ____ minutes.
== END 2022-12-17 12:19 | disposition home health service (06) | DRG 312 ==
LOC: HO.ED 14:25 → HO.EDOVER 15:48 → HO.IMC 16:15
PROVIDERS: Admitting Provider Internal Medicine; Emergency Provider Emergency Medicine; PCP Internal Medicine; Visit Provider Internal Medicine
DX: I95.1 Orthostatic hypotension (principal); N17.9 Acute kidney failure, unspecified; E03.9 Hypothyroidism, unspecified; F25.9 Schizoaffective disorder, unspecified; M54.16 Radiculopathy, lumbar region; E86.1 Hypovolemia; J06.9 Acute upper respiratory infection, unspecified; B97.10 Unspecified enterovirus as the cause of diseases classified elsewhere; E78.5 Hyperlipidemia, unspecified; G89.29 Other chronic pain; E86.0 Dehydration; Z20.822 Contact with and (suspected) exposure to COVID-19; Z79.01 Long term (current) use of anticoagulants; Z79.890 Hormone replacement therapy; Z79.899 Other long term (current) drug therapy
CPT/HCPCS: 36415; 70450; 71045; 72125; 73522; 80048; 80053; 80076; 81001; 83690; 84484; 85025; 85027; 87086; 87633; 93005; 97161; 99222; 99285

== ENCOUNTER → 2022-12-14 15:15 | Outpatient (BNV) | payer MEDICARE, MEDICAID, SELFPAY | PROVIDERS: Admitting Provider Internal Medicine; Emergency Provider Emergency Medicine; Visit Provider Internal Medicine | DX: N17.9 Acute kidney failure, unspecified (principal); I95.1 Orthostatic hypotension | CPT/HCPCS: 99222; 99231; 99232; 99239; G0180 ==

== ENCOUNTER → 2022-12-14 15:15 | Outpatient (BNV) | payer MEDICARE, MEDICAID, SELFPAY | PROVIDERS: Admitting Provider Internal Medicine; Emergency Provider Emergency Medicine; Visit Provider Psychiatry & Neurology Psychiatry | DX: F25.9 Schizoaffective disorder, unspecified (principal) | CPT/HCPCS: 99282 ==

== ENCOUNTER 2023-01-23 12:12 | Emergency (ER) | payer MEDICARE, MEDICAID, SELFPAY ==
--- NOTE | ~2023-01-23 | CT_ITS ---
EXAMINATION: CT ABDOMEN AND PELVIS WITHOUT CONTRAST CLINICAL INFORMATION: History of ulcerative colitis. Abdominal pain. COMPARISON: None available. TECHNIQUE: Multidetector volumetric imaging was performed from the superior aspect of the liver through the pubic symphysis. Sagittal and coronal reformatted images were obtained on the technologist's workstation. This CT examination was performed using dose optimization techniques as appropriate, variously including the following: *Automated exposure control *Adjustment of mA and/or kV according to patient size (this includes techniques or standardized protocols for targeted exams where dose is matched to indication/reason for exam; i.e. extremities or head) *Use of iterative reconstruction technique DLP: 827 mGy-cm FINDINGS: LUNG BASES: The visualized lung bases are unremarkable. LIVER, GALLBLADDER, AND BILIARY TREE: The noncontrast liver is normal in size and contour. No biliary ductal dilatation is present. The gallbladder is unremarkable with no evidence of radiopaque gallstones, gallbladder wall thickening, or obvious pericholecystic inflammatory changes. PANCREAS: No ductal dilatation. SPLEEN: Not enlarged. ADRENAL GLANDS: No adrenal mass. KIDNEYS AND URETERS: The kidneys are symmetric in size. No hydronephrosis, hydroureter, or calculi seen. No perinephric stranding. BLADDER: Lateral bladder diverticula. GASTROINTESTINAL TRACT: Fluid distention of the cecum through the transverse colon. No significant colonic bowel wall thickening or pericolonic inflammatory changes. No small bowel obstruction. ABDOMINAL WALL: No significant hernia is appreciated. LYMPH NODES: Subcentimeter mesenteric lymph nodes are nonspecific. VASCULAR: Normal caliber abdominal aorta. PELVIC VISCERA: Unremarkable. OSSEOUS STRUCTURES: No destructive bone lesions. CT/CT abdomen pelvis wo IV con IMPRESSION: Fluid distention of the cecum through the transverse colon. This could represent colitis in the appropriate clinical setting. Lateral bladder diverticula.
--- NOTE | ~2023-01-23 | XR_ITS ---
EXAMINATION: XR CHEST CLINICAL INFORMATION: Reason for Exam SOB COMPARISON: Chest radiograph 12/14/2022 TECHNIQUE: One view of the chest FINDINGS: Lines and tubes: EKG leads overlie the patient. Clear lungs. No pleural effusion. No pneumothorax. Unchanged cardiomediastinal silhouette. XR/XR chest 1V IMPRESSION: * Clear lungs.
--- NOTE | 2023-01-23 12:20 | ECG_ITS ---
Test Reason : ABD PAIN Blood Pressure : / mmHG Vent. Rate : 084 BPM Atrial Rate : 084 BPM P-R Int : 164 ms QRS Dur : 118 ms QT Int : 388 ms P-R-T Axes : 037 -15 008 degrees QTc Int : 458 ms Normal sinus rhythm Left ventricular hypertrophy with QRS widening ( R in aVL , [place] product ) Abnormal ECG When compared with ECG of 14-DEC-2022 11:31, T wave inversion now evident in Inferior leads Referred By: Marti Schroeder Electronically Signed By:Hernandez Newman
[2023-01-23 12:26] VITALS: BP 118/78; PULSE 85; RESP 20; TEMP 36.6; O2SAT 96; O2SAT 99; BMI 36.5
[2023-01-23 12:34] VITALS: BP 110/56; RESP 20
--- NOTE | 2023-01-23 12:57 | PC.NURSE ---
Alert and oriented. patient repors 2-3 days ago started with respiratory symptoms. Bilat wheezing heard, diminished at bases. Patient reporst hx of pn in the past. 97% on RA.
[2023-01-23 13:13] LABS: MANUAL DIFF FLAG NO
[2023-01-23 13:16] LABS: Basophils Percent Auto 0.4 % (0-2); Eosinophils Absolute Auto 0.1 X10*3/uL (0.0-0.4); Eosinophils Percent Auto 1.2 % (0-4); Hematocrit 36.7 % (37.0-47.0); Hemoglobin 11.3 g/dl (12.0-16.0); Imm Gran Abs Auto 0.07 X10*3/uL (0.00-0.03); Imm Gran Pct Auto 0.9 % (0.0-0.4); Lymphocytes Absolute Auto 0.8 X10*3/uL (1.2-4.9); Lymphocytes Percent Auto 9.8 % (20-40); Mean Corpuscular HGB Conc 30.8 g/dl (31.0-35.0); Mean Corpuscular Hemoglobin 32.6 pg (27.0-33.0); Mean Corpuscular Volume 105.8 fL (80.0-98.0); Mean Platelet Volume 8.6 fL (9.4-12.3); Monocytes Absolute Auto 0.9 X10*3/uL (0.1-1.2); Neutrophils Absolute Auto 6.3 x10*3/uL (2.0-8.3); Neutrophils Percent Auto 76.7 % (45-73); Platelet Count 191 X10*3/uL (160-400); Red Blood Count 3.47 X10*6/uL (4.20-5.50); Red Cell Distribution Width 13.6 % (11.0-16.0); White Blood Count 8.2 X10*3/uL (4.8-10.8)
--- NOTE | 2023-01-23 13:18 | ED.GENADULT ---
HPI - General Adult General Chief complaint: General Medical Stated complaint: ABD PAIN PER EMS Time Seen by Provider: 01/23/23 13:11 Source: patient and EMS Mode of arrival: ambulatory Limitations: no limitations History of Present Illness HPI narrative: 67-year-old female who lives at assisted living came in for evaluation of coughing and shortness of breath started 2-3 days ago, patient declined any fever or chills decline any history of lung disease or history of smoking, no sick contacts, recent travel, no recent use of antibiotic. No lower extremity swelling or tenderness. Patient also is complaining of nonbloody watery diarrhea with intermittent abdominal cramps patient had a history of ulcerative colitis is in remission stage now. No past intra-abdominal surgery. Related Data Home Medications Medication Instructions Recorded Confirmed cholecalciferol (vitamin D3) 25 25 mcg PO BEDTIME 01/08/20 12/14/22 mcg (1,000 unit) capsule (Vitamin D3) clozapine 100 mg tablet 450 mg PO BEDTIME 01/08/20 12/14/22 ferrous sulfate 325 mg (65 mg 325 mg PO DAILY 01/08/20 12/14/22 iron) tablet folic acid 1 mg tablet 1 mg PO DAILY 01/08/20 12/14/22 lamotrigine 100 mg tablet 100 mg PO BID 01/08/20 12/14/22 (Lamictal) levothyroxine 75 mcg tablet 75 mcg PO DAILY@0600 01/08/20 12/14/22 pravastatin 20 mg tablet 20 mg PO BEDTIME 01/08/20 12/14/22 acetaminophen 325 mg tablet 650 mg PO TID FEVER/PAIN 03/10/20 12/14/22 budesonide 3 mg 3 mg PO MOFR@1000 PRN Diarrhea 03/10/20 12/14/22 capsule,delayed,extended release dextromethorphan-guaifenesin 10 10 ml PO Q6H PRN Cough 03/10/20 12/14/22 mg-100 mg/5 mL oral syrup sennosides 8.6 mg-docusate sodium 1 tab PO DAILY PRN Constipation 04/27/20 12/14/22 50 mg tablet (Senna Plus) apixaban 2.5 mg tablet (Eliquis) 2.5 mg PO BID 12/14/22 12/14/22 gabapentin 100 mg capsule 100 mg PO TID 12/14/22 12/14/22 lisinopril 2.5 mg tablet 2.5 mg PO DAILY 12/14/22 12/14/22 methocarbamol 500 mg tablet 500 mg PO TID PRN Muscle Spasm 12/14/22 12/14/22 metoprolol tartrate 25 mg tablet 25 mg PO BID 12/14/22 12/14/22 paroxetine HCl 30 mg tablet 30 mg PO DAILY 12/14/22 12/14/22 polyethylene glycol 3350 17 gram 17 g PO DAILY PRN Constipation 12/14/22 12/14/22 oral powder packet (Miralax) prednisone 5 mg tablet 5 mg PO DAILY 12/14/22 12/14/22 triamcinolone acetonide 0.1 % 1 appl topical BID PRN 12/14/22 12/14/22 topical cream eczema/psoriasis Previous Rx's Medication Instructions Recorded omeprazole 40 mg capsule,delayed 40 mg PO DAILY@0630 #30 caps 05/01/20 release baclofen 20 mg tablet 20 mg PO BID #1 tab 12/16/22 oxycodone 5 mg tablet 5 mg PO DAILY Pain #1 tab 12/16/22 Allergies Allergy/AdvReac Type Severity Reaction Status Date / Time bee pollen [Bee Stings] Allergy Severe ANAPHYLAXIS Verified 12/14/22 10:59 Review of Systems Review of Systems: All other systems are reviewed and are negative Constitutional: Reports as per HPI and Reports no additional constitutional complaints Eyes: Reports as per HPI and Reports no additional eye complaints Reports system reviewed and no additional complaints, except as documented Cardiovascular: Reports as per HPI and Reports no additional cardiovascular complaints Respiratory: Reports as per HPI and Reports no additional respiratory complaints Gastrointestinal: Reports as per HPI and Reports no additional gastrointestinal complaints Genitourinary: Reports no additional female genitourinary complaints Musculoskeletal: Reports no additional musculoskeletal complaints Skin/Breast: Reports system reviewed and no additional complaints, except as docu Psychiatric: Reports no additional psychiatric complaints Endocrine: Reports no additional endocrine complaints Hematologic/Lymphatic: Reports no additional hematologic/lymphatic complaints Allergic/Immunologic: Reports no additional allergic/immunologic complaints Reports system reviewed and no additional complaints, except as documented and Reports Abnormal speech present PMFSH Past Medical History Medical History Diastolic CHF Schizoaffective disorder Hypothyroidism Transient cerebral ischemia Lumbar radiculopathy Pulmonary embolism Psychosis Anxiety Bipolar 1 disorder Family History Family History Other Heart disease Social History Social History Household Members: None Housing: Assisted Living Facility Housing Other:: [facility] Do you presently have visiting nurse or other home services: Yes Alcohol intake: never Comment: Pt refusing bed alarm Patient Tobacco Use Status: Never used Tobacco Smoked in Last 30 Days: No Use of substances other than those prescribed or required for medical reasons: No Advance Directives: Yes Advance Directives on File: Yes Advance Directives Date on File: 05/02/20 service: No Current occupational status: retired Physical Exam ED Vital Signs: Vital Signs - 24 hr 01/23/23 12:26 01/23/23 12:34 01/23/23 15:24 Temperature 97.9 F Pulse Rate 82 Respiratory Rate 20 20 19 Blood Pressure 110/56 L 122/64 Pulse Oximetry 96 97 Oxygen Delivery Method Room Air Room Air 01/23/23 18:00 Temperature Pulse Rate 87 Respiratory Rate 18 Blood Pressure 141/69 H Pulse Oximetry 96 Oxygen Delivery Method Room Air BMI result Body Mass Index 36.5 Vital signs have been reviewed and appear to be correct. Blood pressure elevated. Heart rate normal. Respiratory rate normal. Temperature normal. Oxygen saturation normal. Appearance: Alert. Oriented X3. No acute distress. Head: Normal external exam. Normocephalic. Atraumatic. No Gutierrez signs noted. No raccoon eyes noted Eyes: PERRLA. EOMI. Conjunctiva and sclera normal. Eyelids normal. ENT: TM's Normal. Pharynx normal. Uvula midline. Moist mucous membranes. No trismus noted. No drooling noted. No muffled voice noted. Neck: Normal inspection. Neck supple. FROM. No adenopathy. Thyroid Normal. No meningeal signs. No neck mass noted. CVS: Normal heart rate and rhythm. Heart sound normal. No murmurs noted. Pulses normal throughout. Respiratory: No respiratory distress. Painless inspiration. Breath sounds normal. Diffuse mild expiratory wheezing with prolonged expiration. Chest nontender. No accessory muscle usage noted or decreased air movement noted. Abdomen: Soft and nontender. Bowel sounds normal in all 4 quadrants. No distention noted. No organomegaly noted. No visible injury noted. Back: No CVA tenderness. Full range of motion noted. Skin: Skin warm and dry. Normal skin color. Normal skin turgor. No rashes/lesions/lacerations noted. Extremities: No lower extremity edema. Extremities exhibit normal range of motion. Extremities nontender. Neuro: Oriented X 3. Cranial nerve exam: II-XII are grossly intact No motor deficit. No sensory deficit. Reflexes normal. Course Reevaluation(s) Reevaluation #1: This is a 67-year-old female came in for evaluation of shortness of breath and difficulty breathing with coughing, patient is positive for RSV, flu year chest x-ray for pneumonia or any other pathology. Nonbloody watery diarrhea with abdominal cramps patient is able to tolerate tuna sandwich in the emergency department with good appetite and no nausea or vomiting. Repeat abdominal exam is unremarkable, no leukocytosis. Will discharge patient was instructed to use facemask and repetitive hand washing. Time: 19:11 Medical Decision Making Differential Diagnosis Differential Diagnoses: The differential diagnosis associated with the presentation includes (Pneumonia, pneumothorax, pleural effusion, upper respiratory viral infection, colitis, diverticulitis, UTI, severe anemia, electrolyte abnormality with dehydration.) Admission/Observation Consideration of admission/observation: Escalation of care including admission/observation considered Lab Data MDM Lab Attestation statement: I reviewed the patient's lab results. 01/23/23 13:08 01/23/23 13:08 Labs: Lab Results 01/23/23 01/23/23 01/23/23 Range/Units 13:08 13:39 13:40 WBC 8.2 (4.8-10.8) X10*3/uL RBC 3.47 L (4.20-5.50) X10*6/uL Hgb 11.3 L (12.0-16.0) g/dl Hct 36.7 L (37.0-47.0) % MCV 105.8 H (80.0-98.0) fL MCH 32.6 (27.0-33.0) pg MCHC 30.8 L (31.0-35.0) g/dl RDW 13.6 (11.0-16.0) % Plt Count 191 (160-400) X10*3/uL MPV 8.6 L (9.4-12.3) fL Immature Gran % (Auto) 0.9 H (0.0-0.4) % Neut % (Auto) 76.7 H (45-73) % Lymph % (Auto) 9.8 L (20-40) % [place] % (Auto) 11.0 (2-11) % Eos % (Auto) 1.2 (0-4) % Baso % (Auto) 0.4 (0-2) % Lymph # (Auto) 0.8 L (1.2-4.9) X10*3/uL [place] # (Auto) 0.9 (0.1-1.2) X10*3/uL Eos # (Auto) 0.1 (0.0-0.4) X10*3/uL Baso # (Auto) 0.0 (0.0-0.2) X10*3/uL Abs Immat Gran (auto) 0.07 H (0.00-0.03) X10*3/uL Absolute Neuts (auto) 6.3 (2.0-8.3) x10*3/uL Absolute Nucleated RBC 0.000 (0.0-0.012) X10*3/uL Nucleated RBC % (auto) 0.0 (0.0-0.2) /100WBC Sodium 139 (135-145) mmol/L Potassium 4.6 (3.3-5.1) mmol/L Chloride 108 (96-108) mmol/L Carbon Dioxide 26 (22-29) mmol/L Anion Gap 10 L (12-20) BUN 22 H (9-16) mg/dL Creatinine 0.85 (0.5-1.4) mg/dL Estim Creat Clear Calc 72.9 Estimated GFR > 60 Random Glucose 85 (60-115) mg/dL Lactic Acid 1.0 (0.5-2.0) mmol/L Calcium 8.9 (8.4-10.2) mg/dL Total Bilirubin 0.2 (0.0-1.0) mg/dL AST 15 (5-31) U/L ALT 12 (0-31) U/L Alkaline Phosphatase 84 (39-117) U/L Total Protein 6.1 L (6.5-8.0) g/dL Albumin 3.7 (3.5-5.0) g/dL Lipase 24 (8-78) U/L Urine Color Yellow Urine Appearance Clear Urine pH 6.0 (5.0-9.0) Ur Specific [place] 1.015 (1.005-1.025) Urine Protein Negative (Neg-Trace) mg/dL Urine Glucose (UA) Negative (Negative) mg/dL Urine Ketones Negative (Negative) mg/dL Urine Blood Negative (Negative) Urine Nitrite Negative (Negative) Ur Leukocyte Esterase Negative (Negative) Influenza Type A (PCR) (Negative) Influenza Type B (PCR) (Negative) RSV RNA Qual (PCR) (Negative) SARS-CoV-2 RNA (RT-PCR) (Negative) 01/23/23 Range/Units 13:47 WBC (4.8-10.8) X10*3/uL RBC (4.20-5.50) X10*6/uL Hgb (12.0-16.0) g/dl Hct (37.0-47.0) % MCV (80.0-98.0) fL MCH (27.0-33.0) pg MCHC (31.0-35.0) g/dl RDW (11.0-16.0) % Plt Count (160-400) X10*3/uL MPV (9.4-12.3) fL Immature Gran % (Auto) (0.0-0.4) % Neut % (Auto) (45-73) % Lymph % (Auto) (20-40) % [place] % (Auto) (2-11) % Eos % (Auto) (0-4) % Baso % (Auto) (0-2) % Lymph # (Auto) (1.2-4.9) X10*3/uL [place] # (Auto) (0.1-1.2) X10*3/uL Eos # (Auto) (0.0-0.4) X10*3/uL Baso # (Auto) (0.0-0.2) X10*3/uL Abs Immat Gran (auto) (0.00-0.03) X10*3/uL Absolute Neuts (auto) (2.0-8.3) x10*3/uL Absolute Nucleated RBC (0.0-0.012) X10*3/uL Nucleated RBC % (auto) (0.0-0.2) /100WBC Sodium (135-145) mmol/L Potassium (3.3-5.1) mmol/L Chloride (96-108) mmol/L Carbon Dioxide (22-29) mmol/L Anion Gap (12-20) BUN (9-16) mg/dL Creatinine (0.5-1.4) mg/dL Estim Creat Clear Calc Estimated GFR Random Glucose (60-115) mg/dL Lactic Acid (0.5-2.0) mmol/L Calcium (8.4-10.2) mg/dL Total Bilirubin (0.0-1.0) mg/dL AST (5-31) U/L ALT (0-31) U/L Alkaline Phosphatase (39-117) U/L Total Protein (6.5-8.0) g/dL Albumin (3.5-5.0) g/dL Lipase (8-78) U/L Urine Color Urine Appearance Urine pH (5.0-9.0) Ur Specific [place] (1.005-1.025) Urine Protein (Neg-Trace) mg/dL Urine Glucose (UA) (Negative) mg/dL Urine Ketones (Negative) mg/dL Urine Blood (Negative) Urine Nitrite (Negative) Ur Leukocyte Esterase (Negative) Influenza Type A (PCR) NEGATIVE (Negative) Influenza Type B (PCR) NEGATIVE (Negative) RSV RNA Qual (PCR) POSITIVE A (Negative) SARS-CoV-2 RNA (RT-PCR) NEGATIVE (Negative) Independent Interpretation I performed an independent interpretation of an: Plain X-Ray (Chest: Clear lungs) and CT Scan (Abdomen and pelvis:Fluid distention of the cecum through the transverse colon. This could represent colitis in the appropriate clinical setting. Lateral bladder diverticula.) Radiology Impression Discussion of test interpretation with radiology: I have reviewed the radiologist's reading. Discharge Plan Discharge Clinical Impression: Respiratory syncytial virus (RSV), Colitis Patient Disposition: Home, Self-Care Instructions: Respiratory Syncytial Virus (ED) Prescriptions: No Action clozapine 100 mg Tablet 450 mg PO BEDTIME levothyroxine 75 mcg Tablet 75 mcg PO DAILY@0600 ferrous sulfate 325 mg (65 mg iron) Tablet 325 mg PO DAILY folic acid 1 mg Tablet 1 mg PO DAILY pravastatin 20 mg Tablet 20 mg PO BEDTIME lamotrigine [Lamictal] 100 mg Tablet 100 mg PO BID cholecalciferol (vitamin D3) [Vitamin D3] 25 mcg (1,000 unit) Capsule 25 mcg PO BEDTIME acetaminophen 325 mg Tablet 650 mg PO TID dextromethorphan-guaifenesin 10-100 mg/5 mL Syrup 10 ml PO Q6H PRN (Reason: Cough) budesonide 3 mg Capsule,Delayed,Extend.Release 3 mg PO MOFR@1000 PRN (Reason: Diarrhea) sennosides-docusate sodium [Senna Plus] 8.6-50 mg tablet 1 tab PO DAILY PRN (Reason: Constipation) omeprazole 40 mg Capsule,Delayed Release(Dr/Ec) 40 mg PO DAILY@0630 Qty: 30 0RF prednisone 5 mg tablet 5 mg PO DAILY paroxetine HCl 30 mg tablet 30 mg PO DAILY gabapentin 100 mg capsule 100 mg PO TID lisinopril 2.5 mg tablet 2.5 mg PO DAILY Hold Instructions: Resume on 12/23/22. start if blood pressure consistently above 140 mmhg and after repeating bmp metoprolol tartrate 25 mg tablet 25 mg PO BID Eliquis 2.5 mg tablet 2.5 mg PO BID methocarbamol 500 mg Tablet 500 mg PO TID PRN (Reason: Muscle Spasm) polyethylene glycol 3350 [Miralax] 17 gram Powder In Packet 17 g PO DAILY PRN (Reason: Constipation) triamcinolone acetonide 0.1 % Cream 1 appl TOPICAL BID PRN (Reason: eczema/psoriasis) baclofen 20 mg tablet 20 mg PO BID Qty: 1 0RF oxycodone 5 mg tablet 5 mg PO DAILY Qty: 1 0RF Referrals: Bal Temple MD [Primary Care Provider] -
[2023-01-23 13:29] LABS: Alanine Aminotransferase 12 U/L (0-31); Albumin Level 3.7 g/dL (3.5-5.0); Alkaline Phosphatase 84 U/L (39-117); Anion Gap 10 (12-20); Aspartate Amino Transferase 15 U/L (5-31); Bilirubin Total 0.2 mg/dL (0.0-1.0); Blood Urea Nitrogen 22 mg/dL (9-16); Calcium 8.9 mg/dL (8.4-10.2); Carbon Dioxide 26 mmol/L (22-29); Chloride 108 mmol/L (96-108); Creatinine Clr Calc Pharmacy 72.9; Estimated Glomerular Filt Rate > 60; Glucose Random 85 mg/dL (60-115); Lipase 24 U/L (8-78); Potassium 4.6 mmol/L (3.3-5.1); Sodium 139 mmol/L (135-145); Total Protein 6.1 g/dL (6.5-8.0)
[2023-01-23 13:58] LABS: Appearance Urine Clear; Color Urine Yellow; Glucose Urine UA Negative (Negative); Leukocyte Esterase Urine Negative (Negative); Nitrite Urine Negative (Negative); Specific Gravity - Urine 1.015 (1.005-1.025); Urine Blood Negative (Negative); Urine Ketones Negative (Negative); Urine Protein Negative (Neg-Trace)
[2023-01-23 14:31] LABS: Influenza A PCR NEGATIVE (Negative); Influenza B PCR NEGATIVE (Negative); Resp Syncy Virus RNA Qual PCR POSITIVE (Negative); SARS COV2 PCR INHOUSE NEGATIVE (Negative)
[2023-01-23 15:24] VITALS: BP 122/64; PULSE 82; RESP 19; O2SAT 97
[2023-01-23 18:00] VITALS: BP 141/69; PULSE 87; RESP 18; O2SAT 96
--- NOTE | 2023-01-23 19:44 | PC.NURSE ---
pt sister Francoise on phone requesting update on pt. pt okayed to give update, phone call transferred to pt.
== END 2023-01-23 20:39 | disposition home or self-care (01) ==
PROVIDERS: Student in an Organized Health Care Education/Training Program; Emergency Provider Emergency Medicine; PCP Internal Medicine
DX: J22 Unspecified acute lower respiratory infection (principal); B97.4 Respiratory syncytial virus as the cause of diseases classified elsewhere; K52.9 Noninfective gastroenteritis and colitis, unspecified; R06.02 Shortness of breath; R94.31 Abnormal electrocardiogram [ECG] [EKG]; Z79.899 Other long term (current) drug therapy; Z20.822 Contact with and (suspected) exposure to COVID-19; Z20.828 Contact with and (suspected) exposure to other viral communicable diseases
CPT/HCPCS: 0241U; 36415; 71045; 74176; 80053; 81003; 83605; 83690; 85025; 87040; 87147; 87205; 93005; 99284

== ENCOUNTER → 2023-01-23 12:20 | Outpatient (BNV) | payer MEDICARE, MEDICAID, SELFPAY | PROVIDERS: Emergency Provider Emergency Medicine; PCP Internal Medicine; Visit Provider Internal Medicine Cardiovascular Disease | DX: R94.31 Abnormal electrocardiogram [ECG] [EKG] (principal) | CPT/HCPCS: 93010 ==

== ENCOUNTER 2023-02-04 04:59 | Emergency (ER) | payer MEDICARE, MEDICAID, SELFPAY ==
[2023-02-04] VITALS (7 sets, daily range): BP systolic 103–125; BP diastolic 56–85; PULSE 90–111; RESP 14–18; TEMP 37.7–37.9; O2SAT 94–98; BMI 30.5
--- NOTE | ~2023-02-04 | XR_ITS ---
EXAMINATION: XR HIP, LEFT CLINICAL INFORMATION: Fall COMPARISON: 12/14/2022 and 05/28/2019 TECHNIQUE: Single AP view of the pelvis Two views of the left hip. FINDINGS: Acute nondisplaced fracture of the left superior pubic ramus at the ileal pubic junction and of the anterior left inferior pubic ramus. No additional fractures. Hip joint space is maintained. Stable presumptive bone islands in the right ilium, right femoral head, and right superior pubic ramus. Soft tissues are unremarkable. XR/XR hip LT w PEL1V IMPRESSION: Acute nondisplaced left superior and inferior pubic rami fractures.
--- NOTE | 2023-02-04 05:17 | ED.GENADULT ---
HPI - General Adult General Chief complaint: Nausea/Vomiting/Diarrhea Stated complaint: left hip/back pain x 1 week -- vomiting Time Seen by Provider: 02/04/23 05:16 Source: patient Mode of arrival: EMS Limitations: no limitations History of Present Illness HPI narrative: Patient assisted living place with schizoaffective disorder comes here for left hip pain for last 1 week was seen here 01/30 CT scan of the abdomen was negative comes here as she fell again today and complaining of pain in the left groin area no other significant injuries patient also had RSV 1 week ago came here with temperature of 100.3 degrees vomited 3 times no abdominal pain no nausea vomiting at this time has occasional cough no urinary symptoms Related Data Home Medications Medication Instructions Recorded Confirmed cholecalciferol (vitamin D3) 25 25 mcg PO BEDTIME 01/08/20 12/14/22 mcg (1,000 unit) capsule (Vitamin D3) clozapine 100 mg tablet 450 mg PO BEDTIME 01/08/20 12/14/22 ferrous sulfate 325 mg (65 mg 325 mg PO DAILY 01/08/20 12/14/22 iron) tablet folic acid 1 mg tablet 1 mg PO DAILY 01/08/20 12/14/22 lamotrigine 100 mg tablet 100 mg PO BID 01/08/20 12/14/22 (Lamictal) levothyroxine 75 mcg tablet 75 mcg PO DAILY@0600 01/08/20 12/14/22 pravastatin 20 mg tablet 20 mg PO BEDTIME 01/08/20 12/14/22 acetaminophen 325 mg tablet 650 mg PO TID FEVER/PAIN 03/10/20 12/14/22 budesonide 3 mg 3 mg PO MOFR@1000 PRN Diarrhea 03/10/20 12/14/22 capsule,delayed,extended release dextromethorphan-guaifenesin 10 10 ml PO Q6H PRN Cough 03/10/20 12/14/22 mg-100 mg/5 mL oral syrup sennosides 8.6 mg-docusate sodium 1 tab PO DAILY PRN Constipation 04/27/20 12/14/22 50 mg tablet (Senna Plus) apixaban 2.5 mg tablet (Eliquis) 2.5 mg PO BID 12/14/22 12/14/22 gabapentin 100 mg capsule 100 mg PO TID 12/14/22 12/14/22 lisinopril 2.5 mg tablet 2.5 mg PO DAILY 12/14/22 12/14/22 methocarbamol 500 mg tablet 500 mg PO TID PRN Muscle Spasm 12/14/22 12/14/22 metoprolol tartrate 25 mg tablet 25 mg PO BID 12/14/22 12/14/22 paroxetine HCl 30 mg tablet 30 mg PO DAILY 12/14/22 12/14/22 polyethylene glycol 3350 17 gram 17 g PO DAILY PRN Constipation 12/14/22 12/14/22 oral powder packet (Miralax) prednisone 5 mg tablet 5 mg PO DAILY 12/14/22 12/14/22 triamcinolone acetonide 0.1 % 1 appl topical BID PRN 12/14/22 12/14/22 topical cream eczema/psoriasis Previous Rx's Medication Instructions Recorded omeprazole 40 mg capsule,delayed 40 mg PO DAILY@0630 #30 caps 05/01/20 release baclofen 20 mg tablet 20 mg PO BID #1 tab 12/16/22 oxycodone 5 mg tablet 5 mg PO DAILY Pain #1 tab 12/16/22 Allergies Allergy/AdvReac Type Severity Reaction Status Date / Time bee pollen [Bee Stings] Allergy Severe ANAPHYLAXIS Verified 12/14/22 10:59 Review of Systems Review of Systems: Yes all other systems are reviewed and are negative PMFSH Past Medical History Medical History Diastolic CHF Schizoaffective disorder Hypothyroidism Transient cerebral ischemia Lumbar radiculopathy Pulmonary embolism Psychosis Anxiety Bipolar 1 disorder Family History Family History Other Heart disease Social History Social History Household Members: None Housing: Assisted Living Facility Housing Other:: [facility] Do you presently have visiting nurse or other home services: Yes Alcohol intake: never Comment: Pt refusing bed alarm Patient Tobacco Use Status: Never used Tobacco Advance Directives: Yes Advance Directives on File: Yes Advance Directives Date on File: 05/02/20 service: No Current occupational status: retired Physical Exam ED Vital Signs: Vital Signs - 24 hr 02/04/23 05:11 Temperature 100.3 F Pulse Rate 111 H Respiratory Rate 17 Blood Pressure 125/85 Pulse Oximetry 97 Oxygen Delivery Method Room Air BMI result Body Mass Index 30.5 Appearance: Alert. Oriented X3. No acute distress. Eyes: No pallor ENT: Pharynx normal. Oral Mucosa moist Neck: Normal inspection. Neck supple. CVS: Normal heart rate and rhythm. Pulses normal. Respiratory: No respiratory distress. Equal air entry bilateral, no wheezing/rales/rhonchi Abdomen: Soft and nontender. Bowel sounds are present, no mass palpable, no CVA tenderness Skin: Skin warm and dry. Normal skin color. Normal skin turgor. Extremities: No lower extremity edema. No calf tenderness tenderness left groin area area good range of movement pelvis stable Neuro: Oriented X 3. No motor deficit. No sensory deficit.No cerebellar signs , cranial nerves II-XII intact Medical Decision Making Medical Decision Making [facility] Narrative: Patient with left superior and inferior pubic rami fracture lives in assisted living 1 be able to get much help there will get a housing case manager involved for rehab placement Differential Diagnosis Differential Diagnoses: The differential diagnosis associated with the presentation includes Fever fracture/pelvic fracture Lab Data [facility] Lab Attestation statement: I reviewed the patient's lab results. 02/04/23 05:33 02/04/23 05:33 Labs: Lab Results 02/04/23 Range/Units 05:33 WBC 10.4 (4.8-10.8) X10*3/uL RBC 4.05 L (4.20-5.50) X10*6/uL Hgb 13.2 (12.0-16.0) g/dl Hct 41.4 (37.0-47.0) % MCV 102.2 H (80.0-98.0) fL MCH 32.6 (27.0-33.0) pg MCHC 31.9 (31.0-35.0) g/dl RDW 13.2 (11.0-16.0) % Plt Count 221 (160-400) X10*3/uL MPV 8.7 L (9.4-12.3) fL Immature Gran % (Auto) 0.7 H (0.0-0.4) % Neut % (Auto) 87.3 H (45-73) % Lymph % (Auto) 3.7 L (20-40) % Alfalfa % (Auto) 6.4 (2-11) % Eos % (Auto) 1.5 (0-4) % Baso % (Auto) 0.4 (0-2) % Lymph # (Auto) 0.4 L (1.2-4.9) X10*3/uL Alfalfa # (Auto) 0.7 (0.1-1.2) X10*3/uL Eos # (Auto) 0.2 (0.0-0.4) X10*3/uL Baso # (Auto) 0.0 (0.0-0.2) X10*3/uL Abs Immat Gran (auto) 0.07 H (0.00-0.03) X10*3/uL Absolute Neuts (auto) 9.1 H (2.0-8.3) x10*3/uL Absolute Nucleated RBC 0.000 (0.0-0.012) X10*3/uL Nucleated RBC % (auto) 0.0 (0.0-0.2) /100WBC Sodium 143 (135-145) mmol/L Potassium 4.2 (3.3-5.1) mmol/L Chloride 107 (96-108) mmol/L Carbon Dioxide 25 (22-29) mmol/L Anion Gap 15 (12-20) BUN 23 H (9-16) mg/dL Creatinine 0.89 (0.5-1.4) mg/dL Estim Creat Clear Calc 56.8 Estimated GFR > 60 Random Glucose 135 H (60-115) mg/dL Calcium 9.4 (8.4-10.2) mg/dL Total Bilirubin 0.3 (0.0-1.0) mg/dL AST 14 (5-31) U/L ALT 10 (0-31) U/L Alkaline Phosphatase 92 (39-117) U/L Total Protein 6.5 (6.5-8.0) g/dL Albumin 3.9 (3.5-5.0) g/dL Independent Interpretation I performed an independent interpretation of an: Plain X-Ray Radiology Impression Discussion of test interpretation with radiology: I have reviewed the radiologist's reading. Discharge Plan Discharge Clinical Impression: Closed fracture of pubic ramus Patient Disposition: Still a Patient Prescriptions: No Action clozapine 100 mg Tablet 450 mg PO BEDTIME levothyroxine 75 mcg Tablet 75 mcg PO DAILY@0600 ferrous sulfate 325 mg (65 mg iron) Tablet 325 mg PO DAILY folic acid 1 mg Tablet 1 mg PO DAILY pravastatin 20 mg Tablet 20 mg PO BEDTIME lamotrigine [Lamictal] 100 mg Tablet 100 mg PO BID cholecalciferol (vitamin D3) [Vitamin D3] 25 mcg (1,000 unit) Capsule 25 mcg PO BEDTIME acetaminophen 325 mg Tablet 650 mg PO TID dextromethorphan-guaifenesin 10-100 mg/5 mL Syrup 10 ml PO Q6H PRN (Reason: Cough) budesonide 3 mg Capsule,Delayed,Extend.Release 3 mg PO MOFR@1000 PRN (Reason: Diarrhea) sennosides-docusate sodium [Senna Plus] 8.6-50 mg tablet 1 tab PO DAILY PRN (Reason: Constipation) omeprazole 40 mg Capsule,Delayed Release(Dr/Ec) 40 mg PO DAILY@0630 Qty: 30 0RF prednisone 5 mg tablet 5 mg PO DAILY paroxetine HCl 30 mg tablet 30 mg PO DAILY gabapentin 100 mg capsule 100 mg PO TID lisinopril 2.5 mg tablet 2.5 mg PO DAILY Hold Instructions: Resume on 12/23/22. start if blood pressure consistently above 140 mmhg and after repeating bmp metoprolol tartrate 25 mg tablet 25 mg PO BID Eliquis 2.5 mg tablet 2.5 mg PO BID methocarbamol 500 mg Tablet 500 mg PO TID PRN (Reason: Muscle Spasm) polyethylene glycol 3350 [Miralax] 17 gram Powder In Packet 17 g PO DAILY PRN (Reason: Constipation) triamcinolone acetonide 0.1 % Cream 1 appl TOPICAL BID PRN (Reason: eczema/psoriasis) baclofen 20 mg tablet 20 mg PO BID Qty: 1 0RF oxycodone 5 mg tablet 5 mg PO DAILY Qty: 1 0RF
[2023-02-04 05:37] LABS: Basophils Percent Auto 0.4 % (0-2); Eosinophils Absolute Auto 0.2 X10*3/uL (0.0-0.4); Eosinophils Percent Auto 1.5 % (0-4); Hematocrit 41.4 % (37.0-47.0); Hemoglobin 13.2 g/dl (12.0-16.0); Imm Gran Abs Auto 0.07 X10*3/uL (0.00-0.03); Imm Gran Pct Auto 0.7 % (0.0-0.4); Lymphocytes Absolute Auto 0.4 X10*3/uL (1.2-4.9); Lymphocytes Percent Auto 3.7 % (20-40); MANUAL DIFF FLAG NO; Mean Corpuscular HGB Conc 31.9 g/dl (31.0-35.0); Mean Corpuscular Hemoglobin 32.6 pg (27.0-33.0); Mean Corpuscular Volume 102.2 fL (80.0-98.0); Mean Platelet Volume 8.7 fL (9.4-12.3); Monocytes Absolute Auto 0.7 X10*3/uL (0.1-1.2); Monocytes Percent Auto 6.4 % (2-11); Neutrophils Absolute Auto 9.1 x10*3/uL (2.0-8.3); Neutrophils Percent Auto 87.3 % (45-73); Platelet Count 221 X10*3/uL (160-400); Red Blood Count 4.05 X10*6/uL (4.20-5.50); Red Cell Distribution Width 13.2 % (11.0-16.0); White Blood Count 10.4 X10*3/uL (4.8-10.8)
[2023-02-04 05:50] LABS: Alanine Aminotransferase 10 U/L (0-31); Albumin Level 3.9 g/dL (3.5-5.0); Alkaline Phosphatase 92 U/L (39-117); Anion Gap 15 (12-20); Aspartate Amino Transferase 14 U/L (5-31); Bilirubin Total 0.3 mg/dL (0.0-1.0); Blood Urea Nitrogen 23 mg/dL (9-16); Calcium 9.4 mg/dL (8.4-10.2); Carbon Dioxide 25 mmol/L (22-29); Chloride 107 mmol/L (96-108); Creatinine Clr Calc Pharmacy 56.8; Estimated Glomerular Filt Rate > 60; Glucose Random 135 mg/dL (60-115); Potassium 4.2 mmol/L (3.3-5.1); Sodium 143 mmol/L (135-145); Total Protein 6.5 g/dL (6.5-8.0)
[2023-02-04] MEDS: Morphine Sulfate 4 MG/ML CARTRIDGE IVPUSH (07:03)
[2023-02-04] MEDS: ondansetron HCL 4 MG/2 ML VIAL IVPUSH (07:03)
[2023-02-04] MEDS: Acetaminophen 325 MG TABLET 650 MG PO (07:31)
--- NOTE | 2023-02-04 07:45 | PC.NURSE ---
Initial contact with pt. pt assisted with bedpan. medicated for pain as ordered.
[2023-02-04 08:09] LABS: Influenza A PCR NEGATIVE (Negative); Influenza B PCR NEGATIVE (Negative); Resp Syncy Virus RNA Qual PCR NEGATIVE (Negative); SARS COV2 PCR INHOUSE NEGATIVE (Negative)
--- NOTE | 2023-02-04 10:23 | MHC.CM.ED ---
Received case management consult. Patient came to the ER due to a fall. Found to have a closed pubic ramus fx. Physical therapy eval completed. Home services are recommended. Met with patient in regards to discharge planning. Patient lives at [facility]. Was active with [facility] in the past. PCP verified. Copy of HCP verified to be on file. Patient received 3 Pfizer and 2 Moderna vaccines. Patient requesting referral to [facility]. Referral made via [facility]. Patient will need transport home. [facility] booked. Continue to monitor for d/c needs.
--- NOTE | 2023-02-04 12:21 | PC.NURSE ---
Attempted to call [facility] x [facility] to notify them that pt left, no answer.
== END 2023-02-04 12:22 | disposition home or self-care (01) ==
PROVIDERS: Emergency Provider Internal Medicine; PCP Internal Medicine
DX: S32.512A Fracture of superior rim of left pubis, initial encounter for closed fracture (principal); R05.9 Cough, unspecified; M54.50 Low back pain, unspecified; M25.552 Pain in left hip; R26.2 Difficulty in walking, not elsewhere classified; R50.9 Fever, unspecified; R11.2 Nausea with vomiting, unspecified; W19.XXXA Unspecified fall, initial encounter; Y93.9 Activity, unspecified; Y92.9 Unspecified place or not applicable; Y99.9 Unspecified external cause status; Z20.822 Contact with and (suspected) exposure to COVID-19; Z20.828 Contact with and (suspected) exposure to other viral communicable diseases; Z79.899 Other long term (current) drug therapy
CPT/HCPCS: 0241U; 36415; 73502; 80053; 85025; 96374; 96375; 97162; 99284; 99285; J2270; J2405

== ENCOUNTER 2023-02-20 04:08 | Emergency (ER) | payer MEDICARE, MEDICAID, SELFPAY ==
[2023-02-20] VITALS (7 sets, daily range): BP systolic 131–168; BP diastolic 69–89; PULSE 82–109; RESP 16–18; TEMP 36.6–36.9; O2SAT 93–98; BMI 39.7
--- NOTE | ~2023-02-20 | XR_ITS ---
EXAMINATION: XR PELVIS CLINICAL INFORMATION: pubic rami fracture L COMPARISON: Left hip radiographs dated 02/04/2023 TECHNIQUE: AP view of the pelvis. FINDINGS: Again seen are fractures of the left superior and inferior pubic rami. Displacement slightly more pronounced as compared to prior, now measuring approximately 2 mm at both . No additional fractures are identified on these images, though sensitivity for sacral ala fractures is somewhat limited by radiograph. 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 Bone islands overlie the right femoral head and acetabulum. There is degenerative spondylosis in the lower lumbar spine with fusion hardware at L3-L4. XR/XR pelvis 1-2V IMPRESSION: Minimally displaced left superior and inferior pubic rami fractures, slightly more pronounced as compared to prior. No additional fractures are identified on these images.
--- NOTE | 2023-02-20 04:36 | ED_ITS ---
HPI - Extremity Problem General Chief complaint: Extremity Problem Stated complaint: pain on left side/leg Time Seen by Provider: 02/20/23 04:31 Source: patient and EMS Mode of arrival: EMS Limitations: no limitations History of Present Illness HPI Narrative: Patient with left pubic rami fracture on 02/04 was seen in the ER went back to group home used to be on oxycodone in the past was being given naproxen [facility] for pain control no recent fall after the last fall on 02/04. Patient is saying that naproxen not enough for her pain and she is having more pain in the left groin area Related Data Home Medications Medication Instructions Recorded Confirmed cholecalciferol (vitamin D3) 25 25 mcg PO BEDTIME 01/08/20 12/14/22 mcg (1,000 unit) capsule (Vitamin D3) clozapine 100 mg tablet 450 mg PO BEDTIME 01/08/20 12/14/22 ferrous sulfate 325 mg (65 mg 325 mg PO DAILY 01/08/20 12/14/22 iron) tablet folic acid 1 mg tablet 1 mg PO DAILY 01/08/20 12/14/22 lamotrigine 100 mg tablet 100 mg PO BID 01/08/20 12/14/22 (Lamictal) levothyroxine 75 mcg tablet 75 mcg PO DAILY@0600 01/08/20 12/14/22 pravastatin 20 mg tablet 20 mg PO BEDTIME 01/08/20 12/14/22 acetaminophen 325 mg tablet 650 mg PO TID FEVER/PAIN 03/10/20 12/14/22 budesonide 3 mg 3 mg PO MOFR@1000 PRN Diarrhea 03/10/20 12/14/22 capsule,delayed,extended release dextromethorphan-guaifenesin 10 10 ml PO Q6H PRN Cough 03/10/20 12/14/22 mg-100 mg/5 mL oral syrup sennosides 8.6 mg-docusate sodium 1 tab PO DAILY PRN Constipation 04/27/20 12/14/22 50 mg tablet (Senna Plus) apixaban 2.5 mg tablet (Eliquis) 2.5 mg PO BID 12/14/22 12/14/22 gabapentin 100 mg capsule 100 mg PO TID 12/14/22 12/14/22 lisinopril 2.5 mg tablet 2.5 mg PO DAILY 12/14/22 12/14/22 methocarbamol 500 mg tablet 500 mg PO TID PRN Muscle Spasm 12/14/22 12/14/22 metoprolol tartrate 25 mg tablet 25 mg PO BID 12/14/22 12/14/22 paroxetine HCl 30 mg tablet 30 mg PO DAILY 12/14/22 12/14/22 polyethylene glycol 3350 17 gram 17 g PO DAILY PRN Constipation 12/14/22 12/14/22 oral powder packet (Miralax) prednisone 5 mg tablet 5 mg PO DAILY 12/14/22 12/14/22 triamcinolone acetonide 0.1 % 1 appl topical BID PRN 12/14/22 12/14/22 topical cream eczema/psoriasis Previous Rx's Medication Instructions Recorded omeprazole 40 mg capsule,delayed 40 mg PO DAILY@0630 #30 caps 05/01/20 release baclofen 20 mg tablet 20 mg PO BID #1 tab 12/16/22 oxycodone 5 mg tablet 5 mg PO DAILY Pain #1 tab 12/16/22 morphine 15 mg immediate release 15 mg PO Q6H PRN pain 5 days #10 02/04/23 tablet tabs tramadol 50 mg tablet 50 mg PO Q8H PRN pain #20 tabs 02/20/23 Allergies Allergy/AdvReac Type Severity Reaction Status Date / Time bee pollen [Bee Stings] Allergy Severe ANAPHYLAXIS Verified 12/14/22 10:59 Review of Systems Review of Systems: Yes all other systems are reviewed and are negative PMFSH Past Medical History Onset Date is defined in the Problem List Problems that require an onset date and time if occurred within 24 hrs of arrival to the ED Aortic Dissection and Rupture; Neurologic impairment; Cardiopulmonary Arrest; Endotracheal Intubation; Insertion or Replacement of Mechanical Circulatory Assist Device Medical History Diastolic CHF Schizoaffective disorder Hypothyroidism Transient cerebral ischemia Lumbar radiculopathy Pulmonary embolism Psychosis Anxiety Bipolar 1 disorder Family History Family History Other Heart disease Social History Social History Household Members: None Housing: Assisted Living Facility Housing Other:: [facility] Do you presently have visiting nurse or other home services: Yes Alcohol intake: never Comment: Pt refusing bed alarm Patient Tobacco Use Status: Never used Tobacco Advance Directives: Yes Advance Directives on File: Yes Advance Directives Date on File: 05/02/20 service: No Current occupational status: retired Physical Exam Vital Signs: Vital Signs: Last Vital Signs Temp 98 F 02/20/23 04:14 Pulse 82 02/20/23 04:14 Resp 16 02/20/23 04:14 BP 131/69 02/20/23 04:14 Pulse Ox 93 02/20/23 04:14 O2 Del Method Room Air 02/20/23 04:14 BMI result Body Mass Index 39.7 Appearance: Alert. Oriented X3. No acute distress. ENT: Pharynx normal. Oral Mucosa moist Neck: Normal inspection. Neck supple. CVS: Normal heart rate and rhythm. Pulses normal. Respiratory: No respiratory distress. Equal air entry bilateral, Abdomen: Soft and nontender. Bowel sounds are present, no mass palpable, no CVA tenderness Skin: Skin warm and dry. Normal skin color. Normal skin turgor. Extremities: No lower extremity edema. No calf tenderness tenderness in left groin area no deformity Neuro: Oriented X 3. No motor deficit. Medications Administered Discontinued Medications Generic Name Dose Route Start Last Admin Trade Name Freq PRN Reason Stop Dose Admin Tramadol HCl 50 mg 02/20/23 04:38 02/20/23 04:47 Tramadol Hcl 50 Mg Tablet PO 02/20/23 04:39 50 mg ONCE ONE Administration Medical Decision Making Medical Decision Making MDM Narrative: Patient with left pubic rami fracture repeat x-ray showed same will discharge patient back to group home on tramadol Independent Interpretation I performed an independent interpretation of an: Plain X-Ray Radiology Impression Discussion of test interpretation with radiology: I have reviewed the radiologist's reading. Radiologist Impression: XR/XR pelvis 1-2V IMPRESSION: Minimally displaced left superior and inferior pubic rami fractures, slightly more pronounced as compared to prior. No additional fractures are identified on these images. Discharge Plan Discharge Clinical Impression: Closed fracture of pubic ramus Patient Disposition: er [facility] Instructions: Pelvic Fracture (ED) Additional Instructions: Continue medication for pain as prescribed Prescriptions: New tramadol 50 mg tablet 50 mg PO Q8H PRN (Reason: pain) Qty: 20 0RF No Action clozapine 100 mg Tablet 450 mg PO BEDTIME levothyroxine 75 mcg Tablet 75 mcg PO DAILY@0600 ferrous sulfate 325 mg (65 mg iron) Tablet 325 mg PO DAILY folic acid 1 mg Tablet 1 mg PO DAILY pravastatin 20 mg Tablet 20 mg PO BEDTIME lamotrigine [Lamictal] 100 mg Tablet 100 mg PO BID cholecalciferol (vitamin D3) [Vitamin D3] 25 mcg (1,000 unit) Capsule 25 mcg PO BEDTIME acetaminophen 325 mg Tablet 650 mg PO TID dextromethorphan-guaifenesin 10-100 mg/5 mL Syrup 10 ml PO Q6H PRN (Reason: Cough) budesonide 3 mg Capsule,Delayed,Extend.Release 3 mg PO MOFR@1000 PRN (Reason: Diarrhea) sennosides-docusate sodium [Senna Plus] 8.6-50 mg tablet 1 tab PO DAILY PRN (Reason: Constipation) omeprazole 40 mg Capsule,Delayed Release(Dr/Ec) 40 mg PO DAILY@0630 Qty: 30 0RF morphine 15 mg tablet 15 mg PO Q6H PRN (Reason: pain) 5 Days Qty: 10 0RF Rx Instructions: Partial Fill upon patient request. prednisone 5 mg tablet 5 mg PO DAILY paroxetine HCl 30 mg tablet 30 mg PO DAILY gabapentin 100 mg capsule 100 mg PO TID lisinopril 2.5 mg tablet 2.5 mg PO DAILY Hold Instructions: Resume on 12/23/22. start if blood pressure consistently above 140 mmhg and after repeating bmp metoprolol tartrate 25 mg tablet 25 mg PO BID Eliquis 2.5 mg tablet 2.5 mg PO BID methocarbamol 500 mg Tablet 500 mg PO TID PRN (Reason: Muscle Spasm) polyethylene glycol 3350 [Miralax] 17 gram Powder In Packet 17 g PO DAILY PRN (Reason: Constipation) triamcinolone acetonide 0.1 % Cream 1 appl TOPICAL BID PRN (Reason: eczema/psoriasis) baclofen 20 mg tablet 20 mg PO BID Qty: 1 0RF oxycodone 5 mg tablet 5 mg PO DAILY Qty: 1 0RF
--- NOTE | 2023-02-20 04:40 | PC.NURSE ---
doppler confirmation of pedal pulse LLE.
[2023-02-20] MEDS: traMADoL HCL 50 MG TABLET PO (04:47)
--- NOTE | 2023-02-20 06:25 | MHC.EDTECH ---
call out to [facility] at [phone] to book transport, estimated eta given [phone]
--- NOTE | 2023-02-20 08:14 | PC.NURSE ---
patient to become pt/cm at this time due to difficulty/inability to ambulate over past couple days. states unable to even utilize commode or bedpan on previous shift, utilizing pure wick at this time.
[2023-02-20 09:06] LABS: COVID-19 Test Negative (Negative); IDNOW Serial# 9DB6401D
[2023-02-20] MEDS: HYDROcodone Bit/Acetam 5/325 TABLET 1 TAB PO (09:09)
--- NOTE | 2023-02-20 10:56 | MHC.CM.ED ---
Received case management consult from Dr Garza. Patient was originally at [facility] ER on 02/04 due to a fall. Found to have a pelvic fracture. Patient did well with physical therapy sangeetha at that time and returned to [facility] for physical therapy. Patient returned to the ER today due to worsening pain. Work up essentially negative. Physical therapy evaluated patient. Short term rehab is recommended. Met with patient in regards to discharge planning. Patient received 3 Pfizer and 2 Moderna vaccines. Copy of HCP verified to be on file. Patient agreeable to referral being broadcasted. [address] [place] [address] is the 1st facility that has offered a bed. Patient aware and accepts. Building info provided to patient. MDS completed. Faxed to [facility] and sent to [address] [place] [address]. [facility] before patient will be able to transfer to [address] [place] [address]. Continue to monitor for d/c needs.
[2023-02-20] MEDS: oxyCODONE HCl Immed Release 5 MG TABLET PO (10:59)
--- NOTE | 2023-02-20 11:28 | PC.NURSE ---
PT ARRIVE TO OVERFLOW UNIT BED 2 FROM MAIN ED VIA STRETCHER. PT PLACED IN A HOSP BED. ADRIENNE WICK IN PLACE. PT IS A/O X 4. NO SOB/JESSICA NOTED. SPEAKS IN FULL SENTENCES. RECEIVED RN TO RN REPORT FROM MAYDA Pelaez
--- NOTE | 2023-02-20 12:11 | MHC.EDTECH ---
Patient rang, purewick had moved and patient was in need of a change. Cleaned bed, changed pads, cleansed lion area and placed new purwick with a brief to help keep it in place
--- NOTE | 2023-02-20 13:16 | PC.NURSE ---
PT HAS OLD BRUISING TO L 2ND & 3RD TOES AREA.
--- NOTE | 2023-02-20 14:28 | PHA.MEDREC ---
Pharmacy Consult ? Medication Reconciliation Pharmacy has completed the medication reconciliation. Med list from [facility].
--- NOTE | 2023-02-20 14:47 | PC.NURSE ---
PT C/O L SIDE 10/10 PAIN/DISC (GROIN, HIP, BACK, LOWER LEG/FOOT). PT HAD A MINUTE R SIDE NOSE BLEED. PT STATES THAT SOMETIMES WHEN HER B/P IS ELEVATED SHE WILL A NOSE BLEED. VSS AT 1440 (MANUALLY) WAS 168/82-101. MLP (MARK MESSINA) AWARE.
--- NOTE | 2023-02-20 15:24 | MHC.EDTECH ---
Patient rang, purwick not functioning properly, removed wet brief and improved placement of the purwick and reinforced with a towel.
[2023-02-20] MEDS: oxyCODONE HCl Immed Release 15 MG TABLET PO (16:38)
== END 2023-02-20 18:52 | disposition skilled nursing facility (03) ==
PROVIDERS: Emergency Medicine; Emergency Provider Internal Medicine; PCP Internal Medicine
DX: R10.32 Left lower quadrant pain (principal); S32.512D Fracture of superior rim of left pubis, subsequent encounter for fracture with routine healing; W19.XXXD Unspecified fall, subsequent encounter; Z11.52 Encounter for screening for COVID-19
CPT/HCPCS: 72170; 87635; 97162; 99284

== ENCOUNTER 2023-04-20 09:42 | Emergency (ER) | payer MEDICARE, MEDICAID, SELFPAY ==
[2023-04-20 10:05] VITALS: BP 118/92; BP 97/55; PULSE 70; PULSE 91; RESP 18; O2SAT 97; BMI 35.8
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
[2023-04-20 11:40] VITALS: BP 119/68; PULSE 68; RESP 19; TEMP 36.7; O2SAT 96
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
== END 2023-04-20 12:27 | disposition home or self-care (01) ==
PROVIDERS: Emergency Provider Student in an Organized Health Care Education/Training Program; PCP Internal Medicine
DX: T24.112A Burn of first degree of left thigh, initial encounter (principal); T31.0 Burns involving less than 10% of body surface; X12.XXXA Contact with other hot fluids, initial encounter; Y93.9 Activity, unspecified; Y92.9 Unspecified place or not applicable; Y99.8 Other external cause status
CPT/HCPCS: 16025; 99283

== ENCOUNTER 2024-09-29 12:30 | Emergency (ER) | payer MEDICARE, MEDICAID, SELFPAY ==
--- NOTE | ~2024-09-29 | CT_ITS ---
EXAMINATION: CT HEAD WITHOUT CONTRAST CLINICAL INFORMATION: Head trauma, fell COMPARISON: December 14, 2022 TECHNIQUE: Contiguous axial imaging was performed from the skull base to vertex without intravenous administration of contrast. This CT examination was performed using dose optimization techniques as appropriate, variously including the following: *Automated exposure control *Adjustment of mA and/or kV according to patient size (this includes techniques or standardized protocols for targeted exams where dose is matched to indication/reason for exam; i.e. extremities or head) *Use of iterative reconstruction technique DLP: 1564 mGY*cm FINDINGS: There is no acute ischemic change. There is no intracranial hemorrhage. There is no mass-effect or midline shift. Basal cisterns and ventricles are within normal limits for age/cerebral volume. Orbits are symmetrical and unremarkable. Paranasal sinuses and mastoid air cells are pneumatized. There are no bony abnormalities. CT/CT head/brain wo IV con IMPRESSION: No acute intracranial abnormality. Electronically signed by: Kong James MD 09/29/2024 02:26 PM EDT
--- NOTE | ~2024-09-29 | CT_ITS ---
EXAMINATION: CT FACIAL BONES WITHOUT CONTRAST CLINICAL INFORMATION: Injury. Nose or bleed . COMPARISON: None available. TECHNIQUE: Contiguous axial images through the maxillofacial bones using 3 mm collimation with bone and soft tissue algorithm. Sagittal and coronal images acquired. DLP: 351.[address] examination was performed using dose optimization techniques as appropriate, variously including the following: *Automated exposure control *Adjustment of mA and/or kV according to patient size (this includes techniques or standardized protocols for targeted exams where dose is matched to indication/reason for exam; i.e. extremities or head) *Use of iterative reconstruction technique FINDINGS: The nasal bones, nasal septum and vomer are intact. The orbital rims, orbital fissures and orbital apices are intact. No hematoma in the intraconal or extraconal compartments of the orbits. The eyeballs are intact. Status post intraocular lens surgery, bilaterally. No soft tissue contusions in the nose the preseptal periorbital region. Maxilla and pterygoid plates are intact. Zygomatic arcs are intact. Mandible is intact. Edentulous. No air-fluid levels in the paranasal sinuses. Tympanic cavities and mastoid cells are aerated. Retropharyngeal trajectory of the carotid arteries. CT/CT facial bones wo IV con IMPRESSION: No acute fracture, maxillofacial bones. No gross hematoma. Electronically signed by: Bam Walden MD 09/29/2024 02:45 PM EDT
--- NOTE | ~2024-09-29 | XR_ITS ---
EXAMINATION: XR HIP, RIGHT CLINICAL INFORMATION: right hip pain COMPARISON: February 04, 2023 and May 28, 2019 TECHNIQUE: Two views of the right hip. FINDINGS: There is hardware in the lower lumbar spine from posterior fusion. Focal high attenuation in the right acetabular roof is unchanged and consistent with benign bone island. There is focal high attenuation in the anterior right femoral head neck junction that demonstrates interval increase in size and density. Hip joint spaces are preserved. Left hip joint space is preserved. Minimal marginal osteophyte formation is present involving fovea, acetabular, and femoral head. There are small marginal osteophytes involving the left acetabular roof and femoral head. There is mature callus formation involving the left superior pubic ramus and inferior pubic ramus related to a healed fracture. XR/XR hip RT w PEL1V IMPRESSION: There is focal lobular high attenuation in the anterior right femoral head neck junction that is increasing in size and density over time. While this probably represents a benign bone island, malignancy is not ruled out. Recommend right hip CT without contrast to evaluate for typical features of a bone island. Healed left pubic ring fracture. 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 Electronically signed by: Kong James MD 09/29/2024 02:06 PM EDT
--- NOTE | ~2024-09-29 | CT_ITS ---
EXAMINATION: CT CERVICAL SPINE WITHOUT CONTRAST CLINICAL INFORMATION: Injury. Status post fall. COMPARISON: December 14, 2022. TECHNIQUE: Contiguous axial images through the cervical spine using 3 mm collimation with bone and soft tissue algorithm. Sagittal and coronal reformatted images acquired. DLP: 548.[address] examination was performed using dose optimization techniques as appropriate, variously including the following: *Automated exposure control *Adjustment of mA and/or kV according to patient size (this includes techniques or standardized protocols for targeted exams where dose is matched to indication/reason for exam; i.e. extremities or head) *Use of iterative reconstruction technique FINDINGS: Craniocervical junction is intact with normal alignment between the occipital condyles and the lateral masses C1. Degenerative changes in the periodontal C1 region with soft tissue calcifications of the ligaments. Anterior marginal osteophyte formation and endplate sclerosis decreased intervertebral disc height and subchondral cyst formation at C4-5 C5-6 and C6-7 levels. Bilateral facet hypertrophy from C2-3 to C6-7. Reverse curvature apex at C4-5. No gross malalignment between the vertebral bodies or the facet joints. C1 is intact. C2 is intact. C3 is intact. C4 is intact. C5 is intact. C6 is intact. C7 is intact. No gross prevertebral compartment hematoma. Retropharyngeal trajectory of the carotid arteries. Tympanic cavities and mastoid cells are aerated. Central spinal canal stenosis on a multifactorial basis from C3-4 to C6-7. Atrophic thyroid gland without dominant nodules. CT/CT cervical spine wo IV con IMPRESSION: Multilevel cervical spondylosis without acute fracture or trauma-related listhesis. Fleischner guidelines were followed. Electronically signed by: Bam Walden MD 09/29/2024 02:51 PM EDT
[2024-09-29 12:35] VITALS: BP 119/59; PULSE 75; O2SAT 97
--- NOTE | 2024-09-29 12:37 | ECG_ITS ---
Test Reason : fall Blood Pressure : */* mmHG Vent. Rate : 77 BPM Atrial Rate : 77 BPM P-R Int : 174 ms QRS Dur : 122 ms QT Int : 428 ms P-R-T Axes : 33 -13 2 degrees QTcB Int : 484 ms Normal sinus rhythm Left ventricular hypertrophy with QRS widening ( R in aVL , Kameron product ) Cannot rule out Septal infarct , age undetermined Abnormal ECG When compared with ECG of 23-Jan-2023 12:29, Minimal criteria for Septal infarct are now Present Referred By: Herminio Neff Electronically Signed By: NACHO BAL MD
--- NOTE | 2024-09-29 12:37 | ED.FALL ---
HPI - Fall General Chief Complaint: Fall Stated Complaint: R HIP PAIN, FALL, NOSE PAIN, CUT LIP Time Seen by Provider: 09/29/24 12:31 Source: patient and EMS Mode of arrival: EMS Limitations: no limitations History of Present Illness ED Provider: HPI Narrative: 68-year-old woman presenting from nursing facility, she states she usually ambulates with a walker, but she was ambulating to the bathroom and typically when she goes to the bathroom does not use her walker she tripped and fell on her way to the bathroom, she states she has chronic right hip pain but it is worse now, she is on blood thinners as well. She had some blood around her nares and of the airway. Related Data Home Medications ?Medication ?Instructions ?Recorded ?Confirmed cholecalciferol (vitamin D3) 25 25 mcg PO BEDTIME 01/08/20 02/20/23 mcg (1,000 unit) capsule (Vitamin D3) clozapine 100 mg tablet 450 mg PO BEDTIME 01/08/20 02/20/23 ferrous sulfate 325 mg (65 mg 325 mg PO DAILY 01/08/20 02/20/23 iron) tablet folic acid 1 mg tablet 1 mg PO DAILY 01/08/20 02/20/23 lamotrigine 100 mg tablet 100 mg PO BID 01/08/20 02/20/23 (Lamictal) levothyroxine 75 mcg tablet 75 mcg PO DAILY@0600 01/08/20 02/20/23 pravastatin 20 mg tablet 20 mg PO BEDTIME 01/08/20 02/20/23 acetaminophen 325 mg tablet 650 mg PO TID FEVER/PAIN 03/10/20 02/20/23 budesonide 3 mg 3 mg PO MOFR@1000 PRN Diarrhea 03/10/20 02/20/23 capsule,delayed,extended release dextromethorphan-guaifenesin 10 10 ml PO Q4H PRN Cough 03/10/20 02/20/23 mg-100 mg/5 mL oral syrup sennosides 8.6 mg-docusate sodium 1 tab PO DAILY PRN Constipation 04/27/20 02/20/23 50 mg tablet (Senna Plus) apixaban 2.5 mg tablet (Eliquis) 2.5 mg PO BID 12/14/22 02/20/23 gabapentin 100 mg capsule 100 mg PO TID 12/14/22 02/20/23 lisinopril 2.5 mg tablet 2.5 mg PO DAILY 12/14/22 02/20/23 Held on 12/17/22. Instructions: Resume on 12/23/22. start if blood pressure consistently above 140 mmhg and after repeating bmp methocarbamol 500 mg tablet 500 mg PO TID PRN Muscle Spasm 12/14/22 02/20/23 metoprolol tartrate 25 mg tablet 25 mg PO BID 12/14/22 02/20/23 paroxetine HCl 30 mg tablet 30 mg PO DAILY 12/14/22 02/20/23 polyethylene glycol 3350 17 gram 17 g PO DAILY PRN Constipation 12/14/22 02/20/23 oral powder packet (Miralax) prednisone 5 mg tablet 5 mg PO DAILY 12/14/22 02/20/23 triamcinolone acetonide 0.1 % 1 appl topical BID PRN 12/14/22 02/20/23 topical cream eczema/psoriasis ibuprofen 400 mg tablet 400 mg PO Q8H PRN Severe Pain 02/20/23 02/20/23 (Scale Score 7-10) loperamide 2 mg capsule 2 mg PO Q2H PRN Diarrhea 02/20/23 02/20/23 naproxen 250 mg tablet 250 mg PO TID 02/20/23 02/20/23 Previous Rx's ?Medication ?Instructions ?Recorded omeprazole 40 mg capsule,delayed 40 mg PO DAILY@0630 #30 caps 05/01/20 release baclofen 20 mg tablet 20 mg PO BID #1 tab 12/16/22 tramadol 50 mg tablet 50 mg PO Q8H PRN pain #2 tabs 02/20/23 tramadol 50 mg tablet 50 mg PO Q8H PRN pain #20 tabs 02/20/23 amoxicillin 875 mg tablet 875 mg PO BID #10 tabs 04/20/23 bacitracin zinc 500 unit-polymyxin 1 appl topical Q12H #28.4 grams 04/20/23 B 10,000 unit/gram topical ointment Allergies Allergy/AdvReac Type Severity Reaction Status Date / Time bee pollen (Bee Stings) Allergy Severe ANAPHYLAXIS Verified 09/29/24 12:48 Review of Systems Constitutional: Constitutional: Reports as per [facility] Past Medical History Medical History Diastolic CHF Schizoaffective disorder Hypothyroidism Transient cerebral ischemia Lumbar radiculopathy Pulmonary embolism Psychosis Anxiety Bipolar 1 disorder Family History Family History Other Heart disease Social History Social History Household Members: None Housing: Assisted Living Facility Housing Other:: [facility] Do you presently have visiting nurse or other home services: Yes Alcohol intake: never Comment: Pt refusing bed alarm Patient Tobacco Use Status: Never used Tobacco Smoked in Last 30 Days: No Advance Directives: Yes Advance Directives on File: Yes Advance Directives Date on File: 05/02/20 Do you have a plan to hurt others: No Plan service: No Current occupational status: retired Physical Exam Vital Signs: Vital Signs: Last Vital Signs Temp 98 F 09/29/24 12:42 Pulse 75 09/29/24 12:42 Resp 16 09/29/24 12:42 BP 119/59 L 09/29/24 12:42 Pulse Ox 97 09/29/24 12:42 O2 Del Method Room Air 09/29/24 12:42 BMI result Body Mass Index 40.5 Const: Other: Gen: ?No obvious facial deformities, no skull fracture, HEENT: No dental trauma,partial-thickness laceration to the lower lip,right possibly slight swelling of the nasal bridge, with minimal amount of blood on the inside of her right Bell Neck: I cleared his cervical collar using nexus criteria CV: S1-S2 Resp: ?No chest wall tenderness moving air well Abd: ?Bowel sounds are present, no tenderness no rebound no rigidity MSK: Pelvis is stable, no deformities, no shortening, some pain to the internal rotation of right hip Skin: Warm, dry, intact, Neuro: ?Alert and oriented x3, moving upper and lower extremities symmetrically, no obvious facial asymmetry noted Medications Administered Discontinued Medications Generic Name Dose Route Start Last Admin Trade Name Freq PRN Reason Stop Dose Admin Oxycodone HCl 5 mg 09/29/24 12:37 09/29/24 14:02 Oxycodone Hcl Immed Release 5 Mg Tablet PO 09/29/24 12:38 5 mg ONCE ONE Administration Medical Decision Making Medical Decision Making MDM Narrative: Patient is on blood thinners she sustain nonsyncopal fall, we will need imaging to make sure there was no traumatic brain injury, cervical spine collar has been cleared using nexus criteria but giving her age we will scan her neck as well as facial bones she did have some blood in the Bell has suspect she has a nasal fracture, and partial thickness laceration to the lower lip there was no indication for antibiotic or suturing of that, I discussed with her that if she goes home she will have to avoid any salty chips or spicy food and have water after her meals to prevent infection Otherwise she does have right hip pain that is chronic but worse from baseline we will obtain further imaging, disposition to be determined. Differential Diagnosis Differential Diagnoses: The differential diagnosis associated with the presentation includes (Head injury, facial fracture, syncope, hip fracture, neck injury) Admission/Observation Consideration of admission/observation: Escalation of care including admission/observation considered 2022 Emergency Medicine Coding Guide from [email or web address] on 09/29/2024 All calculations should be rechecked by clinician prior to use RESULT SUMMARY: 5 Estimated Level of Service Problems: High (5) Risk: Moderate (4) Data: Extensive (5) NARRATIVE MDM: This patient's problem complexity is High as patient: may have an acute or chronic illness/injury posing a threat to life or body function. This patient's risk is Moderate due to: overall presentation requiring evaluation for a potentially Moderate-risk process. This patient's data complexity is Extensive due to: -multiple tests ordered/reviewed -independent interpretation of imaging or EKG INPUTS: Number and Complexity ?> 2 = 5: illness/injury w/life or body threat (b) Risk level ?> 3 = Moderate Tests ordered ?> 3 = >= Tests results reviewed (excluding labs) ?> 3 = >= Prior external notes reviewed ?> 0 = 0 Assessment requiring and independent historian ?> 0 = No Independent interpretation of tests ?> 1 = Yes Discussed management/test interpretation w/external professional ?> 0 = No Independent Interpretation I performed an independent interpretation of an: EKG (77 beats per minute otherwise normal ECG without dysrhythmia, AV darnell blocks or ST-T changes to suspect underlying ACS, my independent interpretation) and Plain X-Ray (No fractures, bone island has been present on prior x-rays) Radiology Impression Discussion of test interpretation with radiology: I have reviewed the radiologist's reading. Prescription Management I considered prescription management with: Pain Medication Discharge Plan Discharge Clinical Impression: Fall from standing, Laceration of lower lip, Chronic right hip pain Patient Disposition: Home, Self-Care Additional Instructions: Evaluated after a fall, you had CT of the head, neck, face, no obvious fractures, arthritic changes in the neck, you also had x-rays of the hip, there were no fractures of the hip, there was a chronic bone island that can be followed up on outpatient basis with a CAT scan this can be discussed with the your primary care provider, use medications you have been taking before for your pain, as far as lip laceration no salty or spicy foods, drink water after any meals as not to impact food particles and 2 lip laceration it will heal over the next week Prescriptions: No Action clozapine 100 mg Tablet 450 mg PO BEDTIME levothyroxine 75 mcg Tablet 75 mcg PO DAILY@0600 ferrous sulfate 325 mg (65 mg iron) Tablet 325 mg PO DAILY folic acid 1 mg Tablet 1 mg PO DAILY pravastatin 20 mg Tablet 20 mg PO BEDTIME lamotrigine [Lamictal] 100 mg Tablet 100 mg PO BID cholecalciferol (vitamin D3) [Vitamin D3] 25 mcg (1,000 unit) Capsule 25 mcg PO BEDTIME acetaminophen 325 mg Tablet 650 mg PO TID dextromethorphan-guaifenesin 10-100 mg/5 mL Syrup 10 ml PO Q4H PRN (Reason: Cough) budesonide 3 mg Capsule,Delayed,Extend.Release 3 mg PO MOFR@1000 PRN (Reason: Diarrhea) sennosides-docusate sodium [Senna Plus] 8.6-50 mg tablet 1 tab PO DAILY PRN (Reason: Constipation) omeprazole 40 mg Capsule,Delayed Release(Dr/Ec) 40 mg PO DAILY@0630 Qty: 30 0RF bacitracin zinc-polymyxin B 500-10,000 unit/gram ointment 1 appl topical Q12H Qty: 28.4 0RF amoxicillin 875 mg tablet 875 mg PO BID Qty: 10 0RF prednisone 5 mg tablet 5 mg PO DAILY paroxetine HCl 30 mg tablet 30 mg PO DAILY gabapentin 100 mg capsule 100 mg PO TID lisinopril 2.5 mg tablet 2.5 mg PO DAILY metoprolol tartrate 25 mg tablet 25 mg PO BID Eliquis 2.5 mg tablet 2.5 mg PO BID methocarbamol 500 mg Tablet 500 mg PO TID PRN (Reason: Muscle Spasm) polyethylene glycol 3350 [Miralax] 17 gram Powder In Packet 17 g PO DAILY PRN (Reason: Constipation) triamcinolone acetonide 0.1 % Cream 1 appl TOPICAL BID PRN (Reason: eczema/psoriasis) baclofen 20 mg tablet 20 mg PO BID Qty: 1 0RF tramadol 50 mg tablet 50 mg PO Q8H PRN (Reason: pain) Qty: 20 0RF loperamide 2 mg Capsule 2 mg PO Q2H PRN (Reason: Diarrhea) Rx Instructions: administer after each loose stool until symptoms controlled; do not exceed 16 mg per 24 hrs naproxen 250 mg tablet 250 mg PO TID Rx Instructions: END DATE: 02/23/23 ibuprofen 400 mg Tablet 400 mg PO Q8H PRN (Reason: Severe Pain (Scale Score 7-10)) tramadol 50 mg tablet 50 mg PO Q8H PRN (Reason: pain) Qty: 2 0RF Referrals: Bal Temple MD [Primary Care Provider, Internal Medicine] - 2 weeks Clinical Impression: Fall from standing Print Language: Romansh
[2024-09-29 12:42] VITALS: BP 119/59; PULSE 75; RESP 16; TEMP 36.6; O2SAT 97; BMI 40.5
--- OUTSIDE RECORDS SUMMARY | 2024-09-29 13:50 | XMS_ITS | Encounter Summary ---
Author Organization [facility] Address [address] [place] [address] Care Team Providers Care Nuclear Licensing Engineer Name Role Phone Bal Temple MD Primary Care Provider [phone] Encounter Details Date Type Department Care Team (Late st Contact Info) Description 03/15/2024 Lab Requisition [facility] - Main Lab [address] [facility] [place] [address] Dagmar Armas MD [address] [place] [address] Bipolar II disorder (CMS/HCC V24, CMS/HCC V28); Hypothyroidism, unspecified; Hyperlipidemia, unspecified; Essential (primary) hypertension Social History Tobacco Use Types Packs/Day Years Used Date Smoking Tobacco: Never Smokeless Tobacco: Never Alcohol Use Standard Drinks/Week Comments No 0 (1 standard drink = 0.6 oz pur e alcohol) Comments No Sex and Gender Information Value Date Recorded Sex Assigned at Female 03/08/2024 1:35 PM EST Legal Sex Female 8:17 PM EST Gender Identity Female 03/08/2024 1:35 PM EST Sexual Orientation Choose not to disclose 2024 1:35 PM EST documented as of this encounter Plan of Treatment Not on file documented as of this encounter Procedures Procedure Name Priority Date/Time Associated Diagnosis Comments CBC WITH AUTO DIFFERENTIAL Routine 03/16/2024 6:44 AM EST Bipolar II disorder (CMS/HCC) Hypothyroidism, unspecified Hyperlipidemia, unspecified Essential (primary) hypertension CBC AND DIFFERENTIAL Routine 03/16/2024 6:44 AM EST Bipolar II disorder (CMS/HCC) Hypothyroidism, unspecified Hyperlipidemia, unspecified Essential (primary) hypertension documented in this encounter Results * (ABNORMAL) CBC auto differential (03/16/2024 6:44 AM EST) WBC 6.7 4.8 - 10.8 K/mcL LAB HEMETOLOGY METHOD 03/16/2024 9:21 AM [facility] RBC 3.60(L) 3.80 - 4.80 M/mcL LAB HEMETOLOGY METHOD 03/16/2024 9:21 AM [facility] Hemoglobin 12.0 11.5 - 16.0 g/dL LAB HEMETOLOGY METHOD 03/16/2024 9:21 AM [facility] Hematocrit 37.8 35.0 - 47.0 % LAB HEMETOLOGY METHOD 03/16/2024 9:21 AM [facility] MCV 104.7(H) 79.0 - 98.0 FL LAB HEMETOLOGY METHOD 03/16/2024 9:21 AM [facility] MCH 33.2(H) 27.0 - 32.0 pcg LAB HEMETOLOGY METHOD 03/16/2024 9:21 AM [facility] MCHC 31.7(L) 32.0 - 37.0 g/dL LAB HEMETOLOGY METHOD 03/16/2024 9:21 AM [facility] RDW 12.8 11.0 - 15.0 % LAB HEMETOLOGY METHOD 03/16/2024 9:21 AM [facility] Platelets 204 130 - 400 K/mcL LAB HEMETOLOGY METHOD 03/16/2024 9:21 AM [facility] MPV 10.3 7.0 - 11.0 FL LAB HEMETOLOGY METHOD 03/16/2024 9:21 AM [facility] NRBC 0.0 <1.0 % LAB HEMETOLOGY METHOD 03/16/2024 9:21 AM [facility] NRBC Absolute 0.00 <0.10 K/mcL LAB HEMETOLOGY METHOD 03/16/2024 9:21 AM [facility] Neutrophils Relative 45.5 % LAB HEMETOLOGY METHOD 03/16/2024 9:21 AM [facility] Lymphocytes Relative 36.8 % LAB HEMETOLOGY METHOD 03/16/2024 9:21 AM [facility] Monocytes Relative 10.8 % LAB HEMETOLOGY METHOD 03/16/2024 9:21 AM [facility] Eosinophils Relative 5.0 % LAB HEMETOLOGY METHOD 03/16/2024 9:21 AM [facility] Basophils Relative 0.9 % LAB HEMETOLOGY METHOD 03/16/2024 9:21 AM [facility] Immature Granulocytes Relative 1.0 % LAB HEMETOLOGY METHOD 03/16/2024 9:21 AM [facility] Neutrophils Absolute 3.06 1.50 - 7.00 K/mcL LAB HEMETOLOGY METHOD 03/16/2024 9:21 AM [facility] Lymphocytes Absolute 2.48 1.00 - 5.00 K/mcL LAB HEMETOLOGY METHOD 03/16/2024 9:21 AM [facility] Monocytes Absolute 0.73 0.20 - 1.00 K/mcL LAB HEMETOLOGY METHOD 03/16/2024 9:21 AM [facility] Eosinophils Absolute 0.34 0.00 - 0.50 K/mcL LAB HEMETOLOGY METHOD 03/16/2024 9:21 AM [facility] Basophils Absolute 0.06 0.00 - 0.20 K/mcL LAB HEMETOLOGY METHOD 03/16/2024 9:21 AM [facility] Immature Granulocytes Absolute 0.07(H) 0.00 - 0.03 K/mcL LAB HEMETOLOGY METHOD 03/16/2024 9:21 AM EST [facility] Blood Venous blood specimen / Unknown Venipuncture / Unknown 03/16/2024 6:44 AM EST 03/16/2024 9:14 AM EST us Dagmar Armas MD LAB BLOOD ORDERABLES Final Resul t [facility] [address] [place] [address], documented in this encounter Visit Diagnoses Diagnosis Bipolar II disorder (CMS/HCC V24, CMS/HCC V28) Other bipolar disorders Hypothyroidism, unspecified Hyperlipidemia, unspecified Essential (primary) hypertension Unspecified essential hypertension documented in this encounter Care Teams Nuclear Licensing Engineer Relationship Specialty Start Date End Date Bal Temple MD [address] [place] [address] [facility] [place], [place] PCP - General Internal Medicine 01/05/18 documented as of this encounter
[2024-09-29] MEDS: oxyCODONE HCl Immed Release 5 MG TABLET PO (14:02)
[2024-09-29 15:34] VITALS: BP 119/59; PULSE 75; RESP 16; TEMP 36.6; O2SAT 97
[2024-09-29 15:36] VITALS: BP 119/59; PULSE 75; RESP 16; TEMP 36.6; O2SAT 97
[2024-09-29 18:30] VITALS: BP 122/69; PULSE 80; RESP 16; TEMP 36.7; O2SAT 95
== END 2024-09-29 18:46 | disposition home or self-care (01) ==
PROVIDERS: Emergency Provider Emergency Medicine; PCP Internal Medicine
DX: S01.511A Laceration without foreign body of lip, initial encounter (principal); M25.551 Pain in right hip; R51.9 Headache, unspecified; R94.31 Abnormal electrocardiogram [ECG] [EKG]; X58.XXXA Exposure to other specified factors, initial encounter; W01.0XXA Fall on same level from slipping, tripping and stumbling without subsequent striking against object, initial encounter; Y93.9 Activity, unspecified; Y92.002 Bathroom of unspecified non-institutional (private) residence as the place of occurrence of the external cause; Y99.8 Other external cause status
CPT/HCPCS: 70450; 70486; 72125; 73502; 93005; 99284; 99285

== ENCOUNTER → 2024-09-29 12:37 | Outpatient (BNV) | payer MEDICARE, MEDICAID, SELFPAY | PROVIDERS: Emergency Provider Emergency Medicine; PCP Internal Medicine; Visit Provider Radiology Diagnostic Radiology | DX: M47.812 Spondylosis without myelopathy or radiculopathy, cervical region (principal); S09.92XA Unspecified injury of nose, initial encounter | CPT/HCPCS: 70486; 72125 ==

== ENCOUNTER → 2024-09-29 12:37 | Outpatient (BNV) | payer MEDICARE, MEDICAID, SELFPAY | PROVIDERS: Emergency Provider Emergency Medicine; PCP Internal Medicine; Visit Provider Internal Medicine Cardiovascular Disease | DX: I51.7 Cardiomegaly (principal) | CPT/HCPCS: 93010 ==